=== PATIENT | female | born 1955 | race Caucasian/White ===

== ENCOUNTER 2023-12-10 00:57 | Inpatient (IN) | payer MEDICARE, OTHER, SELFPAY ==
[2023-12-09] MEDS: ATIVAN 2 MG IV (23:48)
[2023-12-09 23:51] VITALS: BP 123/76
[2023-12-09 23:54] VITALS: BP 123/76
[2023-12-09 23:58] VITALS: BMI 39.6
[2023-12-10] VITALS (85 sets, daily range): BP systolic 42–157; BP diastolic 26–112; BMI 34.5
[2023-12-10 00:03] LABS: % Eosinophils 0.7 % (0-6); % Immature Granulocytes 5.1 % (0-0.5); % Lymphocytes 46.9 % (20.5-51.1); % Monocytes 4.9 % (1.7-9.3); % Neutrophils 41.4 % (42.2-75.2); Absolute Basophils 0.3 10^3/uL (0-0.2); Absolute Eosinophils 0.2 10^3/uL (0-0.7); Absolute Immature Granulocytes 1.3 10^3/uL (0-0.05); Absolute Monocytes 1.3 10^3/uL (0.1-0.6); Absolute Neutrophils 10.6 10^3/uL (1.4-6.5); Hematocrit 45.9 % (37.0-47.0); Hemoglobin 15.5 g/dL (12.0-16.0); Mean Corp Hgb Conc. 33.8 g/dL (33.0-37.0); Mean Corpuscular Hgb 32.4 pg (27.0-31.0); Mean Platelet Volume 12.1 fL (7.4-10.4); Nucleated Red Blood Cells % 0.2 %; Platelet Count 250 10^3/uL (130-400); Red Blood Cell Count 4.78 10^6/uL (4.20-5.40); White Blood Cell Count 25.6 10^3/uL (4.8-10.8)
[2023-12-10] MEDS: NORCURON 10 MG IV (00:05)
--- NOTE | 2023-12-10 00:08 | EDRN ---
Pt. arrives from home via EMS ([place]). Upon arrival to home pt. was found ashen and altered. EMS applied CPAP in truck with no improvement, pt. was bagged, heart rated dropped, CPR performed by EMS. Three rounds of epi administered by EMS. HR
did not improve, pt. was intubated in route 7.5 tube, 24 at the [facility], no b/p reported by EMS, 1ml 1-100 ml epi given in route.
Respiratory at bedside upon arrival, respiratory rate 16, 450 tidal volume, 100%, peep 5, entitle 35.
23:48 2mg ativan given
23:49 xray at bedside
23:50 40 mg diprivan given B. Noh
23:41 second 40 mg diprivan given B. Noh
23:51 50 mcg diprivan drip started LAC
23:54 20 mg diprivan given
00:01 diprivan drip reduced to 25 mcg
00 05 10 mg vecuronium given
00:10 NSS 1000ml bolus started
00:20 OG tube inserted
[2023-12-10] MEDS: NSS 500 IV (00:10)
--- NOTE | 2023-12-10 00:14 | ED.GENMED ---
History of Present Illness
General
Chief Complaint: Breathing Problem
Source: patient and ambulance crew
Exam Limitations: clinical condition
Time Seen by Provider: 12/09/23 23:55
Nursing documentation reviewed up to this point in time: agreed with
Travel History
Have you had any contact with someone who has COVID-19?: Unable to Answer
Do you have any symptoms of coronavirus? Fever > 100 degrees, chills, cough, shortness of breath, sore throat, loss of taste or smell, muscle aches, or headache?: Unable to Answer
History of Present Illness
History of Present Illness:
Patient with history of COPD, presents to emergency department, after being intubated prehospital, secondary to respiratory arrest. Per paramedics, called to scene secondary to shortness of breath, and found patient in respiratory distress.
Patient was placed on CPAP as she was being transported onto the ambulance. Shortly afterwards, patient was noted to become bradycardic and unresponsive. Patient was given 3 rounds of epi and intubated, with rastafarian of pulse. Upon arrival,
patient is intubated and unable to provide any further information.
Past History
Past History
ED Past Medical History: Asthma, GERD, HTN, Hypercholesterolemia, Hypothyroidism and Other (Has a history of anxiety, depression, diverticulitis, multiple abdominal hernias, degenerative joint disease, fibromyalgia); Negative IDDM
ED Past Surgical History: Bowel resection (Diverticulitis ), Cholecystectomy and Tonsilectomy
Social History
Tobacco: Smoker
Alcohol: None
Drug: None
Personal:
Living: with family
Employment: Employed
Family History
Family History: Hypertension
Review of Systems
Review of Systems
Allergies reviewed?: Yes
Unable to obtain full review of systems at this time due to: due to acuity
All Other Systems: Not applicable
Phy Exam
Physical Exam
Physical Exam:
Physical Exam
General: moderate distress, acutely ill. afebrile. obese.
Head: nc/at.
Neck: supple. no meningeal signs.
Heart: s1/s2 regular rate and rhythm, no murmur. equal radial pulses.
Lungs: rhonchi bilaterally on ventilator
Abdomen: normal bowel sounds.
Neuro: intubated, sedated.
Skin: no rash
Extremities: LE b/l edema.
Scores
Heart Failure Risk
Heart Failure Risk Score: Not Applicable
Course
Orders/Labs/Results
Orders:
Orders
12/09/23 23:46
Lorazepam [Ativan] 2 mg .ROUTE .STK-MED ONE
12/09/23 23:47
Propofol 1,000,000 Mcg/100 ml [Diprivan] 1,000,000 mcg in 100 ml .ROUTE .STK-MED
12/09/23 23:48
Cardiac Monitoring- Treatment ONCE
EKG- Treatment ONCE
IV Insert/Care/Rem.- Treatment PRN
CR Chest Portable - 1 View Urgent
Reason For Exam: respiratory distress
O2 Therapy [RESP] Urgent
Titrate/Wean O2 to maintain O2 sat greater than (%): 93
Special Instructions: TO MAINTAIN CONTINUOUS O2 SATS >/= 93%
Pulse Ox/cont/shift [RESP] Urgent
Quantity: 1
Special Instructions: continuous pulse ox
12/09/23 23:53
Complete Blood Count/With Diff Urgent
NT-proBNP Urgent
Troponin I Urgent
12/09/23 23:55
Lactic Acid Urgent
Blood Culture Urgent
NGOZI Source: Blood/Venous
Specimen Description:
12/10/23 00:02
Propofol 1,000,000 Mcg/100 ml [Diprivan] 1,000,000 mcg in 100 ml IV NOW
Indication:: Light Sedation
Begin Infusion:: Now
Goal:: RASS 0 to -2
Maximum dose in mcg/kg/min:: 50
Initial dose based on RASS:: Yes
If RASS is:: +1 or pt hemodynamically unstable (SBP < 90mmHg), initiate at 10 mcg/kg/min
If RASS is:: +2, initiate at 20 mcg/kg/min
If RASS is:: greater than or equal to +3, initiate at 30 mcg/kg/min
Titration Instructions:: Titrate by 5-10 mcg/kg/min every 5 minutes until RASS 0 to -2 achieved.
Taper Instructions:: If RASS is at or below goal for 4 consecutive hours decrease infusion by
Taper Instructions:: 5-10 mcg/kg/min every 2 hours to off.
Over-sedation Instructions:: If CPOT 0-2 (at goal) AND RASS -3 to -5 (below goal) decrease sedative by
Over-sedation Instructions:: 50% first. If pain score remains at goal and RASS remains below goal in
Over-sedation Instructions:: 1 hour, decrease opioid infusion by 50%.
Notify provider:: immediately if patient exhibits signs/symptoms of propofol-related
Notify provider:: infusion syndrome.
Additional Instructions:: Patient MUST be mechanically ventilated and MUST receive analgesia.
Vecuronium [place] [Norcuron] 10 mg IV NOW STA
12/10/23 00:03
0.9% Sodium Chloride 500 ml [Nss] 500 ml IV BOLUS
Lorazepam [Ativan] 2 mg IV NOW STA
12/10/23 00:22
CT Head W/o Iv Contrast Urgent
Comment:
Reason For Exam: mental status change
12/10/23 00:34
Admit/Transfer Patient As Directed
Co-Sign Provider:
Level of Care: Inpatient admission
Assign to:: ICU
Physician / Group: [email or web address]
Diagnosis: acute VDRF presumed COPD flare with respiratory failure. s/p brief CPR
Reason for Hospitalization: acute VDRF presumed COPD flare with respiratory failure. s/p brief CPR
Expected length of stay greater than two midnights?: Yes
ELOS- Estimated Length of Stay in days: 5
I certify the patient meets the requirements for IP care: Yes
12/10/23 00:36
Code Status As Directed
Resuscitation Status: Full Code
12/10/23 00:38
COVID-19 Antigen Urgent
Source: Nasal Swab
12/10/23 00:39
Arterial Blood Gas Urgent
%Oxygen/Room Air: 80
Procalcitonin Urgent
PCT Algorithmm Indication: Respiratory
12/10/23 00:52
Blood Culture Urgent
NGOZI Source: Blood/Venous
Specimen Description:
12/10/23 02:22
Ipratropium/Albuterol Sulfate [Duoneb] 3 ml INH R Q4HPRN PRN
12/10/23 02:22
CARDIOLOGY CONSULT Routine
Consulting Provider: Paty Andersen
Was physician already notified: No
Reason for consult: acute VDRF presumed COPD flare with respiratory failure. s/p brief CPR
Consult Notification Routine
Specialty to Notify: Cardiology
Date consulting provider notified: 12/10/23
Time consulting provider notified: 07:52
Notified:: Provider
Export Agent Consult Urgent
Consulting Provider: Gibran Sanchez
Was physician already notified: Yes
Reason for consult: acute VDRF presumed COPD flare with respiratory failure. s/p brief CPR
Activity As Directed
Activity Level: With Assistance
Intake/ Output As Directed
Frequency: Per unit guidelines
Nursing to Place Non Medication Order As Directed
Physician Order: for small bore tube for nutrition and meds
Above order entered?: Yes
Vital Signs As Directed
Frequency: Per unit guidelines
Copd Education [RESP] Routine
DX Deep Vein Thrombosis Video Routine
12/10/23 03:00
Dexamethasone Sod Phosphate [Decadron] 6 mg IV Q6H
12/10/23 03:40
Influenza A+B Rapid Molecular Urgent
NGOZI Source: Nasal Swab
Specimen Description:
12/10/23 06:00
Electrocardiogram (*1) IN AM
Reason for Study: Other
Other Reason for Exam: s/p CPR
NPO
Allow oral meds: No
Allow clear liquids: No
NPO with Ice Chips: No
12/10/23 08:00
Ipratropium/Albuterol Sulfate [Duoneb] 3 ml INH R QID
12/10/23 08:48
Arterial Blood Gas IN AM
%Oxygen/Room Air: 100
12/10/23 18:00
Enoxaparin Sodium [Lovenox] 40 mg SC QPM
12/10/23 20:30
Respiratory Culture/Gram Stain Urgent
NGOZI Source: Sputum
Specimen Description:
Date Specimen was Collected: 12/10/23
Time Specimen was Collected: 20:25
Abnormal Lab Results
12/09/23 12/09/23 12/10/23
23:53 23:55 00:39
WBC 25.6 H 10^3/uL
(4.8-10.8)
MCH 32.4 H pg
(27.0-31.0)
RDW 15.0 H %
(11.5-14.5)
MPV 12.1 H fL
(7.4-10.4)
Abs Immat Gran (auto) 1.3 H 10^3/uL
(0-0.05)
Absolute Neuts (auto) 10.6 H 10^3/uL
(1.4-6.5)
Absolute Lymphs (auto) 12.0 H 10^3/uL
(1.2-3.4)
Absolute Monos (auto) 1.3 H 10^3/uL
(0.1-0.6)
Absolute Basos (auto) 0.3 H 10^3/uL
(0-0.2)
Immature Gran % 5.1 H %
(0-0.5)
Neutrophils % 41.4 L %
(42.2-75.2)
pH 7.09 L*
(7.35-7.45)
pCO2 53 H mmHg
(32-35)
pO2 122 H mmHg
(83-108)
HCO3 16.1 L mmol/L
(21-28)
ABG O2 Sat (Measured) 99.1 H %
(94-98)
Lactic Acid 13.8 H* mmol/L
(0.7-2.0)
Troponin I 0.053 H* ng/ml
12/09/23 23:53
12/09/23 23:53
Vital Signs
Initial and Last Documented VS:
Initial Vital Signs
Temp BP Pulse Ox
98.3 F 123/76 98
12/09/23 23:51 12/09/23 23:51 12/09/23 23:51
Last Documented Vital Signs
Temp Pulse Resp BP Pulse Ox
99.0 F 84 20 100/59 97
12/10/23 19:02 12/10/23 19:33 12/10/23 19:33 12/10/23 18:00 12/10/23 19:34
MDM/Problems Addressed
MDM/Problems Addressed:
Patient received in ED, intubated prehospital. Upon arrival, patient with ET tube in place, with eyes wide open, but not following any commands. At that time, decision made to sedate the patient with Ativan and propofol infusion. Breath sounds
equal, though coarse, during initial evaluation. Chest x-ray confirmed ET tube placement.
Patient will be admitted to ICU for further evaluation and treatment.
Discussed with Dr. Sanchez, hvac service manager, regarding potential cooling treatment. In light of patient's respiratory arrest, with unknown loss of pulse via history, does not feel that patient requires cooling treatment at this time. However, does
recommend keeping close eye on her temperature, to ensure that patient's temperature does not spike. In addition, recommends obtaining CT head in route to ICU.
Discussed with spouse at bedside and provided update. Per spouse, patient was at her baseline health, but suddenly became sob, during sexual intercourse. Pt never passed out at any point until she was transported to ambulance.
Critical care statement: A total of 60 minutes of critical care time was provided for this patient. This includes management of unstable vital signs, evaluation of the patient at bedside, reviewing the patient's pertinent medical records, discussion
with consultants, review of old EKGs and review of pertinent medical records. This time with separate from time utilized to perform the aforementioned documented procedures
*Critical Care Note
Total Time (30-74mins, 75-104mins- exclusive of procedures): 60 min
ED Attending Note
-
Portions of this chart may have been created with voice recognition software.� Occasional wrong word or��sound alike� substitutions may have occurred due to the inherent limitations of voice recognition software.
Discharge Plan
Departure
Patient Disposition: Admit
Date of Disposition: 12/10/23
Time of Disposition: 00:30
Admit to: ICU
Presentation/result/management discussed w/ accepting MD/DO: Hospitalist
Discharge Problem:
Respiratory failure
Interventions
Interventions:
*General Assessment Last Done: 12/10/23 00:30
*Neglect/Abuse Screening Last Done: 12/10/23 00:30
ED- Fall Risk Assessment Last Done: 12/10/23 00:30
*ED COVID-19 Vaccine History Last Done: 12/10/23 00:30
*Nursing Disposition Last Done: 12/10/23 02:31
ED- Cardiac Assessment Last Done: 12/10/23 00:30
ED- Pulmonary Assessment Last Done: 12/10/23 00:30
Discharge Date and Time
Discharge Date/Time: 12/10/23 02:25
[2023-12-10] MEDS: DIPRIVAN 100 IV ×4 (00:24→20:24)
--- NOTE | 2023-12-10 00:29 | HPS.HSE ---
Family Physician
-
Family Physician: INTERVIEWE UNKNOWN - PT NOT
Chief Complaint
-
Pre-hospital intubation due to respiratory failure. Brief CPR performed pre-hospital with 3 rounds of epi.
History of Present Illness
68F [facility] , HX COPD with pre-hospital intubation due to respiratory failure.
Brief CPR performed pre-hospital with 3 rounds of epi.
According to spouse, while they are having sexual intercourse , and he thought she was having an orgasm but noted she gasped and went unconscious.
She was usual state of health prior to this event.
No prior HX intubation.
Medical History
Past Medical History
Past Medical History: Reports Other
Additional Past Medical History:
Asthma, GERD, HTN, Hypercholesterolemia, Hypothyroidism, Other (Has a history of anxiety, depression, diverticulitis, multiple abdominal hernias, degenerative joint disease, fibromyalgia)
Past Surgical History: Reports Other
Additional Past Surgical History:
cataract extraction and laminectomy
Colon resection,
cholecystectomy, hernia repair with large mass, bilateral shoulder surgery,
bilateral knee surgeries and back surgeries.
Social History
Unable to obtain full social history at this time due to: Patient Intubation
Family History
Family History: Not pertinent
Allergies / Home Medications
Allergies reflects when Allergies were last updated in [employer].
Home Medications with original date entered in [employer]
Allergy/Medication List:
Allergies
Allergy/AdvReac Type Severity Reaction Status Date / Time
adhesive Allergy TAPE-SWELLING,RIPS Verified 07/19/17 12:51
SKIN OFF
Iodinated Contrast Media Allergy Pharmacy Verified 07/19/17 12:51
[Iodinated Contrast Media - to Review
IV Dye]
levofloxacin [From Levaquin] Allergy shiva fisher Verified 07/19/17 12:51
ing
morphine Allergy blood Verified 07/19/17 12:51
pressure
drops,
itching,
hyper
contrast dye (oral) Allergy Vomiting Uncoded 06/03/14 11:23
pollen Allergy sneezing,coughing, Uncoded 06/03/14 11:23
coughing
Home Medications
lisinopril 10 mg tablet (Prinivil) 15 mg PO DAILY 06/21/08
alprazolam 1 mg tablet (Xanax) 1 mg PO PRN PRN anxiety 08/30/10
zolpidem 10 mg tablet 10 mg PO HS 08/31/10
Fish Oil 1 cap PO DAILY 10/21/11
fluoxetine 20 mg capsule 60 mg PO DAILY 10/21/11
gabapentin 300 mg capsule 300 mg PO TID 10/21/11
Multivitamin 1 tab PO QPM 07/02/13
Protonix: 40 mg PO DAILY 07/02/13
Tricor 160 mg PO DAILY 07/02/13
furosemide 20 mg tablet 20 mg PO DAILY 07/02/13
levothyroxine 150 mcg tablet 150 mcg PO .TUES/THURS/SAT/SUN 07/02/13
Co Q-10 1 tab PO DAILY 06/03/14
hydromorphone 4 mg tablet 4 mg PO PRN PRN pain 06/03/14
red yeast rice 600 mg tablet 1 tab PO DAILY 06/03/14
Vitamin D3 1 tab PO DAILY 02/14/15
aspirin 81 mg tablet,delayed release 81 mg PO DAILY 02/14/15
carisoprodol 350 mg tablet 350 mg PO PRN PRN muscle spasms 02/14/15
levothyroxine 137 mcg tablet 137 mcg PO MOWEFR 02/14/15
cephalexin 500 mg capsule (Keflex) 500 mg PO BID #20 caps 07/19/17
ibuprofen 600 mg tablet 600 mg PO Q6 #20 tabs 07/19/17
oxycodone-acetaminophen 5 mg-325 mg tablet 1 tab PO Q4HPRN PRN Pain #15 tabs 07/19/17
sulfamethoxazole 800 mg-trimethoprim 160 mg tablet 1 tab PO BID #20 tabs 07/19/17
If medication reconciliation has not been performed, why?: Other (pending Rx reconcilliation )
Review of Systems
-
Constitutional: Reports No Symptoms
EENT: Reports No Symptoms
Respiratory: Reports Other (intubated )
Cardiac: Reports No Symptoms
Abdomen/GI: Reports No Symptoms
: Reports No Symptoms
Musculoskeletal: Reports No Symptoms
Skin: Reports No Symptoms
Neurological: Reports No Symptoms
Endocrine: Reports No Symptoms
Hematologic/Lymphatic: Reports No Symptoms
Psych: Reports No Symptoms
Physical Exam
Vital Signs
Vital Signs
Pulse Resp BP Pulse Ox
86 28 97/62 100
12/10/23 00:00 12/10/23 00:00 12/10/23 00:00 12/10/23 00:00
Physical Exam
General: Other (see below )
Laboratory Results
-
12/09/23 23:53
12/09/23 23:53
Laboratory Results
Total Bilirubin Cancelled 12/09/23 23:53
AST Cancelled 12/09/23 23:53
ALT Cancelled 12/09/23 23:53
Alkaline Phosphatase Cancelled 12/09/23 23:53
Data Reviewed
-
Diagnostic Radiology: Other (pending CXR report )
Medical Tests (Nuc Med, Echo, EKG etc): Report Reviewed by me
Lab Data: Labs Reviewed by me
Old Records: Reviewed
Impression/Plan
-
Reviewed VS: Pending Temp. RR 28 POX 100 on Vent HR 86 BP 125/75--> 95/60
PE
Gen:Morbidly obese . sedated and intubated
HEENT: intubated
Neck: supple
Lungs: symmetric AE
Cor: RRR S1 S2
Abdomen: obese
SALES PROMOTION REPRESENTATIVE: sedated
Psych: intubated
Data
WCC 25
Pending CMP
Pending LA
Pending pro BNP, procalcitonin and TPNI
BCx sent
CXR pending report
Pending HCT
EKG
SINUS RHYTHM WITH PREMATURE ATRIAL COMPLEXES WITH Aberrant conduction
NON-SPECIFIC INTRA-VENTRICULAR CONDUCTION DELAY
T WAVE ABNORMALITY, CONSIDER INFERIOR ISCHEMIA
PROLONGED QT
ABNORMAL ECG
WHEN COMPARED WITH ECG OF 09-SEP-2021 13:10,
PREMATURE VENTRICULAR COMPLEXES ARE NO LONGER PRESENT
QUESTIONABLE CHANGE IN QRS DURATION
10/21 ECHO
LVEF 60
Borderline aortic stenosis, peak/mean gradient 22/13 mmHg, mild eccentric aortic regurgitation
Last hospitalist admission: nil
ASSESSMENT & PLAN
ER disposition to Hospitalist pending esssentila labs, pending ABG, pending Rx reconciliation
Pre hospital intubated patient
Acute VDRF
Presumed COPD exacerbation with respiratory failure.
- cont. sedation with propofol gtt
- await ABG
- Pending LA, pro BNP, procalcitonin and TPNI
- check Covid Ag, Flu A & B
- Resp Cx
- BCx sent
- ER attd dw division traffic superintendent - does not recommend cooling, but recommends to keep close of temp - to make sure she doesn't spike temp
- Internal Control Analyst consulted
S/p Brief CPR performed pre-hospital with 3 rounds of epi.
In NSR
- trend TPNI
- f/u BNP
- DCA card consult
Known HX
Class III morbid Obesity- BMI 40.0-49.9
HX chronic pain
HX spondylolisthesis L5 - S1 with Lumbosacral radiculopathy
Lipoma of left lower extremity
HX Kidney lesion
HX PAM (generalized anxiety disorder)
Hyperlipidemia
Essential HTN
HX Insomnia
HX De Quervain's disease (tenosynovitis)
Hypothyroidism E03.9 confirmed
GERD
Former smoker
HX falling
DVT Px: LMWH
Code: Full code
ICU
[2023-12-10 00:43] LABS: B.E. -14.2 mmol/L; HCO3 16.1 mmol/L (21-28); O2 Saturation % 99.1 % (94-98); PCO2 53 mmHg (32-35); PO2 122 mmHg (83-108)
[2023-12-10 00:49] LABS: pH 7.09 (7.35-7.45)
[2023-12-10 00:49] LABS: NT-proBNP 324 pg/ml; Troponin I 0.053 ng/ml
[2023-12-10 01:27] LABS: COVID-19 Antigen Negative (Negative)
[2023-12-10 01:31] LABS: Procalcitonin < 0.05 ng/ml (0.0-0.25)
[2023-12-10 01:35] LABS: ALT (SGPT) 89 U/L (0-35); AST (SGOT) 164 U/L (14-36); Albumin 3.9 g/dl (3.5-5.0); Alkaline Phosphatase 70 U/L (38-126); Blood Urea Nitrogen 22 mg/dl (7-17); Calcium 9.5 mg/dl (8.4-10.2); Carbon Dioxide 18 mmol/L (22-30); Chloride 104 mmol/L (98-107); Estimated Creatinine Clearance 60 ml/min; Glucose 220 mg/dl (70-99); Potassium 4.2 mmol/L (3.5-5.1); Sodium 140 mmol/L (135-145); Total Bilirubin 0.6 mg/dl (0.2-1.3); Total Protein 5.9 g/dl (6.3-8.2); eGFR > 60.00
[2023-12-10 01:56] LABS: Lactic Acid 13.8 mmol/L (0.7-2.0)
--- NOTE | 2023-12-10 02:14 | W.PN.UPDATE ---
Update Note
Progress Note Update
Fiollow up pending labs
Laboratory Tests
12/09/23 12/09/23 12/10/23
23:53 23:55 00:38
pH
pCO2
pO2
HCO3
Carbon Dioxide
BUN
Creatinine
eGFR
Glucose
Lactic Acid 13.8 H*
AST
ALT
Troponin I 0.053 H*
[id number] Pept 324
Procalcitonin
SARS-CoV-2 Antigen Negative
12/10/23 12/10/23 12/10/23
00:39 00:39 00:39
pH 7.09 L*
pCO2 53 H
pO2 122 H
HCO3 16.1 L
Carbon Dioxide 18
BUN 22
Creatinine 1.0
eGFR >60
Glucose 220
Lactic Acid
AST 164
ALT 89
Troponin I
[id number]-I-Xxjsnoxivjk Pept
Procalcitonin < 0.05
SARS-CoV-2 Antigen
ABG
Primary chronic Resp acidosis
Secondary metabolic acidosis
Additional metabolic alkalosis
Elevated LFTs due to shock liver
NEG procalcitonin essentially r/o sepsis or bacterial infection
[2023-12-10] MEDS: NSS 1000 IV ×4 (03:16→23:50)
[2023-12-10] MEDS: LEVOPHED 250 IV ×3 (03:18→19:38)
[2023-12-10] MEDS: DECADRON 6 MG IV ×4 (03:23→21:23)
--- NOTE | 2023-12-10 03:49 | W.PN.UPDATE ---
Update Note
Progress Note Update
Operation/Procedure: right radial arterial line placement
Consent for operation or procedure: Emergent need due to patient condition - need for invasive monitoring per protocol
Indications: Hemodynamic monitoring
After properly positioning the patient's wrist in the standard fashion, the site was prepped and draped in a sterile fashion. Next, the radial artery was entered, noting bright red, pulsatile flow. A guidewire was easily inserted, the needle
removed, and the catheter was then placed using the Seldinger technique. The guidewire was removed, with good flow present. The catheter was then connected to the transducer with a good waveform noted.
Complications: The patient tolerated the procedure well and no complications were noted.
Estimated Blood Loss: minimal
Plan: Arterial line to remain in place for hemodynamic monitoring.
--- NOTE | 2023-12-10 04:00 | PTCARENOTE ---
Received pt from ER,intubated and sedated,pt tolerated transfer well.Pts MAP 50s,SB cardiac/vascular sonographer,afebrile with a core temp value,received after insertion of andino catheter,which is needed for accurate output.Pt incontinent of rubin liquid
stool,rectal trumpet inserted.Pt maintained on ventilator,O2 sats 99%,volumes consistent.See worklist for complete assessment.Close observation ongoing throughout this am.
[2023-12-10 04:08] LABS: Lactic Acid 2.7 mmol/L (0.7-2.0)
[2023-12-10] MEDS: SUBLIMAZE 100 MCG IV (05:42)
[2023-12-10] MEDS: ZOFRAN 4 MG IV (05:55)
[2023-12-10 07:22] LABS: TSH 1.79 uIU/ml (0.47-4.68)
[2023-12-10 07:34] LABS: ALT (SGPT) 99 U/L (0-35); AST (SGOT) 113 U/L (14-36); Albumin 3.7 g/dl (3.5-5.0); Alkaline Phosphatase 77 U/L (38-126); Blood Urea Nitrogen 25 mg/dl (7-17); Calcium 8.5 mg/dl (8.4-10.2); Carbon Dioxide 16 mmol/L (22-30); Chloride 110 mmol/L (98-107); Estimated Creatinine Clearance 62 ml/min; Glucose 189 mg/dl (70-99); Potassium 4.4 mmol/L (3.5-5.1); Sodium 136 mmol/L (135-145); Total Bilirubin 0.5 mg/dl (0.2-1.3); Total Protein 5.9 g/dl (6.3-8.2); Triglycerides 169 mg/dl (10-149); eGFR > 60.00
[2023-12-10 07:36] LABS: Direct Bilirubin 0.5 mg/dl (0.0-0.4)
[2023-12-10 07:40] LABS: Hematocrit 45.4 % (37.0-47.0); Hemoglobin 15.7 g/dL (12.0-16.0); Mean Corp Hgb Conc. 34.6 g/dL (33.0-37.0); Mean Corpuscular Hgb 32.3 pg (27.0-31.0); Mean Corpuscular Volume 93.4 fL (81.0-99.0); Mean Platelet Volume 11.9 fL (7.4-10.4); Platelet Count 269 10^3/uL (130-400); Red Blood Cell Count 4.86 10^6/uL (4.20-5.40); Red Cell Dist. Width 14.9 % (11.5-14.5); White Blood Cell Count 26.8 10^3/uL (4.8-10.8)
--- NOTE | 2023-12-10 08:00 | PTCARENOTE ---
Received pt from previous shift. Assessment performed, see flowsheets. Pt is intubated with a #7.5 ETT, 24 at the R lip, settings A/C 18/350/5/80, SpO2= 99%. HR is SB-SR, 50s-60s, with multifocal PVCs and a prolonged QTc interval= 0.51 and 1st
degree heart block. Pt is currently in b/l soft wrist restraints. Pain and sedation assessed and closely monitored. Pupils 2mm PERRLA. Rectal tube in place draining rubin-colored liquid stool. Temp-sensing andino catheter draining clear yellow urine.
SCDs in place. R wrist #20 PIV with propofol gtt at 20/11.3mL and NSS gtt at 100mL. Pre-hospital LAC with levophed gtt at 10/37.5mL. Order in place for PICC line. R radial A-line in place, zeroed and flushed. Will continue to closely monitor.
[2023-12-10 08:04] LABS: Troponin I 0.983 ng/ml
--- NOTE | 2023-12-10 08:10 | CON.INTV ---
Consultation
Consultation Request
Date/Time Consultation Requested: 12/10/2023221
Date/Time Consultation Performed: 12/10/2023919
Requesting Provider: Dr. Montgomery
Performing Provider: Dr. Sanchez
Reason for Consultation: Unresponsive now on ventilator; suspected cardiac arrest
Medical History
-
Chief Complaint: Unresponsive
History of Present Illness:
68-year-old female former tobacco smoker with a past medical history of prolonged QTc, reported history of COPD, depression/anxiety and GERD who presented with episode of unresponsiveness during sexual intercourse with her . EMS called and
en route to the hospital patient reportedly lost pulse. Patient was given 3 rounds of epi, and was intubated in the field and brought to the ER. According to the ER who spoke to EMS, it was unclear if she actually lost a pulse or if her heart rate
chills dropped and she had a pause. She was hypotensive in the ER to 79/58, and was saturating 95% on the ventilator via 100% FiO2. End-tidal CO2 was 36. She was afebrile to 98.3 �F. CXR showed suspected airspace disease in the left and right
upper lobes. Blood gas showed pH 7.09 with hypercapnia with pCO2 53. Lactate was initially 13.8. Initial troponin 0.053 with slightly elevated proBNP of 324. WBC elevated at 25.6. COVID antigen negative. 500 cc bolus was given with 0.9% NS,
she was given Ativan, started on propofol and also needed to be paralyzed with vecuronium 10mg IVP x1. Patient then transferred to the ICU for further care and critical care services consulted for additional management/recommendations.
When I saw the patient she was in bed, awake, following commands and this was while on sedation with propofol and fentanyl infusion. She was on Levophed at 10mcg/min which is being weaned down. BP 100/59, heart rate 65 and they were PVCs seen on
the front desk monitor earlier this morning. Patient is in no acute distress. I spoke with the patient's and answered all of his questions. Apparently she has done this before where she has become short of breath and less responsive during
sex and it seems like it is some sort of asthma/COPD flare, but this time she became less responsive and then did not recover.
PMHx: Asthma, ?COPD, GERD, HTN, Hypercholesterolemia, Hypothyroidism, anxiety, depression, diverticulitis, multiple abdominal hernias, degenerative joint disease, fibromyalgia
PSHx: Cataract extraction, laminectomy, colon resection, cholecystectomy, hernia repair with large mass, bilateral shoulder surgery, bilateral knee surgeries back surgeries, tonsillectomy
Past Medical History
Past Medical History: Other (Above as per HPI)
Past Surgical History: Other (Above as per HPI)
Social History
Tobacco: Smoker
Alcohol: Occasional
Drug: None
Living: With Family
Family History
Family History: Reviewed & Not Pertinent
Allergies / Home Medications
Allergies
Allergy/AdvReac Type Severity Reaction Status Date / Time
morphine Allergy Severe blood Verified 12/10/23 01:48
pressure
drops,
itching,
hyper
levofloxacin [From Levaquin] Allergy Mild hives,swell Verified 12/10/23 01:47
ing
adhesive Allergy Unknown TAPE-SWELLING,RIPS Verified 12/10/23 01:47
SKIN OFF
Iodinated Contrast Media Allergy Unknown Pharmacy Verified 12/10/23 01:47
[Iodinated Contrast Media - to Review
IV Dye]
contrast dye (oral) Allergy Mild Vomiting Uncoded 12/10/23 01:49
pollen Allergy Mild sneezing,coughing, Uncoded 12/10/23 01:48
coughing
Home Medications
Medication Instructions Recorded Confirmed Last Taken Type
lisinopril 10 mg tablet (Prinivil) 15 mg PO DAILY 06/21/08 12/10/23 06/02/14 History
alprazolam 1 mg tablet (Xanax) 1 mg PO PRN PRN anxiety 08/30/10 12/10/23 06/02/14 22:00 History
1 MG
zolpidem 10 mg tablet 10 mg PO HS 08/31/10 12/10/23 06/02/14 History
Fish Oil 1 cap PO DAILY 10/21/11 12/10/23 05/27/14 History
fluoxetine 20 mg capsule 60 mg PO DAILY 10/21/11 12/10/23 06/02/14 History
gabapentin 300 mg capsule 300 mg PO TID 10/21/11 12/10/23 06/02/14 History
Multivitamin 1 tab PO QPM 07/02/13 12/10/23 06/02/14 History
Protonix: 40 mg PO DAILY 07/02/13 12/10/23 06/02/14 History
Tricor 160 mg PO DAILY 07/02/13 12/10/23 06/02/14 History
furosemide 20 mg tablet 20 mg PO DAILY 07/02/13 12/10/23 06/02/14 History
levothyroxine 150 mcg tablet 150 mcg PO .TUES/THURS/SAT/SUN 07/02/13 12/10/23 06/01/14 History
Co Q-10 1 tab PO DAILY 06/03/14 12/10/23 06/02/14 History
hydromorphone 4 mg tablet 4 mg PO PRN PRN pain 06/03/14 12/10/23 05/31/14 History
red yeast rice 600 mg tablet 1 tab PO DAILY 06/03/14 12/10/23 06/02/14 History
Vitamin D3 1 tab PO DAILY 02/14/15 12/10/23 Unknown History
aspirin 81 mg tablet,delayed 81 mg PO DAILY 02/14/15 12/10/23 Unknown History
release
carisoprodol 350 mg tablet 350 mg PO PRN PRN muscle spasms 02/14/15 12/10/23 Unknown History
levothyroxine 137 mcg tablet 137 mcg PO MOWEFR 02/14/15 12/10/23 Unknown History
cephalexin 500 mg capsule (Keflex) 500 mg PO BID #20 caps 07/19/17 12/10/23 Unknown Rx
ibuprofen 600 mg tablet 600 mg PO Q6 #20 tabs 07/19/17 12/10/23 Unknown Rx
oxycodone-acetaminophen 5 mg-325 1 tab PO Q4HPRN PRN Pain #15 tabs 07/19/17 12/10/23 Unknown Rx
mg tablet
sulfamethoxazole 800 1 tab PO BID #20 tabs 07/19/17 12/10/23 Unknown Rx
mg-trimethoprim 160 mg tablet
Review of Systems
-
Unable to Obtain full review of systems at this time due to: Patient Intubation
Vitals / Labs / Diagnostic Testing
Vital Signs
Temp Pulse Resp BP Pulse Ox
97.9 F 68 18 116/71 98
12/10/23 07:30 12/10/23 09:30 12/10/23 09:30 12/10/23 09:30 12/10/23 09:30
Lab Data
12/10/23 07:27
12/10/23 06:08
Laboratory Results
12/10/23 12/10/23
00:39 08:48
pH 7.09 L* 7.28 L
pCO2 53 H 42 H
pO2 122 H 119 H
HCO3 16.1 L 19.7 L
O2 Delivery Level Not Reportable
Microbiology
12/10/23 03:40 Nasal Swab Influenza Types A & B (MALIK) - Final
Negative for Influenza A & B, NAAT
Negative results must be combined with clinical observations
and patient history.
Nucleic Acid Amplification test (NAAT)performed on the
[employer] platform.
12/10/23 07:27 Feces/Stool C. difficile GDH Antigen & Toxins - Final
Negative for toxigenic C.difficile
Diagnostic Testing:
Physical Exam
-
HEENT: Normocephalic and Anicteric
Cardiovascular: S1/S2 and Peripheral Edema (Negative)
Respiratory: Wheeze (Negative), Rales (Negative), Rhonchi (Bilateral upper lobes (R >L)), Non-Labored Respirations and Other (ETT in place; mechanical breath sounds bilaterally)
GI: Soft, Non Distended and Non Tender
Neurology: No Motor Deficits and Other (Lethargic/sedated but easily arousable follows all commands)
Skin: Warm and Dry
General: Comfortable and Chills (Negative)
Assessment
-
Assessment: 68-year-old female former tobacco smoker with a past medical history of prolonged QTc, reported history of COPD, depression/anxiety and GERD who presented with episode of unresponsiveness during sexual intercourse with her . EMS
called and en route to the hospital patient reportedly lost pulse. Patient was given 3 rounds of epi, and was intubated in the field and brought to the ER. According to the ER who spoke to EMS, it was unclear if she actually lost a pulse or if her
heart rate chills dropped and she had a pause. She was hypotensive in the ER to 79/58, and was saturating 95% on the ventilator via 100% FiO2. End-tidal CO2 was 36. She was afebrile to 98.3 �F. CXR showed suspected airspace disease in the left
and right upper lobes. Blood gas showed pH 7.09 with hypercapnia with pCO2 53. Lactate was initially 13.8. Initial troponin 0.053 with slightly elevated proBNP of 324. WBC elevated at 25.6. COVID antigen negative. 500 cc bolus was given with
0.9% NS, she was given Ativan, started on propofol and also needed to be paralyzed with vecuronium 10mg IVP x1. Patient then transferred to the ICU for further care and critical care services consulted for additional management/recommendations.
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
Impression:
#Suspected out of hospital cardiac arrest -patient now following commands and is awake/alert
#Acute respiratory failure with hypoxemia/hypercapnia on mechanical ventilation - possible asthma/COPD flare
#Diarrhea
#Shock on vasopressors - suspect hypovolemia with sepsis
#Lactic acidosis -likely due to hypoperfusion during episode of unresponsiveness/bradycardia/loss of pulse -lactate now normalized
#Hyperglycemia
#Metabolic acidosis with increased anion gap -due to lactic acidosis
#Aspiration pneumonia
#Elevated troponin -likely type II PA in the setting of suspected cardiac arrest
#Elevated LFTs
#Leukocytosis -likely both reactive and due to suspected pneumonia
Plan:
- Continue mechanical ventilation with daily SAT/SBT if clinically appropriate
- Titrate PEEP and FiO2 to maintain SpO2 >90-94%
- Considering patient has a history of asthma/?COPD and this could be related to a possible flare induced by sexual activity, continue with systemic steroids and wean as tolerated -currently on Decadron 6 mg IV q6hr
- Maintain plateau pressure <30
- Considering she had a suspected cardiac arrest with bilateral opacities with possible aspiration pneumonia/pneumonitis, I will start Unasyn; also give zithromycin given her reported Hx of COPD
- Follow-up infectious workup and check sputum culture and Legionella/strep pneumonia urine antigens
- Also follow-up stool studies
- Continue Symbicort with nebulized bronchodialtors QID and DuoNebs prn
- Considering her suspected cardiac arrest and PVCs while here in ICU, would favor either ischemic workup vs event monitor once pt has stabilized - would defer this to cardiology
- Maintain MAP>65 and wean vasopressors as tolerated
- Continue IVF with NS @ 100cc/hr --> careful not to cause volume overload --> I will put stop date to the IVF
- Maintain euglycemia with goal BG 140�180
- Replete K >4, Mg >2
- Stress ulcer ppx: PPI
- DVT prophylaxis: LMWH
Critical care statement: A total of 40 minutes of critical care time was provided for this patient today. This includes management of unstable vital signs, evaluation of the patient at bedside, reviewing the patient's pertinent medical records
including radiographs, microbiology, laboratory evaluations, and discussion with primary team, consultants, pharmacy, nutrition, physical therapy, case management, charge nurse, critical care nursing, and respiratory therapy.
Data:
CT Head 12-10-2023:
1. � There is no acute intracranial process.
2. � MRI would be more sensitive in this regard if symptoms persist.
3. � Moderate diffuse volume loss.
CXR 12-09-2023:
1. The endotracheal tube could be retracted slightly although evaluation is somewhat limited.
2. There is airspace disease in both upper lobes. Pneumonia versus atelectasis
TTE - 12/10/2023:
Normal left ventricular chamber size. Normal left ventricular systolic
�function. Normal regional wall motion. Mild concentric left ventricular
�hypertrophy. Left ventricular ejection fraction is 55-60% by Villeda's method
�of discs. Diastolic function indeterminate.
�Normal right ventricular size and function.
�Mitral valve opens normally. Trace mitral regurgitation.
�Thickened aortic valve with restricted leaflet motion. Mild aortic stenosis.
�Peak/mean gradients across the aortic valve are 20/12 mmHg respectively. Mild
�aortic regurgitation.
�Tricuspid valve opens normally. Mild tricuspid regurgitation. Estimated
�pulmonary artery pressure of 40-45 mmHg assuming a right atrial pressure of 3
�mmHg.
[2023-12-10] MEDS: SUBLIMAZE 50 MCG IV ×4 (08:14→19:26)
[2023-12-10] MEDS: SUBLIMAZE 100 IV ×2 (08:15→21:50)
--- NOTE | 2023-12-10 08:26 | CON.CAR ---
Consultation
Consultation Request
Date/Time Consultation Requested: 12/10/2023 7: 30 AM
Date/Time Consultation Performed: 12/10/2023 8: 20 a.m.
Requesting Provider: Dr Montgomery
Performing Provider: Dr. Paty Andersen
Reason for Consultation: Respiratory failure
Medical History
-
History of Present Illness:
She is here after what appears to be respiratory arrest in the field and is intubated. According to notes EMS was called after patient began having respiratory distress. Patient collapsed and was intubated in the field with CPR and according to
notes 3 rounds of epinephrine. At the time this was acute onset during sexual intercourse. She is currently intubated and sedated and requiring pressor support.
According to records she is an active tobacco user. She has morbid obesity. She has hypertension hyperlipidemia on treatment. Chest x-ray appears abnormal.
Patient with increased white count 26.8K and immature granulocytes/lymphocytes seen. Increased lactate. Increased LFTs.
Second troponin is mildly elevated at 0.93. EKG without acute abnormality PVCs noted. Telemetry stable with sinus rhythm and PVCs.
Past Medical History
Past Medical History: COPD, HTN, Hypercholesterolemia and Other (Morbid obesity, hypothyroidism, back pain, history of serotonin syndrome)
Past Surgical History: Bowel Resection, Cholecystectomy, Orthopedic (Total knee placement bilateral) and Other (Cataract surgery, hernia repair with mesh,)
Social History
Tobacco: Smoker
Personal:
Family History
Family History: CAD (Father history of coronary disease, Alzheimer's dementia. Mother history of TIA/CVAs and myocardial infarction. Paternal grandfather at age 48 myocardial infarction. Maternal grandmother myocardial infarction.)
Allergies / Home Medications
Allergy/AdvReac Type Severity Reaction Status Date / Time
morphine Allergy Severe blood Verified 12/10/23 01:48
pressure
drops,
itching,
hyper
levofloxacin [From Levaquin] Allergy Mild hives,swell Verified 12/10/23 01:47
ing
adhesive Allergy Unknown TAPE-SWELLING,RIPS Verified 12/10/23 01:47
SKIN OFF
Iodinated Contrast Media Allergy Unknown Pharmacy Verified 12/10/23 01:47
[Iodinated Contrast Media - to Review
IV Dye]
contrast dye (oral) Allergy Mild Vomiting Uncoded 12/10/23 01:49
pollen Allergy Mild sneezing,coughing, Uncoded 12/10/23 01:48
coughing
Medication Instructions Recorded Confirmed Type
lisinopril 10 mg tablet (Prinivil) 15 mg PO DAILY 06/21/08 12/10/23 History
alprazolam 1 mg tablet (Xanax) 1 mg PO PRN PRN anxiety 08/30/10 12/10/23 History
zolpidem 10 mg tablet 10 mg PO HS 08/31/10 12/10/23 History
Fish Oil 1 cap PO DAILY 10/21/11 12/10/23 History
fluoxetine 20 mg capsule 60 mg PO DAILY 10/21/11 12/10/23 History
gabapentin 300 mg capsule 300 mg PO TID 10/21/11 12/10/23 History
Multivitamin 1 tab PO QPM 07/02/13 12/10/23 History
Protonix: 40 mg PO DAILY 07/02/13 12/10/23 History
Tricor 160 mg PO DAILY 07/02/13 12/10/23 History
furosemide 20 mg tablet 20 mg PO DAILY 07/02/13 12/10/23 History
levothyroxine 150 mcg tablet 150 mcg PO .TUES/THURS/SAT/SUN 07/02/13 12/10/23 History
Co Q-10 1 tab PO DAILY 06/03/14 12/10/23 History
hydromorphone 4 mg tablet 4 mg PO PRN PRN pain 06/03/14 12/10/23 History
red yeast rice 600 mg tablet 1 tab PO DAILY 06/03/14 12/10/23 History
Vitamin D3 1 tab PO DAILY 02/14/15 12/10/23 History
aspirin 81 mg tablet,delayed 81 mg PO DAILY 02/14/15 12/10/23 History
release
carisoprodol 350 mg tablet 350 mg PO PRN PRN muscle spasms 02/14/15 12/10/23 History
levothyroxine 137 mcg tablet 137 mcg PO MOWEFR 02/14/15 12/10/23 History
cephalexin 500 mg capsule (Keflex) 500 mg PO BID #20 caps 07/19/17 12/10/23 Rx
ibuprofen 600 mg tablet 600 mg PO Q6 #20 tabs 07/19/17 12/10/23 Rx
oxycodone-acetaminophen 5 mg-325 1 tab PO Q4HPRN PRN Pain #15 tabs 07/19/17 12/10/23 Rx
mg tablet
sulfamethoxazole 800 1 tab PO BID #20 tabs 07/19/17 12/10/23 Rx
mg-trimethoprim 160 mg tablet
Review of Systems
-
Unable to obtain full review of systems at this time due to: Patient Intubation
Physical Exam
Vital Signs
Temp Pulse Resp BP Pulse Ox
97.9 F 73 16 100/63 99
12/10/23 07:30 12/10/23 07:30 12/10/23 07:30 12/10/23 07:30 12/10/23 08:00
Lab Results
12/10/23 07:27
12/10/23 06:08
Troponin I 0.983 ng/ml H* D 12/10/23 07:27
Qst-A-Wvienjgezjn Pept 324 pg/ml 12/09/23 23:53
General: Critically ill woman
Neck: Intubated
Heart: Distant heart sounds, regular, 3/6 systolic murmur at the base and left sternal border
Lungs: Intubated with coarse anterior breath sounds
Extremities: No clubbing, cyanosis and trace edema bilaterally.
Neuro: Intermittently opens eyes
Impression / Plan
-
Impression:
Suspected respiratory arrest with vent dependent respiratory failure
Hypotension consistent requiring pressor support
Troponin elevation likely non-DE troponin elevation
COPD
Abnormal AP chest x-ray
Elevated white blood count with increased lymphocytes and immature granulocytes
Hypertension
Hyperlipidemia
Tobacco use disorder
Morbid obesity
PVCs
Lexiscan nuclear stress test 10/27/2021 negative for ischemia ejection fraction 44% (PVCs)
Echocardiogram 09/24/2021 LVEF 60%. Mild LVH. Normal right ventricle. Borderline aortic stenosis, peak/mean gradient 22/13 mmHg, mild eccentric AI. Normal right heart with normal pulmonary artery pressure
Plan:
Acute hypoxemic respiratory in the setting of likely COPD
Continue supportive care. Patient currently intubated. Machinist Helper will be seeing patient.
Chest x-ray abnormal specially left upper lobe. May need further imaging.
D-dimer negative unlikely to be pulmonary embolism but risk factors include obesity
Elevated lactate
Decision regarding antibiotics per horse stud manager and primary service
Tobacco use disorder
Non-DE troponin elevation (0.93)
Mild elevation of troponins continue to trend
EKG without acute abnormality
Telemetry sinus rhythm with PVCs
Echocardiogram today
Patient with cardiovascular risk factors noted
81 mg aspirin will be started
Check lipids (history of hyperlipidemia on treatment as an outpatient on primary care note on fenofibrate 160 daily and rosuvastatin 10 mg daily)
Aortic valve stenosis
Borderline on echo 2020
Murmur noted and consistent
Await echo
Hypotension
Pressor support wean as able
Outpatient history of hypertension
PVCs
Follow and replete electrolytes
On Toprol-XL as an outpatient, no mention of PVCs previously
Elevated white blood count (increased lymphocytes and immune granulocytes noted)
Defer to primary service
I have spent 31 minutes total critical care time.
Discussed plan with nursing
Data Reviewed
-
EKG: Tracing Personally Visualized and interpreted
Radiology: Image Personally Visualized and interpreted
Ultrasound: Report Reviewed by me
Medical Tests (Nuc Med, Echo etc): Image Personally Visualized and interpreted and Report Reviewed by me
Labs: Labs Reviewed by me
Old Records: Reviewed
Critical Care Time (in minutes): 31 minutes
--- NOTE | 2023-12-10 08:30 | PTCARENOTE ---
Fentanyl gtt initiated at 08:15 at 25/2.5mL, see MAR.
[2023-12-10] MEDS: DUONEB 3 ML INH ×4 (08:45→19:24)
[2023-12-10 08:57] LABS: B.E. -6.8 mmol/L; HCO3 19.7 mmol/L (21-28); O2 Saturation % 99.1 % (94-98); PCO2 42 mmHg (32-35); PO2 119 mmHg (83-108); pH 7.28 (7.35-7.45)
--- NOTE | 2023-12-10 12:00 | PTCARENOTE ---
RUE double lumen PICC placed by IV team and verified by CXR. R nare DHT placed and verified by air bolus and CXR. RT weaning vent settings as tolerated. Otherwise no changes in assessment at this time.
[2023-12-10 12:11] LABS: Lactic Acid 0.8 mmol/L (0.7-2.0)
[2023-12-10 12:27] LABS: Troponin I 0.713 ng/ml
--- NOTE | 2023-12-10 12:28 | W.PN.HOSP.TC ---
Today's Communication/Plan
-
Monitor vital signs see plan
Currently intubated and sedated
Wean pressors as tolerated
Wean FiO2 as tolerated
Restart Synthroid, aspirin
Echo
on fent and prop
Nonbillable note
Assessment / Plan
Assessment / Plan
Gen:Morbidly obese, sedated
HEENT: intubated, anicteric
Lungs: Ventilated breath sounds
CVS: normal s1 and s2; RRR, systolic murmur and left sternal border
Abdomen: obese,non tender
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
Acute hypoxic respiratory failure likely secondary to COPD
s/p brief CPR and 3 rounds epi pre hospital
Presumed COPD exacerbation with respiratory failure
Intubated and sedated; wean FiO2 as tolerated
Lactic acidosis, improving
Negative Pro-[place]achew
- neg Covid Ag, Flu; bcx pending
started on norepi for hypotension; wean as tolerated
currently on fent and prop
cw steroids,nebs
Elevated trop likely non MT related
echo
cardiology evaluation
S/p Brief CPR performed pre-hospital with 3 rounds of epi
Known HX
morbid Obesity
HX chronic pain
HX� spondylolisthesis L5 - S1 � with Lumbosacral radiculopathy�
Lipoma of left lower extremity �
HX� Kidney lesion �
HX � PAM (generalized anxiety disorder)� �
Hyperlipidemia� �
Essential� HTN
HX Insomnia� �
HX De Quervain's disease (tenosynovitis) �
Hypothyroidism� � E03.9� � confirmed �
GERD
Former smoker� � �
HX falling �
DVT Px: LMWH
Code: Full code
Anticipated Discharge: > 48 hours
Subjective/Interval History
-
Date of Service: December 10, 2023
Intubated and sedated
Objective Data
-
Labs:
Laboratory Results
12/10/23 12/10/23 12/10/23
00:39 01:06 06:08
WBC Cancelled
Hgb Cancelled
Hct Cancelled
Plt Count Cancelled
HCO3 16.1 L
Sodium 140 136
Potassium 4.2 4.4
Chloride 104 110 H
Carbon Dioxide 18 L 16 L
BUN 22 H 25 H
Creatinine 1.0 1.0
Glucose 220 H 189 H
Calcium 9.5 8.5
Total Bilirubin 0.6 0.5
AST 164 H 113 H
ALT 89 H 99 H
Alkaline Phosphatase 70 77
12/10/23 12/10/23
07:27 08:48
WBC 26.8 H
Hgb 15.7
Hct 45.4
Plt Count 269
HCO3 19.7 L
Sodium
Potassium
Chloride
Carbon Dioxide
BUN
Creatinine
Glucose
Calcium
Total Bilirubin
AST
ALT
Alkaline Phosphatase
Vital Signs:
Vital Signs
Temp Pulse Resp BP Pulse Ox
97.9 F 70 20 101/63 94
12/10/23 07:30 12/10/23 11:30 12/10/23 11:30 12/10/23 10:30 12/10/23 11:32
I&O
12/09/23 12/10/23 12/11/23
06:59 06:59 06:59
Intake Total 1421.1 / 1569.9 751.5 / 751.5
Output Total 450 / 480 120 / 120
Balance 971.1 / 1089.9 631.5 / 631.5
[2023-12-10] MEDS: PROTONIX IV 40 MG IV (14:23)
[2023-12-10] MEDS: NSS (PRESERVATIVE FREE) 10 ML IV (14:23)
[2023-12-10] MEDS: LOW STRENGTH ASPIRIN 81 MG TUBE (14:24)
--- NOTE | 2023-12-10 16:00 | PTCARENOTE ---
Pt's at bedside and updated by Senior Asic Engineer. Weaning levophed gtt as tolerated, see worklist. Otherwise no changes in assessment at this time.
[2023-12-10] MEDS: LOVENOX 40 MG SC (17:32)
[2023-12-10 18:48] LABS: Troponin I 0.367 ng/ml
[2023-12-10] MEDS: SYMBICORT 160/4.5 MCG INHALER 2 PUFF INH (19:24)
--- NOTE | 2023-12-10 19:30 | PTCARENOTE ---
Rec'd pt awake, follows commands, wrists restrained for pt safety, fent 50mic iv given for pain, fent gtt incr to 75mic, diprivan gtt at 39 jose a, SR w/ BBB, R rad kenrick w/ good wave form, flushes well, zeroed, accurate to cuff, to keep MAP > 65,
levophed gtt at 2 jose a, weak distal pulses, skin warm/dry, #7.5 oral ett- moved to left at 24 cm, ac 20, tv 350, 5 peep, 40%, sat 97, lungs w/ scat rhonchi, sm amt white secretions- specimen sent, + bowel sounds, rectal trumpet to str drainage bag
draining rubin liquid stool, R nares dobhoff- osmolyte 1.2 at 20ml/hr & 25ml/hr h20 flush, 5ml resid, no n/v, temp sensing andino draining yellow urine
[2023-12-10] MEDS: UNASYN IV (19:38)
[2023-12-10] MEDS: ZITHROMAX INFUSION 250 IV (20:23)
[2023-12-11] VITALS (30 sets, daily range): BP systolic 91–155; BP diastolic 52–101; BMI 35.7
--- NOTE | 2023-12-11 | PTCARENOTE ---
sys reviewed, canges noted, CHG bath done, linens changed, tube fdg incr to goal of 45ml/hr w/ 25ml h20 flush
[2023-12-11] MEDS: UNASYN IV ×4 (01:54→19:57)
[2023-12-11] MEDS: DIPRIVAN 100 IV ×2 (01:55→06:36)
[2023-12-11 03:38] LABS: % Basophils 0.2 % (0-2); % Eosinophils 5.2 % (0-6); % Immature Granulocytes 0.8 % (0-0.5); % Lymphocytes 4.6 % (20.5-51.1); % Monocytes 4.5 % (1.7-9.3); % Neutrophils 84.7 % (42.2-75.2); Absolute Immature Granulocytes 0.2 10^3/uL (0-0.05); Absolute Lymphocytes 0.9 10^3/uL (1.2-3.4); Absolute Monocytes 0.9 10^3/uL (0.1-0.6); Absolute Neutrophils 16.7 10^3/uL (1.4-6.5); Hematocrit 38.1 % (37.0-47.0); Hemoglobin 13.8 g/dL (12.0-16.0); Mean Corp Hgb Conc. 36.2 g/dL (33.0-37.0); Mean Corpuscular Hgb 32.6 pg (27.0-31.0); Mean Corpuscular Volume 90.1 fL (81.0-99.0); Mean Platelet Volume 11.9 fL (7.4-10.4); Nucleated Red Blood Cells % 0 %; Platelet Count 232 10^3/uL (130-400); Red Blood Cell Count 4.23 10^6/uL (4.20-5.40); Red Cell Dist. Width 15.5 % (11.5-14.5); White Blood Cell Count 19.7 10^3/uL (4.8-10.8)
[2023-12-11] MEDS: DECADRON 6 MG IV ×2 (03:41→10:42)
[2023-12-11 03:45] LABS: B.E. -5.4 mmol/L; O2 Saturation % 96.7 % (94-98); PCO2 38 mmHg (32-35); PO2 76 mmHg (83-108); pH 7.33 (7.35-7.45)
[2023-12-11 04:13] LABS: Procalcitonin 4.89 ng/ml (0.0-0.25)
--- NOTE | 2023-12-11 04:17 | PTCARENOTE ---
sys reviewed, ett repos on R side, weaning levo as windy
--- NOTE | 2023-12-11 04:19 | PTCARENOTE ---
Misti Barney NP aware of pro john level
[2023-12-11 04:21] LABS: ALT (SGPT) 63 U/L (0-35); AST (SGOT) 48 U/L (14-36); Albumin 3.1 g/dl (3.5-5.0); Alkaline Phosphatase 41 U/L (38-126); Blood Urea Nitrogen 15 mg/dl (7-17); Calcium 8.2 mg/dl (8.4-10.2); Carbon Dioxide 19 mmol/L (22-30); Chloride 108 mmol/L (98-107); Estimated Creatinine Clearance 105 ml/min; Glucose 157 mg/dl (70-99); HDL Cholesterol 44 mg/dl; LDL Cholesterol, Calculated 50 mg/dl; Magnesium 1.7 mg/dl (1.6-2.3); Phosphorus 2.9 mg/dl (2.5-4.5); Potassium 4.1 mmol/L (3.5-5.1); Sodium 135 mmol/L (135-145); Total Bilirubin 0.7 mg/dl (0.2-1.3); Total Cholesterol 141 mg/dl (50-199); Total Protein 5.3 g/dl (6.3-8.2); Triglyceride 238 mg/dl (10-149); Very Low Density Lipoprotein 47 mg/dl (0-30); eGFR > 60.00
[2023-12-11 04:57] LABS: Troponin I 0.153 ng/ml
[2023-12-11] MEDS: MAGNESIUM SULFATE 100 IV (05:26)
[2023-12-11] MEDS: SYNTHROID 125 MCG TUBE (05:26)
--- NOTE | 2023-12-11 05:27 | PTCARENOTE ---
1 gm mag sulfate over 1 hr given per order
--- NOTE | 2023-12-11 06:58 | W.PN.HOSP.TC ---
Today's Communication/Plan
-
Vent management and sedation as per hospice case manager and pulmonary
Continue on Unasyn/continue IV steroid
Obtain MRSA screen
Follow leukocytosis
Await blood cultures
Assessment / Plan
Assessment / Plan
Gen:Morbidly obese, sedated
HEENT: intubated, anicteric
Lungs: Ventilated breath sounds
CVS: normal s1 and s2; RRR, systolic murmur and left sternal border
Abdomen: obese,non tender
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
Acute hypoxic respiratory failure likely secondary to COPD
s/p brief CPR and 3 rounds epi pre hospital
Presumed COPD exacerbation with respiratory failure
Intubated and sedated; wean FiO2 as tolerated
Lactic acidosis, improving
Negative Pro-[place]w initially now elevated at 4.8
-Now have to consider aspiration event/Unasyn to continue
- neg Covid Ag, Flu; bcx pending
started on norepi for hypotension; wean as tolerated
currently on fent and prop
cw steroids,nebs
Elevated trop likely non PA related
echo results reviewed EF 60% with some pulmonary hypertension
-Troponin has trended down no need to follow further
cardiology evaluation appreciated
S/p Brief CPR performed pre-hospital with 3 rounds of epi
Known HX
morbid Obesity
HX chronic pain
HX� spondylolisthesis L5 - S1 � with Lumbosacral radiculopathy�
Lipoma of left lower extremity �
HX� Kidney lesion �
HX � PAM (generalized anxiety disorder)� �
Hyperlipidemia� �
Essential� HTN
HX Insomnia� �
HX De Quervain's disease (tenosynovitis) �
Hypothyroidism� � E03.9� � confirmed �
GERD
Former smoker� � �
HX falling �
DVT Px: LMWH
Code: Full code
Anticipated Discharge: > 48 hours
Subjective/Interval History
-
Date of Service: December 11, 2023
Remains intubated on pressors and propofol
Objective Data
-
Labs:
Laboratory Results
12/11/23
03:28
WBC 19.7 H
Hgb 13.8
Hct 38.1
Plt Count 232
HCO3 20.0 L
Sodium 135
Potassium 4.1
Chloride 108 H
Carbon Dioxide 19 L
BUN 15
Creatinine 0.5 L
Glucose 157 H
Calcium 8.2 L
Total Bilirubin 0.7
AST 48 H
ALT 63 H
Alkaline Phosphatase 41
Vital Signs:
Vital Signs
Temp Pulse Resp BP Pulse Ox
98.8 F 53 20 110/60 97
12/11/23 04:00 12/11/23 06:00 12/11/23 06:00 12/11/23 06:00 12/11/23 05:45
I&O
12/09/23 12/10/23 12/11/23
06:59 06:59 06:59
Intake Total 1421.1 / 1569.9 4917.8 / 4917.8
Output Total 450 / 480 1155 / 1155
Balance 971.1 / 1089.9 3762.8 / 3762.8
Review of Systems
-
Unable to obtain full review of systems at this time due to: Patient Intubation
History Source: Patient (Unresponsive and sedated)
All other systems: Not reviewed unless documented
Physical Exam
-
General: Intubated, Obese and Morbidly Obese
HEENT: Anicteric
Respiratory: Rhonchi
Cardiac: Regular Rhythm and Bradycardic
GI: Soft, Nontender and Nondistended
Skin: IV Access / Catheter Site
Neuro: Nonfocal/Grossly Intact
Data Reviewed
-
Total Time Spent with Patient (in minutes): 67
CT Scan: Report Reviewed by me (Unremarkable CT of head/airspace disease is noted in both upper lobes)
Medical Tests (Nuc Med, Echo etc): Report Reviewed by me (2D echocardiogram with 60% EF and pulmonary pressures of 40 to 45 mmHg)
Labs: Labs Reviewed by me (Procalcitonin level significant elevated at 4.8 at had been normal presentation yesterday/white count trending down from 26-19.7 left shift)
--- NOTE | 2023-12-11 07:25 | W.PN.INTV ---
Today's Communication / Plan
Recommendations
Transition to ASV, CPAP wean
Continue antibiotics
Check lower extremity Dopplers
Wean off pressors
Assessment
-
Assessment: 68-year-old female former tobacco smoker with a past medical history of prolonged QTc, reported history of COPD, depression/anxiety and GERD who presented with episode of unresponsiveness during sexual intercourse with her . EMS
called and en route to the hospital patient reportedly lost pulse. Patient was given 3 rounds of epi, and was intubated in the field and brought to the ER. According to the ER who spoke to EMS, it was unclear if she actually lost a pulse or if her
heart rate chills dropped and she had a pause. She was hypotensive in the ER to 79/58, and was saturating 95% on the ventilator via 100% FiO2. End-tidal CO2 was 36. She was afebrile to 98.3 �F. CXR showed suspected airspace disease in the left
and right upper lobes. Blood gas showed pH 7.09 with hypercapnia with pCO2 53. Lactate was initially 13.8. Initial troponin 0.053 with slightly elevated proBNP of 324. WBC elevated at 25.6. COVID antigen negative. 500 cc bolus was given with
0.9% NS, she was given Ativan, started on propofol and also needed to be paralyzed with vecuronium 10mg IVP x1. Patient then transferred to the ICU for further care and critical care services consulted for additional management/recommendations.
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
Impression:
#Suspected out of hospital cardiac arrest -patient now following commands and is awake/alert
#Acute respiratory failure with hypoxemia/hypercapnia on mechanical ventilation - possible asthma/COPD flare
#Diarrhea
#Shock on vasopressors - suspect hypovolemia with sepsis
#Lactic acidosis -likely due to hypoperfusion during episode of unresponsiveness/bradycardia/loss of pulse -lactate now normalized
#Hyperglycemia
#Metabolic acidosis with increased anion gap -due to lactic acidosis
#Aspiration pneumonia
#Elevated troponin -likely type II IN in the setting of suspected cardiac arrest
#Elevated LFTs
#Leukocytosis -likely both reactive and due to suspected pneumonia
Plan/recommendations
At this time, patient remains critically ill, on low-dose pressors, mechanical ventilation
Current ventilator settings, airway pressures adequate, plateau pressure 18
Chest x-ray with bilateral patchy infiltrate per my review
Leukocytosis noted
Elevated procalcitonin noted. Mildly elevated troponin
Echocardiogram normal
Moving forward
Continue with volume-cycled ventilation
Transition to ASV, then CPAP/SBT as able
Wean off sedation
Hold for possible extubation later today
Current airway pressures not consistent with significant airway obstruction
Low threshold to discontinue steroid therapy
Reviewed with cardiology. Elevated troponin in the setting of cardiac arrest not overwhelming
EKG changes noted
Eventual ischemic evaluation per cardiology
No clear evidence of thromboembolic process. Unlikely recovery from cardiac arrest from PE without any hemodynamic sequela or echocardiogram findings
Lower suspicion for thromboembolic disease, but will check lower extremity Dopplers
Apparently per further discussion with family, syncopal, loss of consciousness, common for patient during sexual intercourse
There is a suspicion for aspiration event given chest x-ray findings, elevated procalcitonin
For now we will continue Unasyn. Will discontinue Zithromax this is a chronic outpatient medication
Continue Symbicort with nebulized bronchodialtors QID and DuoNebs prn
Continue IV fluids
Follow blood sugars
DVT prophylaxis: Enoxaparin
GI prophylaxis: Pantoprazole
Critical care statement: A total of 36 minutes of critical care time was provided for this patient today. This includes management of unstable vital signs, evaluation of the patient at bedside, reviewing the patient's pertinent medical records
including radiographs, microbiology, laboratory evaluations, and discussion with primary team, consultants, pharmacy, nutrition, physical therapy, case management, charge nurse, critical care nursing, and respiratory therapy.
Data:
CT Head 12-10-2023:
1. � There is no acute intracranial process.
2. � MRI would be more sensitive in this regard if symptoms persist.
3. � Moderate diffuse volume loss.
CXR 12-09-2023:
1. The endotracheal tube could be retracted slightly although evaluation is somewhat limited.
2. There is airspace disease in both upper lobes. Pneumonia versus atelectasis
TTE - 12/10/2023:
Normal left ventricular chamber size. Normal left ventricular systolic
�function. Normal regional wall motion. Mild concentric left ventricular
�hypertrophy. Left ventricular ejection fraction is 55-60% by Villeda's method
�of discs. Diastolic function indeterminate.
�Normal right ventricular size and function.
�Mitral valve opens normally. Trace mitral regurgitation.
�Thickened aortic valve with restricted leaflet motion. Mild aortic stenosis.
�Peak/mean gradients across the aortic valve are 20/12 mmHg respectively. Mild
�aortic regurgitation.
�Tricuspid valve opens normally. Mild tricuspid regurgitation. Estimated
�pulmonary artery pressure of 40-45 mmHg assuming a right atrial pressure of 3
�mmHg.
Subjective Dataa
Subjective Data
Date of Service:
Date of Service: December 11, 2023
Subjective:
Patient remains critically ill. Remains on norepinephrine drip, mechanical ventilation. Airway pressures adequate. Mildly elevated troponin noted, elevated procalcitonin
Objective Data
Data Reviewed
Vital Signs / I&O / Oxygen:
Vital Signs
Temp Pulse Resp BP Pulse Ox
99 F 53 20 110/60 97
12/11/23 07:16 12/11/23 06:00 12/11/23 06:00 12/11/23 06:00 12/11/23 05:45
Intake and Output
12/10/23 12/11/23 12/12/23
06:59 06:59 06:59
Intake Total 1421.1 / 1569.9 4917.8 / 4917.8
Output Total 450 / 480 1155 / 1155
Balance 971.1 / 1089.9 3762.8 / 3762.8
SaO2 [A/C] 98
SaO2 97
Physical Exam
General: Comfortable and Other (Right upper extremity PICC)
HEENT: Normocephalic and Anicteric
Cardiovascular: S1-S2, Regular Rhythm, Murmur (n), Rub and Peripheral Edema (n)
Respiratory: Wheeze (n), Crackles (n), Rhonchi (n), Non-Labored Respirations and ET Tube
GI: Soft, Non Distended, Non Tender and Feeding Tube (Dobbhoff tube)
Neurology: Lethargic (Sedated)
Skin: Cyanosis (n), Jaundice (n) and Rash (n)
Labs/Micro/Reports
Lab Data
12/11/23 03:28
12/11/23 03:28
Laboratory Results
12/10/23 12/11/23
08:48 03:28
pH 7.28 L 7.33 L
pCO2 42 H 38 H
pO2 119 H 76 L
HCO3 19.7 L 20.0 L
O2 Delivery Level Not Reportable
Microbiology
12/10/23 00:52 Blood/Venous Blood Culture - Preliminary
No Growth in 24 hours- Final report to follow
12/09/23 23:55 Blood/Venous Blood Culture - Preliminary
No Growth in 24 hours- Final report to follow
12/10/23 03:40 Nasal Swab Influenza Types A & B (MALIK) - Final
Negative for Influenza A & B, NAAT
Negative results must be combined with clinical observations
and patient history.
Nucleic Acid Amplification test (NAAT)performed on the
[employer] platform.
12/10/23 07:27 Feces/Stool C. difficile GDH Antigen & Toxins - Final
Negative for toxigenic C.difficile
[2023-12-11] MEDS: DUONEB 3 ML INH ×4 (07:56→20:00)
[2023-12-11] MEDS: SYMBICORT 160/4.5 MCG INHALER 4 PUFF INH (08:03)
--- NOTE | 2023-12-11 08:30 | PTCARENOTE ---
Received pt awake and alert.Pt is anxious and agitated.Mouthing WTF?Plan of care discussed.SBT started as per MD.Emotional support given. SR with BBB.Right A Line intact.Right PICC intact with Propofol,Fentanyl,Levophed and IVF.# 7.5 ETT to vent.SBT
ongoing.Scattered rhonchi noted.Suctioned for moderate amount thick rubin sputum.POX 97%Dobbhoff intact with tube feedings.Rectal trumpet intact with small amount rubin stool.Graham draining yellow urine.Plan of care discussed with pt.
--- NOTE | 2023-12-11 09:16 | W.PN.CARDCBS ---
Addendum entered and electronically signed by Paty Andersen MD 12/11/23 09:33:
Of note aspirin was ordered yesterday. Lipids are stable on current treatment and we will resume.
Original Note:
Today's Communication / Plan
-
Cardiopulmonary arrest sudden
-Agree with working towards extubation but if unable to proceed hemodynamically would then consider cardiac catheterization sooner.
-Consider rule out PE with CT scan
-Cardiac catheterization this admission
-Prolonged QT interval noted now and in the past. Now with T wave inversions on EKG. Avoid QT prolonging medication
Impression / Plan
-
Impression:
Sudden onset cardiorespiratory arrest with vent dependent respiratory failure
Abnormal EKG now with inverted T waves and increased QT interval (QT interval prolongation appears to be present on admission also)
Hypotension consistent requiring pressor support
Troponin elevation peaked at 0.9
COPD
Abnormal AP chest x-ray
Possible pneumonia
Elevated white blood count with increased lymphocytes and immature granulocytes
Hypertension
Hyperlipidemia
Tobacco use disorder
Morbid obesity
PVCs
Elevated white blood count
Lexiscan nuclear stress test 10/27/2021 negative for ischemia ejection fraction 44% (PVCs)
Echocardiogram 09/24/2021 LVEF 60%. Mild LVH. Normal right ventricle. Borderline aortic stenosis, peak/mean gradient 22/13 mmHg, mild eccentric AI. Normal right heart with normal pulmonary artery pressure, 20 mmHg
Echocardiogram 12/10/2023:�Normal left ventricular size and function. Normal regional wall motion. Mild LVH. EF 55 to 60%. Normal RV size and function. Trace MR. Mild AAS peak/mean gradient 20/12 mmHg. Mild AI. Mild TR. Estimated pulmonary
artery pressure of 40-45 mmHg assuming a right atrial pressure of 3 mmHg.
Plan:
Cardiopulmonary arrest with acute hypoxemic respiratory failure. Episode of arrest appears to be sudden with acute onset of shortness of breath and when information security analyst arrived patient required intubation, epinephrine x 3 and CPR briefly.
Continue supportive care. Patient currently intubated but starting weaning trials.
Chest x-ray abnormal specially left upper lobe.
Discussed with agricultural produce commission agent considering CT scan of the chest given abnormal chest x-ray and sudden onset of symptoms. In addition PA pressure increased.
D-dimer negative unlikely to be pulmonary embolism but risk factors include obesity
Elevated lactate
Treatment for possible pneumonia.
Decision regarding antibiotics per agricultural produce commission agent and primary service
Tobacco use disorder
Non-SC troponin elevation (0.93)
However now with T wave inversions, new during hospital stay.
Will retrend troponins
Difficult to get a history from the patient but she does nod her head when I asked about chest discomfort predating admission.
Plan for ischemic assessment with cardiac catheterization this hospital stay. Will see how weaning trial goes today but if not able to wean may need to proceed sooner.
Telemetry sinus rhythm with PVCs
Echocardiogram today
Patient with cardiovascular risk factors noted
81 mg aspirin will be started
Check lipids (history of hyperlipidemia on treatment as an outpatient on primary care note on fenofibrate 160 daily and rosuvastatin 10 mg daily)
QT prolongation
Noted on EKG since admission and going back as far as 2012.
Avoid QT prolonging medication
No history of arrhythmia, PVCs noted
Aortic valve stenosis
Mild
Hypotension
Pressor support wean as able
Outpatient history of hypertension
PVCs
Follow and replete electrolytes
On Toprol-XL as an outpatient, no mention of PVCs previously
Elevated white blood count starting to improve
Defer to primary service
I have spent 32 minutes total critical care time.
Discussed plan with agricultural produce commission agent
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
Subjective
Date of Service: December 11, 2023
Difficult to get history given intubation
Objective
Labs:
12/11/23 03:28
12/11/23 03:28
Labs
Hgb 13.8 g/dL (12.0-16.0) 12/11/23 03:28
Hct 38.1 % (37.0-47.0) 12/11/23 03:28
Plt Count 232 10^3/uL (130-400) 12/11/23 03:28
Sodium 135 mmol/L (135-145) 12/11/23 03:28
Potassium 4.1 mmol/L (3.5-5.1) 12/11/23 03:28
BUN 15 mg/dl (7-17) 12/11/23 03:28
Creatinine 0.5 mg/dL (0.6-1.0) L 12/11/23 03:28
Glucose 157 mg/dl (70-99) H 12/11/23 03:28
Troponins
12/09/23 12/10/23 12/10/23
23:53 06:08 07:27
Troponin I 0.053 H* Cancelled 0.983 H* D
12/10/23 12/10/23 12/11/23
11:46 18:08 03:28
Troponin I 0.713 H* D 0.367 H* D Cancelled
12/11/23
03:57
Troponin I 0.153 H*
Vital Signs and I&O:
Vital Signs
Temp Pulse Resp BP Pulse Ox
99 F 75 16 110/60 97
12/11/23 07:16 12/11/23 08:05 12/11/23 08:05 12/11/23 06:00 12/11/23 08:05
Vital Signs
Temp Pulse Resp BP Pulse Ox
99 F 75 16 110/60 97
12/11/23 07:16 12/11/23 08:05 12/11/23 08:05 12/11/23 06:00 12/11/23 08:05
Intake & Output
12/09/23 12/10/23 12/11/23 12/12/23
06:59 06:59 06:59 06:59
Intake Total 1421.1 / 1569.9 4917.8 / 4917.8
Output Total 450 / 480 1155 / 1155
Balance 971.1 / 1089.9 3762.8 / 3762.8
Physical Exam
Physical Exam
General: Intubated on ventilator
Heart: Distant heart sounds RRR, no murmurs, No S3, S4, no rubs.
Lungs: Intubated with coarse breath sounds
Extremities: No clubbing, cyanosis and trace edema bilaterally.
Neuro: Awake and nods
[2023-12-11] MEDS: ZITHROMAX 250 MG TUBE (09:26)
[2023-12-11] MEDS: LOW STRENGTH ASPIRIN 81 MG TUBE (09:26)
[2023-12-11] MEDS: NSS (PRESERVATIVE FREE) 10 ML IV (09:27)
[2023-12-11] MEDS: PROTONIX IV 40 MG IV (09:27)
[2023-12-11 09:35] LABS: B.E. -5.5 mmol/L; HCO3 19.3 mmol/L (21-28); O2 Saturation % 99.1 % (94-98); PCO2 35 mmHg (32-35); PO2 144 mmHg (83-108); pH 7.35 (7.35-7.45)
--- NOTE | 2023-12-11 11:43 | W.PN.INTV ---
Today's Communication / Plan
Recommendations
Monitor closely for change in cardiorespiratory status
Continue Abx (Unasyn only)
Follow Sputum and urine cultures
Assessment
-
Assessment: 68-year-old female former tobacco smoker with a past medical history of prolonged QTc, reported history of COPD and asthma, depression/anxiety and GERD who presented with episode of unresponsiveness during sexual intercourse with her
. EMS called and en route to the hospital patient reportedly lost pulse. Patient was given 3 rounds of epi, and was intubated in the field and brought to the ER. According to the ER who spoke to EMS, it was unclear if she actually lost a
pulse or if her heart rate chills dropped and she had a pause. She was hypotensive in the ER to 79/58, and was saturating 95% on the ventilator via 100% FiO2. Not on home O2. End-tidal CO2 was 36. She was afebrile to 98.3 �F. CXR showed
suspected airspace disease in the left and right upper lobes. Blood gas showed pH 7.09 with hypercapnia with pCO2 53. Lactate was initially 13.8. Initial troponin 0.053 with slightly elevated proBNP of 324. WBC elevated at 25.6. COVID antigen
negative. 500 cc bolus was given with 0.9% NS, she was given Ativan, started on propofol and also needed to be paralyzed with vecuronium 10mg IVP x1. Patient then transferred to the ICU for further care and critical care services consulted for
additional management/recommendations.
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
Impression:
#Suspected out of hospital cardiac arrest -patient now following commands and is awake/alert
#Acute respiratory failure with hypoxemia/hypercapnia on mechanical ventilation - possible asthma/COPD flare
#Diarrhea
#Shock on vasopressors - suspect hypovolemia with sepsis
#Lactic acidosis -likely due to hypoperfusion during episode of unresponsiveness/bradycardia/loss of pulse -lactate now normalized
#Hyperglycemia
#Metabolic acidosis with increased anion gap -due to lactic acidosis
#Aspiration pneumonia
#Elevated troponin -likely type II MD in the setting of suspected cardiac arrest
#Elevated LFTs
#Leukocytosis -likely both reactive and due to suspected pneumonia
Plan:
- Extubated patient this morning. O2 sat 98% on 4L nasal cannula. Continue to monitor for change in respiratory status
- Unlikely COPD exacerbation induced by sexual activity, dexamethasone discontinued.
- Venous doppler ordered to assess for DVT. Will consider CT
- Considering she had a suspected cardiac arrest with bilateral opacities with possible aspiration pneumonia/pneumonitis, continue Unasyn; Azithromycin discontinued due to elongated QT interval 509. WBCs downtrend
- Stool negative for c.diff and shiga tox. Blood Cx showed no growth. Sputum and urine Cxs pending
- Also follow-up stool studies
- Continue Symbicort with nebulized bronchodiltors QID and DuoNebs prn
- Considering her suspected cardiac arrest and PVCs while here in ICU, would favor either ischemic workup vs event monitor once pt has stabilized - would defer this to cardiology
- Maintain MAP>65 and wean vasopressors as tolerated
- Chest wall pain, possibly CPR related, hx of costochondritis: Tylenol
- Continue IVF with NS @ 100cc/hr --> careful not to cause volume overload --> I will put stop date to the IVF
- Maintain euglycemia with goal BG 140�180
- Replete K >4, Mg >2
- Stress ulcer ppx: PPI
- DVT prophylaxis: LMWH
Data:
Repeat ECG 12/11/2023 12:00:
Nonspecific T-wave changes
CT Head 12-10-2023:
1. � There is no acute intracranial process.
2. � MRI would be more sensitive in this regard if symptoms persist.
3. � Moderate diffuse volume loss.
CXR 12-09-2023:
1. The endotracheal tube could be retracted slightly although evaluation is somewhat limited.
2. There is airspace disease in both upper lobes. Pneumonia versus atelectasis
TTE - 12/10/2023:
Normal left ventricular chamber size. Normal left ventricular systolic
�function. Normal regional wall motion. Mild concentric left ventricular
�hypertrophy. Left ventricular ejection fraction is 55-60% by Villeda's method
�of discs. Diastolic function indeterminate.
�Normal right ventricular size and function.
�Mitral valve opens normally. Trace mitral regurgitation.
�Thickened aortic valve with restricted leaflet motion. Mild aortic stenosis.
�Peak/mean gradients across the aortic valve are 20/12 mmHg respectively. Mild
�aortic regurgitation.
�Tricuspid valve opens normally. Mild tricuspid regurgitation. Estimated
�pulmonary artery pressure of 40-45 mmHg assuming a right atrial pressure of 3
�mmHg.
Subjective Dataa
Subjective Data
Date of Service:
Date of Service: December 11, 2023
Patient is pleasant and conversational when seen at bedside. She complains about chest wall pain.
Chief Complaint: It Support Manager Follow Up
Review of Systems
General: Fever (negative) and Pain (chest pain)
Cardiopulmonary: Dyspnea
GI: Abdominal Pain (negative), Diarrhea and Constipation (negative)
Genitourinary: Graham
Objective Data
Data Reviewed
Vital Signs / I&O / Oxygen:
Vital Signs
Temp Pulse Resp BP Pulse Ox
98.4 F 69 16 110/60 98
12/11/23 11:01 12/11/23 11:41 12/11/23 11:41 12/11/23 06:00 12/11/23 11:41
Intake and Output
12/10/23 12/11/23 12/12/23
06:59 06:59 06:59
Intake Total 1421.1 / 1569.9 4917.8 / 4917.8
Output Total 450 / 480 1155 / 1155
Balance 971.1 / 1089.9 3762.8 / 3762.8
SaO2 [A/C] 98
SaO2 98
Nasal Cannula flow liters per 4
minute
Physical Exam
General: Respiratory Distress, Comfortable and Pain
HEENT: Normocephalic and Anicteric
Cardiovascular: S1-S2, Regular Rhythm, Murmur (negative), Rub (negative), Peripheral Edema (negative) and Calf Tenderness (negative)
Respiratory: Wheeze (bilateral upper lobes), Crackles (negative), Non-Labored Respirations, Accessory Resp Muscle Use (negative), Stridor (negative) and ET Tube (extubated)
GI: Soft, Non Distended, Non Tender, Organomegaly (negative), NG Tube (negative) and Feeding Tube (negative)
Neurology: Awake, Alert, Oriented, AO x 3, No Motor Deficits and Lethargic (negative)
Skin: Warm, Dry and Bruising (negative)
Labs/Micro/Reports
Lab Data
12/11/23 03:28
12/11/23 03:28
Laboratory Results
12/11/23 12/11/23
03: 09:23
pH 7.33 L 7.35
pCO2 38 H 35
pO2 76 L 144 H
HCO3 20.0 L 19.3 L
O2 Delivery Level
Microbiology
12/10/23 07:27 Feces/Stool Salmonella/Shigella Culture - Preliminary
Culture in Progress
12/10/23 07:27 Feces/Stool Campylobacter Culture - Preliminary
Culture in Progress
12/10/23 07:27 Feces/Stool Shiga Toxin Test - Final
No E. coli Shiga Toxin 1 or 2 detected.
12/10/23 00:52 Blood/Venous Blood Culture - Preliminary
No Growth in 24 hours- Final report to follow
12/09/23 23:55 Blood/Venous Blood Culture - Preliminary
No Growth in 24 hours- Final report to follow
12/10/23 03:40 Nasal Swab Influenza Types A & B (MALIK) - Final
Negative for Influenza A & B, NAAT
Negative results must be combined with clinical observations
and patient history.
Nucleic Acid Amplification test (NAAT)performed on the
[employer] platform.
12/10/23 07:27 Feces/Stool C. difficile GDH Antigen & Toxins - Final
Negative for toxigenic C.difficile
--- NOTE | 2023-12-11 12:22 | W.PN.UPDATE ---
Update Note
Progress Note Update
Patient extubated without difficulty
Patient conversant, without complaints
Apparently reviewed with nursing, this is a recurrent event during sexual intercourse
For now we will check lower extremity Dopplers. Lower suspicion for thromboembolic event given recovery with normal echo
Aspirin therapy continues
Okay to stop PPI therapy
Discontinue A-line
Continue antibiotics for presumed aspiration event
Discontinue steroids
Reviewed with critical care nursing
TCCT 15 min
--- NOTE | 2023-12-11 12:34 | PTCARENOTE ---
Pt assessed.c/o chest pain when she moves.Pt did receive CPR in ambulance.Pt extubated,Right A Line,rectal trumpet, and Dobbhoff discontinued as per MD order.Speech is appropriate.+ [place].Pt assists with repositioning.O2 4l NC.POX 97%Occasional non
productive cough.Tolerating PHD.No BM.Medicated with Dilaudid for c/o chest pain with movement.
[2023-12-11] MEDS: PROZAC 60 MG PO (12:45)
[2023-12-11] MEDS: TRICOR 145 MG TUBE (12:45)
[2023-12-11] MEDS: DILAUDID 0.5 MG IV ×2 (13:33→22:10)
--- NOTE | 2023-12-11 13:39 | CM ---
CM following re: discharge planning.
Discussed in Rounds, reviewed pt's chart, met with pt and pt's at discharge.
Pt is a 68 year old female, admitted with primary dx of out of hospital cardiac arrest. Extubated this morning to 4L NC of O2.
Pt reports she lives with in a 2SH, has 2 dogs and 'they have been treating like children'. Pt reports she uses a walker inside the house occasionally, mostly grabbing the marin, has a scooter and uses it for a long distance. Pt reports she
is known to [facility] and pt stated she would prefer to return back home with [facility] and strongly rejected SNF level of care even if it recommended.
PCP: Chary Burgos
Pharmacy: [facility].
D/C plan: home with [facility] and support. to transport at discharge.
CM will follow with discharge plan updates as hospitalization progresses
[2023-12-11] MEDS: XANAX 0.5 MG PO ×2 (14:05→19:57)
[2023-12-11 14:24] LABS: Troponin I 0.128 ng/ml
--- NOTE | 2023-12-11 14:38 | PTCARENOTE ---
Pt states she is having a panic attack.Medicated with Xanax as requested.
--- NOTE | 2023-12-11 16:19 | PTCARENOTE ---
Pt assessed.No change in assessment noted.Pt c/o chest pain with movement.Pt c/o occasional sob.No dyspnea noted.POX 97%
--- NOTE | 2023-12-11 17:15 | PTCARENOTE ---
PM care given.Pt assisted with repositioning.Pt made aware that she is NPO after midnight for cardiac cath in am.
[2023-12-11] MEDS: CRESTOR 10 MG PO (18:36)
[2023-12-11] MEDS: LOVENOX 40 MG SC (18:36)
--- NOTE | 2023-12-11 19:18 | PTCARENOTE ---
1600-Pt states 'You know, I would have taken at least 3 doses of Xanax at this time.I'll ask Heraclio (her )to bring in my own supply of Xanax'.Pt strongly advised not to do,this to avoid overdosing.RN and Pharmacy made aware.
[2023-12-11] MEDS: SYMBICORT 160/4.5 MCG INHALER 2 PUFF INH (20:00)
--- NOTE | 2023-12-11 20:00 | PTCARENOTE ---
Rec'd pt resting in bed, at bedside, very anxious, xanax given as scheduled, informed pt and that she is not to take any of her home meds, initaramírezy stated that did not bring in her xanax, but then replied 'how did you know
it was here?' both and pt verbalized that she would not take any of her own meds, instructed to take home her meds, 1' AV adebayo w/ prol QT, occas pvc, weak distal pulses, skin warm/dry, O2 4 liters nc, lungs w/ scat exp wheezes, decr in
bases, enc to C&DB- stated 'it hurts from the CPR', instructed on IS- reaches 500ml, sat 96, + bowel sounds, no bm, abd obese,soft, nontender, no n/v, windy diet, andino draining wild urine
--- NOTE | 2023-12-11 22:12 | PTCARENOTE ---
dilaudid 0.5 mg iv given for pain with insp; pt cannot lie flat , gets sob and anxious
[2023-12-12] VITALS (18 sets, daily range): BP systolic 111–148; BP diastolic 61–99; PULSE 87; O2SAT 92; BMI 36.0
[2023-12-12] MEDS: XANAX 0.5 MG PO ×2 (00:07→04:12)
--- NOTE | 2023-12-12 00:10 | PTCARENOTE ---
sys reviewed, changes noted, cont to be anxious , xanax 0.5 mg po given, CHG bath done, linens changed, NPO for possible cath in am
[2023-12-12] MEDS: UNASYN IV ×2 (01:36→08:05)
[2023-12-12] MEDS: DILAUDID 0.5 MG IV (03:15)
--- NOTE | 2023-12-12 03:16 | PTCARENOTE ---
dilaudid 0.5 mg iv given for pain with inspiration, pt very anxious, worried about cardiac cath
[2023-12-12 03:17] LABS: Hematocrit 37.1 % (37.0-47.0); Hemoglobin 13.1 g/dL (12.0-16.0); Mean Corp Hgb Conc. 35.3 g/dL (33.0-37.0); Mean Corpuscular Hgb 32.3 pg (27.0-31.0); Mean Corpuscular Volume 91.4 fL (81.0-99.0); Mean Platelet Volume 11.9 fL (7.4-10.4); Platelet Count 163 10^3/uL (130-400); Red Blood Cell Count 4.06 10^6/uL (4.20-5.40); Red Cell Dist. Width 15.8 % (11.5-14.5); White Blood Cell Count 18.8 10^3/uL (4.8-10.8)
[2023-12-12 03:44] LABS: Troponin I 0.135 ng/ml
[2023-12-12 03:45] LABS: Blood Urea Nitrogen 8 mg/dl (7-17); Calcium 8.7 mg/dl (8.4-10.2); Carbon Dioxide 25 mmol/L (22-30); Chloride 106 mmol/L (98-107); Estimated Creatinine Clearance 105 ml/min; Glucose 88 mg/dl (70-99); Magnesium 2.1 mg/dl (1.6-2.3); Potassium 4.2 mmol/L (3.5-5.1); Sodium 135 mmol/L (135-145); eGFR > 60.00
--- NOTE | 2023-12-12 04:04 | PTCARENOTE ---
sys reviewed, pt anxious, unable to sleep
--- NOTE | 2023-12-12 04:13 | PTCARENOTE ---
B SANDRA Ashby aware of anxiety, xanax 0.5 mg po given as ordered
[2023-12-12] MEDS: SYNTHROID 125 MCG PO (05:22)
--- NOTE | 2023-12-12 05:26 | PTCARENOTE ---
still unable to sleep, resp rx given for exp wheezing
[2023-12-12] MEDS: DUONEB 3 ML INH (05:27)
--- NOTE | 2023-12-12 05:48 | PTCARENOTE ---
has not slept all night, worried about card cath, still has pain w/ inspiration or movement- does not want any pain med at present
[2023-12-12] MEDS: SYMBICORT 160/4.5 MCG INHALER 2 PUFF INH ×2 (07:11→20:23)
--- NOTE | 2023-12-12 07:24 | W.PN.HOSP.TC ---
Today's Communication/Plan
-
Increase as needed alprazolam to 1 mg
Resume prior dosing of beta-blockade
Await input from cardiology regarding continued anterior T wave changes/monitor QTc/consideration for cardiac cath
A lot of her chest pain is probably chest wall from CPR and costochondritis
Assessment / Plan
Assessment / Plan
Gen:Morbidly obese, sedated
HEENT: intubated, anicteric
Lungs: Ventilated breath sounds
CVS: normal s1 and s2; RRR, systolic murmur and left sternal border
Abdomen: obese,non tender
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
Acute hypoxic respiratory failure likely secondary to COPD/aspiration?
s/p brief CPR and 3 rounds epi pre hospital
Presumed COPD exacerbation with respiratory failure
-Cardiac arrest in relation to intercourse with prior events
Intubated/extubated December 11
Possible aspiration pneumonitis
Lactic acidosis, improving
Negative Pro-Getachew initially now elevated at 4.8/Unasyn to continue
- neg Covid Ag, Flu; bcx pending
-Steroids discontinued
Elevated trop likely non RI related/although EKG shows continued deep T wave inversion anterior leads of V2 and V3
echo results reviewed EF 60% with some pulmonary hypertension
-Troponin has trended and plateaued at 0.135
cardiology evaluation appreciated/consideration for cardiac catheterization for further investigation
S/p Brief CPR performed pre-hospital with 3 rounds of epi
-chest wall pain on palpation from CPR?/history of costochondritis/chronic pain
Anxiety overlay component prominent
-Had been on 3 times daily dosing of alprazolam 1 mg at home along with Prozac
-Remains anxious here with increased as needed dosing of alprazolam to her usual 1 mg continue Prozac
Essential hypertension by history
-Hypotensive requiring pressors on admission
-BP now trending up
-Had been on lisinopril and metoprolol as outpatient
Known HX
morbid Obesity
HX chronic pain/costochondritis
HX� spondylolisthesis L5 - S1 � with Lumbosacral radiculopathy�
Lipoma of left lower extremity �
HX� Kidney lesion �
HX � PAM (generalized anxiety disorder)� �
Hyperlipidemia� �
Essential� HTN
HX Insomnia� �
HX De Quervain's disease (tenosynovitis) �
Hypothyroidism� � E03.9� � confirmed �
GERD
Former smoker� � �
HX falling �
DVT Px: LMWH
Code: Full code
Anticipated Discharge: 24 - 48 hours
Subjective/Interval History
-
Date of Service: December 12, 2023
Now extubated but states that she did not sleep at all last night overlying anxiety with thoughts of her pending cardiac catheterization she was given multiple doses of 0.5 mg of Xanax she is on routine dosing of 1 mg at home she acknowledges
continued chest pain especially when pressing her hand on her anterior chest just to the right of her sternum/she has no recollection of the events that led to her coming here or even recollects even events of yesterday.
Objective Data
-
Labs:
Laboratory Results
12/12/23
03:10
WBC 18.8 H
Hgb 13.1
Hct 37.1
Plt Count 163 D
Sodium 135
Potassium 4.2
Chloride 106
Carbon Dioxide 25
BUN 8
Creatinine 0.5 L
Glucose 88
Calcium 8.7
Vital Signs:
Vital Signs
Temp Pulse Resp BP Pulse Ox
99.4 F 88 16 143/91 94
12/12/23 03:19 12/12/23 07:12 12/12/23 07:12 12/12/23 06:00 12/12/23 07:12
I&O
12/11/23 12/12/23 12/13/23
06:59 06:59 06:59
Intake Total 4917.8 / 5194.7 1903.9 / 1903.9
Output Total 1155 / 1205 1595 / 1595
Balance 3762.8 / 3989.7 308.9 / 308.9
Review of Systems
-
History Source: Patient
All other systems: Not reviewed unless documented
Respiratory: Reports Trouble Breathing (Due to inspiratory pain)
Cardiac: Reports Chest Pain (Chest wall)
Abdomen/GI: Reports No Symptoms
Physical Exam
-
General: Obese
HEENT: Normocephalic and PERRLA
Respiratory: Crackles and Decreased Breath Sounds
Cardiac: Regular Rhythm and Other (reproducible chest pain on palpation of anterior ribs and sternum)
GI: Soft, Nontender and Nondistended
Musculoskeletal: No Cyanosis
Skin: Warm
Neuro: Awake, Alert and Oriented
Data Reviewed
-
Total Time Spent with Patient (in minutes): 56
Medical Tests (Nuc Med, Echo etc): Report Reviewed by me (EKG continues to show deep inverted T waves in leads V2 V3 specific V4 through V6)
Labs: Labs Reviewed by me (White count continues to trend down now at 18.8/creatinine stable at 0.5/troponin has leveled off at 0.135)
[2023-12-12] MEDS: TRICOR 145 MG PO (08:04)
[2023-12-12] MEDS: XANAX 1 MG PO ×3 (08:04→21:22)
[2023-12-12] MEDS: LOW STRENGTH ASPIRIN 81 MG PO (08:04)
[2023-12-12] MEDS: PROZAC 60 MG PO (08:05)
--- NOTE | 2023-12-12 08:15 | PTCARENOTE ---
Assumed care of pt at 0715 following shift report. Pt awake and resting quietly in bed. O2 at 4l/min via NC w/ POx 93%. Moist non-productive cough noted. RR 24. No respiratory distress noted although pt c/o feeling SOB. Pt remains NPO except for
meds per order. Physical assessment completed. Pt reports midsternal CP w/ onset 'since I've been here. They cracked my ribs, you know, when they did that CPR' Pt declined offered prn pain med at this time. Thermistor Graham patent and draining clear
yellow urine. Per report, pt for planned cardiac cath today. Pt verbalized anxiety r/t planned cardiac cath 'I don't want to do it. I don't like needles. I'll scream.' Education about procedure and benefits in diagnosis provided to pt along with
emotional support. Call shelby w/in pt reach and safe environment maintained.
--- NOTE | 2023-12-12 09:15 | W.PN.CARDCBS ---
Addendum entered and electronically signed by Amina Polk MD 12/12/23 17:17:
I saw and examined the patient.
The Ore Sampler's note was reviewed and I agree with the note.
Comment: Continues to complain of chest wall discomfort from recent CPR. Extremely anxious throughout conversation at bedside. Unable to lay flat due to worsening chest discomfort and shortness of breath per patient. Cath as recommended yes today
is currently on hold.
Vital signs are stable. Exam notable for morbidly obese female, tachypneic, extremely anxious, tachycardic, normal S1 and S2, 2 out of 6 mid peaking systolic ejection murmur at the right upper sternal border, abdomen is obese, soft, nontender,
nondistended, warm extremities, hypoventilating.
EKG showing T wave changes, cannot rule out ischemia, prolonged QTc. Echocardiogram with mild aortic stenosis but otherwise normal biventricular function and no other significant valvular disease.
Recommendations:
1. Agree with IV diuresis along with the beta-felicia.
2. Continue to monitor on telemetry. Avoid QT prolonging medications.
3. Continue to wean oxygen, encourage incentive spirometry.
4. Will rediscuss ischemic workup again tomorrow.
Amina Polk MD, [facility], [facility]
Original Note:
Today's Communication / Plan
-
Lasix 40 mg IV x1
Restart Toprol XL 25 mg daily
Will try again for cath in the AM
Impression / Plan
-
PCP: Dr. Burgos
Cardiology: Dr. Stokes
Impression:
Acute hypoxic respiratory failure
Intubated in the field 12/10/23 and extubated 12/11/23
Sudden onset cardiorespiratory arrest with vent dependent respiratory failure with Epix 3 and CPR in the field 12/10/23
Elevated Troponin
Abnormal EKG now with inverted T waves and increased QT interval (QT interval prolongation appears to be present on admission also)
h/o Long QT on ECG since at least 2012
Hypotension requiring pressor support
Leukocytosis
COPD
Abnormal AP chest x-ray
Possible pneumonia
Elevated white blood count with increased lymphocytes and immature granulocytes
Hypertension
Hyperlipidemia
Tobacco use disorder
Morbid obesity
PVCs
Lexiscan nuclear stress test 10/27/2021 negative for ischemia ejection fraction 44% (PVCs)
Echocardiogram 09/24/2021 LVEF 60%. Mild LVH. Normal right ventricle. Borderline aortic stenosis, peak/mean gradient 22/13 mmHg, mild eccentric AI. Normal right heart with normal pulmonary artery pressure, 20 mmHg
Echocardiogram 12/10/2023:�Normal left ventricular size and function. Normal regional wall motion. Mild LVH. EF 55 to 60%. Normal RV size and function. Trace MR. Mild peak/mean gradient 20/12 mmHg. Mild AI. Mild TR. Estimated pulmonary
artery pressure of 40-45 mmHg assuming a right atrial pressure of 3 mmHg.
Plan:
-Patient with out of hospital cardiopulmonary arrest in the setting of intercourse with a h/o syncope with intercourse in the past as well. Patient reports now that the last time she had intercourse that she also had syncope and that prior to that
she had not had intercourse for quite some time. Patient has a h/o syncope that sounds like orthostasis as well. Reviewed with patient the concern for cardiopulmonary arrest and talked about an ischemic evaluation with cardiac catheterization.
Reviewed cath procedure and patient is familiar as her and cath and PCI a few years ago, but she says that she is anxious, she cannot breathe and cannot lay flat. Talked about using Versed for sedation and patient felt better, but overall
she does not feel ready for cath 12/12/23. Will check again on 12/13/23.
-Patient received several doses of Xanax and Dilaudid overnight for anxiety and discomfort.
-B/L LE u/s was negative for DVT on 12/11/23. Echo with normal RV size and function. D-dimer was 0.28 which is in normal range. Seems unlikely that this is a PE event.
-Patient with a h/o long QT as far back as 2012. Zofran and Zithromax stopped 12/11/23. Patient needs Prozac for depression and reports it is the only med that has worked for her. Follow QT on ECG. QTc 507 on ECG 12/12/23 and was 495 and 509 on ECGs
from 12/11/23.
-Troponin peaked at 0.983. No WMA on echo. Troponin elevation could be due to chest compressions. Consideration for cath as noted above.
-Tolerating aspiring 81 mg daily since 12/10/23
-LDL 50. Outpatient doses of fenofibrate 145 mg daily and Crestor 10 mg daily have been continued.
-Levophed weaned off 12/11/23 AM. BP has improved now that she is extubated. Will try to restart her outpatient dose of Toprol XL 25 mg daily on 12/12/23.
-Outpatient dose of lisinopril 40 mg daily has been on hold since admission.
-Patient was taking Lasix 20 mg PO daily prior to admission. Patient received 4 L IVFs this admission. Patient complains of bloating. Will try a dose of Lasix 40 mg IV x1 now and then resume her usual dose of Lasix 20 mg PO daily in AM
Progress Note - Color Artist
Subjective
Date of Service: December 12, 2023
She says she didn't sleep at all last night thinking about cath today
Objective
Labs:
12/12/23 03:10
12/12/23 03:10
Labs
Hgb 13.1 g/dL (12.0-16.0) 12/12/23 03:10
Hct 37.1 % (37.0-47.0) 12/12/23 03:10
Plt Count 163 10^3/uL (130-400) D 12/12/23 03:10
Sodium 135 mmol/L (135-145) 12/12/23 03:10
Potassium 4.2 mmol/L (3.5-5.1) 12/12/23 03:10
BUN 8 mg/dl (7-17) 12/12/23 03:10
Creatinine 0.5 mg/dL (0.6-1.0) L 12/12/23 03:10
Glucose 88 mg/dl (70-99) 12/12/23 03:10
Troponins
12/09/23 12/10/23 12/10/23
23:53 06:08 07:27
Troponin I 0.053 H* Cancelled 0.983 H* D
12/10/23 12/10/23 12/11/23
11:46 18:08 03:28
Troponin I 0.713 H* D 0.367 H* D Cancelled
12/11/23 12/11/23 12/12/23
03:57 13:32 03:10
Troponin I 0.153 H* 0.128 H* 0.135 H*
Vital Signs and I&O:
Vital Signs
Temp Pulse Resp BP Pulse Ox
98.6 F 83 24 131/81 93
12/12/23 08:00 12/12/23 08:00 12/12/23 08:00 12/12/23 08:00 12/12/23 08:00
Vital Signs
Temp Pulse Resp BP Pulse Ox
98.6 F 83 24 131/81 93
12/12/23 08:00 12/12/23 08:00 12/12/23 08:00 12/12/23 08:00 12/12/23 08:00
Intake & Output
12/10/23 12/11/23 12/12/23 12/13/23
06:59 06:59 06:59 06:59
Intake Total 1421.1 / 1569.9 4917.8 / 5194.7 1903.9 / 1903.9 120 / 120
Output Total 450 / 480 1155 / 1205 1595 / 1595
Balance 971.1 / 1089.9 3762.8 / 3989.7 308.9 / 308.9 120 / 120
Physical Exam
Physical Exam
GEN: Anxious, NAD. AAO x3
HEENT: EOMI
LUNGS: Tachypneic. Wearing oxygen at 4 L NC. CTA B/L
CV: Reg with ectopy, no murmur
ABD: soft, BS+
EXT: Trace B/L LE edema.
NEURO: Gross non-focal
SKIN: No rash
[2023-12-12] MEDS: TYLENOL 650 MG PO (10:06)
[2023-12-12] MEDS: TOPROL XL 25 MG PO (10:10)
[2023-12-12] MEDS: LASIX 40 MG IV (10:10)
--- NOTE | 2023-12-12 10:20 | PTCARENOTE ---
Pt's diet resumed as pt refusing cardiac cath at this time. Pt provided w/ hospital menu and phone and encouraged to order breakfast as desired. Pt medicated w/ Tylenol PO for c/o midsternal chest/rib pain.
[2023-12-12] MEDS: NICODERM TRANSDERMAL 21 MG TRANSDERM (10:46)
--- NOTE | 2023-12-12 10:47 | W.PN.INTV ---
Addendum entered and electronically signed by Brittney Norris MD 12/12/23 13:36:
Patient seen and examined independently by myself
Plan reviewed at length with resident
Patient refusing catheterization
Has a variety of complaints including shortness of breath, chest pain. Seems the symptoms are chronic
Patient also describes of insomnia, but then states 'I sleep well'
Chest exam with mild wheezing
She is sitting in the chair, at bedside
Moving forward
Continue with supportive care
Symbicort twice a day, albuterol as needed
Antibiotics discontinued, complete 7-day course of Augmentin, last day 12/17
Lasix 40 mg started, per cardiology
Discontinue Graham
PT/OT
Ongoing discussion regarding eventual ischemic workup per cardiology
Patient with persistent pain. She takes ibuprofen as an outpatient
She does not feel Dilaudid helps. Will discontinue Dilaudid
Continue with ibuprofen, Tylenol intermittently as needed
GI prophylaxis while on ibuprofen
Counseled importance of not taking any additional therapies brought from home. This was reviewed with patient and . apparently brought medications including Xanax. Strict instructions were reviewed
Also reviewed that Ambien 10 mg is a very high dose to be taken
Strong suspicion for sleep disordered breathing. Would recommend eventual outpatient sleep evaluation. Patient does not appear to be agreeable
Patient transferred out of ICU. We will sign off. Please call with questions
Original Note:
Documented by User: Nathaly Rodrigues MD, Resident 12/12/23 12:17
Today's Communication / Plan
Recommendations
Pt refused Cath today. Consider tomorrow
Switch from Unasyn to Augmentin: Today is abx day 3 of 7
Pain management for chest pain
Assessment
-
Assessment: 68-year-old female former tobacco smoker with a past medical history of prolonged QTc, reported history of COPD and asthma, depression/anxiety and GERD who presented with episode of unresponsiveness during sexual intercourse with her
. EMS called and en route to the hospital patient reportedly lost pulse. Patient was given 3 rounds of epi, and was intubated in the field and brought to the ER. According to the ER who spoke to EMS, it was unclear if she actually lost a
pulse or if her heart rate chills dropped and she had a pause. She was hypotensive in the ER to 79/58, and was saturating 95% on the ventilator via 100% FiO2. Not on home O2. End-tidal CO2 was 36. She was afebrile to 98.3 �F. CXR showed
suspected airspace disease in the left and right upper lobes. Blood gas showed pH 7.09 with hypercapnia with pCO2 53. Lactate was initially 13.8. Initial troponin 0.053 with slightly elevated proBNP of 324. WBC elevated at 25.6. COVID antigen
negative. 500 cc bolus was given with 0.9% NS, she was given Ativan, started on propofol and also needed to be paralyzed with vecuronium 10mg IVP x1. Patient then transferred to the ICU for further care and critical care services consulted for
additional management/recommendations.
Chronic conditions PLOW SHAKER: Asthma, ?COPD, GERD, HTN, Hypercholesterolemia, Hypothyroidism, anxiety, depression, diverticulitis, multiple abdominal hernias, degenerative joint disease, fibromyalgia
Impression:
#Suspected out of hospital cardiac arrest -patient now following commands and is awake/alert
#Acute respiratory failure with hypoxemia/hypercapnia on mechanical ventilation - possible asthma/COPD flare
#Diarrhea
#Shock on vasopressors - suspect hypovolemia with sepsis
#Lactic acidosis -likely due to hypoperfusion during episode of unresponsiveness/bradycardia/loss of pulse -lactate now normalized
#Hyperglycemia
#Metabolic acidosis with increased anion gap -due to lactic acidosis
#Aspiration pneumonia
#Elevated troponin -likely type II DE in the setting of suspected cardiac arrest
#Elevated LFTs
#Leukocytosis -likely both reactive and due to suspected pneumonia
Plan:
- Intubated on 12/10, extubated on 12/11 O2 sat 98% on 4L nasal cannula. Continue to monitor for change in respiratory status
- Unlikely COPD exacerbation induced by sexual activity, dexamethasone discontinued.
- LE venous doppler showed no evidence of DVT, consider ischemic cause
- Considering she had a suspected cardiac arrest with bilateral opacities with possible aspiration pneumonia/pneumonitis, convert to oral Augmentin today - abx day 3 of 7; Azithromycin discontinued due to elongated QT interval. WBCs still positive
but downtrend
- Stool negative for c.diff and shiga tox. Blood Cx showed no growth. Sputum and urine Cxs negative
- Continue Symbicort with Albuterol as needed
- Considering her suspected cardiac arrest and PVCs while here in ICU, would favor either ischemic workup vs event monitor once pt has stabilized - New EKG showed more pronounced ST and T wave changes - Pt declined to have cardiac cath today. Will
try for tomorrow
- Chest wall pain, possibly CPR related, hx of costochondritis: Hydromorphone has not helped so was discontinued. Start Tylenol for pain.
- IVF discontinued. Positive I&O with wheezing and SOB, cough: single dose 20mg IV lasix given. Monitor for fluid overload
- Maintain euglycemia with goal BG 140�180
- Replete K >4, Mg >2
- Stress ulcer ppx: PPI
- Okay to downgrade to telemetry
- DVT prophylaxis: LMWH, SCDs
Data:
Repeat ECG 12/12/2023
more pronounced T-wave and ST changes
CT Head 12-10-2023:
1. � There is no acute intracranial process.
2. � MRI would be more sensitive in this regard if symptoms persist.
3. � Moderate diffuse volume loss.
CXR 12-09-2023:
1. The endotracheal tube could be retracted slightly although evaluation is somewhat limited.
2. There is airspace disease in both upper lobes. Pneumonia versus atelectasis
TTE - 12/10/2023:
Normal left ventricular chamber size. Normal left ventricular systolic
�function. Normal regional wall motion. Mild concentric left ventricular
�hypertrophy. Left ventricular ejection fraction is 55-60% by Villeda's method
�of discs. Diastolic function indeterminate.
�Normal right ventricular size and function.
�Mitral valve opens normally. Trace mitral regurgitation.
�Thickened aortic valve with restricted leaflet motion. Mild aortic stenosis.
�Peak/mean gradients across the aortic valve are 20/12 mmHg respectively. Mild
�aortic regurgitation.
�Tricuspid valve opens normally. Mild tricuspid regurgitation. Estimated
�pulmonary artery pressure of 40-45 mmHg assuming a right atrial pressure of 3
�mmHg.
Subjective Dataa
Subjective Data
Date of Service:
Date of Service: December 12, 2023
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
Subjective:
Complains of chest pain, worsens with movement. Reports that pain management at this time has not helped
Review of Systems
General: Fever (negative), Pain and Bruising (negative)
Cardiopulmonary: Dyspnea, Cough, Wheezing, Chest Pain, Edema (negative) and Lower Extremity Pain (negative)
GI: Abdominal Pain (mil), Diarrhea (negative) and Other (bloating)
Neuro: Dizziness and Other
Objective Data
Data Reviewed
Vital Signs / I&O / Oxygen:
Vital Signs
Temp Pulse Resp BP Pulse Ox
98.6 F 79 24 141/93 93
12/12/23 08:00 12/12/23 10:10 12/12/23 08:00 12/12/23 10:10 12/12/23 08:00
Intake and Output
12/11/23 12/12/23 12/13/23
06:59 06:59 06:59
Intake Total 4917.8 / 5194.7 1903.9 / 1903.9 120 / 120
Output Total 1155 / 1205 1595 / 1595 350 / 350
Balance 3762.8 / 3989.7 308.9 / 308.9 -230 / -230
SaO2 [A/C] 98
SaO2 93
Nasal Cannula flow liters per 4
minute
Physical Exam
General: Respiratory Distress (negative), Comfortable, Pain, Poor Appetite and Other (Right upper extremity PICC)
HEENT: Normocephalic and Anicteric
Cardiovascular: S1-S2, Regular Rhythm, Murmur (faint systolic murmur), Rub (negative), Peripheral Edema (negative), Calf Tenderness (negative) and Cool Extremities (negative)
Respiratory: Wheeze, Crackles (n), Rhonchi (n), Non-Labored Respirations and Accessory Resp Muscle Use (negative)
GI: Soft, Non Distended, Tender (mild tenderness) and Feeding Tube (Dobbhoff tube)
Neurology: Awake, Alert, Oriented and AO x 3
Skin: Warm, Dry, Good Color, Cyanosis (n), Jaundice (n), Rash (n) and Bruising (negative)
Labs/Micro/Reports
Lab Data
12/12/23 03:10
12/12/23 03:10
Microbiology
12/10/23 07:27 Feces/Stool Salmonella/Shigella Culture - Final
No Salmonella, Shigella, Aeromonas or Plesiomonas species
isolated.
12/10/23 07:27 Feces/Stool Campylobacter Culture - Final
No Campylobacter species isolated.
12/10/23 07:27 Feces/Stool Shiga Toxin Test - Final
No E. coli Shiga Toxin 1 or 2 detected.
12/10/23 20:30 Sputum Respiratory Culture - Preliminary
Usual Respiratory Aletha
12/10/23 20:30 Sputum Gram Stain - Preliminary
12/10/23 00:52 Blood/Venous Blood Culture - Preliminary
No Growth in 48 hours- Final report to follow
12/09/23 23:55 Blood/Venous Blood Culture - Preliminary
No Growth in 48 hours- Final report to follow
12/10/23 07:27 Feces/Stool Stool Leukocytes - Final
12/10/23 20:30 Urine Legionella Urinary Antigen - Final
Negative for Legionella pneumophila Serogroup 1 antigen.
A negative result does not rule out the possiblity of
Legionella infection due to other serogroups or species of
Legionella. Clinical correlation is recommended.
12/10/23 20:30 Urine Streptococcus pneumoniae Antigen (M - Final
Negative for Streptococcus pneumoniae antigen.
A negative result does not exclude infection with
Streptococcus pneumoniae. Clinical correlation is
recommended.
12/10/23 03:40 Nasal Swab Influenza Types A & B (MALIK) - Final
Negative for Influenza A & B, NAAT
Negative results must be combined with clinical observations
and patient history.
Nucleic Acid Amplification test (NAAT)performed on the
[employer] platform.
12/10/23 07:27 Feces/Stool C. difficile GDH Antigen & Toxins - Final
Negative for toxigenic C.difficile

Documented by User: Brittney Norris MD 12/12/23 13:30
Care Review
-
Discussed with Clinician: Other (The above was reviewed at length. Patient is seen and examined independently by myself. Agree with plan (Myrna))
--- NOTE | 2023-12-12 11:09 | PTCARENOTE ---
Risk Management notified of situation yesterday where pt's brought in home meds at pt's request w/ plans to self-administer while in hospital. Per Risk Management, physician should reinforce that no medications brought in from home should be
taken while a pt in the hospital and only meds being provided by hospital pharmacy and administered per MD order by RN should be taken by pt while in hospital. Dr Norris notified of recommendation from Risk Management
--- NOTE | 2023-12-12 13:00 | PTCARENOTE ---
All systems reassessed and no changes noted from previous assessment findings. Pt's here to visit- updated on plan of care. Pt's Graham catheter removed as not having cardiac cath today and no indication for continued use. Pt instructed to
call and wait for assistance to use BSC if needs to void. Pt verbalized understanding. CHG bath completed and pt assisted w/ hygiene. Pt able to mobilize self to side of bed and stood w/ minimal assistance. Physical therapy here to work w/ pt.
--- NOTE | 2023-12-12 13:15 | CM ---
CM following re: discharge planning.
Discussed in Rounds, reviewed pt's chart, met with pt. Pt is out of hospital cardiac arrest, extubated yesterday, currently requires 2 L NC of O2.
Pt lives with in a 2SH, has 2 dogs and 'they have been treating like children'. Pt reports she uses a walker inside the house occasionally, mostly grabbing the marin, has a scooter and uses it for a long distance. Pt reports she is known to
[facility] and pt stated she would prefer to return back home with [facility] and pt continues expressing strong regarding returning back home at discharge with [facility].
A referral to [facility] made, spoke to [facility] [employer].
D/C plan: per pt's strong request, home with [facility] and support. to transport at discharge.
CM will follow with discharge plan updates as hospitalization progresses
[2023-12-12] MEDS: PROTONIX PO ×2 (13:26→15:53)
[2023-12-12] MEDS: MOTRIN 600 MG PO (13:26)
--- NOTE | 2023-12-12 16:06 | PTCARENOTE ---
Pt returned to bed at her request due to fatigue. Pt transferred w/ assist 1 and use of walker. No changes from previous assessment findings.
[2023-12-12] MEDS: LOVENOX 40 MG SC (18:29)
[2023-12-12] MEDS: CRESTOR 10 MG PO (18:29)
--- NOTE | 2023-12-12 18:50 | PTCARENOTE ---
Pt w/ episode of coughing- expectorating small amount white/blood tinged sputum. Pt's POx down to 77%- pt found to have O2 sitting on top of head. Reapplied O2 and humidity added to O2. Increased O2 to 6l/min w/ Pox improved to 93%.
--- NOTE | 2023-12-12 20:00 | PTCARENOTE ---
rec`d pt at 1900, resting in bed. Frequent moist cough. afebrile. +1 lower extrem pitting edema. Rt upper luman picc in place, all luman capped. 6L NC satting at 95%. No BM. pt voided at bedside commode, 250 cc of urine. 1x person assist. call ryan
in reach. safe environment maintained.
[2023-12-12] MEDS: AUGMENTIN 875 MG/125 MG 1 TABLET PO (20:05)
[2023-12-12] MEDS: ProAIR HFA INHALER 2 PUFF INH (20:24)
[2023-12-12] MEDS: AMBIEN 5 MG PO (21:22)
[2023-12-13] VITALS (8 sets, daily range): BP systolic 110–169; BP diastolic 58–88; O2SAT 95
--- NOTE | 2023-12-13 00:47 | PTCARENOTE ---
Patient received from ICU via wheelchair. Patient pivoted from the wheelchair onto the bed. Arrived with all belongings. AAOx3. On 6L O2 NC. VSS. Patient made comfortable in bed, call ryan is within reach.
--- NOTE | 2023-12-13 04:28 | DOWNTIME ---
There was a [employer] Client Operating Systems Specialist Downtime on 12/13/2023 from 0111 to 12/13/2023 at 0405. Downtime documentation of patient's care, including medication administrations, has been reconciled in the electronic record per guidelines. Refer to the
patient's paper chart under the miscellaneous tab to see printed paper medication records and downtime forms.
[2023-12-13 04:39] LABS: Hematocrit 36.5 % (37.0-47.0); Hemoglobin 12.9 g/dL (12.0-16.0); Mean Corp Hgb Conc. 35.3 g/dL (33.0-37.0); Mean Corpuscular Hgb 32.7 pg (27.0-31.0); Mean Corpuscular Volume 92.4 fL (81.0-99.0); Mean Platelet Volume 11.9 fL (7.4-10.4); Platelet Count 148 10^3/uL (130-400); Red Blood Cell Count 3.95 10^6/uL (4.20-5.40); Red Cell Dist. Width 15.2 % (11.5-14.5); White Blood Cell Count 12.9 10^3/uL (4.8-10.8)
[2023-12-13] MEDS: MOTRIN 600 MG PO ×3 (04:48→18:23)
[2023-12-13] MEDS: SYNTHROID 125 MCG PO (04:48)
[2023-12-13 04:56] LABS: Blood Urea Nitrogen 14 mg/dl (7-17); Calcium 8.7 mg/dl (8.4-10.2); Carbon Dioxide 30 mmol/L (22-30); Chloride 102 mmol/L (98-107); Estimated Creatinine Clearance 106 ml/min; Glucose 83 mg/dl (70-99); Potassium 3.7 mmol/L (3.5-5.1); Sodium 134 mmol/L (135-145); Triglycerides 179 mg/dl (10-149); eGFR > 60.00
[2023-12-13] MEDS: ProAIR HFA INHALER 2 PUFF INH (08:23)
[2023-12-13] MEDS: SYMBICORT 160/4.5 MCG INHALER 2 PUFF INH ×2 (08:23→19:13)
[2023-12-13] MEDS: NICODERM TRANSDERMAL 21 MG TRANSDERM (09:02)
[2023-12-13] MEDS: LASIX 20 MG PO (09:02)
[2023-12-13] MEDS: LOW STRENGTH ASPIRIN 81 MG PO (09:02)
[2023-12-13] MEDS: AUGMENTIN 875 MG/125 MG 1 TABLET PO ×2 (09:02→21:23)
[2023-12-13] MEDS: PROZAC 60 MG PO (09:03)
[2023-12-13] MEDS: PROTONIX PO (09:03)
[2023-12-13] MEDS: FLUSH (NSS) 2 FLUSH IV (09:04)
[2023-12-13] MEDS: TOPROL XL 25 MG PO (09:04)
[2023-12-13] MEDS: TRICOR 145 MG PO (09:04)
--- NOTE | 2023-12-13 09:43 | W.PN.HOSP.TC ---
Today's Communication/Plan
-
Will await to see if cardiology can convince her about cardiac cath she remains quite reticent
Will order home oxygen screen
If refuses cardiac cath today need to be discharged and placed on Augmentin through
She states she has oxygen tank at home unclear whether that was set up to a respiratory service so she got on her own.
Would avoid narcotics for her chest wall pain as she is already on significant dosing of benzodiazepine at home
Add Lidoderm patch
Assessment / Plan
Assessment / Plan
Gen:Morbidly obese, sedated
HEENT: intubated, anicteric
Lungs: Ventilated breath sounds
CVS: normal s1 and s2; RRR, systolic murmur and left sternal border
Abdomen: obese,non tender
COLLET GLUER: sedated
Acute hypoxic respiratory failure likely secondary to COPD/aspiration?
s/p brief CPR and 3 rounds epi pre hospital
Presumed COPD exacerbation with respiratory failure
-Cardiac arrest in relation to intercourse with prior events
Intubated/extubated December 11
Possible aspiration pneumonitis
Lactic acidosis, improving
Negative Pro-Getachew initially now elevated at 4.8/Unasyn to continue/discharged on Augmentin through the
- neg Covid Ag, Flu; bcx pending
-Steroids discontinued
Elevated trop likely non [place] related/although EKG shows continued deep T wave inversion anterior leads of V2 and V3
echo results reviewed EF 60% with some pulmonary hypertension
-Troponin has trended and plateaued at 0.135
cardiology evaluation appreciated/consideration for cardiac catheterization for further investigation
S/p Brief CPR performed pre-hospital with 3 rounds of epi
-chest wall pain on palpation from CPR?/history of costochondritis/chronic pain
Anxiety overlay component prominent
-Had been on 3 times daily dosing of alprazolam 1 mg at home along with Prozac
-Remains anxious here with increased as needed dosing of alprazolam to her usual 1 mg continue Prozac
Essential hypertension by history
-Hypotensive requiring pressors on admission
-BP now trending up
-Had been on lisinopril and metoprolol as outpatient
Known HX
morbid Obesity
HX chronic pain/costochondritis
HX� spondylolisthesis L5 - S1 � with Lumbosacral radiculopathy�
Lipoma of left lower extremity �
HX� Kidney lesion �
HX � PAM (generalized anxiety disorder)� �
Hyperlipidemia� �
Essential� HTN
HX Insomnia� �
HX De Quervain's disease (tenosynovitis) �
Hypothyroidism� � E03.9� � confirmed �
GERD
Former smoker� � �
HX falling �
DVT Px: LMWH
Code: Full code
Anticipated Discharge: Within 24 hours
Subjective/Interval History
-
Date of Service: December 13, 2023
Continues to be petrified over the prospects of of cardiac catheterization but will wait to talk to cardiology/I am petrified of needles'
Still with chest wall pain with any movement not sure she is using incentive spirometry as we instructed
Objective Data
-
Labs:
Laboratory Results
12/13/23
04:22
WBC 12.9 H
Hgb 12.9
Hct 36.5 L
Plt Count 148
Sodium 134 L
Potassium 3.7
Chloride 102
Carbon Dioxide 30
BUN 14
Creatinine 0.4 L
Glucose 83
Calcium 8.7
Vital Signs:
Vital Signs
Temp Pulse Resp BP Pulse Ox
98.0 F 70 20 125/73 96
12/13/23 07:30 12/13/23 09:02 12/13/23 07:30 12/13/23 09:02 12/13/23 09:38
I&O
12/12/23 12/13/23 12/14/23
06:59 06:59 06:59
Intake Total 1903.9 / 1903.9 1300 / 1300
Output Total 1595 / 1595 2800 / 2800
Balance 308.9 / 308.9 -1500 / -1500
Review of Systems
-
History Source: Patient
Constitutional: Reports Fatigue
EENT: Reports No Symptoms Reported
Cardiac: Reports Chest Pain (Chest wall pain palpable and reproducible)
Musculoskeletal: Reports Muscle Stiffness, Arthralgias and Myalgias
Physical Exam
-
General: Morbidly Obese
HEENT: Normocephalic
Respiratory: Clear to Auscultation, Rhonchi and Decreased Breath Sounds
Cardiac: Other (Reproducible pain on palpation over chest wall)
GI: Soft, Nontender, Nondistended and Normal Bowel Sounds
Musculoskeletal: Edema, Right Lower Extrem and Edema, Left Lower Extrem
Neuro: Awake
Data Reviewed
-
Total Time Spent with Patient (in minutes): 56
Labs: Labs Reviewed by me (White count all the way down to 12,000)
[2023-12-13] MEDS: XANAX 1 MG PO ×3 (10:03→21:23)
[2023-12-13] MEDS: LIDOCAINE 4% PATCH 1 PATCH TOPICAL (10:03)
--- NOTE | 2023-12-13 15:54 | CM ---
Spoke with patient and her is room .
Pt is uncertain she wants a cardiac cath.
She is on oxygen 2 liters POX 96%.
She will need home oxygen test.
IMM explained signed on chart.
[facility] accepted pt as per care port.
PLAN Home with [facility] Watch for oxygen needs
--- NOTE | 2023-12-13 16:28 | W.PN.CARDCBS ---
Today's Communication / Plan
-
Left heart catheterization 12/14/2023
Impression / Plan
-
PCP: Dr. Burgos
Cardiology: Dr. Stokes
Impression:
Acute hypoxic respiratory failure
Intubated in the field 12/10/23 and extubated 12/11/23
Sudden onset cardiorespiratory arrest with vent dependent respiratory failure with Epix 3 and CPR in the field 12/10/23
Elevated Troponin
Abnormal EKG now with inverted T waves and increased QT interval (QT interval prolongation appears to be present on admission also)
h/o Long QT on ECG since at least 2012
Hypotension requiring pressor support
Leukocytosis
COPD
Abnormal AP chest x-ray
Possible pneumonia
Elevated white blood count with increased lymphocytes and immature granulocytes
Hypertension
Hyperlipidemia
Tobacco use disorder
Morbid obesity
PVCs
Lexiscan nuclear stress test 10/27/2021 negative for ischemia ejection fraction 44% (PVCs)
Echocardiogram 09/24/2021 LVEF 60%. Mild LVH. Normal right ventricle. Borderline aortic stenosis, peak/mean gradient 22/13 mmHg, mild eccentric AI. Normal right heart with normal pulmonary artery pressure, 20 mmHg
Echocardiogram 12/10/2023:�Normal left ventricular size and function. Normal regional wall motion. Mild LVH. EF 55 to 60%. Normal RV size and function. Trace MR. Mild peak/mean gradient 20/12 mmHg. Mild AI. Mild TR. Estimated pulmonary
artery pressure of 40-45 mmHg assuming a right atrial pressure of 3 mmHg.
Plan:
-Patient with out of hospital cardiopulmonary arrest in the setting of intercourse with a h/o syncope with intercourse in the past as well. Patient reports now that the last time she had intercourse that she also had syncope and that prior to that
she had not had intercourse for quite some time. Patient has a h/o syncope that sounds like orthostasis as well. Reviewed with patient the concern for cardiopulmonary arrest and talked about an ischemic evaluation with cardiac catheterization.
-Troponin peaked at 0.983. No WMA on echo. Troponin elevation could be due to chest compressions. Consideration for cath as noted above.
-Tolerating aspiring 81 mg daily since 12/10/23
-LDL 50. Outpatient doses of fenofibrate 145 mg daily and Crestor 10 mg daily have been continued.
-Patient still complaining of congestion/patient notable drip and cough however was able to lie flat during our interview on 2 L nasal cannula
-Agreeable to left heart catheterization tomorrow. All questions answered.
-Patient with a h/o long QT as far back as 2012. Zofran and Zithromax stopped 12/11/23. Patient needs Prozac for depression and reports it is the only med that has worked for her. Follow QT on ECG. QTc 507 on ECG 12/12/23 and was 495 and 509 on ECGs
from 12/11/23.
-Hypotension now resolved; Levophed weaned off 12/11/23 AM.
-BP has improved now that she is extubated.
-Restarted Toprol XL 25 mg daily on 12/12/23.
-Outpatient dose of lisinopril 40 mg daily has been on hold since admission.
-Patient was taking Lasix 20 mg PO daily prior to admission. Patient received 4 L IVFs this admission status post IV Lasix 12/12/2023
-Resumed oral outpatient Lasix
Progress Note - Grinding Operator
Subjective
Date of Service: December 13, 2023
Seen and examined at bedside. Offers no new complaints
Objective
Labs:
12/13/23 04:22
12/13/23 04:22
Labs
Hgb 12.9 g/dL (12.0-16.0) 12/13/23 04:22
Hct 36.5 % (37.0-47.0) L 12/13/23 04:22
Plt Count 148 10^3/uL (130-400) 12/13/23 04:22
Sodium 134 mmol/L (135-145) L 12/13/23 04:22
Potassium 3.7 mmol/L (3.5-5.1) 12/13/23 04:22
BUN 14 mg/dl (7-17) 12/13/23 04:22
Creatinine 0.4 mg/dL (0.6-1.0) L 12/13/23 04:22
Glucose 83 mg/dl (70-99) 12/13/23 04:22
Troponins
12/10/23 12/11/23 12/11/23
18:08 03:28 03:57
Troponin I 0.367 H* D Cancelled 0.153 H*
12/11/23 12/12/23
13:32 03:10
Troponin I 0.128 H* 0.135 H*
Vital Signs and I&O:
Vital Signs
Temp Pulse Resp BP Pulse Ox
98.4 F 74 18 135/58 96
12/13/23 15:33 12/13/23 15:33 12/13/23 15:33 12/13/23 15:33 12/13/23 15:33
Vital Signs
Temp Pulse Resp BP Pulse Ox
98.4 F 74 18 135/58 96
12/13/23 15:33 12/13/23 15:33 12/13/23 15:33 12/13/23 15:33 12/13/23 15:33
Intake & Output
12/11/23 12/12/23 12/13/23 12/14/23
06:59 06:59 06:59 06:59
Intake Total 4917.8 / 5194.7 1903.9 / 1903.9 1300 / 1300
Output Total 1155 / 1205 1595 / 1595 2800 / 2800
Balance 3762.8 / 3989.7 308.9 / 308.9 -1500 / -1500
Physical Exam
Physical Exam
GEN: Anxious, NAD. AAO x3
HEENT: EOMI
LUNGS: Wearing oxygen at 2 L NC. CTA B/L
CV: Reg with ectopy, no murmur
ABD: soft, BS+
EXT: Trace B/L LE edema.
NEURO: Gross non-focal
SKIN: No rash
[2023-12-13] MEDS: LOVENOX 40 MG SC (18:24)
[2023-12-13] MEDS: DELTASONE 50 MG PO ×2 (18:24→23:14)
[2023-12-13] MEDS: CRESTOR 10 MG PO (18:24)
[2023-12-13] MEDS: PEPCID 40 MG PO (18:28)
[2023-12-13] MEDS: AMBIEN 5 MG PO (21:23)
[2023-12-14] VITALS (13 sets, daily range): BP systolic 114–152; BP diastolic 52–85
[2023-12-14] MEDS: PEPCID 40 MG PO (05:57)
[2023-12-14] MEDS: DELTASONE 50 MG PO ×2 (05:58→09:36)
[2023-12-14] MEDS: SYNTHROID 125 MCG PO (05:58)
[2023-12-14] MEDS: SYMBICORT 160/4.5 MCG INHALER 2 PUFF INH ×2 (08:14→19:19)
[2023-12-14] MEDS: ProAIR HFA INHALER 2 PUFF INH (08:14)
[2023-12-14] MEDS: LOW STRENGTH ASPIRIN 81 MG PO (09:23)
[2023-12-14] MEDS: PROTONIX 40 MG PO (09:23)
[2023-12-14] MEDS: TRICOR 145 MG PO (09:24)
[2023-12-14] MEDS: XANAX 1 MG PO ×3 (09:24→21:15)
[2023-12-14] MEDS: LASIX 20 MG PO (09:25)
[2023-12-14] MEDS: LIDOCAINE 4% PATCH TOPICAL (09:26)
[2023-12-14] MEDS: NICODERM TRANSDERMAL 21 MG TRANSDERM (09:27)
[2023-12-14] MEDS: TOPROL XL 25 MG PO ×2 (09:29→21:15)
[2023-12-14] MEDS: AUGMENTIN 875 MG/125 MG 1 TABLET PO ×2 (09:29→21:15)
--- NOTE | 2023-12-14 09:29 | W.PN.HOSP.TC ---
Today's Communication/Plan
-
For left heart cath today/Omnipaque allergy by history getting prednisone and Benadryl
Encourage early mobility and incentive spirometry with her costochondral pain
Finish course of Augmentin to completion for aspiration pneumonia
Leukocytosis has resolved
Assessment / Plan
Assessment / Plan
Gen:Morbidly obese, sedated
HEENT: intubated, anicteric
Lungs: Ventilated breath sounds
CVS: normal s1 and s2; RRR, systolic murmur and left sternal border
Abdomen: obese,non tender
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
Acute hypoxic respiratory failure likely secondary to COPD/aspiration?
s/p brief CPR and 3 rounds epi pre hospital
Presumed COPD exacerbation with respiratory failure
-Cardiac arrest in relation to intercourse with prior events also describes as recurrent syncope
Intubated/extubated December 11
Possible aspiration pneumonitis
Lactic acidosis, improving
Negative Pro-Getachew initially now elevated at 4.8/Unasyn to continue/discharged on Augmentin through the
- neg Covid Ag, Flu; bcx pending
-Steroids discontinued
Elevated trop likely non [place] related/although EKG shows continued deep T wave inversion anterior leads of V2 and V3
echo results reviewed EF 60% with some pulmonary hypertension
-Troponin has trended and plateaued at 0.135
cardiology evaluation appreciated/will undergo left heart cath today December 14
S/p Brief CPR performed pre-hospital with 3 rounds of epi
-chest wall pain on palpation from CPR?/history of costochondritis/chronic pain
-Continue to encourage activity and incentive spirometry
Anxiety overlay component prominent
-Had been on 3 times daily dosing of alprazolam 1 mg at home along with Prozac
-Remains anxious here with increased as needed dosing of alprazolam to her usual 1 mg continue Prozac
Essential hypertension by history
-Hypotensive requiring pressors on admission
-BP now trending up
-Had been on lisinopril and metoprolol as outpatient
Known HX
morbid Obesity
HX chronic pain/costochondritis
HX� spondylolisthesis L5 - S1 � with Lumbosacral radiculopathy�
Lipoma of left lower extremity �
HX� Kidney lesion �
HX � PAM (generalized anxiety disorder)� �
Hyperlipidemia� �
Essential� HTN
HX Insomnia� �
HX De Quervain's disease (tenosynovitis) �
Hypothyroidism� � E03.9� � confirmed �
GERD
Former smoker� � �
HX falling �
DVT Px: LMWH
Code: Full code
Anticipated Discharge: Within 24 hours
Subjective/Interval History
-
Date of Service: December 14, 2023
She finally agreed to left heart cath which be performed later today. Main complaint continues to be her chest wall pain with any movement was able to perform a some incentive spirometry
Objective Data
-
Vital Signs:
Vital Signs
Temp Pulse Resp BP Pulse Ox
97.6 F 72 18 116/85 94
12/14/23 07:30 12/14/23 07:30 12/14/23 07:30 12/14/23 07:30 12/14/23 07:30
I&O
12/13/23 12/14/23 12/15/23
06:59 06:59 06:59
Intake Total 1300 / 1300 960 / 960
Output Total 2800 / 2800
Balance -1500 / -1500 960 / 960
Review of Systems
-
History Source: Patient
Respiratory: Reports Trouble Breathing
Cardiac: Reports Chest Pain (Chest wall rib pain)
Physical Exam
-
General: Morbidly Obese
HEENT: Normocephalic
Respiratory: Clear to Auscultation
Cardiac: Regular Rhythm
GI: Soft and Nontender
Neuro: Awake, Alert and Nonfocal/Grossly Intact
Psych: Calm
Data Reviewed
-
Total Time Spent with Patient (in minutes): 56
Labs: Labs Reviewed by me (Resolved leukocytosis)
[2023-12-14] MEDS: PROZAC 60 MG PO (09:36)
[2023-12-14] MEDS: BENADRYL 50 MG IV (10:05)
--- NOTE | 2023-12-14 11:03 | CM ---
For left heart cath today.
Pt remains on oxygen 2 liters Pox 94 %. Will need home oxygen test.
will drive her home .
[facility] accepted her as per Care port.
PLAN Home with [facility]
--- NOTE | 2023-12-14 11:40 | ITS.CL.CATH ---
[facility] - Catheterization
Cardiac Catheterization
Procedure Report:
LEFT HEART CATHETERIZATION
Date of Procedure: December 14, 2023
Referring: Dr. Elijah Stokes
PROCEDURES:
1. Left heart catheterization with coronary and single-plane left ventriculography
INDICATION: This is a 68-year-old female who was admitted to [facility] following an episode of unresponsiveness with intercourse requiring brief CPR and 3 rounds of epinephrine. She had experienced dizziness and presyncopal symptoms with
prior intercourse a few weeks before. Her troponin is mildly elevated. She does smoke handrolled cigarettes; approximately 4/day. She has a history of significant anxiety. She is now referred for coronary angiography.
ACCESS: The radial pulse is very poor. Arterial access was obtained using ultrasound guidance and micropuncture technique with placement of a 6 Turkmen sheath in the right common femoral artery
HEMODYNAMICS : (mmHg)
AO (s/d) : 181/82
LV (s/d) : 171/14
LVEDP : 30
CORONARY FINDINGS
DOMINANCE: Right
LEFT MAIN: Normal. A JL 5 was required to cannulate the origin of the left main
LEFT ANTERIOR DESCENDING: The LAD arises normally from the left main and runs in the anterior interventricular groove. The proximal LAD is widely patent. A large septal steward/stewardess lounge and diagonal branch arise from the mid LAD. The mid LAD beyond the
first diagonal branch is heavily calcified, has a 99% stenosis with aneurysmal dilatation and calcified 70% stenosis beyond. The distal LAD approaches but does not wraparound the apex. The diagonal branch is a large and has a 70% stenosis in its
midportion
CIRCUMFLEX: The circumflex is a medium caliber nondominant vessel. The mid circumflex has a long 50% stenosis. OM1 is small. OM 2 is 100% occluded with the distal vessel filling via left to left collaterals
RIGHT CORONARY ARTERY: The right coronary artery is a dominant vessel that is 100% occluded just beyond RV marginal branch. The distal right coronary artery is fed by a well-developed collaterals and a right to right and [id number] fashion.
VENTRICULOGRAPHY: Left ventriculography was performed in an PELAEZ projection. The digital single-plane left ventricular ejection fraction is estimated at 40-45%. There is anterior basal and anterolateral hypokinesis as well as posterior basal
hypokinesis
RADIATION SUMMARY: Fluoro Time (min): 3.8, Dose (mGy): 398, DAP (Gy.cm2) : 31.5
Closure Device: None
CONCLUSIONS
1. Multivessel coronary artery disease with high-grade diagonal, mid LAD, and chronic total occlusion of the RCA and mid circumflex/OM 2
2. Mildly reduced left ventricular systolic function
RECOMMENDATIONS
1. Consult CT surgery
Copy to: Dr. Elijah Stokes
--- NOTE | 2023-12-14 12:53 | CONSULT.CT ---
Consultation
-
Date/Time Consultation Requested: 12/14/2023
Date/Time Consultation Performed: 12/14/2023
Requesting Provider: Dr. Peacock
Performing Provider: Andres mendiola
Reason for Consultation: CABG evaluation
Patient History
Physicians
Family Physician: Dr. Burgos
Outpatient Food Service Worker [facility]: Dr. Stokes
History of Present Illness
This is a 68-year-old female who is being seen status postcardiac catheterization. Cardiac catheterization today by Dr. Peacock showed left ventricular ejection fraction at 40 to 45%. Multivessel coronary artery disease with high-grade diagonal,
mid LAD and chronic total occlusion of the RCA and mid circumflex/ OM2.
She initially presented to [facility] after cardio respiratory arrest requiring CPR and 3 rounds of epinephrine. At the time this was acute onset during sexual intercourse. She was intubated, sedated and required pressor support. She was
intubated on 12/10/2023 and extubated 12/11/2023. Initial troponins were elevated. She was stabilized medically and underwent echo on 12/10/2023. Left ventricular ejection fraction 55%. Normal right ventricular size and function. Trace mitral
regurgitation. Mild aortic stenosis. Peak mean gradient across the aortic valve 20/12 mmHg. Mild aortic regurgitation. Mild tricuspid regurgitation. Pulmonary artery pressure 40 to 45 mmHg.
Patient is now status post cardiac catheterization showing multivessel coronary artery disease. Preoperative studies will be ordered.
All studies to be reviewed by attending cardiothoracic surgeons and will discuss surgical revascularization with patient and family later.
Past Medical History
Past Medical History: Angina, CAD, COPD, BARNETT, GERD, HTN, Hypercholesterolemia, Hypothyroidism, Psychiatric and SOB
Past medical history significant for hypertension, hyperlipidemia, COPD, GERD, hiatal hernia, hypothyroidism, multiple abdominal hernias, anxiety, depression, DJD/osteoarthritis, diverticulitis, fibromyalgia. Morbid obesity, long smoking history,
aspiration pneumonitis.
Past Surgical History
Past Surgical History: Abdominal, Appendectomy, Cholecystectomy and Orthopedic
Past surgical history: Tonsils, laminectomy x 2, cholecystectomy, appendectomy, colon resection, hernia repair, cataracts, bilateral shoulder surgery, bilateral knee replacements
Dental History
Has not seen a dentist for approximately 12 years
Family History
Mother: at Age ( at age 87 after stroke hypertension and cancer)
Father: at Age ( at 80 years of age had a CABG in his 50s and a carotid and stroke postoperatively@COUNTS INCLUDE 234 BEDS AT THE [facility])
Social History
Alcohol: None
Drug: None
Tobacco: Smoker (Patient smokes 1 pack/day for approximately 40 years.)
Personal: (-Feliciano)
Living: With Spouse
Employment: Retired
Covid Vaccination History:
Denies history of COVID infection, denies history of COVID-vaccine
Allergies
Allergy/AdvReac Type Severity Reaction Status Date / Time
adhesive Allergy Tape - Verified 12/11/23 15:38
swelling,
rips skin
iohexol [From Omnipaque] Allergy Vomiting Verified 12/13/23 17:34
levofloxacin [From Levaquin] Allergy hives,swell Verified 12/11/23 15:38
ing
morphine Allergy blood Verified 12/13/23 17:34
pressure
drops,
itching,
hyper
pollen extracts Allergy Sneezing/coughing Verified 12/11/23 15:38
- seasonal
Home Medications
Medication Instructions Recorded Confirmed Type
alprazolam 1 mg tablet (Xanax) 1 mg PO TID PRN anxiety 08/30/10 12/10/23 History
zolpidem 10 mg tablet 10 mg PO HS Sleep 08/31/10 12/10/23 History
fluoxetine 20 mg capsule 60 mg PO DAILY Depression 10/21/11 12/10/23 History
omega 8-xfo-zdt-fish oil 60 mg-90 1 cap PO DAILY Supplement 10/21/11 12/10/23 History
mg-500 mg capsule (Fish Oil)
furosemide 20 mg tablet 20 mg PO DAILY Fluid 07/02/13 12/10/23 History
Retention/Swelling
therapeutic multivitamin 1 tab PO DAILY Supplement 07/02/13 12/10/23 History
cholecalciferol (vitamin D3) 25 25 mcg PO DAILY Supplement 02/14/15 12/10/23 History
mcg (1,000 unit) tablet
budesonide-formoterol HFA 160 2 puff inhalation BID 12/10/23 12/10/23 History
mcg-4.5 mcg/actuation aerosol Lung/Breathing Issues
inhaler
fenofibrate 160 mg tablet 160 mg PO DAILY High Cholesterol 12/10/23 12/10/23 History
levothyroxine 125 mcg tablet 125 mcg PO DAILY AT 0700 Thyroid 12/10/23 12/10/23 History
lisinopril 40 mg tablet 40 mg PO DAILY Blood Pressure 12/10/23 12/10/23 History
metoprolol succinate 25 mg 25 mg PO HS Blood Pressure 12/10/23 12/10/23 History
tablet,extended release 24 hr
rosuvastatin 10 mg tablet 10 mg PO DAILY High Cholesterol 12/10/23 12/10/23 History
vitamin E mixed 400 unit capsule 400 unit PO DAILY Supplement 12/10/23 12/10/23 History
zinc sulfate 50 mg zinc (220 mg) 50 mg PO Q48H Supplement 12/10/23 12/10/23 History
tablet
ibuprofen 600 mg tablet 600 mg PO Q6 Anti-Inflammatory 12/11/23 12/10/23 History
amoxicillin 875 mg-potassium 1 tab PO BID #8 tabs 12/13/23 Rx
clavulanate 125 mg tablet
lidocaine 4 % topical patch 1 patch topical DAILY #30 ea 12/13/23 Rx
rosuvastatin 10 mg tablet 10 mg PO QPM #30 tabs 12/13/23 Rx
Review of Systems
-
History Source: Patient
General: Reports Fatigue and Other (Reports thyroid storm approximately 1 year ago)
HEENT: Reports Visual Changes and Hoarseness
Respiratory: Reports SOB and BARNETT
Cardiac: Reports Chest Pain and CAD
Abdomen/GI: Reports Reflux and Ulcers
: Reports Dysuria
Musculoskeletal: Reports Arthralgias and Other (Psoriatic arthritis)
Skin: Reports Other (Psoriasis)
Neurological: Reports Syncope
Vascular: Reports Claudication
Physical Exam
Vital Signs
Temp 97.7 F 12/14/23 12:15
Temp route: Oral 12/14/23 12:15
Pulse 64 12/14/23 12:15
Rhythm: Normal sinus rhythm 12/13/23 20:45
With- PAC's, PVC's Monomorphic, Prolonged QT interval 12/13/23 20:45
Telemetry QT: 544 12/11/23 04:00
Telemetry QTc: 552 12/11/23 04:00
Resp Rate 20 12/14/23 12:15
Systolic BP: 130 12/11/23 09:47
Blood pressure 133/75 12/14/23 12:15
Blood pressure extremity used: Right upper arm 12/14/23 12:15
Position: Lying 12/14/23 12:15
MAP (cuff-Bronwyn Monitor) 86 12/12/23 15:00
MAP 90 12/09/23 23:51
SaO2 94 12/14/23 12:15
Nasal Cannula flow liters per minute 2 12/14/23 12:15
Oxygen Mode of Delivery Room air 12/13/23 23:44
Other oxygen comment ac 20, tv 350, 5 peep 12/10/23 20:00
% Oxygen delivered 30 12/10/23 20:00
Pulse Ox at Rest 95 12/13/23 15:08
Acceptable pain level during hospitalization? 0 12/10/23 00:30
Can the patient verbally communicate their pain? Yes 12/13/23 20:45
Pain scale rating: Pt states unable to rate 12/13/23 20:45
Total score: 0 12/10/23 00:30
Arterial Systolic Pressure 152 12/11/23 11:00
Arterial Diastolic Pressure 72 12/11/23 11:00
MAP (Q-Ngiz-Ehrxdtq Monitor) 103 12/11/23 11:00
MAP A-Line 88 12/11/23 04:00
Actual Weight 216 lb 7.903 oz 12/12/23 05:18
Body Mass Index (BMI) 36.0 12/12/23 05:18
Sitting- Blood Pressure 111/88 12/12/23 13:12
Sitting- Pulse 87 12/12/23 13:12
etC02 value 32 12/11/23 09:30
Blood pressure after activity 121/99 12/12/23 13:12
Oxygen Saturation with Activity 87 12/13/23 15:08
Labs
12/13/23 04:22
12/13/23 04:22
Troponin I 0.135 ng/ml H* 12/12/23 03:10
Jkd-R-Qhdxnqufaad Pept 324 pg/ml 12/09/23 23:53
Arterial Blood Gases
pH 7.35 (7.35-7.45) 12/11/23 09:23
pCO2 35 mmHg (32-35) 12/11/23 09:23
pO2 144 mmHg (83-108) H 12/11/23 09:23
HCO3 19.3 mmol/L (21-28) L 12/11/23 09:23
Base Excess -5.5 mmol/L 12/11/23 09:23
ABG O2 Sat (Measured) 99.1 % (94-98) H 12/11/23 09:23
O2 Delivery Level 12/11/23 09:23
Exam
General: Well Developed, Well Nourished, No Apparent Distress and Comfortable
HEENT: Normocephalic, Anicteric and Atraumatic
Neck: Trachea Midline
Respiratory: Crackles and Rhonchi
Cardiac: Regular Rhythm
GI: Soft, Non Tender and Normal Bowel Sounds
Rectal: Deferred by Provider
Skin: Warm
Neuro: Awake, Alert, Oriented and AO x 3
Extremities: Pulses (Distal pulses intact bilaterally, dorsalis pedis pulses 1-2+ bilaterally, posterior tibial pulses +1 bilaterally)
Lymph: No Lymphadenopathy
Psych: Calm
Assessment / Plan
-
Assessment:
Acute hypoxic respiratory failure
Multivessel coronary artery disease
Borderline aortic stenosis, peak mean gradient 23/13 mmHg, mild eccentric aortic regurgitation
COPD-patient continues to smoke
Morbid obesity class III
Hypertension
Hyperlipidemia
Hypothyroidism
GERD
Hiatal hernia
Anxiety
Depression
Degenerative joint disease/osteoarthritis
Diverticulitis-status post bowel resection
Fibromyalgia
Bilateral cataracts
Back pain status post multiple laminectomies
Insomnia
Tenosynovitis
Lumbosacral radiculopathy
Plan:
Multivessel coronary artery disease, continue to optimize medical therapy
Smoking cessation
Preoperative studies ordered
All studies to be reviewed by attending cardiothoracic surgeons and will be discussed with patient and family
Plan for CABG next week
--- NOTE | 2023-12-14 13:05 | PTCARENOTE ---
Patient status post cardiac cath. Vital signs stable. Patient with dressing over right femoral site. No signs of hematoma or bleeding. Pedal pulse weak as was noted prior to cath. Patient and educated on need to lay flat with leg straight
until 1500. Both verbalize understanding of teaching.
[2023-12-14] MEDS: CRESTOR 20 MG PO (18:42)
[2023-12-14] MEDS: LOVENOX 40 MG SC (18:42)
[2023-12-14] MEDS: AMBIEN 5 MG PO (21:15)
[2023-12-15] VITALS (7 sets, daily range): BP systolic 101–137; BP diastolic 53–63; PULSE 54; O2SAT 97
--- NOTE | 2023-12-15 00:50 | PTCARENOTE ---
Patient sweating in abdominal/groin folds at cath site, tegaderm loosened. Reinforced with extra tegaderm. Patient with slight tenderness at site, but no other complaints.
[2023-12-15] MEDS: SYNTHROID 125 MCG PO (04:48)
[2023-12-15 06:35] LABS: Hemoglobin 12.6 g/dL (12.0-16.0); Mean Corpuscular Hgb 32.8 pg (27.0-31.0); Mean Corpuscular Volume 93.8 fL (81.0-99.0); Mean Platelet Volume 11.9 fL (7.4-10.4); Platelet Count 169 10^3/uL (130-400); Red Blood Cell Count 3.84 10^6/uL (4.20-5.40); Red Cell Dist. Width 15.2 % (11.5-14.5); White Blood Cell Count 14.4 10^3/uL (4.8-10.8)
[2023-12-15 07:16] LABS: ALT (SGPT) 29 U/L (0-35); AST (SGOT) 20 U/L (14-36); Albumin 3.1 g/dl (3.5-5.0); Alkaline Phosphatase 63 U/L (38-126); Blood Urea Nitrogen 21 mg/dl (7-17); Carbon Dioxide 32 mmol/L (22-30); Chloride 102 mmol/L (98-107); Direct Bilirubin 0.5 mg/dl (0.0-0.4); Estimated Creatinine Clearance 90 ml/min; Glucose 81 mg/dl (70-99); Potassium 3.9 mmol/L (3.5-5.1); Sodium 137 mmol/L (135-145); Total Bilirubin 0.6 mg/dl (0.2-1.3); Total Protein 5.3 g/dl (6.3-8.2); eGFR > 60.00
[2023-12-15] MEDS: SYMBICORT 160/4.5 MCG INHALER 2 PUFF INH ×2 (08:15→19:38)
[2023-12-15] MEDS: ProAIR HFA INHALER 2 PUFF INH (08:16)
--- NOTE | 2023-12-15 08:42 | W.PN.UPDATE ---
Addendum entered and electronically signed by Mejia Campos PA-C 12/15/23 14:34:
Pt not agreeable to CABG monday. She wants to discuss PCI options. Plan to follow up later.
Dr. Mejia aware
Original Note:
Update Note
Progress Note Update
Procedure Type:�Isolated CABG
PERIOPERATIVE OUTCOME ESTIMATE %
Operative Mortality 4.39%
Morbidity & Mortality 18.1%
Stroke 1.36%
Renal Failure 2.18%
Reoperation 2.55%
Prolonged Ventilation 13.5%
Deep Sternal Wound Infection 0.627%
Long Hospital Stay (>14 days) 10.2%
Short Hospital Stay (<6 days)* 18.9%
*higher values reflect a better outcome
Plan Cabg on monday12/18/23 Dr. Mejia
[2023-12-15 09:27] LABS: Glycohemoglobin (HgbA1c) 5.5 % (4.0-5.6)
[2023-12-15] MEDS: PROTONIX 40 MG PO (09:36)
[2023-12-15] MEDS: DELTASONE 50 MG PO (09:36)
[2023-12-15] MEDS: NICODERM TRANSDERMAL 21 MG TRANSDERM (09:36)
[2023-12-15] MEDS: LASIX 20 MG PO (09:37)
[2023-12-15] MEDS: LOW STRENGTH ASPIRIN 81 MG PO (09:37)
[2023-12-15] MEDS: PROZAC 60 MG PO (09:37)
[2023-12-15] MEDS: TRICOR 145 MG PO (09:37)
[2023-12-15] MEDS: AUGMENTIN 875 MG/125 MG 1 TABLET PO ×2 (09:38→20:12)
[2023-12-15] MEDS: XANAX 1 MG PO ×3 (09:38→22:10)
[2023-12-15] MEDS: TOPROL XL 25 MG PO ×2 (09:38→20:12)
[2023-12-15] MEDS: LIDOCAINE 4% PATCH TOPICAL (09:42)
--- NOTE | 2023-12-15 10:09 | W.PN.HOSP.TC ---
Today's Communication/Plan
-
Found to have multivessel coronary disease that would require CABG
Timetable now for December 18
Main complaint continues to be costochondral in relation to post CPR
She will complete course of antibiotics by the for aspiration pneumonia
Assessment / Plan
Assessment / Plan
Gen:Morbidly obese, sedated
HEENT: intubated, anicteric
Lungs: Ventilated breath sounds
CVS: normal s1 and s2; RRR, systolic murmur and left sternal border
Abdomen: obese,non tender
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
Acute hypoxic respiratory failure likely secondary to COPD/aspiration?
s/p brief CPR and 3 rounds epi pre hospital
Presumed COPD exacerbation with respiratory failure
-Cardiac arrest in relation to intercourse with prior events also describes as recurrent syncope
-Now post left heart cath and found to have multivessel coronary artery disease/
Intubated/extubated December 11
Possible aspiration pneumonitis
Lactic acidosis, improving
Negative Pro-Getachew initially now elevated at 4.8/Unasyn to continue/discharged on Augmentin through the
- neg Covid Ag, Flu; bcx pending
-Steroids discontinued
Elevated trop likely non [place] related/although EKG shows continued deep T wave inversion anterior leads of V2 and V3
echo results reviewed EF 60% with some pulmonary hypertension
-Troponin has trended and plateaued at 0.135
cardiology evaluation appreciated/ left heart cath today December 14
Multivessel coronary disease with high-grade diagonal, mid LAD, and chronic total occlusions of the RCA and mid circumflex/OM 2
-Consult to CT surgery
-Scheduled for CABG December 18
S/p Brief CPR performed pre-hospital with 3 rounds of epi
-chest wall pain on palpation from CPR?/history of costochondritis/chronic pain
-Continue to encourage activity and incentive spirometry
Anxiety overlay component prominent
-Had been on 3 times daily dosing of alprazolam 1 mg at home along with Prozac
-Remains anxious here with increased as needed dosing of alprazolam to her usual 1 mg continue Prozac
Essential hypertension by history
-Hypotensive requiring pressors on admission
-BP now trending up
-Had been on lisinopril and metoprolol as outpatient
Known HX
morbid Obesity
HX chronic pain/costochondritis
HX� spondylolisthesis L5 - S1 � with Lumbosacral radiculopathy�
Lipoma of left lower extremity �
HX� Kidney lesion �
HX � PAM (generalized anxiety disorder)� �
Hyperlipidemia� �
Essential� HTN
HX Insomnia� �
HX De Quervain's disease (tenosynovitis) �
Hypothyroidism� � E03.9� � confirmed �
GERD
Former smoker� � �
HX falling �
DVT Px: LMWH
Code: Full code
Anticipated Discharge: > 48 hours
Subjective/Interval History
-
Date of Service: December 15, 2023
Main complaint continues to be her rib pains on her left side and sternum/I went over the necessity to pursue her multivessel disease that was found on her left heart cath yesterday she remains resistant to any thoughts of any open heart procedure
and wants to talk to cardiology further as to the options did explain to her she has multivessel disease, and best option would be CABG/perioperative outcomes also discussed with her but wants to discuss with cardiology further
Objective Data
-
Labs:
Laboratory Results
12/15/23
06:19
WBC 14.4 H
Hgb 12.6
Hct 36.0 L
Plt Count 169
Sodium 137
Potassium 3.9
Chloride 102
Carbon Dioxide 32 H
BUN 21 H
Creatinine 0.7
Glucose 81
Calcium 9.0
Total Bilirubin 0.6
AST 20
ALT 29
Alkaline Phosphatase 63
Vital Signs:
Vital Signs
Temp Pulse Resp BP Pulse Ox
97.5 F 51 18 120/61 99
12/15/23 03:35 12/15/23 09:38 12/15/23 08:18 12/15/23 09:38 12/15/23 08:18
I&O
12/14/23 12/15/23 12/16/23
06:59 06:59 06:59
Intake Total 960 / 960 360 / 360
Balance 960 / 960 360 / 360
Review of Systems
-
History Source: Patient
Constitutional: Reports Fatigue
Respiratory: Reports Trouble Breathing
Cardiac: Reports Chest Pain (Chest wall pain)
Psych: Reports Anxious
Physical Exam
-
General: Morbidly Obese
HEENT: Normocephalic
Respiratory: Clear to Auscultation
Cardiac: Regular Rhythm and Other (Palpable chest wall pain)
GI: Soft, Nontender and Nondistended
Musculoskeletal: No Edema
Skin: Warm
Neuro: Awake, Alert, Oriented, AO x 3 and No Motor Deficits
Psych: Anxious
Data Reviewed
-
Total Time Spent with Patient (in minutes): 56
Critical Care Time (in minutes): 56
Labs: Labs Reviewed by me (Leukocytosis trending up again to 14 after cath/creatinine 0.7 from 0.4 yesterday)
--- NOTE | 2023-12-15 11:20 | W.PN.CARDCBS ---
Addendum entered and electronically signed by Daniel Yousif MD 12/15/23 17:15:
Patient without acute complaints. She is anxious about CABG, per CT service, has refused surgery for Monday
Allergies reviewed, outpatient medications reviewed,
Current medications: Lovenox, Prozac, fenofibrate, aspirin 81 mg a day, levothyroxine, furosemide 20 mg a day, metoprolol ER 25 mg twice daily
PMH/PSH/SH/FH: Reviewed
Review of systems: Unremarkable.
101/54, pulse 64, respiratory rate 20, afebrile, sats at 95%,
Head and neck exam is unremarkable, lungs are clear, regular rate and rhythm, abdomen obese extremities without edema
Impression:
Acute hypoxic respiratory failure
Intubated in the field 12/10/23 and extubated 12/11/23
Sudden onset cardiorespiratory arrest with vent dependent respiratory failure with Epix 3 and CPR in the field 12/10/23
Elevated Troponin
MVCAD on cath 12/14/2023
Abnormal EKG now with inverted T waves and increased QT interval (QT interval prolongation appears to be present on admission also)
h/o Long QT on ECG since at least 2012
Hypotension requiring pressor support
Leukocytosis
COPD
Abnormal AP chest x-ray
Possible pneumonia
Elevated white blood count with increased lymphocytes and immature granulocytes
Hypertension
Hyperlipidemia
Tobacco use disorder
Morbid obesity
PVCs
cardiac cath 12/14/2023: LM:NL. LAD:mid 99% stenosis and 70% beyond that. D1 70% mid. LCX:mid 50%. OM2 100% occluded with the distal vessel filling via left to left collaterals. RCA: 100% occluded just beyond RV marginal branch w/ well-developed
collaterals and a right to right and [id number] fashion.
Lexiscan nuclear stress test 10/27/2021�negative for ischemia ejection fraction 44% (PVCs)
Echocardiogram 09/24/2021VEF 60%.� Mild LVH.� Normal right ventricle. Borderline aortic stenosis, peak/mean gradient 22/13 mmHg, mild eccentric AI. Normal right heart with normal pulmonary artery pressure, 20 mmHg
Echocardiogram 12/10/2023:�Normal left ventricular size and function. Normal regional wall motion.� Mild LVH.� EF 55 to 60%.� Normal RV size and function.� Trace MR.� Mild peak/mean gradient 20/12 mmHg.� Mild AI. Mild TR. Estimated pulmonary
artery pressure of 40-45 mmHg assuming a right atrial pressure of 3 mmHg.
Plan:
She is stable at the moment. However, prognosis is poor in the absence of appropriate intervention
I have reviewed with her that CABG is the best option
I have spoken again with Dr. Peacock, she is a poor candidate for PCI.
Following revascularization would need to consider whether ICD implantation is warranted given history of QTc prolongation, etc.
Will await her decision, continue supportive care in the interval.
Original Note:
Today's Communication / Plan
-
replete K+
Anticipated CABG vs PCI 12/18/2023
Impression / Plan
-
PCP: Dr. Burgos
Cardiology: Dr. Stokes
Impression:
Acute hypoxic respiratory failure
Intubated in the field 12/10/23 and extubated 12/11/23
Sudden onset cardiorespiratory arrest with vent dependent respiratory failure with Epix 3 and CPR in the field 12/10/23
Elevated Troponin
MVCAD on cath 12/14/2023
Abnormal EKG now with inverted T waves and increased QT interval (QT interval prolongation appears to be present on admission also)
h/o Long QT on ECG since at least 2012
Hypotension requiring pressor support
Leukocytosis
COPD
Abnormal AP chest x-ray
Possible pneumonia
Elevated white blood count with increased lymphocytes and immature granulocytes
Hypertension
Hyperlipidemia
Tobacco use disorder
Morbid obesity
PVCs
cardiac cath 12/14/2023: LM:NL. LAD:mid 99% stenosis and 70% beyond that. D1 70% mid. LCX:mid 50%. OM2 100% occluded with the distal vessel filling via left to left collaterals. RCA: 100% occluded just beyond RV marginal branch w/ well-developed
collaterals and a right to right and [id number]-[id number] fashion.
Lexiscan nuclear stress test 10/27/2021 negative for ischemia ejection fraction 44% (PVCs)
Echocardiogram 09/24/2021 LVEF 60%. Mild LVH. Normal right ventricle. Borderline aortic stenosis, peak/mean gradient 22/13 mmHg, mild eccentric AI. Normal right heart with normal pulmonary artery pressure, 20 mmHg
Echocardiogram 12/10/2023:�Normal left ventricular size and function. Normal regional wall motion. Mild LVH. EF 55 to 60%. Normal RV size and function. Trace MR. Mild peak/mean gradient 20/12 mmHg. Mild AI. Mild TR. Estimated pulmonary
artery pressure of 40-45 mmHg assuming a right atrial pressure of 3 mmHg.
Plan:
-Patient with out of hospital cardiopulmonary arrest in the setting of intercourse with a h/o syncope with intercourse in the past as well.
-Troponin peaked at 0.983. No WMA on echo.
-Cardiac catheterization performed on 12/14/2023 demonstrated multivessel coronary artery disease as noted above.
-Seen by CT surgery with plan for CABG on 12/18/2023, although patient telling me she is still on the fence about having surgery
-Continue aspirin 81 mg daily and low dose Toprol. Consider adding AVA-I/ARB post CABG
-LDL 50. Outpatient doses of fenofibrate 145 mg daily and Crestor 10 mg daily have been continued.
-Still requiring 2 L nasal cannula with good oxygen saturation. Wean if able
-Patient with a h/o long QT as far back as 2012. Zofran and Zithromax stopped 12/11/23. Patient needs Prozac for depression and reports it is the only med that has worked for her. Follow QT on ECG. QTc 507 on ECG 12/12/23 and was 495 and 509 on ECGs
from 12/11/23. Repeat ECG today 12/13/23
-Hypotension now resolved; Levophed weaned off 12/11/23 AM.
-Restarted Toprol XL 25 mg daily on 12/12/23 and BP stable
-Outpatient dose of lisinopril 40 mg daily has been on hold since admission. Consider restarting after CABG
-Patient was taking Lasix 20 mg PO daily prior to admission. Patient received 4 L IVFs this admission status post IV Lasix 12/12/2023
-Resumed oral Lasix 12/13/23. K+ 3.9 will repleted
Progress Note - Argon Tester
Subjective
Date of Service: December 15, 2023
Patient seen and examined. Patient sitting up in chair. Patient came planing of musculoskeletal chest discomfort when taking deep breaths or moving around likely from CPR. She denies dizziness, lightheadedness or shortness of breath. Family and
friends also at bedside
Objective
Labs:
12/15/23 06:19
12/15/23 06:19
Labs
Hgb 12.6 g/dL (12.0-16.0) 12/15/23 06:19
Hct 36.0 % (37.0-47.0) L 12/15/23 06:19
Plt Count 169 10^3/uL (130-400) 12/15/23 06:19
Sodium 137 mmol/L (135-145) 12/15/23 06:19
Potassium 3.9 mmol/L (3.5-5.1) 12/15/23 06:19
BUN 21 mg/dl (7-17) H 12/15/23 06:19
Creatinine 0.7 mg/dL (0.6-1.0) 12/15/23 06:19
Glucose 81 mg/dl (70-99) 12/15/23 06:19
Vital Signs and I&O:
Vital Signs
Temp Pulse Resp BP Pulse Ox
97.5 F 51 18 120/61 99
12/15/23 03:35 12/15/23 09:38 12/15/23 08:18 12/15/23 09:38 12/15/23 08:18
Vital Signs
Temp Pulse Resp BP Pulse Ox
97.5 F 51 18 120/61 99
12/15/23 03:35 12/15/23 09:38 12/15/23 08:18 12/15/23 09:38 12/15/23 08:18
Intake & Output
12/13/23 12/14/23 12/15/23 12/16/23
06:59 06:59 06:59 06:59
Intake Total 1300 / 1300 960 / 960 360 / 360
Output Total 2800 / 2800
Balance -1500 / -1500 960 / 960 360 / 360
Physical Exam
Physical Exam
GEN: No distress, awake, Ox3
HEENT: supple, anicteric, mmm
LUNGS: few crackles at bases otherwise CTA, no wheezes/rales; wearing oxygen
CV: Reg, S1/S2, 1/6 murmur
ABD: soft, BS+, NT/ND
EXT: No edema, no rubs or gallops
NEURO: Gross non-focal
SKIN: No rash, warm, dry
[2023-12-15] MEDS: KCL 20 MEQ PO (13:01)
[2023-12-15] MEDS: VENTOLIN NEBULES 2.5 MG INH (14:42)
[2023-12-15] MEDS: SENNA SYRUP 8.80000000000000071 MG PO (15:26)
--- NOTE | 2023-12-15 15:32 | CM ---
Patient and seen at bedside. Patient indicated that she is for a procedure on Monday. Per chart review possible for Cabbage vs PCI per Cardiology 12/18/23. CM updated Amberly with Benedict of plan. CM will continue to follow for discharge planning
needs.
Plan; home with VN pending functional assessments closer to discharge
[2023-12-15] MEDS: CRESTOR 20 MG PO (17:12)
[2023-12-15] MEDS: LOVENOX 40 MG SC (17:12)
--- NOTE | 2023-12-15 19:52 | PTCARENOTE ---
Patient with complaints of constipation. MD notified. Senna given as ordered. Patient states that she feels the urge to move her bowels. Patient walked to bathroom without successful BM. Patient just assisted to BSC and states she may have to move
her bowels.
[2023-12-15] MEDS: AMBIEN 5 MG PO (22:10)
[2023-12-16] VITALS (7 sets, daily range): BP systolic 90–146; BP diastolic 62–73
[2023-12-16] MEDS: SYNTHROID 125 MCG PO (06:29)
[2023-12-16 08:38] LABS: Hematocrit 35.4 % (37.0-47.0); Hemoglobin 12.3 g/dL (12.0-16.0); Mean Corp Hgb Conc. 34.7 g/dL (33.0-37.0); Mean Corpuscular Hgb 32.5 pg (27.0-31.0); Mean Corpuscular Volume 93.7 fL (81.0-99.0); Platelet Count 193 10^3/uL (130-400); Red Blood Cell Count 3.78 10^6/uL (4.20-5.40); Red Cell Dist. Width 15.1 % (11.5-14.5); White Blood Cell Count 11.8 10^3/uL (4.8-10.8)
[2023-12-16] MEDS: SYMBICORT 160/4.5 MCG INHALER 2 PUFF INH ×2 (08:58→20:15)
[2023-12-16 09:16] LABS: Triglycerides 189 mg/dl (10-149)
[2023-12-16] MEDS: PROZAC 60 MG PO (09:30)
[2023-12-16] MEDS: NICODERM TRANSDERMAL 21 MG TRANSDERM (09:30)
[2023-12-16] MEDS: LASIX 20 MG PO (09:31)
[2023-12-16] MEDS: PROTONIX 40 MG PO (09:31)
[2023-12-16] MEDS: LOW STRENGTH ASPIRIN 81 MG PO (09:31)
[2023-12-16] MEDS: LIDOCAINE 4% PATCH 1 PATCH TOPICAL (09:31)
[2023-12-16] MEDS: AUGMENTIN 875 MG/125 MG 1 TABLET PO ×2 (09:31→19:53)
[2023-12-16] MEDS: TRICOR 145 MG PO (09:31)
[2023-12-16] MEDS: XANAX 1 MG PO ×3 (09:31→22:26)
[2023-12-16] MEDS: TOPROL XL 25 MG PO ×2 (09:31→19:53)
--- NOTE | 2023-12-16 09:55 | W.PN.HOSP.TC ---
Today's Communication/Plan
-
Okay for Cepacol lozenge
Await further testing and preop evaluation by CT surgery for proposed CABG next week
Leukocytosis is all but resolved last day of antibiotics tomorrow for aspiration pneumonitis
Assessment / Plan
Assessment / Plan
Gen:Morbidly obese, sedated
HEENT: intubated, anicteric
Lungs: Ventilated breath sounds
CVS: normal s1 and s2; RRR, systolic murmur and left sternal border
Abdomen: obese,non tender
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
Acute hypoxic respiratory failure /status post cardiorespiratory arrest
s/p brief CPR and 3 rounds epi pre hospital
Presumed COPD exacerbation with respiratory failure
-Cardiac arrest in relation to intercourse with prior events also describes as recurrent syncope
-Now post left heart cath and found to have multivessel coronary artery disease/
-Undergoing testing for CABG next week/carotid Doppler and venous Doppler within normal limits
-CT of the chest showing patchy pulmonary edema and increased pulmonary pressures
Intubated/extubated December 11
Possible aspiration pneumonitis
Lactic acidosis, improving
Negative Pro-Getachew initially now elevated at 4.8/Unasyn to continue/discharged on Augmentin through the
- neg Covid Ag, Flu; bcx pending
-Steroids discontinued
Elevated trop likely non [place] related/although EKG shows continued deep T wave inversion anterior leads of V2 and V3
echo results reviewed EF 60% with some pulmonary hypertension
-Troponin has trended and plateaued at 0.135
cardiology evaluation appreciated/ left heart cath today December 14
Multivessel coronary disease with high-grade diagonal, mid LAD, and chronic total occlusions of the RCA and mid circumflex/OM 2
-Consult to CT surgery
-Scheduled for CABG December 18
S/p Brief CPR performed pre-hospital with 3 rounds of epi
-chest wall pain on palpation from CPR?/history of costochondritis/chronic pain
-Continue to encourage activity and incentive spirometry
Anxiety overlay component prominent
-Had been on 3 times daily dosing of alprazolam 1 mg at home along with Prozac
-Remains anxious here with increased as needed dosing of alprazolam to her usual 1 mg continue Prozac
Essential hypertension by history
-Hypotensive requiring pressors on admission
-BP now trending up
-Had been on lisinopril and metoprolol as outpatient
Known HX
morbid Obesity
HX chronic pain/costochondritis
HX� spondylolisthesis L5 - S1 � with Lumbosacral radiculopathy�
Lipoma of left lower extremity �
HX� Kidney lesion �
HX � PAM (generalized anxiety disorder)� �
Hyperlipidemia� �
Essential� HTN
HX Insomnia� �
HX De Quervain's disease (tenosynovitis) �
Hypothyroidism� � E03.9� � confirmed �
GERD
Former smoker� � �
HX falling �
DVT Px: LMWH
Code: Full code
Anticipated Discharge: 24 - 48 hours
Subjective/Interval History
-
Date of Service: December 16, 2023
Chief complaint cirrhosis from soreness continued chest pain from chest wall
Objective Data
-
Labs:
Laboratory Results
12/16/23
07:39
WBC 11.8 H
Hgb 12.3
Hct 35.4 L
Plt Count 193
Vital Signs:
Vital Signs
Temp Pulse Resp BP Pulse Ox
98.1 F 55 16 145/70 97
12/16/23 07:30 12/16/23 09:31 12/16/23 09:02 12/16/23 09:31 12/16/23 09:02
I&O
12/15/23 12/16/23 12/17/23
06:59 06:59 06:59
Intake Total 360 / 360 1020 / 1020
Balance 360 / 360 1020 / 1020
Review of Systems
-
All other systems: Not reviewed unless documented
EENT: Reports Sore Throat
Respiratory: Reports No Symptoms and Other (Suzie deep breathing)
Cardiac: Reports Chest Pain (Chest wall)
Genitourinary: Reports No Symptoms
Skin: Reports No Symptoms
Physical Exam
-
General: Well Developed
HEENT: Normocephalic
Respiratory: Clear to Auscultation
Cardiac: Regular Rhythm
GI: Soft, Nontender and Nondistended
Musculoskeletal: Other (Chest wall pain on palpation patient left side)
Neuro: Awake, Alert, Oriented and AO x 3
Psych: Anxious
Data Reviewed
-
Total Time Spent with Patient (in minutes): 56
CT Scan: Report Reviewed by me (Preop CT of chest showed patchy pulmonary edema/increased PA pressures)
Medical Tests (Nuc Med, Echo etc): Report Reviewed by me (No carotid stenosis on carotid Doppler/no DVT on peripheral vascular Doppler)
Labs: Labs Reviewed by me (Leukocytosis almost to normal/)
--- NOTE | 2023-12-16 10:07 | W.PN.UPDATE ---
Update Note
Progress Note Update
CARDIAC SURGERY ATTENDING:
I once again spoke w/ Mrs. Caruso this AM. After our initial (~30min) discussion two days ago, the patient was undecided as to if she would consent to CABG. She was agreeable to undergoing the appropriate preoperative work-up. Today, "Lisy"Shady remains supine in bed. She related no recollection of our previous conversations, nor did she even recognize me. She mentioned that she was told PCI/stenting was not possible and that she would be having surgery on Monday. She then went
on to perseverate about her difficulties healing after her numerous abdominal surgeries.
She has profoundly bad coronary disease w/ total occlusions of her RCA and OM branch of her LCx. Her LAD does not reach the apex. Her D branch sends collaterals to her apex and posterior coronary circulation. Her occluded OM branch fills via
L-to-L collateral, but appears to be a diminutive vessel. Surgical coronary revascularization would include bypasses to her LAD, D, and PDA w/ evaluation of her OM branch. Her other preoperative studies are summarized below. Her STS
mortality/morbidity are calculated at 4.39%/18.1% respectively; it is my impression that these underestimate her true perioperative risks. It is also quite concerning that she does not recall our prior discussions.
PFTs: FVC 1.43 (53%), FEV1 1.01 (49%)
EKG: Sinus w/ PAT/PVC, TWA, consider anterior ischemia, prolonged QT (490ms)
ECHO: LVEF 55-60%, mild concentric LVH, normal RV, trace MR, mild (P/M: 20/12), mild TR (PASP 40-45mmHg)
VEIN MAPPING: R: 0.22-0.46 (0.88 @ [facility]); L: 0.17-0.42 (0.84 @ [facility])
CAROTID U/S: < 50% B/L w/ antegrade vert flow B/L
CT-C: mild dilation of ascending aorta (4.1cm), enlargement of main PA (?[id number]), dense coronary calcifications, patchy ground-glass opacities in B/L lungs
LABS: 11.8>12.3 (35.4)<193; 7.35/35/144/19.3/-5.5/99.1. 21/0.7. HgbA1c 5.5. LFTs WNL; Tpro/Alb: 5.3/3.1
While CABG likely still represents the best option for this patient's disease. She warrants additional multidisciplinary discussions given my concerns about her ability to successful navigate the perioperative course. If consensus remains CABG,
will re-discuss with patient and her , and schedule for 2nd case on Monday12/18/2023.
Please call with questions.
Oj Mejia M.D.'
--- NOTE | 2023-12-16 11:15 | W.PN.CARDCBS ---
Today's Communication / Plan
-
No new chest pains.
The patient is agreeable to proceed with bypass surgery. Will review again with interventional radiology and CT surgery.
I do feel bypass surgery is her best treatment option.
Continue aspirin, Toprol, Crestor, and Lasix.
QTc interval remains stable at 498 ms
Impression / Plan
-
PCP: Dr. Burgos
Cardiology: Dr. Stokes
Impression:
Acute hypoxic respiratory failure
Intubated in the field 12/10/23 and extubated 12/11/23
Sudden onset cardiorespiratory arrest with vent dependent respiratory failure with Epix 3 and CPR in the field 12/10/23
Elevated Troponin
MVCAD on cath 12/14/2023
Abnormal EKG now with inverted T waves and increased QT interval (QT interval prolongation appears to be present on admission also)
h/o Long QT on ECG since at least 2012
Hypotension requiring pressor support
Leukocytosis
COPD
Abnormal AP chest x-ray
Possible pneumonia
Elevated white blood count with increased lymphocytes and immature granulocytes
Hypertension
Hyperlipidemia
Tobacco use disorder
Morbid obesity
PVCs
cardiac cath 12/14/2023: LM:NL. LAD:mid 99% stenosis and 70% beyond that. D1 70% mid. LCX:mid 50%. OM2 100% occluded with the distal vessel filling via left to left collaterals. RCA: 100% occluded just beyond RV marginal branch w/ well-developed
collaterals and a right to right and zhqr-[id number]-eighj fashion.
Lexiscan nuclear stress test 10/27/2021 negative for ischemia ejection fraction 44% (PVCs)
Echocardiogram 09/24/2021 LVEF 60%. Mild LVH. Normal right ventricle. Borderline aortic stenosis, peak/mean gradient 22/13 mmHg, mild eccentric AI. Normal right heart with normal pulmonary artery pressure, 20 mmHg
Echocardiogram 12/10/2023:�Normal left ventricular size and function. Normal regional wall motion. Mild LVH. EF 55 to 60%. Normal RV size and function. Trace MR. Mild peak/mean gradient 20/12 mmHg. Mild AI. Mild TR. Estimated pulmonary
artery pressure of 40-45 mmHg assuming a right atrial pressure of 3 mmHg.
Plan:
-Patient with out of hospital cardiopulmonary arrest in the setting of intercourse with a h/o syncope with intercourse in the past as well.
-Troponin peaked at 0.983. No WMA on echo.
-Cardiac catheterization performed on 12/14/2023 demonstrated multivessel coronary artery disease as noted above.
-Will continue discussions with CT surgery regarding possible CABG on Monday. The patient is currently agreeable.
-Continue aspirin 81 mg daily and low dose Toprol. Consider adding AVA-I/ARB post CABG
-LDL 50. Outpatient doses of fenofibrate 145 mg daily and Crestor 10 mg daily have been continued.
-Patient with a h/o long QT as far back as 2012. Zofran and Zithromax stopped 12/11/23. Patient needs Prozac for depression and reports it is the only med that has worked for her. Follow QT on ECG. QTc 507 on ECG 12/12/23 and was 495 and 509 on ECGs
from 12/11/23. QTc stable December 15
-Continue Toprol, Lasix, and aspirin.
Progress Note - Type Disk Quality Control Supervisor
Subjective
Date of Service: December 16, 2023
No further chest pains. Denies shortness of breath
Objective
Labs:
12/16/23 07:39
12/15/23 06:19
Labs
Hgb 12.3 g/dL (12.0-16.0) 12/16/23 07:39
Hct 35.4 % (37.0-47.0) L 12/16/23 07:39
Plt Count 193 10^3/uL (130-400) 12/16/23 07:39
Sodium 137 mmol/L (135-145) 12/15/23 06:19
Potassium 3.9 mmol/L (3.5-5.1) 12/15/23 06:19
BUN 21 mg/dl (7-17) H 12/15/23 06:19
Creatinine 0.7 mg/dL (0.6-1.0) 12/15/23 06:19
Glucose 81 mg/dl (70-99) 12/15/23 06:19
Vital Signs and I&O:
Vital Signs
Temp Pulse Resp BP Pulse Ox
98.1 F 53 20 90/64 97
12/16/23 11:03 12/16/23 11:03 12/16/23 11:03 12/16/23 11:03 12/16/23 11:03
Vital Signs
Temp Pulse Resp BP Pulse Ox
98.1 F 53 20 90/64 97
12/16/23 11:03 12/16/23 11:03 12/16/23 11:03 12/16/23 11:03 12/16/23 11:03
Intake & Output
12/14/23 12/15/23 12/16/23 12/17/23
06:59 06:59 06:59 06:59
Intake Total 960 / 960 360 / 360 1020 / 1020
Balance 960 / 960 360 / 360 1020 / 1020
Physical Exam
Physical Exam
GEN: No distress, awake, Ox3
HEENT: supple, anicteric, mmm
LUNGS: CTA, no wheezes/rales
CV: Reg, S1/S2, 1/6 syst LSB, no gallop
ABD: soft, BS+, NT/ND
EXT: No edema
NEURO: Gross non-focal
SKIN: No rash
[2023-12-16] MEDS: ANESTHETIC LOZENGE 1 LOZENGE PO (12:30)
[2023-12-16] MEDS: CRESTOR 20 MG PO (17:24)
[2023-12-16] MEDS: AMBIEN 5 MG PO (22:26)
[2023-12-17 03:39] VITALS: BP 138/70
[2023-12-17] MEDS: SYNTHROID 125 MCG PO (05:10)
[2023-12-17] MEDS: ANESTHETIC LOZENGE 1 LOZENGE PO ×2 (05:11→15:06)
[2023-12-17 07:00] VITALS: BP 141/60
[2023-12-17 07:37] LABS: INR 1.11; PT 14.1 Sec (11.4-14.6)
[2023-12-17 07:38] LABS: APTT 27.3 Sec (23.4-35.0)
[2023-12-17 08:00] LABS: ALT (SGPT) 20 U/L (0-35); AST (SGOT) 16 U/L (14-36); Albumin 2.9 g/dl (3.5-5.0); Alkaline Phosphatase 53 U/L (38-126); Blood Urea Nitrogen 17 mg/dl (7-17); Carbon Dioxide 31 mmol/L (22-30); Chloride 98 mmol/L (98-107); Direct Bilirubin 0.4 mg/dl (0.0-0.4); Estimated Creatinine Clearance 90 ml/min; Glucose 83 mg/dl (70-99); Potassium 3.8 mmol/L (3.5-5.1); Sodium 137 mmol/L (135-145); Total Bilirubin 0.7 mg/dl (0.2-1.3); Total Protein 5.4 g/dl (6.3-8.2); eGFR > 60.00
[2023-12-17] MEDS: LIDOCAINE 4% PATCH TOPICAL (08:42)
[2023-12-17] MEDS: PROZAC 60 MG PO (08:43)
[2023-12-17] MEDS: AUGMENTIN 875 MG/125 MG 1 TABLET PO ×2 (08:44→20:50)
[2023-12-17] MEDS: LOW STRENGTH ASPIRIN 81 MG PO (08:44)
[2023-12-17] MEDS: TRICOR 145 MG PO (08:44)
[2023-12-17] MEDS: NICODERM TRANSDERMAL 21 MG TRANSDERM (08:44)
[2023-12-17] MEDS: TOPROL XL 25 MG PO (08:44)
[2023-12-17] MEDS: PROTONIX 40 MG PO (08:45)
[2023-12-17] MEDS: XANAX 1 MG PO ×3 (08:45→20:50)
[2023-12-17] MEDS: FLUSH (NSS) 1 FLUSH IV ×2 (08:45→16:31)
[2023-12-17] MEDS: LASIX 20 MG PO (08:45)
[2023-12-17] MEDS: SYMBICORT 160/4.5 MCG INHALER 2 PUFF INH ×2 (09:01→19:51)
--- NOTE | 2023-12-17 10:08 | W.PN.HOSP.TC ---
Addendum entered and electronically signed by Juan Youssef MD 12/17/23 10:40:
Now informed by CT surgery will be having meetings early next week in regards to PCI versus CABG on this patient and no definitive plans for CABG as he had so will change back to a scheduled diet. Again tried to encourage her on incentive
spirometry for her chest wall pain and cough.
Original Note:
Today's Communication/Plan
-
Last day of Augmentin today
For CABG in a.m.
N.p.o. after midnight
Assessment / Plan
Assessment / Plan
Gen:Morbidly obese, sedated
HEENT: intubated, anicteric
Lungs: Ventilated breath sounds
CVS: normal s1 and s2; RRR, systolic murmur and left sternal border
Abdomen: obese,non tender
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
Acute hypoxic respiratory failure /status post cardiorespiratory arrest
s/p brief CPR and 3 rounds epi pre hospital
Presumed COPD exacerbation with respiratory failure
-Cardiac arrest in relation to intercourse with prior events also describes as recurrent syncope
-Now post left heart cath and found to have multivessel coronary artery disease/
-Undergoing testing for CABG next week/carotid Doppler and venous Doppler within normal limits
-CT of the chest showing patchy pulmonary edema and increased pulmonary pressures
Intubated/extubated December 11
Possible aspiration pneumonitis
Lactic acidosis, improving
Negative Pro-Getachew initially then became elevated at 4.8/Unasyn / Augmentin through the
- neg Covid Ag, Flu; bcx pending
-Steroids discontinued
Elevated trop likely non [place] related/although EKG shows continued deep T wave inversion anterior leads of V2 and V3
echo results reviewed EF 60% with some pulmonary hypertension
-Troponin has trended and plateaued at 0.135
cardiology evaluation appreciated/ left heart cath today December 14
Multivessel coronary disease with high-grade diagonal, mid LAD, and chronic total occlusions of the RCA and mid circumflex/OM 2
-Consult to CT surgery
-Scheduled for CABG December 18
S/p Brief CPR performed pre-hospital with 3 rounds of epi
-chest wall pain on palpation from CPR?/history of costochondritis/chronic pain
-Continue to encourage activity and incentive spirometry
Anxiety overlay component prominent
-Had been on 3 times daily dosing of alprazolam 1 mg at home along with Prozac
-Remains anxious here with increased as needed dosing of alprazolam to her usual 1 mg continue Prozac
Essential hypertension by history
-Hypotensive requiring pressors on admission
-BP now trending up
-Had been on lisinopril and metoprolol as outpatient
Known HX
morbid Obesity
HX chronic pain/costochondritis
HX� spondylolisthesis L5 - S1 � with Lumbosacral radiculopathy�
Lipoma of left lower extremity �
HX� Kidney lesion �
HX � PAM (generalized anxiety disorder)� �
Hyperlipidemia� �
Essential� HTN
HX Insomnia� �
HX De Quervain's disease (tenosynovitis) �
Hypothyroidism� � E03.9� � confirmed �
GERD
Former smoker� � �
HX falling �
DVT Px: LMWH
Code: Full code
Anticipated Discharge: 24 - 48 hours
Subjective/Interval History
-
Date of Service: December 17, 2023
With questions struggles regarding her upcoming surgery and told her to refer to CT surgery for more specifics. Continues to have chest wall pain with a harsh cough is her main complaint today is her last day of antibiotics.
Objective Data
-
Labs:
Laboratory Results
12/17/23
06:08
PT 14.1
INR 1.11
APTT 27.3
Sodium 137
Potassium 3.8
Chloride 98
Carbon Dioxide 31 H
BUN 17
Creatinine 0.7
Glucose 83
Calcium 9.0
Total Bilirubin 0.7
AST 16
ALT 20
Alkaline Phosphatase 53
Vital Signs:
Vital Signs
Temp Pulse Resp BP Pulse Ox
97.8 F 56 16 141/60 99
12/17/23 07:00 12/17/23 09:06 12/17/23 09:06 12/17/23 08:45 12/17/23 09:06
I&O
12/16/23 12/17/23 12/18/23
06:59 06:59 06:59
Intake Total 1020 / 1020 1320 / 1320
Balance 1020 / 1020 1320 / 1320
Review of Systems
-
History Source: Patient
Constitutional: Reports Fatigue and Weakness
EENT: Reports No Symptoms Reported
Respiratory: Reports Cough and Trouble Breathing
Cardiac: Reports No Symptoms
Abdomen/GI: Reports No Symptoms
Neuro: Reports No Symptoms
Physical Exam
-
General: Morbidly Obese
HEENT: Normocephalic and Oxygen
Respiratory: Rhonchi
Cardiac: Regular Rhythm and Other (Reproducible chest wall pain on palpation especially to the left sternum.)
GI: Soft, Nontender and Nondistended
Neuro: Awake, Alert and Oriented
Data Reviewed
-
Total Time Spent with Patient (in minutes): 45
Labs: Labs Reviewed by me (Chemistry stable)
--- NOTE | 2023-12-17 10:21 | W.PN.UPDATE ---
Update Note
Progress Note Update
Patient seen with Dr. Mejia today. There will be a meeting tomorrow about PCI vs Surgery and then timing of that procedure will be determined. Patient was started on protein supplements since albumin is trending down and encouraged to get OOB more
to build endurance. IS education. Rest of care per primary service.
Pratima RAMIREZ
Cardiac Surgery
[2023-12-17 11:00] VITALS: BP 138/64
--- NOTE | 2023-12-17 12:05 | PTCARENOTE ---
Caaled to alondra by pt; stated she was having 'palpitations' a short while ago; telemetry reviewed, no runs of tachycardia noted; telemetry showing NSR 50's-60's with occ PVC's. BP 138/64. Pt in NAD, resting quietly. Dr. Youssef notified. Will
continue to monitor.
--- NOTE | 2023-12-17 12:43 | W.PN.CARDCBS ---
Today's Communication / Plan
-
Case will be discussed Monday morning at 7 AM at cath conference with CT surgery to decide on revascularization plan. By anatomy CABG is likely her best treatment option
Continue medical therapy. She does have some intermittent episodes of bradycardia. Will decrease Toprol to 12.5 mg twice daily.
Continue aspirin, fenofibrate, and Crestor
Impression / Plan
-
PCP: Dr. Burgos
Cardiology: Dr. Stokes
Impression:
Acute hypoxic respiratory failure
Intubated in the field 12/10/23 and extubated 12/11/23
Sudden onset cardiorespiratory arrest with vent dependent respiratory failure with Epix 3 and CPR in the field 12/10/23
Elevated Troponin
MVCAD on cath 12/14/2023
Abnormal EKG now with inverted T waves and increased QT interval (QT interval prolongation appears to be present on admission also)
h/o Long QT on ECG since at least 2012
Hypotension requiring pressor support
Leukocytosis
COPD
Abnormal AP chest x-ray
Possible pneumonia
Elevated white blood count with increased lymphocytes and immature granulocytes
Hypertension
Hyperlipidemia
Tobacco use disorder
Morbid obesity
PVCs
cardiac cath 12/14/2023: LM:NL. LAD:mid 99% stenosis and 70% beyond that. D1 70% mid. LCX:mid 50%. OM2 100% occluded with the distal vessel filling via left to left collaterals. RCA: 100% occluded just beyond RV marginal branch w/ well-developed
collaterals and a right to right and [id number] fashion.
Lexiscan nuclear stress test 10/27/2021 negative for ischemia ejection fraction 44% (PVCs)
Echocardiogram 09/24/2021 LVEF 60%. Mild LVH. Normal right ventricle. Borderline aortic stenosis, peak/mean gradient 22/13 mmHg, mild eccentric AI. Normal right heart with normal pulmonary artery pressure, 20 mmHg
Echocardiogram 12/10/2023:�Normal left ventricular size and function. Normal regional wall motion. Mild LVH. EF 55 to 60%. Normal RV size and function. Trace MR. Mild peak/mean gradient 20/12 mmHg. Mild AI. Mild TR. Estimated pulmonary
artery pressure of 40-45 mmHg assuming a right atrial pressure of 3 mmHg.
Plan:
-Patient with out of hospital cardiopulmonary arrest in the setting of intercourse with a h/o syncope with intercourse in the past as well.
-Troponin peaked at 0.983. No WMA on echo.
-Cardiac catheterization performed on 12/14/2023 demonstrated multivessel coronary artery disease as noted above.
-Will continue discussions with CT surgery regarding possible CABG on Monday. We will meet Monday morning to discuss plan. The patient is currently agreeable.
-Continue aspirin 81 mg daily. Having some bradycardia and we will decrease Toprol to 12.5 twice daily.
-LDL 50. Outpatient doses of fenofibrate 145 mg daily and Crestor 10 mg daily have been continued.
-Patient with a h/o long QT as far back as 2012. Zofran and Zithromax stopped 12/11/23. Patient needs Prozac for depression and reports it is the only med that has worked for her. Follow QT on ECG. QTc 507 on ECG 12/12/23 and was 495 and 509 on ECGs
from 12/11/23. QTc stable December 15
-Continue Toprol, Lasix, and aspirin.
Progress Note - Supervisor Ovens
Subjective
Date of Service: December 17, 2023
Overall feeling anxious. Denies chest pains. Having occasional palpitations.
Objective
Labs:
12/16/23 07:39
12/17/23 06:08
Labs
Hgb 12.3 g/dL (12.0-16.0) 12/16/23 07:39
Hct 35.4 % (37.0-47.0) L 12/16/23 07:39
Plt Count 193 10^3/uL (130-400) 12/16/23 07:39
PT 14.1 Sec (11.4-14.6) 12/17/23 06:08
INR 1.11 12/17/23 06:08
APTT 27.3 Sec (23.4-35.0) 12/17/23 06:08
Sodium 137 mmol/L (135-145) 12/17/23 06:08
Potassium 3.8 mmol/L (3.5-5.1) 12/17/23 06:08
BUN 17 mg/dl (7-17) 12/17/23 06:08
Creatinine 0.7 mg/dL (0.6-1.0) 12/17/23 06:08
Glucose 83 mg/dl (70-99) 12/17/23 06:08
Vital Signs and I&O:
Vital Signs
Temp Pulse Resp BP Pulse Ox
98 F 59 20 138/64 98
12/17/23 11:00 12/17/23 11:00 12/17/23 11:00 12/17/23 11:00 12/17/23 11:00
Vital Signs
Temp Pulse Resp BP Pulse Ox
98 F 59 20 138/64 98
12/17/23 11:00 12/17/23 11:00 12/17/23 11:00 12/17/23 11:00 12/17/23 11:00
Intake & Output
12/15/23 12/16/23 12/17/23 12/18/23
06:59 06:59 06:59 06:59
Intake Total 360 / 360 1020 / 1020 1320 / 1320
Output Total 400 / 400
Balance 360 / 360 1020 / 1020 1320 / 1320 -400 / -400
Physical Exam
Physical Exam
GEN: No distress, awake, Ox3
HEENT: supple, anicteric, mmm
LUNGS: CTA, no wheezes/rales
CV: Reg, S1/S2, 1/6 syst LSB, no gallop
ABD: soft, BS+, NT/ND
EXT: No edema
NEURO: Gross non-focal
SKIN: No rash
[2023-12-17 15:00] VITALS: BP 131/54
[2023-12-17] MEDS: DILAUDID 0.5 MG IV (16:31)
--- NOTE | 2023-12-17 16:34 | PTCARENOTE ---
Pt AAO x3, [place] well, OOB to chair/BSC with assist x1, windy well. VSS. Telemetry:NSR/SB with PVC's. On room air at present, pulse ox 95%, no c/o SOB, encouraging use of IS q 1 hr while awake, pt states compliance. Pt c/o MSCP with deep
inspiration; Dilaudid 0.5 mg IV given x1, will assess effectiveness. Abd obese, soft, windy PO. Voids on BSC without difficulty. Resting in bed at present, at bedside. Will continue to monitor.
[2023-12-17] MEDS: CRESTOR 20 MG PO (17:22)
[2023-12-17 19:36] VITALS: BP 105/48
[2023-12-17] MEDS: AMBIEN 5 MG PO (20:50)
[2023-12-17] MEDS: TOPROL XL 12.5 MG PO (20:51)
[2023-12-17 22:47] VITALS: BP 119/56
[2023-12-18] VITALS (8 sets, daily range): BP systolic 115–152; BP diastolic 61–68; PULSE 58
[2023-12-18] MEDS: SYNTHROID 125 MCG PO (05:15)
[2023-12-18] MEDS: ANESTHETIC LOZENGE 1 LOZENGE PO (05:24)
--- NOTE | 2023-12-18 08:27 | W.PN.HOSP.TC ---
Today's Communication/Plan
-
Patient and cardiothoracic surgery deciding on CABG
Assessment / Plan
Assessment / Plan
Physical Exam
Gen: Morbidly obese
HEENT: Normocephalic
Lungs: Scattered rhonchi in lung bases
CVS: normal s1 and s2; RRR, systolic murmur and left sternal border
Abdomen: obese,non tender
Assessment/Plan
Acute hypoxic respiratory failure /status post cardiorespiratory arrest (suspected related to intercourse)
Sudden onset cardiorespiratory arrest with vent dependent respiratory failure with Epix 3 and CPR in the field 12/10/23
Hypotension requiring pressor support
Presumed COPD exacerbation with respiratory failure
Continued chest wall pain from CPR with known costochondritis
-Cardiac arrest in relation to intercourse with prior events also describes as recurrent syncope
-Now status post left heart cath and found to have multivessel coronary artery disease
-Undergoing testing for CABG next week/carotid Doppler and venous Doppler within normal limits
-CT of the chest showing patchy pulmonary edema and increased pulmonary pressures
Intubated in the field 12/10/23 and extubated 12/11/23
Possible aspiration pneumonitis
Lactic acidosis, improving
Leukocytosis
Concern for Pneumonia
Negative Pro-Getachew initially then became elevated at 4.8/Unasyn / Augmentin through the
- neg Covid Ag, Flu; bcx pending
-Steroids discontinued
Prolonged QTc interval
History of Long QT on ECG since at least 2012
-Monitor QTc
-Avoid QTc-prolonging medications
Elevated troponin likely non [place] related/although EKG shows continued deep T wave inversion anterior leads of V2 and V3
echo results reviewed EF 60% with some pulmonary hypertension
Multivessel coronary artery disease on cardiac catheterization on 12/14/2023
-Troponin has trended and plateaued at 0.135
cardiology evaluation appreciated/ left heart cath today December 14
Multivessel coronary disease with high-grade diagonal, mid LAD, and chronic total occlusions of the RCA and mid circumflex/OM 2
-Consult to CT surgery
-CABG would be best option for the patient but that does have some risks, and interventional cardiology mentioned that patient is a very poor candidate for PCI
S/p Brief CPR performed pre-hospital with 3 rounds of epi
-chest wall pain on palpation from CPR?/history of costochondritis/chronic pain
-Continue to encourage activity and incentive spirometry
Anxiety overlay component prominent
-Had been on 3 times daily dosing of alprazolam 1 mg at home along with Prozac
-Remains anxious here with increased as needed dosing of alprazolam to her usual 1 mg continue Prozac
Essential hypertension by history
-Hypotensive requiring pressors on admission
-BP now trending up
-Had been on lisinopril and metoprolol as outpatient
Known History
morbid Obesity
HX chronic pain/costochondritis
HX� spondylolisthesis L5 - S1 � with Lumbosacral radiculopathy�
Lipoma of left lower extremity �
HX� Kidney lesion �
HX � PAM (generalized anxiety disorder)� �
Hyperlipidemia� �
Essential� HTN
HX Insomnia� �
HX De Quervain's disease (tenosynovitis) �
Hypothyroidism� � E03.9� � confirmed �
GERD
Former smoker� � �
HX falling �
DVT Px: LMWH
Code: Full code
Anticipated Discharge: > 48 hours
Subjective/Interval History
-
Date of Service: December 18, 2023
Patient was seen and examined. She reported some shortness of breath and chest pain which has been ongoing on and off for some time now.
Objective Data
-
Vital Signs:
Vital Signs
Temp Pulse Resp BP Pulse Ox
98.4 F 57 19 152/61 96
12/18/23 07:30 12/18/23 07:30 12/18/23 07:30 12/18/23 07:30 12/18/23 07:30
I&O
0212/18/23 12/19/23
06:59 06:59 06:59
Intake Total 1320 / 1320 1256 / 1256
Output Total 400 / 400
Balance 1320 / 1320 856 / 856
[2023-12-18] MEDS: SYMBICORT 160/4.5 MCG INHALER 2 PUFF INH ×2 (08:49→19:51)
--- NOTE | 2023-12-18 08:59 | W.PN.CARDCBS ---
Today's Communication / Plan
-
Await final decision of CT surgery regarding whether operative risk is prohibitive.
If patient not a candidate for surgery, will need to decide best management strategy. Interventional cardiology feels there are no good options.
Would need to consider a second opinion.
Continue PT, etc.
Impression / Plan
-
PCP: Dr. Burgos
Cardiology: Dr. Stokes
Impression:
Acute hypoxic respiratory failure
Intubated in the field 12/10/23 and extubated 12/11/23
Sudden onset cardiorespiratory arrest with vent dependent respiratory failure with Epix 3 and CPR in the field 12/10/23
Elevated Troponin
MVCAD on cath 12/14/2023
Abnormal EKG now with inverted T waves and increased QT interval (QT interval prolongation appears to be present on admission also)
h/o Long QT on ECG since at least 2012
Hypotension requiring pressor support
Leukocytosis
COPD
Abnormal AP chest x-ray
Possible pneumonia
Elevated white blood count with increased lymphocytes and immature granulocytes
Hypertension
Hyperlipidemia
Tobacco use disorder
Morbid obesity
PVCs
cardiac cath 12/14/2023: LM:NL. LAD:mid 99% stenosis and 70% beyond that. D1 70% mid. LCX:mid 50%. OM2 100% occluded with the distal vessel filling via left to left collaterals. RCA: 100% occluded just beyond RV marginal branch w/ well-developed
collaterals and a right to right and [id number] fashion.
Lexiscan nuclear stress test 10/27/2021 negative for ischemia ejection fraction 44% (PVCs)
Echocardiogram 09/24/2021 LVEF 60%. Mild LVH. Normal right ventricle. Borderline aortic stenosis, peak/mean gradient 22/13 mmHg, mild eccentric AI. Normal right heart with normal pulmonary artery pressure, 20 mmHg
Echocardiogram 12/10/2023:�Normal left ventricular size and function. Normal regional wall motion. Mild LVH. EF 55 to 60%. Normal RV size and function. Trace MR. Mild peak/mean gradient 20/12 mmHg. Mild AI. Mild TR. Estimated pulmonary
artery pressure of 40-45 mmHg assuming a right atrial pressure of 3 mmHg.
Plan:
She remains in a very difficult position.
Her best option would be CABG if her risk is not prohibitive. However, it is not clear that she could undergo surgery.
Interventional cardiology think she is a very poor candidate for PCI.
Discussions ongoing with CT surgery.
Await disposition, in the meantime continue supportive care.
Progress Note - Hoop Puncher
Subjective
Date of Service: December 18, 2023:
Dr. Melvin has evaluated this morning, he has concerns regarding functional status and her ability to tolerate CABG with high risk of postoperative complications
Patient with some dyspnea. PT at bedside. She is tearful.
allergies: Contrast, Levaquin, morphine
Outpatient medications: Xanax, Symbicort, fenofibrate, fluoxetine, furosemide 20 mg a day, Synthroid, lisinopril 40 mg a day, metoprolol ER 25 a day, fish oil, rosuvastatin
current meds: Symbicort, fluoxetine, fenofibrate 145 mg a day, aspirin 81 mg a day, levothyroxine, Xanax, nicotine patch, Ambien, Protonix, furosemide 20 mg a day, rosuvastatin 20 mg daily, metoprolol ER 12.5 twice daily
PMH/PSH/FH/SH: Reviewed
ROS: Nothing new
No labs today
Objective
Labs:
12/16/23 07:39
12/17/23 06:08
Labs
Hgb 12.3 g/dL (12.0-16.0) 12/16/23 07:39
Hct 35.4 % (37.0-47.0) L 12/16/23 07:39
Plt Count 193 10^3/uL (130-400) 12/16/23 07:39
PT 14.1 Sec (11.4-14.6) 12/17/23 06:08
INR 1.11 12/17/23 06:08
APTT 27.3 Sec (23.4-35.0) 12/17/23 06:08
Sodium 137 mmol/L (135-145) 12/17/23 06:08
Potassium 3.8 mmol/L (3.5-5.1) 12/17/23 06:08
BUN 17 mg/dl (7-17) 12/17/23 06:08
Creatinine 0.7 mg/dL (0.6-1.0) 12/17/23 06:08
Glucose 83 mg/dl (70-99) 12/17/23 06:08
Vital Signs and I&O:
Vital Signs
Temp Pulse Resp BP Pulse Ox
36.9 C 57 19 152/61 96
12/18/23 07:30 12/18/23 07:30 12/18/23 07:30 12/18/23 07:30 12/18/23 07:30
Vital Signs
Temp Pulse Resp BP Pulse Ox
36.9 C 57 19 152/61 96
12/18/23 07:30 12/18/23 07:30 12/18/23 07:30 12/18/23 07:30 12/18/23 07:30
Intake & Output
12/16/23 12/17/23 12/18/23 12/19/23
07:59 07:59 07:59 07:59
Intake Total 1020 / 1020 1320 / 1320 1256 / 1256
Output Total 400 / 400
Balance 1020 / 1020 1320 / 1320 856 / 856
Physical Exam
Physical Exam
152/61, pulse 57, respiratory 19, afebrile
Head neck exam unremarkable, rare rhonchi in lung bases, regular rate and rhythm with systolic murmur, JVD okay, abdomen very obese extremities without much edema, neuro nonfocal
[2023-12-18] MEDS: LOW STRENGTH ASPIRIN 81 MG PO (09:05)
[2023-12-18] MEDS: XANAX 1 MG PO ×3 (09:06→22:57)
[2023-12-18] MEDS: TRICOR 145 MG PO (09:06)
[2023-12-18] MEDS: LASIX 20 MG PO (09:06)
[2023-12-18] MEDS: PROZAC 60 MG PO (09:06)
[2023-12-18] MEDS: TOPROL XL 12.5 MG PO ×2 (09:09→20:26)
[2023-12-18] MEDS: NICODERM TRANSDERMAL 21 MG TRANSDERM (09:09)
[2023-12-18] MEDS: LIDOCAINE 4% PATCH TOPICAL (09:15)
[2023-12-18] MEDS: PROTONIX PO (09:16)
--- NOTE | 2023-12-18 09:43 | W.PN.UPDATE ---
Update Note
Progress Note Update
Pt seen and examined this am
Very long discussion regarding her health issues, her activity level and her findings of cad
Long review of the events that brought her to the hospital
I think the decision about cabg for Ms Caruso will take more time and more discussion.
At this time there is no set date for cabg
Pt is aware of this.
[2023-12-18] MEDS: CRESTOR 20 MG PO (17:10)
[2023-12-18] MEDS: TYLENOL 650 MG PO (17:43)
[2023-12-18] MEDS: AMBIEN 5 MG PO (22:57)
[2023-12-19] VITALS (7 sets, daily range): BP systolic 99–152; BP diastolic 59–73; PULSE 61; O2SAT 93
[2023-12-19] MEDS: SYNTHROID 125 MCG PO (05:44)
[2023-12-19 08:03] LABS: Triglycerides 130 mg/dl (10-149)
[2023-12-19 08:37] LABS: % Basophils 0.4 % (0-2); % Eosinophils 0.5 % (0-6); % Lymphocytes 13.4 % (20.5-51.1); % Monocytes 4.9 % (1.7-9.3); % Neutrophils 78.8 % (42.2-75.2); Absolute Basophils 0.1 10^3/uL (0-0.2); Absolute Eosinophils 0.1 10^3/uL (0-0.7); Absolute Immature Granulocytes 0.3 10^3/uL (0-0.05); Absolute Lymphocytes 1.7 10^3/uL (1.2-3.4); Absolute Monocytes 0.6 10^3/uL (0.1-0.6); Hematocrit 41.7 % (37.0-47.0); Hemoglobin 14.3 g/dL (12.0-16.0); Mean Corp Hgb Conc. 34.3 g/dL (33.0-37.0); Mean Corpuscular Hgb 32.3 pg (27.0-31.0); Mean Corpuscular Volume 94.1 fL (81.0-99.0); Mean Platelet Volume 11.8 fL (7.4-10.4); Nucleated Red Blood Cells % 0 %; Platelet Count 219 10^3/uL (130-400); Red Blood Cell Count 4.43 10^6/uL (4.20-5.40); Red Cell Dist. Width 14.4 % (11.5-14.5); White Blood Cell Count 12.7 10^3/uL (4.8-10.8)
[2023-12-19 08:49] LABS: ALT (SGPT) 16 U/L (0-35); AST (SGOT) 20 U/L (14-36); Albumin 3.4 g/dl (3.5-5.0); Alkaline Phosphatase 58 U/L (38-126); Blood Urea Nitrogen 13 mg/dl (7-17); Calcium 9.4 mg/dl (8.4-10.2); Carbon Dioxide 28 mmol/L (22-30); Chloride 100 mmol/L (98-107); Estimated Creatinine Clearance 106 ml/min; Glucose 101 mg/dl (70-99); Magnesium 1.9 mg/dl (1.6-2.3); Potassium 4.1 mmol/L (3.5-5.1); Sodium 138 mmol/L (135-145); Total Bilirubin 0.8 mg/dl (0.2-1.3); Total Protein 5.9 g/dl (6.3-8.2); eGFR > 60.00
[2023-12-19] MEDS: SYMBICORT 160/4.5 MCG INHALER 2 PUFF INH (08:54)
[2023-12-19] MEDS: PROZAC 60 MG PO (09:26)
[2023-12-19] MEDS: NICODERM TRANSDERMAL 21 MG TRANSDERM (09:27)
[2023-12-19] MEDS: LOW STRENGTH ASPIRIN 81 MG PO (09:27)
[2023-12-19] MEDS: LASIX 20 MG PO (09:27)
[2023-12-19] MEDS: LIDOCAINE 4% PATCH TOPICAL (09:29)
[2023-12-19] MEDS: TRICOR 145 MG PO (09:29)
[2023-12-19] MEDS: TOPROL XL 12.5 MG PO ×2 (09:29→20:11)
[2023-12-19] MEDS: XANAX 1 MG PO ×3 (09:29→22:09)
[2023-12-19] MEDS: PROTONIX PO (09:31)
--- NOTE | 2023-12-19 11:32 | W.PN.CARDCBS ---
Addendum entered and electronically signed by Bassam Clifton MD 12/19/23 12:10:
I saw and examined the patient.
The Administrative Clerk's note was reviewed and I agree with the note.
Comment: Briefly, 68-year-old woman presenting after out of hospital cardiac arrest and subsequent hypoxic respiratory requiring intubation and medical ICU mission
Troponin was elevated consistent NSTEMI. She underwent left heart catheterization 12/14/2023 which revealed MV CAD. Of note LV function preserved on echo.
Cont ASA/high intensity statin/BB
On going evaluation by CT surgery regarding possible revascularization
Would monitor on tele while inpatient
Original Note:
Today's Communication / Plan
-
No chest pain
Ongoing conversations about possible CABG
Impression / Plan
-
PCP: Dr. Burgos
Cardiology: Dr. Stokes
Impression:
Acute hypoxic respiratory failure on admission 12/10/23
Intubated in the field 12/10/23 and extubated 12/11/23
Sudden onset cardiorespiratory arrest with vent dependent respiratory failure with Epi x 3 and CPR in the field 12/10/23
Elevated Troponin, likely a NSTEMI
MV CAD with high-grade diagonal, mid LAD, and chronic total occlusion of the RCA and mid circumflex/OM 2 by cath 12/14/23
Abnormal EKG now with inverted T waves and increased QT interval (QT interval prolongation appears to be present on admission also)
h/o Long QT on ECG since at least 2012
Hypotension requiring pressor support
Leukocytosis
COPD
Abnormal AP chest x-ray
Possible pneumonia
Elevated white blood count with increased lymphocytes and immature granulocytes
Hypertension
Hyperlipidemia
Tobacco use disorder
Morbid obesity
PVCs
Cardiac cath 12/14/2023: LM:NL. LAD:mid 99% stenosis and 70% beyond that. D1 70% mid. LCX:mid 50%. OM2 100% occluded with the distal vessel filling via left to left collaterals. RCA: 100% occluded just beyond RV marginal branch w/ well-developed
collaterals and a right to right and [id number] fashion.
Lexiscan nuclear stress test 10/27/2021�negative for ischemia ejection fraction 44% (PVCs)
Echocardiogram 09/24/2021�LVEF 60%.� Mild LVH.� Normal right ventricle. Borderline aortic stenosis, peak/mean gradient 22/13 mmHg, mild eccentric AI. Normal right heart with normal pulmonary artery pressure, 20 mmHg
Echocardiogram 12/10/2023:�Normal left ventricular size and function. Normal regional wall motion.� Mild LVH.� EF 55 to 60%.� Normal RV size and function.� Trace MR.� Mild peak/mean gradient 20/12 mmHg.� Mild AI. Mild TR. Estimated pulmonary
artery pressure of 40-45 mmHg assuming a right atrial pressure of 3 mmHg.
Plan:
-Patient has been admitted for 9 days following initial presentation of acute hypoxic respiratory failure requiring intubation. She eventually agreed to cath which was performed 12/14/23 and showed multivessel CAD as outlined above. Appreciate help
of cardiothoracic surgery team and their notes have been reviewed. Patient has been told more than once that she is not a candidate for PCI. CT surgery has visited with patient and talked with her for 30+ minutes at a time about her cath findings
and her various thoughts about previous surgeries she has had. Patient now says that she is agreeable to CABG and would like surgery to be performed at .
-Denies chest pain
-Cont aspirin 81 mg daily which is new this admission
-Cont Toprol XL 12.5 mg BID. Patient was taking Toprol XL 25 mg HS prior to admission
-Outpatient dose of lisinopril 40 mg daily is on hold for hypotension
-Outpatient dose of Lasix 20 mg PO daily has been continued.
-LDL 50. Outpatient doses of fenofibrate 145 mg daily and Crestor 10 mg daily have been continued.
-Will consult cardiac rehab, but patient is likely not a candidate at this time as she is ordered home PT.
-Patient with a h/o long QT as far back as 2012. Zofran and Zithromax stopped 12/11/23. Patient needs Prozac for depression and reports it is the only med that has worked for her. Follow QT on ECG. Stable QTc 490 ms by ECG 12/15/23.
HPI: Patient with out of hospital cardiopulmonary arrest in the setting of intercourse with a h/o syncope with intercourse in the past as well. Patient reports now that the last time she had intercourse that she also had syncope and that prior to
that she had not had intercourse for quite some time. Patient has a h/o syncope that sounds like orthostasis as well. Reviewed with patient the concern for cardiopulmonary arrest and talked about an ischemic evaluation with cardiac catheterization.
Reviewed cath procedure and patient is familiar as her and cath and PCI a few years ago, but she says that she is anxious, she cannot breathe and cannot lay flat. Talked about using Versed for sedation and patient felt better, but overall
she does not feel ready for cath 12/12/23. Will check again on 12/13/23.
Progress Note - Dials Inspector
Subjective
Date of Service: December 19, 2023
Denies chest pain
Objective
Labs:
12/19/23 06:35
12/19/23 08:04
Labs
Hgb 14.3 g/dL (12.0-16.0) 12/19/23 06:35
Hct 41.7 % (37.0-47.0) 12/19/23 06:35
Plt Count 219 10^3/uL (130-400) 12/19/23 06:35
PT 14.1 Sec (11.4-14.6) 12/17/23 06:08
INR 1.11 12/17/23 06:08
APTT 27.3 Sec (23.4-35.0) 12/17/23 06:08
Sodium Cancelled 12/19/23 08:04
Potassium Cancelled 12/19/23 08:04
BUN Cancelled 12/19/23 08:04
Creatinine Cancelled 12/19/23 08:04
Glucose Cancelled 12/19/23 08:04
Vital Signs and I&O:
Vital Signs
Temp Pulse Resp BP Pulse Ox
98.2 F 59 20 99/59 93
12/19/23 11:13 12/19/23 11:13 12/19/23 11:13 12/19/23 11:13 12/19/23 11:13
Vital Signs
Temp Pulse Resp BP Pulse Ox
98.2 F 59 20 99/59 93
12/19/23 11:13 12/19/23 11:13 12/19/23 11:13 12/19/23 11:13 12/19/23 11:13
Intake & Output
12/17/23 12/18/23 12/19/23 12/20/23
06:59 06:59 06:59 06:59
Intake Total 1320 / 1320 1256 / 1256 1260 / 1260
Output Total 400 / 400
Balance 1320 / 1320 856 / 856 1260 / 1260
Physical Exam
Physical Exam
GEN: NAD. AAO x3
HEENT: EOMI
LUNGS: CTA B/L
CV: Reg
ABD: soft, BS+
EXT: Trace B/L LE edema.
NEURO: Gross non-focal
SKIN: No rash
--- NOTE | 2023-12-19 11:55 | CM ---
Cardiology involved . Pt deciding if she wants CABG .
Pt weaned off of oxygen .
Supportive involved.
Kamila MAYFIELD referral in care port.
PLAN: Home with Kamila MAYFIELD
--- NOTE | 2023-12-19 12:45 | PTOTSP ---
Speech Therapy Swallowing Assessment
No clear indication for aspiration except for one coughing episode with solids. Patient with hoarse vocal quality which she reports is ongoing since extubation. Laryngeal dysfunction could impact airway protection.
Recommend
1. Continue with current diet of regular solids and thin liquids.
2. Upright with meals.
3. Meds with liquid as tolerated. Whole in applesauce if difficulty/coughing noted.
4. Reflux precautions given history of GERD.
5. Consider ENT consult given hoarse vocal quality.
6. Consider VSE to objectively assess pharyngeal swallow.
--- NOTE | 2023-12-19 12:50 | W.PN.HOSP.TC ---
Today's Communication/Plan
-
Please see below
Assessment / Plan
Assessment / Plan
Physical Exam
Gen: Morbidly obese
HEENT: Normocephalic
Lungs: Scattered rhonchi in lung bases
CVS: normal s1 and s2; RRR, systolic murmur and left sternal border
Abdomen: obese,non tender
Assessment/Plan
Acute hypoxic respiratory failure /status post cardiorespiratory arrest (suspected related to intercourse)
Sudden onset cardiorespiratory arrest with vent dependent respiratory failure with Epix 3 and CPR in the field 12/10/23
Hypotension requiring pressor support
Presumed COPD exacerbation with respiratory failure
Continued chest wall pain from CPR with known costochondritis
-Cardiac arrest in relation to intercourse with prior events also describes as recurrent syncope
-Now status post left heart cath and found to have multivessel coronary artery disease
-Undergoing testing for CABG next week/carotid Doppler and venous Doppler within normal limits
-CT of the chest showing patchy pulmonary edema and increased pulmonary pressures
Intubated in the field 12/10/23 and extubated 12/11/23
Possible aspiration pneumonitis
Lactic acidosis, improving
Leukocytosis
Concern for Pneumonia
Negative Pro-Getachew initially then became elevated at 4.8/Unasyn / Augmentin through the
- neg Covid Ag, Flu; bcx pending
-Steroids discontinued
Prolonged QTc interval
History of Long QT on ECG since at least 2012
-Monitor QTc
-Avoid QTc-prolonging medications
NSTEMI
Elevated troponin likely non [place] related/although EKG shows continued deep T wave inversion anterior leads of V2 and V3
echo results reviewed EF 60% with some pulmonary hypertension
Multivessel coronary artery disease on cardiac catheterization on 12/14/2023
-Troponin has trended and plateaued at 0.135
cardiology evaluation appreciated/ left heart cath today December 14
Multivessel coronary disease with high-grade diagonal, mid LAD, and chronic total occlusions of the RCA and mid circumflex/OM 2
-Consult to CT surgery
-CABG would be best option for the patient but that does have some risks, and interventional cardiology mentioned that patient is a very poor candidate for PCI
-Continue Aspirin/high intensity statin/beta felicia
History of ? COPD/asthma
-Pulmonary consulted, recommendations appreciated
Flashes in Eyes
Dry Eyes
-Consulted ophthalmology, recommendations appreciated
-Per Dr. Jessica Ontiveros on 12/19/23 both retinas are okay it sounds like migraine; there�s no signs of retinal heme that one would see in impending vein occlusion; could consider a neuro consult to help more with migraine diagnosis. Patient also
stated �I think I have MS�.
-Start artificial tears for dry eyes
S/p Brief CPR performed pre-hospital with 3 rounds of epi
-chest wall pain on palpation from CPR?/history of costochondritis/chronic pain
-Continue to encourage activity and incentive spirometry
Anxiety overlay component prominent
-Had been on 3 times daily dosing of alprazolam 1 mg at home along with Prozac
-Remains anxious here with increased as needed dosing of alprazolam to her usual 1 mg continue Prozac
Essential hypertension by history
-Hypotensive requiring pressors on admission
-Had been on lisinopril and metoprolol as outpatient -- Lisinopril being held inpatient for now
Known History
morbid Obesity
HX chronic pain/costochondritis
HX� spondylolisthesis L5 - S1 � with Lumbosacral radiculopathy�
Lipoma of left lower extremity �
HX� Kidney lesion �
HX � PAM (generalized anxiety disorder)� �
Hyperlipidemia� �
Essential� HTN
HX Insomnia� �
HX De Quervain's disease (tenosynovitis) �
Hypothyroidism� � E03.9� � confirmed �
GERD
Former smoker� � �
HX falling �
DVT PPx: LMWH
Diet: As per speech recommendations: 1. Continue with current diet of regular solids and thin liquids. 2. Upright with meals. 3. Meds with liquid as tolerated. Whole in applesauce if difficulty/coughing noted. 4. Reflux precautions given history of
GERD. 5. Consider ENT consult given hoarse vocal quality. 6. Consider VSE to objectively assess pharyngeal swallow.
Code: Full code
Anticipated Discharge: > 48 hours
Subjective/Interval History
-
Date of Service: December 19, 2023
Patient was seen and examined. She reported eye flashed but no vision acuity changes since her first day of hospitalization. Otherwise, no new significant complaints, some chronic chest pain and SOB.
Objective Data
-
Labs:
Laboratory Results
12/19/23 12/19/23 12/19/23
06:34 06:35 08:04
WBC 12.7 H
Hgb 14.3
Hct 41.7
Plt Count 219
Sodium 138 Cancelled
Potassium 4.1 Cancelled
Chloride 100 Cancelled
Carbon Dioxide 28 Cancelled
BUN 13 Cancelled
Creatinine 0.6 Cancelled
Glucose 101 H Cancelled
Calcium 9.4 Cancelled
Total Bilirubin 0.8 Cancelled
AST 20 Cancelled
ALT 16 Cancelled
Alkaline Phosphatase 58 Cancelled
Vital Signs:
Vital Signs
Temp Pulse Resp BP Pulse Ox
98.2 F 59 20 99/59 93
12/19/23 11:13 12/19/23 11:13 12/19/23 11:13 12/19/23 11:13 12/19/23 11:13
I&O
12/18/23 12/19/23 12/20/23
06:59 06:59 06:59
Intake Total 1256 / 1256 1260 / 1260
Output Total 400 / 400
Balance 856 / 856 1260 / 1260
[2023-12-19] MEDS: TYLENOL 650 MG PO (14:53)
[2023-12-19] MEDS: CRESTOR 20 MG PO (16:41)
--- NOTE | 2023-12-19 17:09 | W.PN.PUL3 ---
Today's Communication / Plan
-
Start DuoNebs and Pulmicort
Start loratadine
Eventual obstructive sleep apnea evaluation
Assessment
-
68-year-old woman admitted with [id number] cardiac arrest, required intubation and CPR, subsequently underwent ischemic evaluation that demonstrated multivessel coronary artery disease. We were consulted 12/19/2023 for preoperative risk for
eventual coronary artery bypass.
Status post out of hospital cardiac arrest on admission-status post CPR
Intubated in the field 12/10/23 and extubated 12/11/23
Diagnosed with multivessel coronary artery disease on catheterization 12/14/2023
-
History of ? COPD/asthma-
Spirometry: Mild to moderate restriction lung disease with bronchodilator response. FEV1 1.2 L or 58% of predicted FVC 1.64 L or 60% of predicted, ratio 73%. Likely due to body habitus.
On symbicort in the outpx setting.
CT chest:12/14/2023 reviewed, showed enlargement of main pulmonary artery suggesting pulmonary hypertension. There is coronary calcifications. Minimal left pleural effusion. Patchy area of fibrin was opacities in both lungs with peripheral
thickening of interlobular septa consistent with pulmonary edema.
-
Smoker-40+ pack year history. Quit prior to coming to the hospital quarter pack per day.
History of prolonged QTc
Depression/anxiety
GERD
Morbid obesity
-
Plan recommendations:
From the asthma perspective patient not bronchospastic on exam.
Spirometry while in the hospital mainly suggest restrictive lung disease. Perhaps small airway disease with mild airflow obstruction.
CT chest 12/14/2023 showed changes consistent with pulmonary edema. No significant emphysema or pulmonary fibrosis.
-
To optimize pulmonary condition: Suggest transition to nebulized therapy DuoNebs/Pulmicort while in the hospital. Subsequently transition to inhaled corticosteroids.
Patient agreeable
Hold inhalers for now
Start antihistamines as the patient is complaining of postnasal drip.
-
The risk factor for pulmonary complications for potential upcoming coronary artery bypass includes morbid obesity, recent CPR, asthma/? COPD, possibility of obstructive sleep apnea as well increases her risk.
May proceed when ready from the cardiology/cardiothoracic perspective.
-
Snoring: Suspect obstructive sleep apnea. Eventual outpatient evaluation.
Avoid sedatives as able
Postoperatively, routine continuous pulse oximetry.
-
Smoking cessation encouraged, nicotine patch in place.
Subjective Data
-
Date of Service:
Date of Service: December 19, 2023
Chief Complaint: Pulmonary Follow Up (Asthma preop assessment)
Subjective:
Reconsulted for preparatory evaluation for possible eventual coronary artery bypass.
Complains of sternal pain post CPR.
Complaining of allergy type symptoms including runny nose.
Denies any wheezing.
Review of Systems
Cardiopulmonary: Dyspnea, Dyspnea on Exertion and Cough (n)
Objective Data
Data Reviewed
Vital Signs / I&O / Oxygen:
Vital Signs
Temp Pulse Resp BP Pulse Ox
98.4 F 62 18 152/72 94
12/19/23 15:36 12/19/23 15:36 12/19/23 15:36 12/19/23 15:36 12/19/23 15:36
Intake and Output
12/18/23 12/19/23 12/20/23
06:59 06:59 06:59
Intake Total 1256 / 1256 1260 / 1260
Output Total 400 / 400
Balance 856 / 856 1260 / 1260
SaO2 [A/C] 98
SaO2 94
Nasal Cannula flow liters per 1
minute
Physical Exam
General: Respiratory Distress (n) and Comfortable
HEENT: Normocephalic
Cardiovascular: S1-S2
Respiratory: Clear and Non-Labored Respirations
GI: Soft and Non Distended
Neurology: Awake and Alert
Skin: Warm
Labs/Micro/Reports
Lab Data
12/19/23 06:35
12/19/23 08:04
[2023-12-19] MEDS: DUONEB 3 ML INH (20:46)
[2023-12-19] MEDS: PULMICORT 0.5 MG INH (20:46)
[2023-12-19] MEDS: AMBIEN 5 MG PO (22:09)
[2023-12-20] VITALS (7 sets, daily range): BP systolic 106–138; BP diastolic 63–104; BMI 33.0
[2023-12-20] MEDS: SYNTHROID 125 MCG PO (05:48)
[2023-12-20] MEDS: PULMICORT 0.5 MG INH ×2 (07:29→20:52)
[2023-12-20] MEDS: DUONEB 3 ML INH ×3 (07:30→20:52)
[2023-12-20 08:03] LABS: % Basophils 0.6 % (0-2); % Eosinophils 0.6 % (0-6); % Immature Granulocytes 1.7 % (0-0.5); % Lymphocytes 18.6 % (20.5-51.1); % Monocytes 4.7 % (1.7-9.3); % Neutrophils 73.8 % (42.2-75.2); Absolute Basophils 0.1 10^3/uL (0-0.2); Absolute Eosinophils 0.1 10^3/uL (0-0.7); Absolute Immature Granulocytes 0.2 10^3/uL (0-0.05); Absolute Monocytes 0.5 10^3/uL (0.1-0.6); Absolute Neutrophils 7.9 10^3/uL (1.4-6.5); Hematocrit 43.7 % (37.0-47.0); Hemoglobin 15.2 g/dL (12.0-16.0); Mean Corp Hgb Conc. 34.8 g/dL (33.0-37.0); Mean Corpuscular Hgb 32.4 pg (27.0-31.0); Mean Corpuscular Volume 93.2 fL (81.0-99.0); Mean Platelet Volume 11.5 fL (7.4-10.4); Nucleated Red Blood Cells % 0 %; Platelet Count 261 10^3/uL (130-400); Red Blood Cell Count 4.69 10^6/uL (4.20-5.40); Red Cell Dist. Width 14.4 % (11.5-14.5); White Blood Cell Count 10.8 10^3/uL (4.8-10.8)
--- NOTE | 2023-12-20 09:37 | W.PN.UPDATE ---
Update Note
Progress Note Update
Patient seen this AM. She was encouraged to increase physical activity and IS useage. She is on the schedule for Monday12/22/[address] Rivas. Patient to be transferred to the CVICU on for surgical prep.
[2023-12-20 10:05] LABS: ALT (SGPT) 18 U/L (0-35); AST (SGOT) 23 U/L (14-36); Albumin 3.9 g/dl (3.5-5.0); Alkaline Phosphatase 72 U/L (38-126); Blood Urea Nitrogen 14 mg/dl (7-17); Calcium 9.2 mg/dl (8.4-10.2); Carbon Dioxide 27 mmol/L (22-30); Chloride 102 mmol/L (98-107); Estimated Creatinine Clearance 101 ml/min; Glucose 99 mg/dl (70-99); Phosphorus 4.1 mg/dl (2.5-4.5); Potassium 3.9 mmol/L (3.5-5.1); Sodium 137 mmol/L (135-145); Total Bilirubin 0.7 mg/dl (0.2-1.3); Total Protein 6.2 g/dl (6.3-8.2); eGFR > 60.00
[2023-12-20] MEDS: PROZAC 60 MG PO (10:14)
[2023-12-20] MEDS: CLARITIN 10 MG PO (10:14)
[2023-12-20] MEDS: PROTONIX 40 MG PO (10:14)
[2023-12-20] MEDS: LOW STRENGTH ASPIRIN 81 MG PO (10:14)
[2023-12-20] MEDS: TRICOR 145 MG PO (10:14)
[2023-12-20] MEDS: XANAX 1 MG PO ×3 (10:14→22:00)
[2023-12-20] MEDS: TOPROL XL 12.5 MG PO ×2 (10:15→21:58)
[2023-12-20] MEDS: NICODERM TRANSDERMAL 21 MG TRANSDERM (10:16)
[2023-12-20] MEDS: LASIX 20 MG PO (10:17)
[2023-12-20] MEDS: LIDOCAINE 4% PATCH TOPICAL (10:21)
--- NOTE | 2023-12-20 11:20 | W.PN.CARDCBS ---
Today's Communication / Plan
-
Plan for CABG on Monday.
Continue aspirin, metoprolol, Crestor.
Blood pressure is stable.
Impression / Plan
-
PCP: Dr. Burgos
Cardiology: Dr. Stokes
Impression:
Acute hypoxic respiratory failure on admission 12/10/23
Intubated in the field 12/10/23 and extubated 12/11/23
Sudden onset cardiorespiratory arrest with vent dependent respiratory failure with Epi x 3 and CPR in the field 12/10/23
Elevated Troponin, likely a NSTEMI
MV CAD with high-grade diagonal, mid LAD, and chronic total occlusion of the RCA and mid circumflex/OM 2 by cath 12/14/23
Abnormal EKG now with inverted T waves and increased QT interval (QT interval prolongation appears to be present on admission also)
h/o Long QT on ECG since at least 2012
Hypotension requiring pressor support
Leukocytosis
COPD
Abnormal AP chest x-ray
Possible pneumonia
Elevated white blood count with increased lymphocytes and immature granulocytes
Hypertension
Hyperlipidemia
Tobacco use disorder
Morbid obesity
PVCs
Cardiac cath 12/14/2023: LM:NL. LAD:mid 99% stenosis and 70% beyond that. D1 70% mid. LCX:mid 50%. OM2 100% occluded with the distal vessel filling via left to left collaterals. RCA: 100% occluded just beyond RV marginal branch w/ well-developed
collaterals and a right to right and [id number] fashion.
Lexiscan nuclear stress test 10/27/2021�negative for ischemia ejection fraction 44% (PVCs)
Echocardiogram 09/24/2021VEF 60%.� Mild LVH.� Normal right ventricle. Borderline aortic stenosis, peak/mean gradient 22/13 mmHg, mild eccentric AI. Normal right heart with normal pulmonary artery pressure, 20 mmHg
Echocardiogram 12/10/2023:�Normal left ventricular size and function. Normal regional wall motion.� Mild LVH.� EF 55 to 60%.� Normal RV size and function.� Trace MR.� Mild peak/mean gradient 20/12 mmHg.� Mild AI. Mild TR. Estimated pulmonary
artery pressure of 40-45 mmHg assuming a right atrial pressure of 3 mmHg.
Plan:
-Patient has been admitted for 9 days following initial presentation of acute hypoxic respiratory failure requiring intubation. She eventually agreed to cath which was performed 12/14/23 and showed multivessel CAD as outlined above.
-Plan for CABG on Monday
-Cont aspirin 81 mg daily which is new this admission
-Cont Toprol XL 12.5 mg BID. Patient was taking Toprol XL 25 mg HS prior to admission
-Outpatient dose of lisinopril 40 mg daily is on hold for hypotension
-Outpatient dose of Lasix 20 mg PO daily has been continued.
-LDL 50. Outpatient doses of fenofibrate 145 mg daily and Crestor 10 mg daily have been continued.
-Patient with a h/o long QT as far back as 2012. Zofran and Zithromax stopped 12/11/23. Patient needs Prozac for depression and reports it is the only med that has worked for her. Follow QT on ECG. Stable QTc 490 ms by ECG 12/15/23.
HPI: Patient with out of hospital cardiopulmonary arrest in the setting of intercourse with a h/o syncope with intercourse in the past as well. Patient reports now that the last time she had intercourse that she also had syncope and that prior to
that she had not had intercourse for quite some time. Patient has a h/o syncope that sounds like orthostasis as well. Reviewed with patient the concern for cardiopulmonary arrest and talked about an ischemic evaluation with cardiac catheterization.
Reviewed cath procedure and patient is familiar as her and cath and PCI a few years ago, but she says that she is anxious, she cannot breathe and cannot lay flat. Talked about using Versed for sedation and patient felt better, but overall
she does not feel ready for cath 12/12/23. Will check again on 12/13/23.
Progress Note - [employer]
Subjective
Date of Service: December 20, 2023
She has no chest pains.
Objective
Labs:
12/20/23 06:28
12/20/23 06:27
Labs
Hgb 15.2 g/dL (12.0-16.0) 12/20/23 06:28
Hct 43.7 % (37.0-47.0) 12/20/23 06:28
Plt Count 261 10^3/uL (130-400) 12/20/23 06:28
PT 14.1 Sec (11.4-14.6) 12/17/23 06:08
INR 1.11 12/17/23 06:08
APTT 27.3 Sec (23.4-35.0) 12/17/23 06:08
Sodium 137 mmol/L (135-145) 12/20/23 06:27
Potassium 3.9 mmol/L (3.5-5.1) 12/20/23 06:27
BUN 14 mg/dl (7-17) 12/20/23 06:27
Creatinine 0.6 mg/dL (0.6-1.0) 12/20/23 06:27
Glucose 99 mg/dl (70-99) 12/20/23 06:27
Vital Signs and I&O:
Vital Signs
Temp Pulse Resp BP Pulse Ox
98.1 F 65 16 126/63 97
12/20/23 07:23 12/20/23 10:17 12/20/23 07:35 12/20/23 10:17 12/20/23 07:35
Vital Signs
Temp Pulse Resp BP Pulse Ox
98.1 F 65 16 126/63 97
12/20/23 07:23 12/20/23 10:17 12/20/23 07:35 12/20/23 10:17 12/20/23 07:35
Intake & Output
12/18/23 12/19/23 12/20/23 12/21/23
06:59 06:59 06:59 06:59
Intake Total 1256 / 1256 1260 / 1260 1200 / 1200
Output Total 400 / 400 550 / 550
Balance 856 / 856 1260 / 1260 650 / 650
Physical Exam
Physical Exam
GEN: No distress, awake, Ox3
HEENT: supple, anicteric, mmm
LUNGS: CTA, no wheezes/rales
CV: Reg, S1/S2, 1/6 syst LSB, no gallop
ABD: soft, BS+, NT/ND
EXT: No edema
NEURO: Gross non-focal
SKIN: No rash
--- NOTE | 2023-12-20 11:54 | W.PN.PUL3 ---
Today's Communication / Plan
-
Continue nebulizer therapy.
Will see again on Monday, post surgery.
Assessment
-
68-year-old woman admitted with [id number] cardiac arrest, required intubation and CPR, subsequently underwent ischemic evaluation that demonstrated multivessel coronary artery disease. We were consulted 12/19/2023 for preoperative risk for
eventual coronary artery bypass.
Status post out of hospital cardiac arrest on admission-status post CPR
Intubated in the field 12/10/23 and extubated 12/11/23
Diagnosed with multivessel coronary artery disease on catheterization 12/14/2023
-
History of ? COPD/asthma-
Spirometry: Mild to moderate restriction lung disease with bronchodilator response. FEV1 1.2 L or 58% of predicted FVC 1.64 L or 60% of predicted, ratio 73%. Likely due to body habitus.
On symbicort in the outpx setting.
CT chest:12/14/2023 reviewed, showed enlargement of main pulmonary artery suggesting pulmonary hypertension. There is coronary calcifications. Minimal left pleural effusion. Patchy area of fibrin was opacities in both lungs with peripheral
thickening of interlobular septa consistent with pulmonary edema.
-
Smoker-40+ pack year history. Quit prior to coming to the hospital quarter pack per day.
History of prolonged QTc
Depression/anxiety
GERD
Morbid obesity
-
Plan recommendations:
Lung exam unchanged, not bronchospastic.
Spirometry while in the hospital mainly suggest restrictive lung disease. Perhaps small airway disease with mild airflow obstruction.
CT chest 12/14/2023 showed changes consistent with pulmonary edema. No significant emphysema or pulmonary fibrosis.
-
Continue nebulizer therapy until after surgery: DuoNebs/Pulmicort while in the hospital. Subsequently transition to inhaled corticosteroids.
Hold inhalers for now
Continue antihistamines as the patient is complaining of postnasal drip.
-
The risk factor for pulmonary complications for potential upcoming coronary artery bypass includes morbid obesity, recent CPR, asthma/? COPD, possibility of obstructive sleep apnea as well increases her risk.
May proceed when ready from the cardiology/cardiothoracic perspective.
this is tentatively scheduled for Monday.
-
Snoring: Suspect obstructive sleep apnea. Eventual outpatient evaluation.
Avoid sedatives as able
Postoperatively, routine continuous pulse oximetry.
-
Smoking cessation encouraged, nicotine patch in place.
-
Will see again after surgery on Monday.
Subjective Data
-
Date of Service:
Date of Service: December 20, 2023
Chief Complaint: Pulmonary Follow Up (Asthma preop assessment)
Subjective:
No new pulmonary complaints.
Denies any wheezing.
continues to report post CPR chest discomfort
Review of Systems
General: Fever (n)
GI: Abdominal Pain (n), Nausea (n) and Vomiting (n)
Objective Data
Data Reviewed
Vital Signs / I&O / Oxygen:
Vital Signs
Temp Pulse Resp BP Pulse Ox
98.1 F 65 16 126/63 97
12/20/23 07:23 12/20/23 10:17 12/20/23 07:35 12/20/23 10:17 12/20/23 07:35
Intake and Output
12/19/23 12/20/23 12/21/23
06:59 06:59 06:59
Intake Total 1260 / 1260 1200 / 1200
Output Total 550 / 550
Balance 1260 / 1260 650 / 650
SaO2 [A/C] 98
SaO2 97
Nasal Cannula flow liters per 1
minute
Physical Exam
General: Respiratory Distress (n) and Comfortable
HEENT: Normocephalic
Cardiovascular: S1-S2
Respiratory: Clear and Non-Labored Respirations
GI: Soft and Non Distended
Neurology: Awake and Alert
Skin: Warm
Labs/Micro/Reports
Lab Data
12/20/23 06:28
12/20/23 06:27
--- NOTE | 2023-12-20 14:37 | W.PN.UPDATE ---
Update Note
Progress Note Update
Pt seen and examined
present
Reviewed plans for cabg- now scheduled for tomorrow
Risks, complications, benefits and alternatives reveiwed
Again addressed the high risk nature of her surgery
all questions answered
Pt agreeable to cabg tomorrow.
--- NOTE | 2023-12-20 15:18 | CM ---
Met with the at bedside. Reviewed preoperative and postoperative instructions and restrictions, along with showering guidelines. Patient is agreeable to a home visit by CT Transtional Care RN. Patient is independent of ADLS, lives with her
in a 1 STH, ramp to enter into the house, patient uses a walker and rollator and has a scooter in the home if needed. Patient is not current with VN. Plan is for the patient to return home with CT Transitional RN. CM to follow
--- NOTE | 2023-12-20 16:16 | W.PN.HOSP.TC ---
Today's Communication/Plan
-
Stable. Transfer to IVU tomorrow in preparation for CABG on 12/22/23
Assessment / Plan
Assessment / Plan
Physical Exam
Gen: Morbidly obese
HEENT: Normocephalic
Lungs: Scattered rhonchi in lung bases
CVS: normal s1 and s2; RRR, systolic murmur and left sternal border
Abdomen: obese,non tender
Assessment/Plan
Acute hypoxic respiratory failure /status post cardiorespiratory arrest (suspected related to intercourse)
Sudden onset cardiorespiratory arrest with vent dependent respiratory failure with Epix 3 and CPR in the field 12/10/23
Hypotension requiring pressor support
Presumed COPD exacerbation with respiratory failure
Continued chest wall pain from CPR with known costochondritis
-Cardiac arrest in relation to intercourse with prior events also describes as recurrent syncope
-Now status post left heart cath and found to have multivessel coronary artery disease
-Undergoing testing for CABG/carotid Doppler and venous Doppler within normal limits
-CT of the chest showing patchy pulmonary edema and increased pulmonary pressures
-CABG tentatively scheduled for December 22, 2023
Intubated in the field 12/10/23 and extubated 12/11/23
Possible aspiration pneumonitis
Lactic acidosis, improving
Leukocytosis
Concern for Pneumonia
Negative Pro-Getachew initially then became elevated at 4.8/Unasyn / Augmentin through the
- neg Covid Ag, Flu; bcx pending
-Steroids discontinued
Prolonged QTc interval
History of Long QT on ECG since at least 2012
-Monitor QTc
-Avoid QTc-prolonging medications
NSTEMI
Elevated troponin likely non [place] related/although EKG shows continued deep T wave inversion anterior leads of V2 and V3
echo results reviewed EF 60% with some pulmonary hypertension
Multivessel coronary artery disease on cardiac catheterization on 12/14/2023
-Troponin has trended and plateaued at 0.135
cardiology evaluation appreciated/ left heart cath today December 14
Multivessel coronary disease with high-grade diagonal, mid LAD, and chronic total occlusions of the RCA and mid circumflex/OM 2
-Consult to CT surgery
-CABG would be best option for the patient but that does have some risks, and interventional cardiology mentioned that patient is a very poor candidate for PCI
-Continue Aspirin/high intensity statin/beta felicia
History of ? COPD/asthma
-Pulmonary consulted, recommendations appreciated
-Spirometry in hospital suggested restrictive lung disease
-Hold inhalers at this time
-Continue nebulizer therapy until after surgery: DuoNebs/Pulmicort while in the hospital. Subsequently transition to inhaled corticosteroids, as per pulm
Flashes in Eyes
Dry Eyes
-Consulted ophthalmology, recommendations appreciated
-Per Dr. Jessica Ontiveros on 12/19/23 both retinas are okay it sounds like migraine; there�s no signs of retinal heme that one would see in impending vein occlusion; could consider a neuro consult to help more with migraine diagnosis. Patient also
stated �I think I have MS�.
-Start artificial tears for dry eyes
S/p Brief CPR performed pre-hospital with 3 rounds of epi
-chest wall pain on palpation from CPR?/history of costochondritis/chronic pain
-Continue to encourage activity and incentive spirometry
Anxiety overlay component prominent
-Had been on 3 times daily dosing of alprazolam 1 mg at home along with Prozac
-Remains anxious here with increased as needed dosing of alprazolam to her usual 1 mg continue Prozac
Essential hypertension by history
-Hypotensive requiring pressors on admission
-Had been on lisinopril and metoprolol as outpatient -- Lisinopril being held inpatient for now
Known History
morbid Obesity
HX chronic pain/costochondritis
HX� spondylolisthesis L5 - S1 � with Lumbosacral radiculopathy�
Lipoma of left lower extremity �
HX� Kidney lesion �
HX � PAM (generalized anxiety disorder)� �
Hyperlipidemia� �
Essential� HTN
HX Insomnia� �
HX De Quervain's disease (tenosynovitis) �
Hypothyroidism� � E03.9� � confirmed �
GERD
Former smoker� � �
HX falling �
DVT PPx: LMWH
Diet: As per speech recommendations: 1. Continue with current diet of regular solids and thin liquids. 2. Upright with meals. 3. Meds with liquid as tolerated. Whole in applesauce if difficulty/coughing noted. 4. Reflux precautions given history of
GERD. 5. Consider ENT consult given hoarse vocal quality. 6. Consider VSE to objectively assess pharyngeal swallow.
Code: Full code
Anticipated Discharge: > 48 hours
Subjective/Interval History
-
Date of Service: December 20, 2023
Patient was seen and examined. She was resting in bed, no new symptoms or complaints.
Objective Data
-
Labs:
Laboratory Results
12/20/23 12/20/23
06:27 06:28
WBC 10.8
Hgb 15.2
Hct 43.7
Plt Count 261
Sodium 137
Potassium 3.9
Chloride 102
Carbon Dioxide 27
BUN 14
Creatinine 0.6
Glucose 99
Calcium 9.2
Total Bilirubin 0.7
AST 23
ALT 18
Alkaline Phosphatase 72
Vital Signs:
Vital Signs
Temp Pulse Resp BP Pulse Ox
98.4 F 60 16 138/63 97
12/20/23 11:13 12/20/23 12:55 12/20/23 12:55 12/20/23 11:13 12/20/23 12:55
I&O
12/19/23 12/20/23 12/21/23
06:59 06:59 06:59
Intake Total 1260 / 1260 1200 / 1200
Output Total 550 / 550
Balance 1260 / 1260 650 / 650
[2023-12-20] MEDS: CRESTOR 20 MG PO (17:37)
--- NOTE | 2023-12-20 19:32 | PTCARENOTE ---
Patient to be transferred to CVICU room 2267. Report called to ILSA Ma.
[2023-12-20] MEDS: ULTRAM 25 MG PO (21:59)
[2023-12-20] MEDS: AMBIEN 5 MG PO (22:01)
[2023-12-21] VITALS (13 sets, daily range): BP systolic 79–157; BP diastolic 40–95
[2023-12-21 05:45] LABS: % Basophils 0.6 % (0-2); % Eosinophils 0.6 % (0-6); % Immature Granulocytes 1.7 % (0-0.5); % Lymphocytes 18.9 % (20.5-51.1); % Monocytes 4.8 % (1.7-9.3); % Neutrophils 73.4 % (42.2-75.2); Absolute Basophils 0.1 10^3/uL (0-0.2); Absolute Eosinophils 0.1 10^3/uL (0-0.7); Absolute Immature Granulocytes 0.2 10^3/uL (0-0.05); Absolute Lymphocytes 2.4 10^3/uL (1.2-3.4); Absolute Monocytes 0.6 10^3/uL (0.1-0.6); Absolute Neutrophils 9.5 10^3/uL (1.4-6.5); Hemoglobin 15.2 g/dL (12.0-16.0); Mean Corp Hgb Conc. 34.5 g/dL (33.0-37.0); Mean Corpuscular Hgb 31.9 pg (27.0-31.0); Mean Corpuscular Volume 92.2 fL (81.0-99.0); Mean Platelet Volume 11.5 fL (7.4-10.4); Nucleated Red Blood Cells % 0 %; Platelet Count 258 10^3/uL (130-400); Red Blood Cell Count 4.77 10^6/uL (4.20-5.40); Red Cell Dist. Width 14.5 % (11.5-14.5); White Blood Cell Count 12.9 10^3/uL (4.8-10.8)
[2023-12-21 06:11] LABS: ALT (SGPT) 15 U/L (0-35); AST (SGOT) 17 U/L (14-36); Albumin 3.6 g/dl (3.5-5.0); Alkaline Phosphatase 65 U/L (38-126); Blood Urea Nitrogen 17 mg/dl (7-17); Calcium 9.7 mg/dl (8.4-10.2); Carbon Dioxide 28 mmol/L (22-30); Chloride 103 mmol/L (98-107); Estimated Creatinine Clearance 101 ml/min; Glucose 112 mg/dl (70-99); Magnesium 1.9 mg/dl (1.6-2.3); Phosphorus 4.1 mg/dl (2.5-4.5); Potassium 3.7 mmol/L (3.5-5.1); Sodium 139 mmol/L (135-145); Total Bilirubin 0.6 mg/dl (0.2-1.3); Total Protein 6.2 g/dl (6.3-8.2); eGFR > 60.00
[2023-12-21] MEDS: PROTONIX 40 MG PO (06:12)
[2023-12-21] MEDS: BACTROBAN 2% OINTMENT 1 APPLIC NASAL ×2 (06:12→19:18)
[2023-12-21] MEDS: LOPRESSOR 25 MG PO (06:12)
[2023-12-21] MEDS: MAGNESIUM OXIDE 500 MG PO (06:12)
[2023-12-21] MEDS: DUONEB 3 ML INH ×2 (07:18→19:38)
[2023-12-21] MEDS: PULMICORT INH ×2 (07:18→19:38)
--- NOTE | 2023-12-21 08:06 | W.CVOR.SURPR ---
CVOR Surgeon Immed Pre Op
-
I have examined this patient prior to performance of the scheduled procedure.
The patient's condition is unchanged from the time of the dictated/written History and
Physical and the patient is able to undergo the scheduled procedure.
--- NOTE | 2023-12-21 08:15 | PTOTSP ---
Speech Language Pathology
Pt moved to CVICU in preparation for CABG this date. Given move to higher level of care coupled with plans for anesthesia this date, will require new orders to continue [employer]ENTITY MANAGEMENT CONSULTANT follow up.
[2023-12-21 09:34] LABS: ACT+ - POC 107 Seconds (82-134)
[2023-12-21 09:37] LABS: B.E. - POC -0.3 mmol/L; Glucose - POC 90 mg/dl (65-99); HCO3 - POC 25 mmol/L (21-29); Hematocrit - POC 36 % PCV (37-47); Hemodilution- POC No; Hemoglobin Calculated - POC 12.3; Ionized Calcium - POC 1.21 mmol/L (1.12-1.27); O2 Saturation %Calculated-POC 99.8 5 (92-96); PCO2 - POC 42 mmHg (35-45); PO2 - POC 228 mmHg (80-100); Potassium - POC 3.5 mmol/L (3.6-5.0); Sodium - POC 143 mmol/L (135-145); pH - POC 7.39 (7.35-7.45)
[2023-12-21 09:41] LABS: Urine Albumin Trace (Neg - Trace); Urine Bilirubin 1+ (Negative); Urine Character Clear (Clear); Urine Color Yellow; Urine Glucose Negative (Negative); Urine Ketone Trace (Negative); Urine Leukocyte Trace (Negative); Urine Nitrite Negative (Negative); Urine Occult Blood Negative (Negative); Urine Urobilinogen 1+ (Neg - 1+)
[2023-12-21 10:42] LABS: Urine Bacteria Few (Negative); Urine Yeast Moderate (Negative)
[2023-12-21 11:23] LABS: ACT+ - POC 465 Seconds (82-134)
[2023-12-21 11:44] LABS: ACT+ - POC 538 Seconds (82-134)
[2023-12-21 11:44] LABS: B.E. - POC 2.5 mmol/L; Glucose - POC 112 mg/dl (65-99); HCO3 - POC 26 mmol/L (21-29); Hematocrit - POC 26 % PCV (37-47); Hemodilution- POC Yes; Hemoglobin Calculated - POC 8.7; Ionized Calcium - POC 0.96 mmol/L (1.12-1.27); PCO2 - POC 33 mmHg (35-45); PO2 - POC 476 mmHg (80-100); Potassium - POC 4.8 mmol/L (3.6-5.0); Sodium - POC 140 mmol/L (135-145)
[2023-12-21 12:09] LABS: B.E. - POC 0.8 mmol/L; Glucose - POC 158 mg/dl (65-99); HCO3 - POC 25 mmol/L (21-29); Hematocrit - POC 28 % PCV (37-47); Hemodilution- POC Yes; Hemoglobin Calculated - POC 9.7; Ionized Calcium - POC 1.06 mmol/L (1.12-1.27); O2 Saturation %Calculated-POC 99.9 5 (92-96); PCO2 - POC 37 mmHg (35-45); PO2 - POC 285 mmHg (80-100); Potassium - POC 4.4 mmol/L (3.6-5.0); Sodium - POC 140 mmol/L (135-145); pH - POC 7.44 (7.35-7.45)
[2023-12-21 12:10] LABS: ACT+ - POC 465 Seconds (82-134)
[2023-12-21 12:26] LABS: ACT+ - POC 658 Seconds (82-134)
[2023-12-21 12:36] LABS: B.E. - POC -3.3 mmol/L; Glucose - POC 141 mg/dl (65-99); HCO3 - POC 22 mmol/L (21-29); Hematocrit - POC 26 % PCV (37-47); Hemodilution- POC Yes; Hemoglobin Calculated - POC 8.8; Ionized Calcium - POC 1.56 mmol/L (1.12-1.27); O2 Saturation %Calculated-POC 99.5 5 (92-96); PCO2 - POC 41 mmHg (35-45); PO2 - POC 178 mmHg (80-100); Potassium - POC 4.3 mmol/L (3.6-5.0); Sodium - POC 144 mmol/L (135-145); pH - POC 7.34 (7.35-7.45)
[2023-12-21 12:37] LABS: ACT+ - POC 480 Seconds (82-134)
[2023-12-21 12:51] LABS: ACT+ - POC 540 Seconds (82-134)
[2023-12-21 13:22] LABS: ACT+ - POC 104 Seconds (82-134)
[2023-12-21 13:23] LABS: B.E. - POC -6.1 mmol/L; Glucose - POC 132 mg/dl (65-99); HCO3 - POC 19 mmol/L (21-29); Hematocrit - POC 28 % PCV (37-47); Hemodilution- POC Yes; Hemoglobin Calculated - POC 9.6; Ionized Calcium - POC 1.22 mmol/L (1.12-1.27); PCO2 - POC 33 mmHg (35-45); PO2 - POC 78 mmHg (80-100); Potassium - POC 3.9 mmol/L (3.6-5.0); Sodium - POC 140 mmol/L (135-145); pH - POC 7.36 (7.35-7.45)
[2023-12-21] MEDS: DUONEB INH (13:45)
[2023-12-21] MEDS: NICODERM TRANSDERMAL TRANSDERM (14:01)
[2023-12-21] MEDS: LIDOCAINE 4% PATCH TOPICAL (14:01)
[2023-12-21] MEDS: CLARITIN PO (14:01)
[2023-12-21] MEDS: PROZAC PO (14:02)
[2023-12-21] MEDS: NSS (PRESERVATIVE FREE) IV (14:02)
[2023-12-21] MEDS: TRICOR PO (14:02)
[2023-12-21] MEDS: FLEXERIL PO ×2 (14:02→17:23)
[2023-12-21] MEDS: NEURONTIN PO ×2 (14:02→17:23)
[2023-12-21] MEDS: TYLENOL PO ×3 (14:03→20:55)
[2023-12-21] MEDS: THERAGRAN PO (14:03)
[2023-12-21] MEDS: PROTONIX PO (14:04)
[2023-12-21] MEDS: SYNTHROID PO (14:04)
[2023-12-21] MEDS: LOW STRENGTH ASPIRIN PO (14:04)
[2023-12-21] MEDS: TOPROL XL PO (14:04)
[2023-12-21] MEDS: LASIX PO (14:04)
[2023-12-21] MEDS: XANAX PO (14:05)
[2023-12-21] MEDS: PEPCID IV (14:05)
--- NOTE | 2023-12-21 14:07 | W.PN.CT.SURG ---
CT Surgery Operative Note
-
Pre-op Diagnosis: cad
preop cpr
copd
vasovagal syndrome
Post-op Diagnosis: Same
Procedure: cabg x 4
rust- diag/lad
svg - om
svg - rca
revh
laal clip #40
ttfm
rsf
Primary Surgeon: José Migueloosushil
Assisting Surgeons: Dr Mcclelland - cardothoracic fellow, at chest
Zini - leg and chest
Specimen: None
Cultures: None
Complications / Blood Loss: None
Findings: eve with preserved EF, no new wma at conclusion
marleen without clot - complete occlusion without flow
good conduits
good diag target, small lad target
poor om and rca target
ttfm appropriate for all grafts
[2023-12-21 14:38] LABS: Glucose - Point of Care 152 mg/dl (70-99)
--- NOTE | 2023-12-21 14:39 | W.PN.CARDCBS ---
Addendum entered and electronically signed by Jessie Taylor DO 12/21/23 15:29:
I saw and examined the patient.
The Quality Assurance's note was reviewed and I agree with the note.
Comment: Seen and examined with nursing and CT surgery immediately post op CABG x4 (VALENCIA�diagonal/LAD, SVG�OM, SVG�RCA, left atrial appendage clip 12/21/23. Patient intubated and sedated.
GEN: No distress, intubated, sedated
HEENT: mmm
LUNGS: CTA anterolaterally, no wheezes.Sternotomy dressing c/d/i. CTs in place. temp wire in place.
CV: Reg, S1/S2, no murmur. no rub
ABD: soft, ND +BS
EXT: No edema
: andino
Plan:
Plan:
-s/p CABG x4 (VALENCIA�diagonal/LAD, SVG�OM, SVG�RCA, left atrial appendage clip 12/21/23
-Intubated post op and sedated
-Hemodynamic acceptable with CI 2.12
-Wean pressors as able
-EKG SR with improvement in lateral T waves compared to prior. QTc improved, 463ms.
-Of note, patient with a h/o long QT as far back as 2012. Zofran and Zithromax stopped 12/11/23. Follow QT on ECG.
-continue post op care
-will follow
Original Note:
Today's Communication / Plan
-
continue post op care
follow QTc
Impression / Plan
-
PCP: Dr. Burgos
Cardiology: Dr. Stokes
Impression:
Acute hypoxic respiratory failure on admission 12/10/23
Intubated in the field 12/10/23 and extubated 12/11/23
Sudden onset cardiorespiratory arrest with vent dependent respiratory failure with Epi x 3 and CPR in the field 12/10/23
Elevated Troponin, likely a NSTEMI
MV CAD with high-grade diagonal, mid LAD, and chronic total occlusion of the RCA and mid circumflex/OM 2 by cath 12/14/23
Abnormal EKG now with inverted T waves and increased QT interval (QT interval prolongation appears to be present on admission also)
h/o Long QT on ECG since at least 2012
Hypotension requiring pressor support
Leukocytosis
COPD
Abnormal AP chest x-ray
Possible pneumonia
Elevated white blood count with increased lymphocytes and immature granulocytes
Hypertension
Hyperlipidemia
Tobacco use disorder
Morbid obesity
PVCs
Cardiac cath 12/14/2023: LM:NL. LAD:mid 99% stenosis and 70% beyond that. D1 70% mid. LCX:mid 50%. OM2 100% occluded with the distal vessel filling via left to left collaterals. RCA: 100% occluded just beyond RV marginal branch w/ well-developed
collaterals and a right to right and [id number] fashion.
Lexiscan nuclear stress test 10/27/2021�negative for ischemia ejection fraction 44% (PVCs)
Echocardiogram 09/24/2021VEF 60%.� Mild LVH.� Normal right ventricle. Borderline aortic stenosis, peak/mean gradient 22/13 mmHg, mild eccentric AI. Normal right heart with normal pulmonary artery pressure, 20 mmHg
Echocardiogram 12/10/2023:�Normal left ventricular size and function. Normal regional wall motion.� Mild LVH.� EF 55 to 60%.� Normal RV size and function.� Trace MR.� Mild peak/mean gradient 20/12 mmHg.� Mild AI. Mild TR. Estimated pulmonary
artery pressure of 40-45 mmHg assuming a right atrial pressure of 3 mmHg.
Plan:
-s/p CABG x4 (VALENCIA�diagonal/LAD, SVG�OM, SVG�RCA, left atrial appendage clip 12/21/23
-remains intubated, sedated
-on levo @6. wean as able
-EKG SR with improvement in lateral T waves compared to prior. QTc improved, 463ms.
-hgb 12.1
-was on OP regimen of toprol 25mg HS, lisinopril 40mg daily, lasix 20mg daily, fenofibrate 145mg daily, crestor 10mg daily.
-Of note, patient with a h/o long QT as far back as 2012. Zofran and Zithromax stopped 12/11/23. Patient needs Prozac for depression and reports it is the only med that has worked for her. Follow QT on ECG.
-continue post op care
-will follow
HPI: Patient with out of hospital cardiopulmonary arrest in the setting of intercourse with a h/o syncope with intercourse in the past as well. Patient reports now that the last time she had intercourse that she also had syncope and that prior to
that she had not had intercourse for quite some time. Patient has a h/o syncope that sounds like orthostasis as well. Reviewed with patient the concern for cardiopulmonary arrest and talked about an ischemic evaluation with cardiac catheterization.
Reviewed cath procedure and patient is familiar as her and cath and PCI a few years ago, but she says that she is anxious, she cannot breathe and cannot lay flat. Talked about using Versed for sedation and patient felt better, but overall
she does not feel ready for cath 12/12/23. Will check again on 12/13/23.
Progress Note - [employer]
Subjective
Date of Service: December 21, 2023
intubated, sedated
Objective
Labs:
Labs
Hgb 15.2 g/dL (12.0-16.0) 12/21/23 05:26
Hct 44.0 % (37.0-47.0) 12/21/23 05:26
Plt Count 258 10^3/uL (130-400) 12/21/23 05:26
PT 14.1 Sec (11.4-14.6) 12/17/23 06:08
INR 1.11 12/17/23 06:08
APTT 27.3 Sec (23.4-35.0) 12/17/23 06:08
Sodium 139 mmol/L (135-145) 12/21/23 05:26
Potassium 3.7 mmol/L (3.5-5.1) 12/21/23 05:26
BUN 17 mg/dl (7-17) 12/21/23 05:26
Creatinine 0.6 mg/dL (0.6-1.0) 12/21/23 05:26
Glucose 112 mg/dl (70-99) H 12/21/23 05:26
Vital Signs and I&O:
Vital Signs
Temp Pulse Resp BP Pulse Ox
98.1 F 76 14 103/72 97
12/21/23 05:52 12/21/23 07:18 12/21/23 07:18 12/21/23 05:45 12/21/23 07:18
Vital Signs
Temp Pulse Resp BP Pulse Ox
98.1 F 76 14 103/72 97
12/21/23 05:52 12/21/23 07:18 12/21/23 07:18 12/21/23 05:45 12/21/23 07:18
Intake & Output
12/19/23 12/20/23 12/21/23 12/22/23
07:59 07:59 07:59 07:59
Intake Total 1260 / 1260 1200 / 1200 900 / 900
Output Total 550 / 550
Balance 1260 / 1260 650 / 650 900 / 900
Physical Exam
Physical Exam
GEN: No distress, intubated, sedated
HEENT: supple, mmm
LUNGS: CTA anterolaterally, no wheezes
CV: Reg, S1/S2, no murmur
ABD: soft, ND
EXT: No cyanosis, clubbing, edema
NEURO: sedated
SKIN: Warm, pink, dry. No rash. Sternotomy dressing c/d/i. CTs in place. temp wire in place.
: thu
--- NOTE | 2023-12-21 14:46 | W.PN.UPDATE ---
Update Note
Progress Note Update
IV fluids: 2000
Crystalloid:� 700
U.O.:� 400
UF:� 600
Blood:� None
Wires:� A + V Wires
Inotropes:� Dobutamine
Pressors:� Levophed
Sedatives:� Precedex
�
NEURO: sedated on precedex, pupils +1mm B/L
RESP: #8OT @21cm> 14/450/60/5. Lungs clear B/L. 2 mediastinal (45cc on arrival) and L pleural (5cc on arrival) chest tubes to -20cm suction. Sanguineous drainage
CV: RRR +S1, S2, no S3, no�rub, no murmur. Dermabond to median sternotomy.
ABD: round, soft, no BS
EXT: no edema, +2/4 DP pulses B/L, no femoral bruit, RLE AVA wrap intact; left radial A-line intact
: Graham with clear yellow urine
�
A/P: POD #0 s/p CABG x4 (VALENCIA -Diag/RCA, SVG -OM, SVG - RCA) and ALOK Clip
TORIN: EF�NML LVEF
- wean and extubate
- Continue dobutamine; Goal CI >2 and CVP <15
- Wean levophed to goal MAPs >65
- Monitor UOP
- Will start BB and plavix on POD #1 if able
- start ASA 81mg 6hrs post-op
- F/u ABG, and post-op labs
- Cardiology consulted
�
# acute surgical blood loss anemia-expected
- trend CBC
�
# Hyperglycemia (expected)
- insulin infusion x 24h
- SSI as needed
�
# Hyperlipidemia
- resume�fenofibrate and rosuvastatin
#anxiety
- Continue precedex until extubated
- when clinically stable, restart PRN Xanax
#Hypothyroidism
- Cont Levothyroxine 125mcg when able
[2023-12-21 14:48] LABS: B.E. -0.8 mmol/L; HCO3 25.8 mmol/L (21-28); Ionized Calcium 1.16 mMOL/L (1.15-1.33); PCO2 50 mmHg (32-35); PO2 71 mmHg (83-108); Potassium 3.7 mMOL/L (3.5-5.1); Sodium 140 mMOL/L (136-145); pH 7.32 (7.35-7.45)
[2023-12-21 14:49] LABS: Hemoglobin 12.1 g/dL (12.0-16.0); Platelet Count 168 10^3/uL (130-400)
[2023-12-21] MEDS: ALBUMIN 5% 250 IV ×3 (15:00→17:21)
--- NOTE | 2023-12-21 15:00 | PTCARENOTE ---
per hemosphere CO 4.5 CI 2.3 SVR 1209
[2023-12-21 15:01] LABS: APTT 25.1 Sec (23.4-35.0); Blood Urea Nitrogen 13 mg/dl (7-17); Estimated Creatinine Clearance 101 ml/min; Glucose 153 mg/dl (70-99); INR 1.47; Magnesium 2.3 mg/dl (1.6-2.3)
[2023-12-21] MEDS: NSS 500 IV (15:02)
[2023-12-21] MEDS: STERILE WATER FOR INJECTION 16 ML IV ×2 (15:02)
[2023-12-21] MEDS: ZINACEF 1500 MG IV ×2 (15:02)
--- NOTE | 2023-12-21 15:05 | CM ---
Chart reviewed. Patient is in the OR today. Patient is independent of ADLS, lives with her in a 1 [address], ramp to enter, ambulates with a rollator and rolling waker, also has a scooter. Plan is for the patient to return home with CT
Transitional RN.
[2023-12-21] MEDS: KCL 50 IV (15:07)
[2023-12-21] MEDS: CALCIUM CHLORIDE 10% SYRINGE 50 MG IV (15:08)
[2023-12-21] MEDS: CALCIUM CHLORIDE 10% SYRINGE 50 ML IV (15:08)
--- NOTE | 2023-12-21 15:19 | PTCARENOTE ---
received pt from CV OR into 226, sinus rhythm on tele w HR 62, left radial kenrick leveled and zeroed w hemosphere monitor BP 116/59, CO 4.5 CI 2.3 SV 73 SVR 1280 CVP 9, epicardial AV wires set to a backup of 50/20. Lungs diminished pox 94-95% on
SIMV 60% 450 [address] +[address] x3 w minimal amount of drainage, andino draining yellow.
DRIPS: Levophed 8mcg/min
Dobutamine 3mcg/kg/min
Precedex 0.4mcg/kg/hr
Insulin titrated per glycemic protocol
--- NOTE | 2023-12-21 15:30 | PTCARENOTE ---
at bedside, updated on plan of care
[2023-12-21 15:57] LABS: Glucose - Point of Care 169 mg/dl (70-99)
--- NOTE | 2023-12-21 16:45 | PTCARENOTE ---
pt awake, following commands, placed on CPAP wean by RT, CHG bath completed.
--- NOTE | 2023-12-21 16:57 | W.PN.INTV ---
Today's Communication / Plan
Recommendations
Continue with postoperative CVICU management and extubate to nasal cannula
Titrate supplemental O2 dose to keep SpO2 >90-94%
DuoNebs/budesonide
Wean insulin drip as tolerated with goal BG 140�180
Ice Guard Inspector/pulmonary service will continue to follow along
Assessment
-
Assessment: 68-year-old female former tobacco smoker with a past medical history of prolonged QTc, reported history of COPD and asthma, depression/anxiety and GERD who presented with episode of unresponsiveness during sexual intercourse with her
. EMS called and en route to the hospital patient reportedly lost pulse. Patient was given 3 rounds of epi, and was intubated in the field and brought to the ER. According to the ER who spoke to EMS, it was unclear if she actually lost a
pulse or if her heart rate chills dropped and she had a pause. She was hypotensive in the ER to 79/58, and was saturating 95% on the ventilator via 100% FiO2. Not on home O2. End-tidal CO2 was 36. She was afebrile to 98.3 �F. CXR showed
suspected airspace disease in the left and right upper lobes. Blood gas showed pH 7.09 with hypercapnia with pCO2 53. Lactate was initially 13.8. Initial troponin 0.053 with slightly elevated proBNP of 324. WBC elevated at 25.6. COVID antigen
negative. 500 cc bolus was given with 0.9% NS, she was given Ativan, started on propofol and also needed to be paralyzed with vecuronium 10mg IVP x1. Patient then transferred to the ICU for further care. She was extubated on 12/11/2023.
Subsequent workup via left heart catheterization revealed multivessel disease. She now underwent CABG and was transferred to CVICU postoperatively for further care. Ice Guard Inspector/pulmonary services are continuing to follow for additional
management/recommendations.
Chronic conditions CAR CARDER: Asthma, GERD, HTN, Hypercholesterolemia, Hypothyroidism, anxiety, depression, diverticulitis, multiple abdominal hernias, degenerative joint disease, fibromyalgia
Impression:
Status post out of hospital cardiac arrest on admission-status post CPR
Intubated in the field 12/10/23 and extubated 12/11/23 with suspected aspiration pneumonia
Diagnosed with multivessel coronary artery disease on catheterization 12/14/2023 s/p CABG x4 (POD#0)
-
History of asthma-
Spirometry: Mild to moderate� restriction lung disease with bronchodilator response.� FEV1 1.2 L or 58% of predicted FVC 1.64 L or 60% of predicted, ratio 73%.� Likely due to body habitus.
On symbicort in the outpx setting.
CT chest:12/14/2023 reviewed, showed enlargement of main pulmonary artery suggesting pulmonary hypertension.� There is coronary calcifications.� Minimal left pleural effusion.� Patchy area of fibrin was opacities in both lungs with peripheral
thickening of interlobular septa consistent with pulmonary edema.
-
Restrictive lung disease
Smoker-40+ pack year history.� Quit prior to coming to the hospital quarter pack per day.
History of prolonged QTc
Depression/anxiety
GERD
Morbid obesity
Plan recommendations:
Ventilator settings reviewed
FiO2 will be weaned
Minute ventilation will be adjusted
Arterial blood gases will be monitored
Spontaneous breathing trial will be attempted with hopeful extubation after anesthesia/sedation wear off
Duonebs/pulmicort
Antihistamines for post-nasal drip Sx - can continue after pt extubated if her Sx persist
Her CT chest from 12/14/2023 showed evidence of acute pulmonary edema --> she is also net (+) 11L. Would start gentle diuresis after pt extubated
She has been on Abx since 12/10 --> check procal --> if downtrending from prior value and she remains afebrile then would stop Abx
Pulmonary artery catheter parameters will be followed
Pressors/antihypertensive/inotropes/diuretics will be provided as needed
Monitor chest tube output (mediastinal X2 and left pleural)
Monitor hemoglobin
Monitor platelet count and coags
Transfuse blood product if needed
CT surgery managing chest tubes
Monitor blood sugar with goal BG 140-180
Insulin drip per protocol
Aspiration precautions
VAP prevention protocol
DVT prophylaxis
Early nutrition
Early mobilization
Eventual outpatient eval for suspected sleep apnea.
Nicotine patch. Smoking cessation was previously discussed with the patient.
Repeat CXR in 4-6 weeks after discharge to follow her bilateral opacities to resolution
Critical care statement: A total of 41 minutes of critical care time was provided for this patient today. This includes management of ventilator, spontaneous breathing trial, arterial blood gases, pressors, of unstable vital signs, evaluation of the
patient at bedside, reviewing the patient's pertinent medical records including radiographs, microbiology, laboratory evaluations, and discussion with primary team and critical care nursing.
Data:
Repeat ECG 12/12/2023
more pronounced T-wave and ST changes
CT Head 12-10-2023:
1. � There is no acute intracranial process.
2. � MRI would be more sensitive in this regard if symptoms persist.
3. � Moderate diffuse volume loss.
CXR 12-09-2023:
1. The endotracheal tube could be retracted slightly although evaluation is somewhat limited.
2. There is airspace disease in both upper lobes. Pneumonia versus atelectasis
CXR 12-21-2023:
1. Mild pulmonary vascular congestion.
2. Haziness of left hemidiaphragm, which may represent left lower lobe subsegmental atelectasis and/or small left pleural effusion.
TTE - 12/10/2023:
Normal left ventricular chamber size. Normal left ventricular systolic
�function. Normal regional wall motion. Mild concentric left ventricular
�hypertrophy. Left ventricular ejection fraction is 55-60% by Villeda's method
�of discs. Diastolic function indeterminate.
�Normal right ventricular size and function.
�Mitral valve opens normally. Trace mitral regurgitation.
�Thickened aortic valve with restricted leaflet motion. Mild aortic stenosis.
�Peak/mean gradients across the aortic valve are 20/12 mmHg respectively. Mild
�aortic regurgitation.
�Tricuspid valve opens normally. Mild tricuspid regurgitation. Estimated
�pulmonary artery pressure of 40-45 mmHg assuming a right atrial pressure of 3
�mmHg.
Subjective Dataa
Subjective Data
Date of Service:
Date of Service: December 21, 2023
Chief Complaint: Ice Guard Inspector Follow Up
Subjective:
Patient seen after her CABG today. She was awake, alert, and wanted the ETT out of her throat. Current BP via left radial A-line is 112/58. Heart rate 58. She has mediastinal chest tubes X2 and a left pleural chest tube. She is on dobutamine
drip at 3mcg/kg/min, insulin at 4 units/h and Levophed at 6mcg/min. It is difficult to communicate with her given she is still intubated but she appears in no acute distress.
Review of Systems
General: Other (Unable to obtain ROS at this time due to patient's clinical status (intubated))
Objective Data
Data Reviewed
Vital Signs / I&O / Oxygen:
Vital Signs
Temp Pulse Resp BP Pulse Ox
99.4 F 60 19 96/42 97
12/21/23 18:00 12/21/23 18:00 12/21/23 18:00 12/21/23 17:40 12/21/23 18:00
Intake and Output
12/20/23 12/21/23 12/22/23
06:59 06:59 06:59
Intake Total 1200 / 1200 900 / 900 1090.1 / 1090.1
Output Total 550 / 550 525 / 525
Balance 650 / 650 900 / 900 565.1 / 565.1
SaO2 [CPAP] 94
SaO2 [SIMV] 93
SaO2 [A/C] 98
SaO2 97
Nasal Cannula flow liters per 6
minute
Physical Exam
General: Respiratory Distress (negative), Comfortable and Pain
HEENT: Normocephalic and Anicteric
Cardiovascular: S1-S2, Murmur (faint systolic murmur), Rub (negative), Peripheral Edema (negative), Calf Tenderness (negative) and Cool Extremities (negative)
Respiratory: Wheeze, Crackles (n), Rhonchi (n), Non-Labored Respirations, Accessory Resp Muscle Use (negative), ET Tube and Chest Tube
GI: Soft, Non Distended and Tender (mild tenderness)
Neurology: Awake and Alert
Skin: Warm, Dry, Cyanosis (n), Jaundice (n), Rash (n) and Bruising (negative)
Labs/Micro/Reports
Lab Data
12/21/23 14:37
12/21/23 14:37
Laboratory Results
12/21/23 12/21/23
14:37 17:18
PT 18.0 H
INR 1.47
APTT 25.1
pH 7.32 L 7.41
pCO2 50 H 39 H
pO2 71 L 71 L
HCO3 25.8 24.7
O2 Delivery Level
--- NOTE | 2023-12-21 17:00 | PTCARENOTE ---
per hemosphere CO 4.3 CI 2.1 SVR 1250
[2023-12-21 17:01] LABS: Glucose - Point of Care 160 mg/dl (70-99)
[2023-12-21] MEDS: PACERONE PO (17:23)
[2023-12-21 17:24] LABS: B.E. 0.1 mmol/L; HCO3 24.7 mmol/L (21-28); Ionized Calcium 1.32 mMOL/L (1.15-1.33); O2 Saturation % 95.1 % (94-98); PCO2 39 mmHg (32-35); PO2 71 mmHg (83-108); Potassium 4.8 mMOL/L (3.5-5.1); Sodium 138 mMOL/L (136-145); pH 7.41 (7.35-7.45)
[2023-12-21] MEDS: CRESTOR PO (17:24)
--- NOTE | 2023-12-21 17:26 | PTCARENOTE ---
ABG drawn and sent to lab, awaiting results
--- NOTE | 2023-12-21 17:30 | PTCARENOTE ---
CPAP ABG reviewed w CT SIDING COREBOARD INSPECTOR, ok to extubate. RT made aware
--- NOTE | 2023-12-21 17:38 | PTCARENOTE ---
pt was extubated to 6L NC, pox 96%
[2023-12-21 18:12] LABS: Glucose - Point of Care 119 mg/dl (70-99)
[2023-12-21] MEDS: OFIRMEV 100 IV (18:28)
[2023-12-21] MEDS: LOW STRENGTH ASPIRIN 81 MG PO (18:30)
[2023-12-21 18:46] LABS: Hematocrit 28.6 % (37.0-47.0); Hemoglobin 10.2 g/dL (12.0-16.0); Platelet Count 150 10^3/uL (130-400)
[2023-12-21] MEDS: SENOKOT-S 1 TABLET PO (19:17)
[2023-12-21] MEDS: NSS (PRESERVATIVE FREE) 8 ML IV (19:17)
[2023-12-21] MEDS: PEPCID 20 MG IV (19:17)
[2023-12-21] MEDS: DILAUDID 0.5 MG IV (19:20)
[2023-12-21 19:35] LABS: Glucose - Point of Care 92 mg/dl (70-99)
[2023-12-21] MEDS: LOPRESSOR PO (20:55)
[2023-12-21] MEDS: MUCINEX 600 MG PO (21:03)
[2023-12-21] MEDS: NICODERM TRANSDERMAL 14 MG TRANSDERM (21:03)
[2023-12-21 21:53] LABS: Glucose - Point of Care 112 mg/dl (70-99)
[2023-12-21] MEDS: FLEXERIL 5 MG PO (22:10)
[2023-12-21] MEDS: ZINACEF 750 MG IV (22:10)
[2023-12-21] MEDS: PACERONE 200 MG PO (22:10)
[2023-12-21] MEDS: NEURONTIN 100 MG PO (22:11)
[2023-12-21] MEDS: ROXICODONE 5 MG PO (22:11)
[2023-12-21 23:46] LABS: Glucose - Point of Care 96 mg/dl (70-99)
[2023-12-22] VITALS (30 sets, daily range): BP systolic 67–141; BP diastolic 37–82; PULSE 68; O2SAT 94–95
[2023-12-22] MEDS: TYLENOL PO ×5 (02:02→20:47)
[2023-12-22 02:12] LABS: Glucose - Point of Care 102 mg/dl (70-99)
[2023-12-22 02:19] LABS: Hematocrit 29.2 % (37.0-47.0); Hemoglobin 10.3 g/dL (12.0-16.0); Mean Corp Hgb Conc. 35.3 g/dL (33.0-37.0); Mean Corpuscular Hgb 32.1 pg (27.0-31.0); Mean Platelet Volume 11.6 fL (7.4-10.4); Platelet Count 183 10^3/uL (130-400); Red Blood Cell Count 3.21 10^6/uL (4.20-5.40); Red Cell Dist. Width 14.6 % (11.5-14.5); White Blood Cell Count 24.8 10^3/uL (4.8-10.8)
[2023-12-22 02:57] LABS: Blood Urea Nitrogen 14 mg/dl (7-17); Calcium 8.7 mg/dl (8.4-10.2); Carbon Dioxide 26 mmol/L (22-30); Chloride 110 mmol/L (98-107); Estimated Creatinine Clearance 101 ml/min; Glucose 99 mg/dl (70-99); Magnesium 2.1 mg/dl (1.6-2.3); Potassium 4.2 mmol/L (3.5-5.1); Sodium 137 mmol/L (135-145); eGFR > 60.00
[2023-12-22 04:03] LABS: Glucose - Point of Care 109 mg/dl (70-99)
--- NOTE | 2023-12-22 05:42 | W.PN.CT ---
Today's Communication / Plan
-
-pod #1
-no issues overnight
-CI 2.0, CO 4.0. Drips: Dobut off at 4am, Levo 2, Insulin
-CT output: L pleur 35/110, 2 meds 140/265 in 12/24 hrs
-daily ECG to monitor Qt (hx of long Qt since 2012. Currently, on Prozac and Amio)
-wean off drips, then deline
-holding BB while on Dobut/Levo
-start Plavix
-encourage IS, OOB
Assessment / Plan
-
- mv-CAD - s/p cabg x 4 (rust- diag/lad, svg - om, svg - rca); revh; laal clip #[address] Rivas on 12/21/23, pod #1
- eve with preserved EF, no new wma at conclusion; marleen without clot - complete occlusion without flow
- Acute hypoxic respiratory failure on admission 12/10/23
- Intubated in the field 12/10/23 and extubated 12/11/23
- Sudden onset cardiorespiratory arrest with vent dependent respiratory failure with Epi x 3 and CPR in the field 12/10/23
- Elevated Troponin, likely a NSTEMI
- MV CAD with high-grade diagonal, mid LAD, and chronic total occlusion of the RCA and mid circumflex/OM 2 by cath 12/14/23
- Abnormal EKG now with inverted T waves and increased QT interval (QT interval prolongation appears to be present on admission also)
- h/o Long QT on ECG since at least 2012
- Hypotension requiring pressor support
- Leukocytosis
- COPD
- Abnormal AP chest x-ray
- Possible pneumonia
- Elevated white blood count with increased lymphocytes and immature granulocytes
- Hypertension
- Hyperlipidemia
- Tobacco use disorder
- Morbid obesity
- PVCs
Cardiac cath 12/14/2023: LM:NL. LAD:mid 99% stenosis and 70% beyond that. D1 70% mid. LCX:mid 50%. OM2 100% occluded with the distal vessel filling via left to left collaterals. RCA: 100% occluded just beyond RV marginal branch w/ well-developed
collaterals and a right to right and [id number] fashion.
Lexiscan nuclear stress test 10/27/2021�negative for ischemia ejection fraction 44% (PVCs)
Echocardiogram 09/24/2021VEF 60%.� Mild LVH.� Normal right ventricle. Borderline aortic stenosis, peak/mean gradient 22/13 mmHg, mild eccentric AI. Normal right heart with normal pulmonary artery pressure, 20 mmHg
Echocardiogram 12/10/2023:�Normal left ventricular size and function. Normal regional wall motion.� Mild LVH.� EF 55 to 60%.� Normal RV size and function.� Trace MR.� Mild peak/mean gradient 20/12 mmHg.� Mild AI. Mild TR. Estimated pulmonary
artery pressure of 40-45 mmHg assuming a right atrial pressure of 3 mmHg.
- Acute postop blood loss anemia - no acute bleed
- Acute postop atelectasis
- Acute postop hypovolemia with subsequent hypervolemia
Discussed patient care with: Nursing and Care Team
Subjective
Procedure
- s/p cabg x 4 (rust- diag/lad, svg - om, svg - rca); revh; laal clip #[address] Rivas on 12/21/23
-
Date of Service: December 22, 2023
Objective Data
-
PT 18.0 Sec (11.4-14.6) H 12/21/23 14:37
INR 1.47 12/21/23 14:37
APTT 25.1 Sec (23.4-35.0) 12/21/23 14:37
Vital Signs
Vital Signs
Temp Pulse Resp BP Pulse Ox
98.4 F 61 19 104/53 96
12/22/23 00:00 12/22/23 01:00 12/22/23 01:00 12/21/23 22:10 12/22/23 01:00
CT Intake/Output/Weight
12/21/23 12/21/23 12/22/23
06:59 18:59 06:59
Intake Total 900 / 900 1090.1 / 1586.2 496.1 / 1586.2
Output Total 525 / 970 445 / 970
Balance 900 / 900 565.1 / 616.2 51.1 / 616.2
SaO2: 96
Physical Exam
-
General: Awake and AOx3
Cardiovascular: Regular rate & rhythm, Murmur (10/28 syst @ lsb) and Rub
Respiratory: Decreased Breath Sounds
Sternum: Stable
Incision: Clean, Dry and Intact
Extremities: No Edema (1+ DP b/l)
Data Reviewed
-
Lab Results: Results Reviewed
Medications: Active Meds Reviewed
Chest X-Ray: Report Reviewed and Image Reviewed
ECG: Report Reviewed and Image Reviewed
[2023-12-22 06:12] LABS: Glucose - Point of Care 80 mg/dl (70-99)
[2023-12-22] MEDS: ROXICODONE 5 MG PO ×2 (06:34→20:56)
[2023-12-22] MEDS: TYLENOL 650 MG PO (06:34)
[2023-12-22] MEDS: ZINACEF 750 MG IV ×2 (06:35→13:27)
[2023-12-22] MEDS: SYNTHROID 125 MCG PO (06:35)
[2023-12-22] MEDS: DUONEB 3 ML INH ×3 (07:29→19:27)
[2023-12-22] MEDS: PULMICORT INH ×2 (07:30→19:27)
--- NOTE | 2023-12-22 07:33 | PTCARENOTE ---
Patient received from nightshift nurse. Patient is alert and oriented x4, pleasant. Patient c/o 7/10 sternal incision and post compression pain. Nightshift nurse administered PRN Roxicodone as ordered with some relief. Flexeril and Neurontin to be
administered soon. NSR with occasional PACs and prolonged QT. HR 60s. Distant heart tones. A/V wires maintained and connected to pacer box. Pacer box settings: VVI. HR 50, mA 10, sensitivity 1. No pacing needed. L radial a-line maintained with BP
100s/40s with MAP 60s. Not correlating with RUE BP cuff 86/45. CVP 9. Lines leveled/zeroed. RIJ cordis maintained with KVO. Insulin gtt maintained with critical care glycemic protocol. PIV maintained. 4L NC maintained. Oxygen saturation 93%. Upon
auscultation, lung sounds diminished throughout. CTx3 maintained to -20cm wall suction. MS CTx2 have small red drainage. LP CT has minimal red drainage. Abdomen round, obese. Hypoactive BS. Per patient, passing gas. Graham maintained with wild
yellow urine. Sternal incision is approximated with surgical adhesive. R groin puncture site is approximated with surgical adhesive. R knee incision is approximated with surgical adhesive. Assist x2 to turn/reposition. Will continue to monitor.
CO 4.8
CI 2.2
SVR 1089
Number above are from the Provasculon Hemosphere trial machine
[2023-12-22 07:59] LABS: Glucose - Point of Care 97 mg/dl (70-99)
[2023-12-22] MEDS: BACTROBAN 2% OINTMENT 1 APPLIC NASAL ×2 (08:13→20:56)
--- NOTE | 2023-12-22 08:13 | PTCARENOTE ---
[place] from [facility] cordis discontinued per order (checked with CV ROENTGENOLOGIST to make sure). Patient tolerated. CVP discontinued. Will continue to monitor.
--- NOTE | 2023-12-22 08:22 | W.PN.ANS.POP ---
Anesthesia Post Operative
- Anesthesia Post Op Note
Vital Signs Stable-See Nursing Note: Yes
Airway Patent: Yes
Adequate Pain Control: Yes
Change in Mental Status: No
Current Postoperative Nausea & Vomiting: No
Anesthesia Complications: No
General Anesthetic Recall: No
Unplanned Admission: No
Post Op Hydration Adequate: Yes
- -
Pt awake and alert, resting comfortably with no anesthesia r/t complications. No N/V, on Levo gtt at time of post op visit. VSS
[2023-12-22] MEDS: NICODERM TRANSDERMAL 21 MG TRANSDERM (08:50)
[2023-12-22] MEDS: ProAmatine 10 MG PO ×3 (08:50→18:02)
[2023-12-22] MEDS: TRICOR 145 MG PO (08:51)
[2023-12-22] MEDS: SENOKOT-S PO ×3 (08:51→20:47)
[2023-12-22] MEDS: FLEXERIL 5 MG PO ×3 (08:51→22:59)
[2023-12-22] MEDS: MUCINEX PO ×3 (08:51→20:47)
[2023-12-22] MEDS: THERAGRAN 1 TABLET PO (08:51)
[2023-12-22] MEDS: MAGNESIUM OXIDE 500 MG PO ×2 (08:51→20:56)
[2023-12-22] MEDS: PLAVIX 75 MG PO (08:51)
[2023-12-22] MEDS: PROZAC 60 MG PO (08:51)
[2023-12-22] MEDS: CLARITIN PO ×2 (08:51→09:03)
[2023-12-22] MEDS: LOW STRENGTH ASPIRIN 81 MG PO (08:51)
[2023-12-22] MEDS: PACERONE 200 MG PO ×3 (08:51→22:59)
[2023-12-22] MEDS: NEURONTIN PO ×4 (08:52→22:46)
[2023-12-22] MEDS: LOPRESSOR PO ×2 (08:54→20:56)
[2023-12-22] MEDS: LIDOCAINE 4% PATCH TOPICAL (09:04)
[2023-12-22 09:35] LABS: Glucose - Point of Care 93 mg/dl (70-99)
--- NOTE | 2023-12-22 09:39 | W.PN.INTV ---
Today's Communication / Plan
Recommendations
Titrate supplemental O2 dose to keep SpO2 >90-94%
DuoNebs/budesonide
Goal BG 140�180
Up OOB as tolerated
Encourage incentive spirometer
Pain control
Consider outpatient event monitor/loop recorder considering this is her second episode of her passing out during exertional activity (sex)
Patient downgraded to CVICU-telemetry status. Family Practice Doctor/Pulmonary service will now sign off. Please reconsult if there are any additional questions/concerns, or if respiratory status deteriorates.
Assessment
-
Assessment: 68-year-old female former tobacco smoker with a past medical history of prolonged QTc, reported history of COPD and asthma, depression/anxiety and GERD who presented with episode of unresponsiveness during sexual intercourse with her
. EMS called and en route to the hospital patient reportedly lost pulse. Patient was given 3 rounds of epi, and was intubated in the field and brought to the ER. According to the ER who spoke to EMS, it was unclear if she actually lost a
pulse or if her heart rate chills dropped and she had a pause. She was hypotensive in the ER to 79/58, and was saturating 95% on the ventilator via 100% FiO2. Not on home O2. End-tidal CO2 was 36. She was afebrile to 98.3 �F. CXR showed
suspected airspace disease in the left and right upper lobes. Blood gas showed pH 7.09 with hypercapnia with pCO2 53. Lactate was initially 13.8. Initial troponin 0.053 with slightly elevated proBNP of 324. WBC elevated at 25.6. COVID antigen
negative. 500 cc bolus was given with 0.9% NS, she was given Ativan, started on propofol and also needed to be paralyzed with vecuronium 10mg IVP x1. Patient then transferred to the ICU for further care. She was extubated on 12/11/2023.
Subsequent workup via left heart catheterization revealed multivessel disease. She now underwent CABG and was transferred to CVICU postoperatively for further care. Family Practice Doctor/pulmonary services are continuing to follow for additional
management/recommendations.
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
Impression:
Status post out of hospital cardiac arrest on admission-status post CPR
Intubated in the field 12/10/23 and extubated 12/11/23 with suspected aspiration pneumonia
Diagnosed with multivessel coronary artery disease on catheterization 12/14/2023 s/p CABG x4 (POD#1)
-
History of asthma-
Spirometry: Mild to moderate� restriction lung disease with bronchodilator response.� FEV1 1.2 L or 58% of predicted FVC 1.64 L or 60% of predicted, ratio 73%.� Likely due to body habitus.
On symbicort in the outpx setting.
CT chest:12/14/2023 reviewed, showed enlargement of main pulmonary artery suggesting pulmonary hypertension.� There is coronary calcifications.� Minimal left pleural effusion.� Patchy area of fibrin was opacities in both lungs with peripheral
thickening of interlobular septa consistent with pulmonary edema.
-
Restrictive lung disease
Smoker-40+ pack year history.� Quit prior to coming to the hospital quarter pack per day.
History of prolonged QTc
Depression/anxiety
GERD
Morbid obesity
Plan:
Tolerated extubation
Wean supplemental O2 flow rate to maintain SpO2 >90-94% FiO2
Encourage incentive spirometry
Increase activity
Aspiration precautions
Her CT chest from 12/14/2023 showed evidence of acute pulmonary edema --> she is also net (+) 12.5L. Would start gentle diuresis and trend I/O
She has been on Abx since 12/10 --> check procal --> if downtrending from prior value and she remains afebrile then would stop Abx
Pulmonary artery catheter and arterial line removed
Pressors have been weaned
Continue to monitor chest tube output (left pleural chest tube x1)
Follow hemoglobin
Continue to follow platelet count and coags
Transfuse blood product as needed
CT surgery managing chest tube
Follow blood sugar with goal BG 140-180mg/dL
Insulin supplementation continues as needed
Early nutrition
Early mobilization
DVT prophylaxis
Patient transferred to telemetry phase. Family Practice Doctor/pulmonary service will now sign off. Thank you for allowing us to be involved in the care of this patient. Please call pulmonary if respiratory issues arise
Reviewed the patient's pertinent medical records including radiographs, microbiology, laboratory evaluations, and discussion with primary team, and critical care nursing.
Data:
CT Head 12-10-2023:
1. � There is no acute intracranial process.
2. � MRI would be more sensitive in this regard if symptoms persist.
3. � Moderate diffuse volume loss.
CXR 12-09-2023:
1. The endotracheal tube could be retracted slightly although evaluation is somewhat limited.
2. There is airspace disease in both upper lobes. Pneumonia versus atelectasis
CXR 12-21-2023:
1. Mild pulmonary vascular congestion.
2. Haziness of left hemidiaphragm, which may represent left lower lobe subsegmental atelectasis and/or small left pleural effusion.
CXR 12-22-2023:
Improved vascular congestion. Questionable left basilar opacity suggesting atelectasis and/or small effusion.
TTE - 12/10/2023:
Normal left ventricular chamber size. Normal left ventricular systolic
�function. Normal regional wall motion. Mild concentric left ventricular
�hypertrophy. Left ventricular ejection fraction is 55-60% by Villeda's method
�of discs. Diastolic function indeterminate.
�Normal right ventricular size and function.
�Mitral valve opens normally. Trace mitral regurgitation.
�Thickened aortic valve with restricted leaflet motion. Mild aortic stenosis.
�Peak/mean gradients across the aortic valve are 20/12 mmHg respectively. Mild
�aortic regurgitation.
�Tricuspid valve opens normally. Mild tricuspid regurgitation. Estimated
�pulmonary artery pressure of 40-45 mmHg assuming a right atrial pressure of 3
�mmHg.
Subjective Dataa
Subjective Data
Date of Service:
Date of Service: December 22, 2023
Chief Complaint: Family Practice Doctor Follow Up
Subjective:
Patient seen and evaluated today at bedside. She is doing well on 2 L/min nasal cannula, saturating 93%. BP 113/58, heart rate 75. She complains of postoperative chest pain. Left-sided pleural chest tube is to bulb. She denies headache,
shortness of breath, abdominal pain, fevers or chills.
Review of Systems
General: Other (Negative unless mentioned above)
Objective Data
Data Reviewed
Vital Signs / I&O / Oxygen:
Vital Signs
Temp Pulse Resp BP Pulse Ox
99.6 F 72 20 72/37 93
12/22/23 09:00 12/22/23 09:00 12/22/23 09:00 12/22/23 09:00 12/22/23 09:00
Intake and Output
12/21/23 12/22/23 12/23/23
06:59 06:59 06:59
Intake Total 900 / 900 1586.2 / 1613.9 553.6 / 553.6
Output Total 1220 / 1265 125 / 125
Balance 900 / 900 366.2 / 348.9 428.6 / 428.6
SaO2 [CPAP] 94
SaO2 [SIMV] 93
SaO2 [A/C] 98
SaO2 93
Nasal Cannula flow liters per 2
minute
Physical Exam
General: Respiratory Distress (negative), Comfortable and Pain (Postoperative related pain at her chest)
HEENT: Normocephalic and Anicteric
Cardiovascular: S1-S2, Murmur (faint systolic murmur), Rub (negative), Peripheral Edema (negative), Calf Tenderness (negative) and Cool Extremities (negative)
Respiratory: Wheeze (Negative), Crackles (n), Rhonchi (n), Non-Labored Respirations, Accessory Resp Muscle Use (negative) and Chest Tube (Left-sided pleural chest tube X1)
GI: Soft, Non Distended and Tender (mild tenderness)
Neurology: Awake and Alert
Skin: Warm, Dry, Cyanosis (n), Jaundice (n), Rash (n) and Bruising (negative)
Labs/Micro/Reports
Lab Data
12/22/23 02:05
12/22/23 02:05
Laboratory Results
12/21/23 12/21/23
14:37 17:18
PT 18.0 H
INR 1.47
APTT 25.1
pH 7.32 L 7.41
pCO2 50 H 39 H
pO2 71 L 71 L
HCO3 25.8 24.7
O2 Delivery Level
--- NOTE | 2023-12-22 10:04 | PTCARENOTE ---
CV PA discontinued MS CTx2 per order and per protocol. Patient tolerated. RN changed LP CT suction to bulb. New dressing applied. EKG obtained, since it was not performed earlier this AM. Will continue to monitor.
[2023-12-22 10:26] LABS: Glucose - Point of Care 107 mg/dl (70-99)
--- NOTE | 2023-12-22 10:48 | PTOTSP ---
ST Dysphagia follow up/Tx session
Oropharyngeal function appears WFL at the bedside for clears/thin liquids
Pt received awake/alert oriented x4 at the bedside. S/p CABG on nasal cannula. Respirations appear a little labored SPO2 remained >95% throughout session. Vocal quality remains hoarse with reduced vocal volume. Currently receiving clear liquids
only plan to advance diet today per RN. Pt drank thin liquids by cup sip swallow appears prompt. Puree by tsp demo adequate bolus manipulation and bolus was orally cleared.
Recommend
1. Continue clears and ADAT per physician
2. Aspiration precautions and meal set up assist
3. Small bites and slow rate
4. Consider ENT consult to r/o vocal pathology; vocal quality remains altered from baseline
5. Meds oral with sips of water
6. SCALLOPER follow up; monitor diet tolerance, strategy training /education as indicated
--- NOTE | 2023-12-22 10:56 | PTCARENOTE ---
Obtained BP with L forearm BP cuff - correlated with L radial a-line. L radial a-line discontinued per order and per protocol. Patient tolerated. New dressing applied. No signs/symptoms of bleeding.
[2023-12-22 11:08] LABS: Glucose - Point of Care 102 mg/dl (70-99)
[2023-12-22] MEDS: XANAX 1 MG PO ×3 (11:52→22:59)
--- NOTE | 2023-12-22 12:06 | PTCARENOTE ---
Vital signs stable. NSR with occasional PACs and prolonged QT. HR 70s. BP 123/61. Titrated levo gtt off. 2L NC maintained. Oxygen saturation 94%. Patient assisted OOB into chair with RN and CR. Patient voided on the [facility] 100cc. RIJ cordis maintained
with KVO. Insulin gtt maintained per critical care glycemic protocol. at bedside. Patient requested PRN Xanax for her nerves, administered as ordered.
[2023-12-22 12:10] LABS: Glucose - Point of Care 107 mg/dl (70-99)
--- NOTE | 2023-12-22 12:11 | W.PN.CARDCBS ---
Addendum entered and electronically signed by Jessie Taylor DO 12/22/23 15:25:
I saw and examined the patient.
The Assistant Manager's note was reviewed and I agree with the note.
Comment: Seen and examined. Patient sitting out of bed to chair with family at bedside. Overall feels relatively well with minimal incisional pain.
GEN: No distress, awake, alert, oriented x3. sitting in chair. obese.
HEENT: mmm
LUNGS: Decreased BS B/L bases, no wheezes
CV: Reg, S1/S2, no murmur
ABD: soft, BS+, NT/ND
EXT: No cyanosis, clubbing, edema
SKIN: Warm, pink, dry. No rash. Sternotomy dressing c/d/i. CTs in place
Plan:
-s/p CABG x4 (VALENCIA�diagonal/LAD, SVG�OM, SVG�RCA, left atrial appendage clip 12/21/23
-Hemodynamically stable off pressors
-in SR with PACs. QTc 505ms, follow with history of long QT. avoid QTc prolonging medications, although patient needs Prozac for depression and reports it is the only med that has worked for her.
-hgb 10.3
-was on OP regimen of toprol 25mg HS, lisinopril 40mg daily, lasix 20mg daily, fenofibrate 145mg daily, crestor 10mg daily. resume as able
-continue post op care. encouraged OOB/IS
-d/w nursing. d/w patient and and bedside
-will follow
Original Note:
Today's Communication / Plan
-
continue post op care
follow QTc
encouraged OOB/IS
Impression / Plan
-
PCP: Dr. Burgos
Cardiology: Dr. Stokes
Impression:
Acute hypoxic respiratory failure on admission 12/10/23
Intubated in the field 12/10/23 and extubated 12/11/23
Sudden onset cardiorespiratory arrest with vent dependent respiratory failure with Epi x 3 and CPR in the field 12/10/23
Elevated Troponin, likely a NSTEMI
MV CAD with high-grade diagonal, mid LAD, and chronic total occlusion of the RCA and mid circumflex/OM 2 by cath 12/14/23
Abnormal EKG now with inverted T waves and increased QT interval (QT interval prolongation appears to be present on admission also)
h/o Long QT on ECG since at least 2012
Hypotension requiring pressor support
Leukocytosis
COPD
Abnormal AP chest x-ray
Possible pneumonia
Elevated white blood count with increased lymphocytes and immature granulocytes
Hypertension
Hyperlipidemia
Tobacco use disorder
Morbid obesity
PVCs
Cardiac cath 12/14/2023: LM:NL. LAD:mid 99% stenosis and 70% beyond that. D1 70% mid. LCX:mid 50%. OM2 100% occluded with the distal vessel filling via left to left collaterals. RCA: 100% occluded just beyond RV marginal branch w/ well-developed
collaterals and a right to right and [id number] fashion.
Lexiscan nuclear stress test 10/27/2021�negative for ischemia ejection fraction 44% (PVCs)
Echocardiogram 09/24/2021VEF 60%.� Mild LVH.� Normal right ventricle. Borderline aortic stenosis, peak/mean gradient 22/13 mmHg, mild eccentric AI. Normal right heart with normal pulmonary artery pressure, 20 mmHg
Echocardiogram 12/10/2023:�Normal left ventricular size and function. Normal regional wall motion.� Mild LVH.� EF 55 to 60%.� Normal RV size and function.� Trace MR.� Mild peak/mean gradient 20/12 mmHg.� Mild AI. Mild TR. Estimated pulmonary
artery pressure of 40-45 mmHg assuming a right atrial pressure of 3 mmHg.
Plan:
-s/p CABG x4 (VALENCIA�diagonal/LAD, SVG�OM, SVG�RCA, left atrial appendage clip 12/21/23
-remains on levo @2, wean as able
-in SR with PACs. QTc 505ms, follow with history of long QT. avoid QTc prolonging medications, although patient needs Prozac for depression and reports it is the only med that has worked for her.
-hgb 10.3
-was on OP regimen of toprol 25mg HS, lisinopril 40mg daily, lasix 20mg daily, fenofibrate 145mg daily, crestor 10mg daily. resume as able
-continue post op care. encouraged OOB/IS
-d/w nursing. d/w patient and and bedside
-will follow
HPI: Patient with out of hospital cardiopulmonary arrest in the setting of intercourse with a h/o syncope with intercourse in the past as well. Patient reports now that the last time she had intercourse that she also had syncope and that prior to
that she had not had intercourse for quite some time. Patient has a h/o syncope that sounds like orthostasis as well. Reviewed with patient the concern for cardiopulmonary arrest and talked about an ischemic evaluation with cardiac catheterization.
Reviewed cath procedure and patient is familiar as her and cath and PCI a few years ago, but she says that she is anxious, she cannot breathe and cannot lay flat. Talked about using Versed for sedation and patient felt better, but overall
she does not feel ready for cath 12/12/23. Will check again on 12/13/23.
Progress Note - Corporate Buyer
Subjective
Date of Service: December 22, 2023
Reports postoperative pain
Objective
Labs:
12/22/23 02:05
12/22/23 02:05
Labs
Hgb 10.3 g/dL (12.0-16.0) L 12/22/23 02:05
Hct 29.2 % (37.0-47.0) L 12/22/23 02:05
Plt Count 183 10^3/uL (130-400) D 12/22/23 02:05
PT 18.0 Sec (11.4-14.6) H 12/21/23 14:37
INR 1.47 12/21/23 14:37
APTT 25.1 Sec (23.4-35.0) 12/21/23 14:37
Sodium 137 mmol/L (135-145) 12/22/23 02:05
Potassium 4.2 mmol/L (3.5-5.1) 12/22/23 02:05
BUN 14 mg/dl (7-17) 12/22/23 02:05
Creatinine 0.5 mg/dL (0.6-1.0) L 12/22/23 02:05
Glucose 99 mg/dl (70-99) 12/22/23 02:05
Vital Signs and I&O:
Vital Signs
Temp Pulse Resp BP Pulse Ox
99.6 F 68 20 109/66 91
12/22/23 09:00 12/22/23 11:00 12/22/23 11:00 12/22/23 11:00 12/22/23 11:00
Vital Signs
Temp Pulse Resp BP Pulse Ox
99.6 F 68 20 109/66 91
12/22/23 09:00 12/22/23 11:00 12/22/23 11:00 12/22/23 11:00 12/22/23 11:00
Intake & Output
12/20/23 12/21/23 12/22/23 12/23/23
07:59 07:59 07:59 07:59
Intake Total 1200 / 1200 900 / 900 1613.9 / 2121.9 562.6 / 562.6
Output Total 550 / 550 1265 / 1295 80 / 80
Balance 650 / 650 900 / 900 348.9 / 826.9 482.6 / 482.6
Physical Exam
Physical Exam
GEN: No distress, awake, alert, oriented x3. sitting in chair. obese.
HEENT: supple, anicteric, mmm, eomi
LUNGS: Decreased BS B/L bases, no wheezes
CV: Reg, S1/S2, no murmur
ABD: soft, BS+, NT/ND
EXT: No cyanosis, clubbing, edema
NEURO: Gross non-focal
SKIN: Warm, pink, dry. No rash. Sternotomy dressing c/d/i. CTs in place
[2023-12-22] MEDS: NSS IV (13:04)
[2023-12-22] MEDS: STERILE WATER FOR INJECTION 8.30000000000000071 ML IV (13:27)
[2023-12-22 14:06] LABS: Glucose - Point of Care 94 mg/dl (70-99)
--- NOTE | 2023-12-22 15:10 | CM ---
Chart reviewed. Patient is independent of ADLS, lives with her in a 1 STH, ramp to enter, ambulates with a rolling walker and rollator, also has a scooter. Plan is for the patient to return home with CT Transitional RN. CM to follow
[2023-12-22 15:20] LABS: Glucose - Point of Care 101 mg/dl (70-99)
--- NOTE | 2023-12-22 15:24 | PTCARENOTE ---
Vital signs stable. NSR with occasional PACs and prolonged QT. HR 70s. BP 123/53. RIJ cordis maintained with KVO. Insulin gtt d/c'ed per protocol. 2L NC maintained. Oxygen saturation 89%. LP CT maintained to bulb suction. She says it hurts to take a
deep breath. She is very sleepy so asked to get back into bed for a nap. Assist x2 to get into bed. Will continue to monitor.
[2023-12-22] MEDS: CRESTOR 20 MG PO (18:02)
--- NOTE | 2023-12-22 21:00 | PTCARENOTE ---
Patient received resting in bed. Patient's at bedside. Patient A+A+Ox3. No neurological deficits noted. No c/o headache, dizziness or lightheadedness. O2 at 2L via NC. SaO2 90%. I.S. 750 ml. Occasional cough. Chest tube dressing
intact. Left Pleural chest tube to bulb - 40 ml red drainage - Empty and compress per protocol. Sinus Rhythm. Heart rate 70's. AV Wires insulated. Sternal incision with surgical adhesive - Intact and open to air. Patient with no c/o chest
pain, pressure or discomfort. Normoactive bowel sounds. No BM. Voiding. Wears depends. Trace edema. Positive, palpable pulses. Right groin incision with surgical adhesive. Right knee incision with surgical adhesive. Right lower leg puncture
site open to air. Assessment as documented.
[2023-12-23] VITALS (13 sets, daily range): BP systolic 113–158; BP diastolic 70–104; PULSE 97; O2SAT 88; BMI 39.1
--- NOTE | 2023-12-23 01:00 | PTCARENOTE ---
Patient sleeping without difficulty. Left Pleural bulb 10 ml. No further changes from previous assessment.
[2023-12-23] MEDS: TYLENOL PO ×6 (05:00→20:47)
[2023-12-23] MEDS: ROXICODONE 5 MG PO ×3 (05:07→14:59)
[2023-12-23] MEDS: NSS 500 IV (05:07)
[2023-12-23] MEDS: XANAX 1 MG PO ×3 (05:07→22:19)
[2023-12-23 05:26] LABS: Hematocrit 27.6 % (37.0-47.0); Hemoglobin 9.6 g/dL (12.0-16.0); Mean Corp Hgb Conc. 34.8 g/dL (33.0-37.0); Mean Corpuscular Hgb 32.2 pg (27.0-31.0); Mean Corpuscular Volume 92.6 fL (81.0-99.0); Platelet Count 179 10^3/uL (130-400); Red Blood Cell Count 2.98 10^6/uL (4.20-5.40); Red Cell Dist. Width 15.2 % (11.5-14.5); White Blood Cell Count 16.9 10^3/uL (4.8-10.8)
--- NOTE | 2023-12-23 05:30 | PTCARENOTE ---
Patient A+A+Ox3. No neurological deficits noted. EKG completed. AM lab work collected and sent. Patient given CHG bath and linens changed. Chest tube dressing changed. Patient ambulated to bathroom with assist x1 and use of rolling walker.
Voided 400 ml wild urine. Brushed teeth and washed face. Standing scale weight 109.5 kg. OOB to chair. Assessment/Interventions as documented.
[2023-12-23 05:48] LABS: Blood Urea Nitrogen 14 mg/dl (7-17); Calcium 8.8 mg/dl (8.4-10.2); Carbon Dioxide 29 mmol/L (22-30); Chloride 101 mmol/L (98-107); Estimated Creatinine Clearance 101 ml/min; Glucose 102 mg/dl (70-99); Phosphorus 2.6 mg/dl (2.5-4.5); Potassium 3.8 mmol/L (3.5-5.1); Sodium 136 mmol/L (135-145); eGFR > 60.00
[2023-12-23 06:08] LABS: Procalcitonin 0.57 ng/ml (0.0-0.25)
[2023-12-23] MEDS: SYNTHROID 125 MCG PO (06:12)
--- NOTE | 2023-12-23 06:47 | W.PN.CT ---
Today's Communication / Plan
-
-No major issues overnight. Hemodynamically and neurologically intact
-Currently on Midodrine, consider D/C, BP has improved. Held BB last night
-D/C remaining Lpl chest tube with f/u cxr, drained 60/60
-Encourage use of IS
-OOB into chair/Ambulate
-Cont. ASA/Plavix
-Replete K
Assessment / Plan
-
- mv-CAD - s/p cabg x 4 (rust- diag/lad, svg - om, svg - rca); revh; laal clip #[address] Rivas on 12/21/23, pod #2
- eve with preserved EF, no new wma at conclusion; marleen without clot - complete occlusion without flow
- Acute hypoxic respiratory failure on admission 12/10/23
- Intubated in the field 12/10/23 and extubated 12/11/23
- Sudden onset cardiorespiratory arrest with vent dependent respiratory failure with Epi x 3 and CPR in the field 12/10/23
- Elevated Troponin, likely a NSTEMI
- MV CAD with high-grade diagonal, mid LAD, and chronic total occlusion of the RCA and mid circumflex/OM 2 by cath 12/14/23
- Abnormal EKG now with inverted T waves and increased QT interval (QT interval prolongation appears to be present on admission also)
- h/o Long QT on ECG since at least 2012
- Hypotension requiring pressor support
- Leukocytosis
- COPD
- Abnormal AP chest x-ray
- Possible pneumonia
- Elevated white blood count with increased lymphocytes and immature granulocytes
- Hypertension
- Hyperlipidemia
- Tobacco use disorder
- Morbid obesity
- PVCs
Cardiac cath 12/14/2023: LM:NL. LAD:mid 99% stenosis and 70% beyond that. D1 70% mid. LCX:mid 50%. OM2 100% occluded with the distal vessel filling via left to left collaterals. RCA: 100% occluded just beyond RV marginal branch w/ well-developed
collaterals and a right to right and [id number] fashion.
Lexiscan nuclear stress test 10/27/2021�negative for ischemia ejection fraction 44% (PVCs)
Echocardiogram 09/24/2021�LVEF 60%.� Mild LVH.� Normal right ventricle. Borderline aortic stenosis, peak/mean gradient 22/13 mmHg, mild eccentric AI. Normal right heart with normal pulmonary artery pressure, 20 mmHg
Echocardiogram 12/10/2023:�Normal left ventricular size and function. Normal regional wall motion.� Mild LVH.� EF 55 to 60%.� Normal RV size and function.� Trace MR.� Mild peak/mean gradient 20/12 mmHg.� Mild AI. Mild TR. Estimated pulmonary
artery pressure of 40-45 mmHg assuming a right atrial pressure of 3 mmHg.
- Acute postop blood loss anemia - no acute bleed
- Acute postop atelectasis
- Acute postop hypovolemia with subsequent hypervolemia
Discussed patient care with: Cardiology, Nursing, Respiratory Therapy, Pharmacy and Care Team
Subjective
Procedure
- s/p cabg x 4 (rust- diag/lad, svg - om, svg - rca); revh; laal clip #[address] Rivas on 12/21/23
-
Date of Service: December 23, 2023
Objective Data
-
Lab Results
12/23/23 04:51
12/23/23 04:50
PT 18.0 Sec (11.4-14.6) H 12/21/23 14:37
INR 1.47 12/21/23 14:37
APTT 25.1 Sec (23.4-35.0) 12/21/23 14:37
Vital Signs
Vital Signs
Temp Pulse Resp BP Pulse Ox
98.6 F 85 18 138/83 92
12/23/23 04:45 12/23/23 04:45 12/23/23 04:45 12/23/23 04:45 12/23/23 04:[address] Intake/Output/Weight
12/22/23 12/22/23 12/23/23
06:59 18:59 06:59
Intake Total 496.1 / 1613.9 1622.7 / 2222.7 600 / 2222.7
Output Total 695 / 1265 225 / 685 460 / 685
Balance -198.9 / 348.9 1397.7 / 1537.7 140 / 1537.7
SaO2: 92
--- NOTE | 2023-12-23 08:00 | PTCARENOTE ---
assumed care of pt from previous shift RN, sinus rhythm on tele, VSS, pacing wires insulated. Lungs w fine crackles to left base, coughing and deep breathing encouraged. +bs, tolerating PO intake, voids spontaneously. Post op dressings intact, LP CT
w minimal amount of drainage. Plan of care reviewed w the pt and questions encouraged.
[2023-12-23] MEDS: TRICOR 145 MG PO (08:10)
[2023-12-23] MEDS: PLAVIX 75 MG PO (08:10)
[2023-12-23] MEDS: LOW STRENGTH ASPIRIN 81 MG PO (08:10)
[2023-12-23] MEDS: PACERONE 200 MG PO ×2 (08:10→20:52)
[2023-12-23] MEDS: FLEXERIL 5 MG PO ×2 (08:10→14:59)
[2023-12-23] MEDS: MAGNESIUM OXIDE 500 MG PO ×2 (08:10→20:52)
[2023-12-23] MEDS: PROZAC 60 MG PO (08:10)
[2023-12-23] MEDS: NEURONTIN PO (08:11)
[2023-12-23] MEDS: NICODERM TRANSDERMAL 21 MG TRANSDERM (08:12)
[2023-12-23] MEDS: BACTROBAN 2% OINTMENT 1 APPLIC NASAL ×2 (08:12→20:52)
[2023-12-23] MEDS: LIDOCAINE 4% PATCH TOPICAL (08:12)
[2023-12-23] MEDS: ProAmatine 5 MG PO (08:15)
[2023-12-23] MEDS: MUCINEX PO ×2 (08:19→20:47)
[2023-12-23] MEDS: PROTONIX PO (08:19)
[2023-12-23] MEDS: CLARITIN PO (08:19)
[2023-12-23] MEDS: SENOKOT-S PO ×2 (08:20→20:47)
[2023-12-23] MEDS: THERAGRAN PO (08:20)
[2023-12-23] MEDS: PULMICORT INH ×2 (08:36→20:01)
[2023-12-23] MEDS: DUONEB 3 ML INH ×3 (08:36→20:01)
--- NOTE | 2023-12-23 12:12 | W.PN.CARDCBS ---
Today's Communication / Plan
-
Supportive postop care
Will reduce amiodarone to twice daily
Monitor telemetry/EKGs
Incentive spirometry
Increase activity
Impression / Plan
-
PCP: Dr. Burgos
Cardiology: Dr. Stokes
Impression:
Acute hypoxic respiratory failure on admission 12/10/23
Intubated in the field 12/10/23 and extubated 12/11/23
Sudden onset cardiorespiratory arrest with vent dependent respiratory failure with Epi x 3 and CPR in the field 12/10/23
Elevated Troponin, likely a NSTEMI
MV CAD with high-grade diagonal, mid LAD, and chronic total occlusion of the RCA and mid circumflex/OM 2 by cath 12/14/23
Abnormal EKG now with inverted T waves and increased QT interval (QT interval prolongation appears to be present on admission also)
h/o Long QT on ECG since at least 2012
Hypotension requiring pressor support
Leukocytosis
COPD
Abnormal AP chest x-ray
Possible pneumonia
Elevated white blood count with increased lymphocytes and immature granulocytes
Hypertension
Hyperlipidemia
Tobacco use disorder
Morbid obesity
PVCs
Cardiac cath 12/14/2023: LM:NL. LAD:mid 99% stenosis and 70% beyond that. D1 70% mid. LCX:mid 50%. OM2 100% occluded with the distal vessel filling via left to left collaterals. RCA: 100% occluded just beyond RV marginal branch w/ well-developed
collaterals and a right to right and [id number] fashion.
Lexiscan nuclear stress test 10/27/2021�negative for ischemia ejection fraction 44% (PVCs)
Echocardiogram 09/24/2021VEF 60%.� Mild LVH.� Normal right ventricle. Borderline aortic stenosis, peak/mean gradient 22/13 mmHg, mild eccentric AI. Normal right heart with normal pulmonary artery pressure, 20 mmHg
Echocardiogram 12/10/2023:�Normal left ventricular size and function. Normal regional wall motion.� Mild LVH.� EF 55 to 60%.� Normal RV size and function.� Trace MR.� Mild peak/mean gradient 20/12 mmHg.� Mild AI. Mild TR. Estimated pulmonary
artery pressure of 40-45 mmHg assuming a right atrial pressure of 3 mmHg.
Plan:
-s/p CABG x4 (VALENCIA�diagonal/LAD, SVG�OM, SVG�RCA, left atrial appendage clip 12/21/23
-Hemodynamically stable off pressor on low-dose midodrine
-Maintaining sinus rhythm. QTc 500ms today. Avoid QT prolonging agents
-On prophylactic amiodarone, reduced to twice daily
-Complaining of shortness of breath with adequate saturations. Plan per CT surgery for chest tube removal and will reassess. Incentive spirometry use encouraged
-Continue aspirin and Plavix
-Continue rosuvastatin
HPI: Patient with out of hospital cardiopulmonary arrest in the setting of intercourse with a h/o syncope with intercourse in the past as well. Patient reports now that the last time she had intercourse that she also had syncope and that prior to
that she had not had intercourse for quite some time. Patient has a h/o syncope that sounds like orthostasis as well. Reviewed with patient the concern for cardiopulmonary arrest and talked about an ischemic evaluation with cardiac catheterization.
Reviewed cath procedure and patient is familiar as her and cath and PCI a few years ago, but she says that she is anxious, she cannot breathe and cannot lay flat. Talked about using Versed for sedation and patient felt better, but overall
she does not feel ready for cath 12/12/23. Will check again on 12/13/23.
Progress Note - Director Of Diversity And Inclusion
Subjective
Date of Service: December 23, 2023
Seen and examined. Reporting some shortness of breath but denies chest pain or dizziness
Objective
Labs:
12/23/23 04:51
12/23/23 04:50
Labs
Hgb 9.6 g/dL (12.0-16.0) L 12/23/23 04:51
Hct 27.6 % (37.0-47.0) L 12/23/23 04:51
Plt Count 179 10^3/uL (130-400) 12/23/23 04:51
PT 18.0 Sec (11.4-14.6) H 12/21/23 14:37
INR 1.47 12/21/23 14:37
APTT 25.1 Sec (23.4-35.0) 12/21/23 14:37
Sodium 136 mmol/L (135-145) 12/23/23 04:50
Potassium 3.8 mmol/L (3.5-5.1) 12/23/23 04:50
BUN 14 mg/dl (7-17) 12/23/23 04:50
Creatinine 0.5 mg/dL (0.6-1.0) L 12/23/23 04:50
Glucose 102 mg/dl (70-99) H 12/23/23 04:50
Vital Signs and I&O:
Vital Signs
Temp Pulse Resp BP Pulse Ox
98 F 94 18 113/80 93
12/23/23 07:44 12/23/23 08:39 12/23/23 08:39 12/23/23 07:44 12/23/23 10:24
Vital Signs
Temp Pulse Resp BP Pulse Ox
98 F 94 18 113/80 93
12/23/23 07:44 12/23/23 08:39 12/23/23 08:39 12/23/23 07:44 12/23/23 10:24
Intake & Output
12/21/23 12/22/23 12/23/23 12/24/23
06:59 06:59 06:59 06:59
Intake Total 900 / 900 1586.2 / 1613.9 2222.7 / 2222.7
Output Total 1220 / 1265 685 / 685
Balance 900 / 900 366.2 / 348.9 1537.7 / 1537.7
Physical Exam
Physical Exam
GEN: No distress, awake, alert, oriented x3.
HEENT: mmm
LUNGS: Decreased BS B/L bases, no wheezes
CV: Reg, S1/S2, no murmur
ABD: soft, BS+, NT/ND
EXT: No cyanosis, clubbing, edema
--- NOTE | 2023-12-23 12:22 | PTCARENOTE ---
VSS, sinus rhythm maintained on tele. pt c/o wheezing and feeling SOB. Pt is refusing to get OOB or accept a neb tx. Emotional support provided.
--- NOTE | 2023-12-23 15:53 | PTCARENOTE ---
pt is refusing to sit OOB or do IS. Pt appears to be SOB. Pox 90-92% on 2L NC. Lungs sound clear posterior bilaterally, course anteriorly. Coughing and deep breathing encouraged. CV PA made aware. CXR ordered.
--- NOTE | 2023-12-23 17:00 | PTCARENOTE ---
pt assisted OOB to chair. IS and acapella encouraged. pt w questionable tachycardia on tele VS artefact. EKG obtained.
[2023-12-23] MEDS: CRESTOR 20 MG PO (18:23)
[2023-12-23] MEDS: CORDARONE 103 MG IV (20:29)
[2023-12-23] MEDS: LOPRESSOR PO (20:33)
[2023-12-23] MEDS: KCL 40 MEQ PO (20:52)
--- NOTE | 2023-12-23 21:00 | PTCARENOTE ---
Patient received OOB in chair watching television and dozing intermittently. Patient A+A+Ox3. No neurological deficits noted. Patient assisted to bathroom with assist x1 and use of rolling walker. Slow, steady gait. Patient voided 400 wild
urine. Stood at sink to brush teeth and wash face. Patient with c/o 'feeling dizzy.' Sat on toilet to rest. Patient then able to use walker to get to bed. Assist x2 into bed. No c/o headache. Mild BARNETT. O2 at 2L via NC placed on patient.
SaO2 90%. Chest tube dressing intact. Sinus Rhythm to Sinus Tachycardia 90-110. Occasional PAC and PVC. AV Wires insulated. Abdomen soft, round, obese. Normoactive bowel sounds. No BM. Positive flatus. No c/o nausea. No vomiting. Patient
with no c/o back or flank pain. Sternal incision with surgical adhesive - Intact. Right groin intact. Right knee incision intact and open to air. Trace pedal edema. Positive, palpable pulses. Right I.J. Cordis - Saline flush 10 ml/hr.
Amiodarone bolus 150mg/100ml IV administered per PA order. KCL 40 mEq PO now given per PA order. Afebrile. Blood pressure 130/88 (98). Assessment as documented.
[2023-12-23] MEDS: FLEXERIL PO (22:14)
[2023-12-23] MEDS: LOPRESSOR 12.5 MG PO (22:14)
[2023-12-23] MEDS: XOPENEX 1.25 MG INHALANT SOLUTION INH (22:22)
[2023-12-24] VITALS (18 sets, daily range): BP systolic 72–154; BP diastolic 46–88; PULSE 2–76; BMI 38.3
--- NOTE | 2023-12-24 00:30 | PTCARENOTE ---
Patient's heart rate 100's. Metoprolol 12.5 mg PO given per PA order. Patient with increasing SOB with use of accessory muscles. O2 2L - Increased to 4L. SaO2 95%. Xopenex 1.25 mg Inhalant solution INH ordered by PA and administered by
Respiratory Therapist. Patient resting in bed - Dozing intermittently. Patient A+A+Ox3 during periods of care. No c/o chest pain, pressure or discomfort. Heart rate now 90's. Blood pressure 124/77 (90). Assessment as documented.
[2023-12-24] MEDS: TYLENOL PO ×2 (00:32→04:03)
[2023-12-24 04:50] LABS: Hematocrit 28.8 % (37.0-47.0); Mean Corp Hgb Conc. 34.7 g/dL (33.0-37.0); Mean Corpuscular Hgb 32.8 pg (27.0-31.0); Mean Corpuscular Volume 94.4 fL (81.0-99.0); Platelet Count 216 10^3/uL (130-400); Red Blood Cell Count 3.05 10^6/uL (4.20-5.40); White Blood Cell Count 17.5 10^3/uL (4.8-10.8)
[2023-12-24 04:56] LABS: Blood Urea Nitrogen 9 mg/dl (7-17); Calcium 8.7 mg/dl (8.4-10.2); Carbon Dioxide 28 mmol/L (22-30); Chloride 100 mmol/L (98-107); Estimated Creatinine Clearance 97 ml/min; Glucose 109 mg/dl (70-99); Magnesium 2.1 mg/dl (1.6-2.3); Potassium 4.5 mmol/L (3.5-5.1); Sodium 134 mmol/L (135-145); eGFR > 60.00
--- NOTE | 2023-12-24 05:11 | W.PN.CT ---
Today's Communication / Plan
-
-No major issues overnight. Hemodynamically and neurologically intact
-BP has improved, Midodrine has been weaned off
-Noted to be in respiratory distress and using accessory muscles to assist with breathing last night. Responded to increased O2, use of IS (max 500 mL) and Xopenex nebulizer
-CxR this AM shows left basilar opacification concerning for atelectasis vs pleural effusion on my review, may need assessment by IR for possible left thoracentesis. F/U official report
-Will likely benefit from diuresis today, was limited by hypotension yesterday
-Noted to be tachycardic with PVC while in respiratory distress. Responded to Amiodarone bolus, resumption of low dose Lopressor, and repletion of k+
-Cont. ASA/Plavix. Minimize narcotics/sedatives to facilitate mobility
-PT/OT following
-OOB into chair/Ambulate
-D/C cordis
-Maintain temporary PW (will cut before d/c)
-Encourage use of IS (current max 500 mL), cont. Xopenex nebulizer
-Wean off of O2 as tolerated
Assessment / Plan
-
- mv-CAD - s/p cabg x 4 (rust- diag/lad, svg - om, svg - rca); revh; laal clip #[address] Rivas on 12/21/23, pod #3
- eve with preserved EF, no new wma at conclusion; marleen without clot - complete occlusion without flow
- Acute hypoxic respiratory failure on admission 12/10/23
- Intubated in the field 12/10/23 and extubated 12/11/23
- Sudden onset cardiorespiratory arrest with vent dependent respiratory failure with Epi x 3 and CPR in the field 12/10/23
- Elevated Troponin, likely a NSTEMI
- MV CAD with high-grade diagonal, mid LAD, and chronic total occlusion of the RCA and mid circumflex/OM 2 by cath 12/14/23
- Abnormal EKG now with inverted T waves and increased QT interval (QT interval prolongation appears to be present on admission also)
- h/o Long QT on ECG since at least 2012
- Hypotension requiring pressor support
- Leukocytosis
- COPD
- Abnormal AP chest x-ray
- Possible pneumonia
- Elevated white blood count with increased lymphocytes and immature granulocytes
- Hypertension
- Hyperlipidemia
- Tobacco use disorder
- Morbid obesity
- PVCs
Cardiac cath 12/14/2023: LM:NL. LAD:mid 99% stenosis and 70% beyond that. D1 70% mid. LCX:mid 50%. OM2 100% occluded with the distal vessel filling via left to left collaterals. RCA: 100% occluded just beyond RV marginal branch w/ well-developed
collaterals and a right to right and [id number] fashion.
Lexiscan nuclear stress test 10/27/2021�negative for ischemia ejection fraction 44% (PVCs)
Echocardiogram 09/24/2021�LVEF 60%.� Mild LVH.� Normal right ventricle. Borderline aortic stenosis, peak/mean gradient 22/13 mmHg, mild eccentric AI. Normal right heart with normal pulmonary artery pressure, 20 mmHg
Echocardiogram 12/10/2023:�Normal left ventricular size and function. Normal regional wall motion.� Mild LVH.� EF 55 to 60%.� Normal RV size and function.� Trace MR.� Mild peak/mean gradient 20/12 mmHg.� Mild AI. Mild TR. Estimated pulmonary
artery pressure of 40-45 mmHg assuming a right atrial pressure of 3 mmHg.
- Acute postop blood loss anemia - no acute bleed
- Acute postop atelectasis/pleural effusion
- Acute postop hypovolemia with subsequent hypervolemia
- Acute postop hyponatremia, 134
- Acute postop pulmonary insufficiency
Discussed patient care with: Cardiology, Nursing, Respiratory Therapy, Pharmacy and Care Team
Subjective
Procedure
- s/p cabg x 4 (rust- diag/lad, svg - om, svg - rca); revh; laal clip #[address] Highbloom on 12/21/23
-
Date of Service: December 24, 2023
Pt c/o SOB last night, better this AM. Encourage IS usage and administered nebulizer tx with Xopenex
Objective Data
-
Lab Results
12/24/23 04:14
12/24/23 04:14
PT 18.0 Sec (11.4-14.6) H 12/21/23 14:37
INR 1.47 12/21/23 14:37
APTT 25.1 Sec (23.4-35.0) 12/21/23 14:37
Vital Signs
Vital Signs
Temp Pulse Resp BP Pulse Ox
98.6 F 85 20 129/78 95
12/23/23 22:15 12/24/23 04:00 12/24/23 00:15 12/24/23 04:00 12/24/23 04:00
CT Intake/Output/Weight
12/23/23 12/23/23 12/24/23
06:59 18:59 06:59
Intake Total 600 / 2222.7 20 / 700 680 / 700
Output Total 460 / 685 400 / 400
Balance 140 / 1537.7 20 / 300 280 / 300
SaO2: 95 (4L)
Physical Exam
-
General: Awake, Oriented and AOx3
Cardiovascular: Regular rate & rhythm, No Murmurs, No Rub and No Gallop
Respiratory: Decreased Breath Sounds (at bases)
Incision: Clean, Dry, Intact and Dressing Intact
Extremities: Edema +1
Data Reviewed
-
Lab Results: Results Reviewed
Medications: Active Meds Reviewed
Chest X-Ray: Report Reviewed and Image Reviewed
ECG: Report Reviewed and Image Reviewed
--- NOTE | 2023-12-24 05:15 | PTCARENOTE ---
Patient A+A+Ox3. No neurological deficits noted. AM lab work collected and sent. EKG completed. Patient given CHG bath and shampoo cap to wash hair. Linens changed. Patient's Depends pullup saturated. Chest tube dressing changed. Patient
assisted OOB with assist x2. Standing scale weight 91.9 kg. OOB in chair. Portable CXR pending. Assessment/Interventions as documented.
[2023-12-24] MEDS: SYNTHROID 125 MCG PO (05:43)
[2023-12-24] MEDS: XOPENEX 1.25 MG INHALANT SOLUTION INH ×3 (07:33→20:59)
[2023-12-24] MEDS: PULMICORT INH (07:33)
[2023-12-24] MEDS: MUCINEX 600 MG PO (08:12)
[2023-12-24] MEDS: TRICOR 145 MG PO (08:13)
[2023-12-24] MEDS: FLEXERIL 10 MG PO (08:13)
[2023-12-24] MEDS: XANAX 1 MG PO (08:13)
[2023-12-24] MEDS: PROTONIX 40 MG PO (08:14)
[2023-12-24] MEDS: PACERONE 200 MG PO ×2 (08:14→20:49)
[2023-12-24] MEDS: LOW STRENGTH ASPIRIN 81 MG PO (08:14)
[2023-12-24] MEDS: PROZAC 60 MG PO (08:14)
[2023-12-24] MEDS: THERAGRAN 1 TABLET PO (08:14)
[2023-12-24] MEDS: SENOKOT-S 1 TABLET PO ×2 (08:14→20:55)
[2023-12-24] MEDS: PLAVIX 75 MG PO (08:14)
[2023-12-24] MEDS: CLARITIN 10 MG PO (08:14)
[2023-12-24] MEDS: NICODERM TRANSDERMAL 21 MG TRANSDERM (08:15)
[2023-12-24] MEDS: LIDOCAINE 4% PATCH 1 PATCH TOPICAL (08:16)
[2023-12-24] MEDS: LOPRESSOR 12.5 MG PO ×2 (08:20→14:06)
[2023-12-24] MEDS: BACTROBAN 2% OINTMENT 1 APPLIC NASAL ×2 (08:20→20:48)
[2023-12-24] MEDS: MAGNESIUM OXIDE 500 MG PO ×2 (08:20→20:48)
[2023-12-24] MEDS: LASIX 40 MG IV ×2 (09:08→18:51)
--- NOTE | 2023-12-24 09:30 | PTCARENOTE ---
Patient care assumed from nightshift RN. Patient OOB in chair, denies pain. Fully alert and oriented. Afebrile, temp 97.8 F. NSR, rate 93. BP 108/83. Pulses palpable bilaterally in upper and lower extremities. Trace lower extremity edema,
non-pitting. AV wires insulated. On 4LNC, lungs coarse and diminished throughout, pt dyspnic on exertion, O2 sats remain 95%. I.S and ambulation strongly encouraged. Pt OOB to bedside commode for voiding. 40mg IV Lasix given, voiding without
complication, 650cc at this point. Bowel sounds present. Passing flatus. Surgical incision sites open to air (R knee, R groin, sternum) with no drainage present. Chest tube dressing clean dry intact. RIJ Cordis present and infusing.
[2023-12-24] MEDS: NSS 500 IV (11:29)
--- NOTE | 2023-12-24 13:30 | PTCARENOTE ---
Patient frequently using bedside commode to void with assistance of RN. Pt went into Afib w RVR, amiodarone bolus given as well as lopressor IV 5mg and Lopressor PO 12.5mg. Pt on 4LNC with scattered expiratory wheezes throughout, respiratory staff
providing treatments per scheduled doses.
[2023-12-24] MEDS: LOPRESSOR 5 MG IV (14:07)
[2023-12-24] MEDS: CORDARONE 103 MG IV (14:13)
--- NOTE | 2023-12-24 17:33 | W.PN.INTV ---
Today's Communication / Plan
Recommendations
Start aggressive diuresis
Place onto BiPAP
Low threshold to intubate
Titrate supplemental O2 dose to keep SpO2 >90-94%
Xopenex; as long as she is not having dry mouth, would add Atrovent to xopenex administration for enhanced bronchodilation
Goal BG 140�180
Keep bed rest until respiratory status improves
Pain control
Once/if pt discharged, consider outpatient event monitor/loop recorder considering this is her second episode of her passing out during exertional activity (sex)
Assessment
-
Assessment: 68-year-old female former tobacco smoker with a past medical history of prolonged QTc, reported history of COPD and asthma, depression/anxiety and GERD who presented with episode of unresponsiveness during sexual intercourse with her
. EMS called and en route to the hospital patient reportedly lost pulse. Patient was given 3 rounds of epi, and was intubated in the field and brought to the ER. According to the ER who spoke to EMS, it was unclear if she actually lost a
pulse or if her heart rate chills dropped and she had a pause. She was hypotensive in the ER to 79/58, and was saturating 95% on the ventilator via 100% FiO2. Not on home O2. End-tidal CO2 was 36. She was afebrile to 98.3 �F. CXR showed
suspected airspace disease in the left and right upper lobes. Blood gas showed pH 7.09 with hypercapnia with pCO2 53. Lactate was initially 13.8. Initial troponin 0.053 with slightly elevated proBNP of 324. WBC elevated at 25.6. COVID antigen
negative. 500 cc bolus was given with 0.9% NS, she was given Ativan, started on propofol and also needed to be paralyzed with vecuronium 10mg IVP x1. Patient then transferred to the ICU for further care. She was extubated on 12/11/2023.
Subsequent workup via left heart catheterization revealed multivessel disease. She now underwent CABG and was transferred to CVICU postoperatively for further care. Layout Operator/pulmonary services are continuing to follow for additional
management/recommendations.
Chronic conditions [employer] MANAGER: Asthma, GERD, HTN, Hypercholesterolemia, Hypothyroidism, anxiety, depression, diverticulitis, multiple abdominal hernias, degenerative joint disease, fibromyalgia
Impression:
Status post out of hospital cardiac arrest on admission-status post CPR
Intubated in the field 12/10/23 and extubated 12/11/23 with suspected aspiration pneumonia
Diagnosed with multivessel coronary artery disease on catheterization 12/14/2023 s/p CABG x4 (POD#3)
Acute respiratory failure with hypoxemia due to volume overload with acute pulmonary/interstitial edema
-
History of asthma-
Spirometry: Mild to moderate� restriction lung disease with bronchodilator response.� FEV1 1.2 L or 58% of predicted FVC 1.64 L or 60% of predicted, ratio 73%.� Likely due to body habitus.
On symbicort in the outpx setting.
CT chest:12/14/2023 reviewed, showed enlargement of main pulmonary artery suggesting pulmonary hypertension.� There is coronary calcifications.� Minimal left pleural effusion.� Patchy area of fibrin was opacities in both lungs with peripheral
thickening of interlobular septa consistent with pulmonary edema.
-
Restrictive lung disease
Smoker-40+ pack year history.� Quit prior to coming to the hospital quarter pack per day.
History of prolonged QTc
Depression/anxiety
GERD
Morbid obesity
Plan:
Aggressively diurese
Start BiPAP 09/26 until respiratory status improves
She is not wheezing hence will hold off on steroids
Wean supplemental O2 flow rate to maintain SpO2 >90-94% FiO2
Encourage incentive spirometry
Increase activity
Aspiration precautions
Her CT chest from 12/14/2023 showed evidence of acute pulmonary edema --> she is also net (+) 11L. Continue diuresis as above and trend I/O
She has been on Abx since 12/10 --> procal downtrending. Abx stopped on 12/22/2023
Pulmonary artery catheter and arterial line removed
Pressors have been weaned
Removal of R-IJ cordis as per CT surgery
Follow hemoglobin
Continue to follow platelet count and coags
Transfuse blood product as needed
Follow blood sugar with goal BG 140-180mg/dL
Insulin supplementation continues as needed
Early nutrition
Early mobilization
DVT prophylaxis
Pulmonary service will continue to follow along. If respiraotry status deteriorates despite efforts above then she has high chance of being intubated.
Reviewed the patient's pertinent medical records including radiographs, microbiology, laboratory evaluations, and discussion with primary team, and critical care nursing.
Data:
CT Head 12-10-2023:
1. � There is no acute intracranial process.
2. � MRI would be more sensitive in this regard if symptoms persist.
3. � Moderate diffuse volume loss.
CXR 12-09-2023:
1. The endotracheal tube could be retracted slightly although evaluation is somewhat limited.
2. There is airspace disease in both upper lobes. Pneumonia versus atelectasis
CXR 12-21-2023:
1. Mild pulmonary vascular congestion.
2. Haziness of left hemidiaphragm, which may represent left lower lobe subsegmental atelectasis and/or small left pleural effusion.
CXR 12-22-2023:
Improved vascular congestion. Questionable left basilar opacity suggesting atelectasis and/or small effusion.
CXR 12-24-2023: Left basilar opacity is unchanged and remains most compatible with a combination of pleural fluid and atelectasis.
TTE - 12/10/2023:
Normal left ventricular chamber size. Normal left ventricular systolic
�function. Normal regional wall motion. Mild concentric left ventricular
�hypertrophy. Left ventricular ejection fraction is 55-60% by Villeda's method
�of discs. Diastolic function indeterminate.
�Normal right ventricular size and function.
�Mitral valve opens normally. Trace mitral regurgitation.
�Thickened aortic valve with restricted leaflet motion. Mild aortic stenosis.
�Peak/mean gradients across the aortic valve are 20/12 mmHg respectively. Mild
�aortic regurgitation.
�Tricuspid valve opens normally. Mild tricuspid regurgitation. Estimated
�pulmonary artery pressure of 40-45 mmHg assuming a right atrial pressure of 3
�mmHg.
Subjective Dataa
Subjective Data
Date of Service:
Date of Service: December 24, 2023
Chief Complaint: Layout Operator Follow Up and Pulmonary Follow Up
Subjective:
Patient seen and evaluated today at bedside. Remains on supplemental oxygen at 2 L/min, saturating 96%. She appears like she is working hard to breathe. Conversational dyspnea. Last 24 hours she is net +320 cc. Given Lasix early this morning
with good urinary response.
Review of Systems
General: Other (Negative unless mentioned above)
Objective Data
Data Reviewed
Vital Signs / I&O / Oxygen:
Vital Signs
Temp Pulse Resp BP Pulse Ox
98.7 F 72 22 100/76 96
12/24/23 16:29 12/24/23 17:00 12/24/23 16:29 12/24/23 16:36 12/24/23 17:00
Intake and Output
12/23/23 12/24/23 12/25/23
06:59 06:59 06:59
Intake Total 2222.7 / 2222.7 720 / 720 40 / 40
Output Total 685 / 685 400 / 400 1250 / 1250
Balance 1537.7 / 1537.7 320 / 320 -1210 / -1210
SaO2 [CPAP] 94
SaO2 [SIMV] 93
SaO2 [A/C] 98
SaO2 96
Nasal Cannula flow liters per 2
minute
Physical Exam
General: Respiratory Distress (positive) and Pain (Postoperative related pain at her chest)
HEENT: Normocephalic and Anicteric
Cardiovascular: S1-S2, Murmur (faint systolic murmur), Rub (negative), Peripheral Edema (negative), Calf Tenderness (negative) and Cool Extremities (negative)
Respiratory: Wheeze (Negative), Crackles (bilaterally (L>R)), Rhonchi (n) and Accessory Resp Muscle Use (positive)
GI: Soft, Non Distended and Tender (mild tenderness)
Neurology: Awake and Alert
Skin: Warm, Dry, Cyanosis (n), Jaundice (n), Rash (n) and Bruising (negative)
Labs/Micro/Reports
Lab Data
12/24/23 04:14
12/24/23 04:14
Microbiology
12/21/23 09:00 Urine Urine Culture - Final
Yeast
[2023-12-24] MEDS: CRESTOR 20 MG PO (18:06)
--- NOTE | 2023-12-24 20:04 | PTCARENOTE ---
Patient converted back to NSR, rate 70-100. Placed on Bipap HS. Second dose of 40mg IV lasix given. Resting comfortably in bed.
[2023-12-24] MEDS: LOPRESSOR 25 MG PO (20:48)
[2023-12-24] MEDS: XANAX PO (20:49)
[2023-12-24] MEDS: MUCINEX PO (20:49)
--- NOTE | 2023-12-24 21:00 | PTCARENOTE ---
Patient received resting in bed. Patient's at bedside. Patient sleeping intermittently. Awakens easily. Patient A+A+Ox3. No neurological deficits noted. BiPAP 12/6 8L O2 SaO2 97%. Lungs diminished throughout lung guerra. No
adventitious breath sounds noted. Occasional, nonproductive cough. Xopenex Neb Tx administered by Respiratory Therapist. I.S. 500-750 ml. Chest tube dressing intact. Sinus Rhythm with occasional PAC and PVC. Prolonged QT. Heart rate 70's. AV
Wires insulated. Patient with no c/o chest pain, pressure or discomfort. Abdomen soft, round, obese. Normoactive bowel sounds. No BM. Positive flatus. No c/o nausea. No vomiting. PureWick Female External Urinary Device placed. Lower
extremity, orbital and generalized edema. Positive, palpable pulses. Afebrile. Blood pressure 154/82 (105). Right I.J. Cordis with saline flush 10 ml/hr. Sternal incision with surgical adhesive - Intact. Right groin intact. Right knee
incision intact. Patient with no c/o back or flank pain. Assessment as documented.
[2023-12-25] VITALS (18 sets, daily range): BP systolic 65–126; BP diastolic 40–84; PULSE 2–79; O2SAT 93–94; BMI 38.5
--- NOTE | 2023-12-25 | PTCARENOTE ---
Patient sleeping. Tolerating BiPAP. No further changes from previous assessment.
--- NOTE | 2023-12-25 02:00 | PTCARENOTE ---
Patient assisted to bedside commode with assist x2. PureWick removed - 100 ml urine in canister. Patient voided 650 ml yellow urine. Patient given CHG bath and linens changed. No BM. Patient assisted back to bed. BiPAP 12/6 8L O2. SaO2 98%.
Assessment as documented.
[2023-12-25 04:27] LABS: Hematocrit 25.5 % (37.0-47.0); Hemoglobin 8.7 g/dL (12.0-16.0); Mean Corp Hgb Conc. 34.1 g/dL (33.0-37.0); Mean Corpuscular Volume 93.8 fL (81.0-99.0); Mean Platelet Volume 11.8 fL (7.4-10.4); Platelet Count 235 10^3/uL (130-400); Red Blood Cell Count 2.72 10^6/uL (4.20-5.40); White Blood Cell Count 11.9 10^3/uL (4.8-10.8)
--- NOTE | 2023-12-25 05:00 | PTCARENOTE ---
Patient A+A+Ox3. No neurological deficits noted. Patient assisted OOB to bedside commode. BiPAP off. O2 at 3L via NC. Voided 400 ml light wild urine. No BM. Standing scale weight 92.4 kg. AM lab work collected and sent. EKG completed. OOB
to chair. Assessment/Interventions as documented.
[2023-12-25 05:08] LABS: Blood Urea Nitrogen 12 mg/dl (7-17); Carbon Dioxide 25 mmol/L (22-30); Chloride 105 mmol/L (98-107); Estimated Creatinine Clearance 94 ml/min; Glucose 82 mg/dl (70-99); Magnesium 2.1 mg/dl (1.6-2.3); Potassium 3.4 mmol/L (3.5-5.1); Sodium 136 mmol/L (135-145); eGFR > 60.00
--- NOTE | 2023-12-25 05:56 | W.PN.CT ---
Today's Communication / Plan
-
-No major issues overnight. Hemodynamically and neurologically intact
-BP has improved, Midodrine has been weaned off x 3 days now
-Noted to be in respiratory distress and using respiratory accessory muscles to assist with breathing at times. Needs continue encouragement with IS (max 500 mL). Started on Xopenex nebulizer
-Pulm following and has recommended diuresis and BiPAP HS. Pt currently refusing BiPAP moving forward
-CxR shows left basilar opacification concerning for atelectasis vs pleural effusion, may need assessment by IR for possible left thoracentesis
-F/u 2-view cxr today
-Noted to be tachycardic with PVC while in respiratory distress. Responded to Amiodarone bolus, resumption of low dose Lopressor, and repletion of k+
-Replete K+ again today, 3.4. Started on 20 meq kcl while on 40mg IV BID Lasix
-Hyponatremia has resolved, Na+ 137, was 134 yesterday
-Cont. ASA/Plavix. Minimize narcotics/sedatives to facilitate mobility and avoid compromised respiratory drive
-PT/OT following
-OOB into chair/Ambulate
-D/C cordis
-Maintain temporary PW (will cut before d/c)
-Encourage use of IS (current max 500 mL), cont. Xopenex nebulizer, avoid Duoneb given episodes of tachycardia
-Wean off of O2 as tolerated
Assessment / Plan
-
- mv-CAD - s/p cabg x 4 (rust- diag/lad, svg - om, svg - rca); revh; laal clip #[address] Rivas on 12/21/23, pod #4
- eve with preserved EF, no new wma at conclusion; marleen without clot - complete occlusion without flow
- Acute hypoxic respiratory failure on admission 12/10/23
- Intubated in the field 12/10/23 and extubated 12/11/23
- Sudden onset cardiorespiratory arrest with vent dependent respiratory failure with Epi x 3 and CPR in the field 12/10/23
- Elevated Troponin, likely a NSTEMI
- MV CAD with high-grade diagonal, mid LAD, and chronic total occlusion of the RCA and mid circumflex/OM 2 by cath 12/14/23
- Abnormal EKG now with inverted T waves and increased QT interval (QT interval prolongation appears to be present on admission also)
- h/o Long QT on ECG since at least 2012
- Hypotension requiring pressor support
- Leukocytosis
- COPD
- Abnormal AP chest x-ray
- Possible pneumonia
- Elevated white blood count with increased lymphocytes and immature granulocytes
- Hypertension
- Hyperlipidemia
- Tobacco use disorder
- Morbid obesity
- PVCs
Cardiac cath 12/14/2023: LM:NL. LAD:mid 99% stenosis and 70% beyond that. D1 70% mid. LCX:mid 50%. OM2 100% occluded with the distal vessel filling via left to left collaterals. RCA: 100% occluded just beyond RV marginal branch w/ well-developed
collaterals and a right to right and [id number] fashion.
Lexiscan nuclear stress test 10/27/2021�negative for ischemia ejection fraction 44% (PVCs)
Echocardiogram 09/24/2021VEF 60%.� Mild LVH.� Normal right ventricle. Borderline aortic stenosis, peak/mean gradient 22/13 mmHg, mild eccentric AI. Normal right heart with normal pulmonary artery pressure, 20 mmHg
Echocardiogram 12/10/2023:�Normal left ventricular size and function. Normal regional wall motion.� Mild LVH.� EF 55 to 60%.� Normal RV size and function.� Trace MR.� Mild peak/mean gradient 20/12 mmHg.� Mild AI. Mild TR. Estimated pulmonary
artery pressure of 40-45 mmHg assuming a right atrial pressure of 3 mmHg.
- Acute postop blood loss anemia - no acute bleed
- Acute postop atelectasis/pleural effusion
- Acute postop hypovolemia with subsequent hypervolemia
- Acute postop hyponatremia, 134
- Acute postop hypokalemia
- Acute postop pulmonary insufficiency
Discussed patient care with: Cardiology, Nursing, Respiratory Therapy, Pharmacy and Care Team
Subjective
Procedure
- s/p cabg x 4 (rust- diag/lad, svg - om, svg - rca); revh; laal clip #[address] Rivas on 12/21/23
-
Date of Service: December 25, 2023
Pt c/o incisional pain, tolerated BIPAP overnight but does not want continue to use moving forward
Objective Data
-
Lab Results
12/25/23 04:07
12/25/23 04:07
PT 18.0 Sec (11.4-14.6) H 12/21/23 14:37
INR 1.47 12/21/23 14:37
APTT 25.1 Sec (23.4-35.0) 12/21/23 14:37
Vital Signs
Vital Signs
Temp Pulse Resp BP Pulse Ox
98.8 F 70 18 108/71 90
12/25/23 04:00 12/25/23 04:01 12/25/23 04:00 12/25/23 04:01 12/25/23 04:01
CT Intake/Output/Weight
12/24/23 12/24/23 12/25/23
06:59 18:59 06:59
Intake Total 710 / 730 40 / 620 580 / 620
Output Total 400 / 400 1250 / 2400 1150 / 2400
Balance 310 / 330 -1210 / -1780 -570 / -1780
SaO2: 92 (4L)
Physical Exam
-
General: Awake, Oriented and AOx3
Cardiovascular: Regular rate & rhythm, No Murmurs, No Rub and No Gallop
Respiratory: Decreased Breath Sounds (at bases)
Sternum: Stable
Incision: Clean, Dry, Intact and Dressing Intact
Extremities: Edema +1
Data Reviewed
-
Lab Results: Results Reviewed
Medications: Active Meds Reviewed
Chest X-Ray: Report Reviewed and Image Reviewed
ECG: Report Reviewed and Image Reviewed
[2023-12-25] MEDS: SYNTHROID 125 MCG PO (06:54)
[2023-12-25] MEDS: KCL 40 MEQ PO (06:54)
[2023-12-25] MEDS: LOPRESSOR 12.5 MG PO (06:54)
[2023-12-25] MEDS: XOPENEX 1.25 MG INHALANT SOLUTION INH ×3 (07:51→19:27)
[2023-12-25] MEDS: BACTROBAN 2% OINTMENT 1 APPLIC NASAL (08:57)
[2023-12-25] MEDS: LASIX 40 MG IV ×2 (08:57→16:07)
[2023-12-25] MEDS: LOW STRENGTH ASPIRIN 81 MG PO (08:57)
[2023-12-25] MEDS: THERAGRAN 1 TABLET PO (08:58)
[2023-12-25] MEDS: TRICOR 145 MG PO (08:58)
[2023-12-25] MEDS: PACERONE 200 MG PO ×2 (08:58→20:17)
[2023-12-25] MEDS: PROZAC 60 MG PO (08:58)
[2023-12-25] MEDS: PLAVIX 75 MG PO (08:58)
[2023-12-25] MEDS: KCL 20 MEQ PO ×2 (08:59→20:18)
[2023-12-25] MEDS: NICODERM TRANSDERMAL 21 MG TRANSDERM (09:00)
[2023-12-25] MEDS: MUCINEX PO ×2 (09:00→20:18)
[2023-12-25] MEDS: MAGNESIUM OXIDE PO (09:00)
[2023-12-25] MEDS: LIDOCAINE 4% PATCH TOPICAL (09:00)
[2023-12-25] MEDS: CLARITIN PO (09:00)
--- NOTE | 2023-12-25 09:00 | PTCARENOTE ---
Patient received from shift boss resting oob in chair, AAO x 3. NSR via cm, SaO2 @ 95% on 3lnc. RIJ Cordis w/kvo infusing/ Epicardial pacing wires insulated to chest wall. All procedural sites stable. Patient assisted back to bed for rest, updated
to plan of care for the day, in agreement. See work list for full assessment and interventions performed.
[2023-12-25] MEDS: PROTONIX PO (09:01)
[2023-12-25] MEDS: SENOKOT-S PO ×2 (09:01→20:18)
[2023-12-25] MEDS: XANAX 0.5 MG PO ×2 (09:10→21:28)
--- NOTE | 2023-12-25 11:40 | PTOTSP ---
ST Dysphagia Follow up
Oropharyngeal function appears intact at the bedside
Pt received awake/alert with spouse present at the bedside. Vocal quality improved; remains a little hoarse with adequate volume. She was completing her AM meal of regular solids/thin liquids. Demo functional mastication of regular solids and clear
oral cavity post swallow. Thin liquids by straw sip swallow appears timely. No overt s/sx of aspiration observed
Recommend
1. Regular Solids/Thin liquids
2. Standard aspiration precautions
3. Meds with sips of water
4. [employer] SWITCHBOARD OPERATOR signing off please reconsult as needed
--- NOTE | 2023-12-25 11:42 | PTCARENOTE ---
1042am erroneous blood pressure captured per Aguirre monitor.
--- NOTE | 2023-12-25 11:51 | PTCARENOTE ---
VS obtained, stable. at bedside for visit.
[2023-12-25] MEDS: ProAmatine 5 MG PO (11:53)
[2023-12-25] MEDS: ROXICODONE 5 MG PO (11:53)
--- NOTE | 2023-12-25 13:22 | W.PN.PUL3 ---
Today's Communication / Plan
-
We reviewed measures to improve her hypoxemia, likely related to atelectasis, body habitus, obesity
She has declined to use PAP, improve her IS, ambulate/get OOB
Noncompliance an issue in her postop recovery
Not much can be added in light of her willingness to participate
We will sign off at this time, can call us back if she should clinically deteriorate, reviewed with care team
Assessment
-
68-year-old woman admitted with [id number] cardiac arrest, required intubation and CPR, subsequently underwent ischemic evaluation that demonstrated multivessel coronary artery disease. We were consulted 12/19/2023 for preoperative risk for
eventual coronary artery bypass. s/p CABG 12/21/23, patient then transferred to the ICU for further care.� She was extubated on 12/21/2023.
Status post out of hospital cardiac arrest on admission-status post CPR
Intubated in the field 12/10/23 and extubated 12/11/23 with suspected aspiration pneumonia
Diagnosed with multivessel coronary artery disease on catheterization 12/14/2023 s/p CABG x4 (POD#3)
Acute respiratory failure with hypoxemia due to volume overload with acute pulmonary/interstitial edema
Noncompliance
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
History of asthma
Spirometry: Mild to moderate�restriction--FEV1 1.2 L or 58% of predicted FVC 1.64 L or 60% of predicted, ratio 73%.�
On symbicort in the outpx setting.
Restrictive lung disease likely due to obesity
Smoker-40+ pack year history.� Quit prior to coming to the hospital quarter pack per day.
History of prolonged QTc
Depression/anxiety
GERD
Obesity, BMI 38
Plan
Extubated postop 12/21/23
Aggressively diurese
Start BiPAP 12/5 until respiratory status improves--she has been refusing
She is not wheezing hence will hold off on steroids
Wean supplemental O2 flow rate to maintain SpO2 >90-94% FiO2
Encourage incentive spirometry--she can only do 500mL but does not care to improve this number
Increase activity
Aspiration precautions
Asthma history noted
Spirometry while in the hospital mainly suggest restrictive lung disease. Perhaps small airway disease with mild airflow obstruction.
CT chest 12/14/2023 showed changes consistent with pulmonary edema. No significant emphysema or pulmonary fibrosis.
Continue nebulizer therapy until after surgery: DuoNebs/Pulmicort while in the hospital. Subsequently transition to inhaled corticosteroids.
Hold inhalers for now
Continue antihistamines as the patient is complaining of postnasal drip.
Snoring: Suspect obstructive sleep apnea. Eventual outpatient evaluation.
Avoid sedatives as able
Postoperatively, routine continuous pulse oximetry.
Smoking cessation encouraged, nicotine patch in place.
ECHO reviewed-normal function
proBNP 324 (12/09)
Diagnostic Data
CT chest:12/14/2023 reviewed, showed enlargement of main pulmonary artery suggesting pulmonary hypertension.� There is coronary calcifications.� Minimal left pleural effusion.� Patchy area of fibrin was opacities in both lungs with peripheral
thickening of interlobular septa consistent with pulmonary edema.
CT Head 12-10-2023:
1. � There is no acute intracranial process.
2. � MRI would be more sensitive in this regard if symptoms persist.
3. � Moderate diffuse volume loss.
CXR 12-09-2023: The endotracheal tube could be retracted slightly although evaluation is somewhat limited. There is airspace disease in both upper lobes. Pneumonia versus atelectasis
CXR 12-21-2023: Mild pulmonary vascular congestion. Haziness of left hemidiaphragm, which may represent left lower lobe subsegmental atelectasis and/or small left pleural effusion.
CXR 12-22-2023: Improved vascular congestion. Questionable left basilar opacity suggesting atelectasis and/or small effusion.
CXR 12-24-2023:�Left basilar opacity is unchanged and remains most compatible with a combination of pleural fluid and atelectasis.
TTE - 12/10/2023:�Normal left ventricular chamber size. Normal left ventricular systolic�function. Normal regional wall motion. Mild concentric left ventricular�hypertrophy. Left ventricular ejection fraction is 55-60% by Villeda's method�of discs.
Diastolic function indeterminate.�Normal right ventricular size and function.�Mitral valve opens normally. Trace mitral regurgitation.�Thickened aortic valve with restricted leaflet motion. Mild aortic stenosis.�Peak/mean gradients across the aortic
valve are 20/12 mmHg respectively. Mild�aortic regurgitation.�Tricuspid valve opens normally. Mild tricuspid regurgitation. Estimated�pulmonary artery pressure of 40-45 mmHg assuming a right atrial pressure of 3�mmHg.
Subjective Data
-
Date of Service:
Date of Service: December 25, 2023
Chief Complaint: Pulmonary Follow Up (Asthma preop assessment)
Subjective:
remains on O2
not wearing pap throughout the night
can only do 500mL on her IS
Objective Data
Data Reviewed
Vital Signs / I&O / Oxygen:
Vital Signs
Temp Pulse Resp BP Pulse Ox
98 F 72 16 94/73 93
12/25/23 11:50 12/25/23 11:53 12/25/23 11:50 12/25/23 11:53 12/25/23 11:50
Intake and Output
12/24/23 12/25/23 12/26/23
06:59 06:59 06:59
Intake Total 730 / 730 630 / 630 300 / 300
Output Total 400 / 400 2400 / 2400
Balance 330 / 330 -1770 / -1770 300 / 300
SaO2 [CPAP] 94
SaO2 [SIMV] 93
SaO2 [A/C] 98
SaO2 93
Nasal Cannula flow liters per 2
minute
Physical Exam
General: Respiratory Distress (mild), Comfortable and Other (NAD)
HEENT: Normocephalic and Anicteric
Cardiovascular: S1-S2 and Regular Rhythm
Respiratory: Clear and Non-Labored Respirations
GI: Soft, Non Distended and Non Tender
Neurology: Awake, Alert, Oriented, AO x 3 and No Motor Deficits
Skin: Warm and Dry
Labs/Micro/Reports
Lab Data
12/25/23 04:07
12/25/23 04:07
Microbiology
12/21/23 09:00 Urine Urine Culture - Final
Yeast
[2023-12-25] MEDS: NSS IV (15:47)
--- NOTE | 2023-12-25 16:29 | W.PN.CARDCBS ---
Today's Communication / Plan
-
Recommendations:
-Discontinue Claritin given QT prolonging effects with amiodarone
-There is some interaction with Prozac and amiodarone but less significant
-Continue aspirin and clopidogrel
Impression / Plan
-
PCP: Dr. Burgos
Cardiology: Dr. Stokes
Impression:
Acute hypoxic respiratory failure on admission 12/10/23
Intubated in the field 12/10/23 and extubated 12/11/23
Sudden onset cardiorespiratory arrest with vent dependent respiratory failure with Epi x 3 and CPR in the field 12/10/23
Elevated Troponin, likely a NSTEMI
MV CAD with high-grade diagonal, mid LAD, and chronic total occlusion of the RCA and mid circumflex/OM 2 by cath 12/14/23
Abnormal EKG now with inverted T waves and increased QT interval (QT interval prolongation appears to be present on admission also)
h/o Long QT on ECG since at least 2012
Hypotension requiring pressor support
Leukocytosis
COPD
Abnormal AP chest x-ray
Possible pneumonia
Elevated white blood count with increased lymphocytes and immature granulocytes
Hypertension
Hyperlipidemia
Tobacco use disorder
Morbid obesity
PVCs
Cardiac cath 12/14/2023: LM:NL. LAD:mid 99% stenosis and 70% beyond that. D1 70% mid. LCX:mid 50%. OM2 100% occluded with the distal vessel filling via left to left collaterals. RCA: 100% occluded just beyond RV marginal branch w/ well-developed
collaterals and a right to right and [id number] fashion.
Lexiscan nuclear stress test 10/27/2021�negative for ischemia ejection fraction 44% (PVCs)
Echocardiogram 09/24/2021VEF 60%.� Mild LVH.� Normal right ventricle. Borderline aortic stenosis, peak/mean gradient 22/13 mmHg, mild eccentric AI. Normal right heart with normal pulmonary artery pressure, 20 mmHg
Echocardiogram 12/10/2023:�Normal left ventricular size and function. Normal regional wall motion.� Mild LVH.� EF 55 to 60%.� Normal RV size and function.� Trace MR.� Mild peak/mean gradient 20/12 mmHg.� Mild AI. Mild TR. Estimated pulmonary
artery pressure of 40-45 mmHg assuming a right atrial pressure of 3 mmHg.
Plan:
-s/p CABG x4 ([facility]�diagonal/LAD, SVG�OM, SVG�RCA, left atrial appendage clip 12/21/23
-Hemodynamically stable off pressor on low-dose midodrine as prn medication
-On prophylactic amiodarone, reduced to twice daily : QTc was getting a little long
NOTE there is a Class D interaction between Claritin and amiodarone. Lets discontinue the Claritin
-Continue aspirin and Plavix
-Continue rosuvastatin
HPI: Patient with out of hospital cardiopulmonary arrest in the setting of intercourse with a h/o syncope with intercourse in the past as well. Patient reports now that the last time she had intercourse that she also had syncope and that prior to
that she had not had intercourse for quite some time. Patient has a h/o syncope that sounds like orthostasis as well. Reviewed with patient the concern for cardiopulmonary arrest and talked about an ischemic evaluation with cardiac catheterization.
Reviewed cath procedure and patient is familiar as her and cath and PCI a few years ago, but she says that she is anxious, she cannot breathe and cannot lay flat. Talked about using Versed for sedation and patient felt better, but overall
she does not feel ready for cath 12/12/23. Will check again on 12/13/23.
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
Subjective
Date of Service: December 25, 2023
Slow improvement
Objective
Labs:
12/25/23 04:07
12/25/23 04:07
Labs
Hgb 8.7 g/dL (12.0-16.0) L 12/25/23 04:07
Hct 25.5 % (37.0-47.0) L 12/25/23 04:07
Plt Count 235 10^3/uL (130-400) 12/25/23 04:07
PT 18.0 Sec (11.4-14.6) H 12/21/23 14:37
INR 1.47 12/21/23 14:37
APTT 25.1 Sec (23.4-35.0) 12/21/23 14:37
Sodium 136 mmol/L (135-145) 12/25/23 04:07
Potassium 3.4 mmol/L (3.5-5.1) L 12/25/23 04:07
BUN 12 mg/dl (7-17) 12/25/23 04:07
Creatinine 0.4 mg/dL (0.6-1.0) L 12/25/23 04:07
Glucose 82 mg/dl (70-99) 12/25/23 04:07
Vital Signs and I&O:
Vital Signs
Temp Pulse Resp BP Pulse Ox
97.9 F 74 17 107/53 95
12/25/23 15:40 12/25/23 16:07 12/25/23 15:40 12/25/23 16:07 12/25/23 15:40
Vital Signs
Temp Pulse Resp BP Pulse Ox
97.9 F 74 17 107/53 95
12/25/23 15:40 12/25/23 16:07 12/25/23 15:40 12/25/23 16:07 12/25/23 15:40
Intake & Output
12/22/23 12/23/23 12/24/23 12/25/23
23:59 23:59 23:59 23:59
Intake Total 2152.7 / 2162.7 720 / 730 170 / 180 840 / 840
Output Total 605 / 605 820 / 820 1250 / 1250 1150 / 1150
Balance 1547.7 / 1557.7 -100 / -90 -1080 / -1070 -310 / -310
Physical Exam
Physical Exam
GEN: AAO x 3. No acute distress
HEENT: NC/AT, sclera are anicteric
LUNGS: Clear anteriorly, No wheezing
CV: Regular rate and rhythm. Normal S1/S2. Murmur: None
ABD : Soft, NT, Bowel sounds are present.
EXT: No CCE
NEURO: No focal neurologic deficits
--- NOTE | 2023-12-25 16:40 | CM ---
spoke to pt in room, with Romelia ROSENBAUM present. discussed with pt that Phys Therapy is recommending Rehab after dc. pt states she will not go to rehab, she states she is going home. we discussed benefits of rehab. pt states she has a ramp, stair
glide, and scooter at home. she said her husb will be home but he is going in next week for a knee replacement and the last time he had a knee replaced he only needed one day to recover. i made very clear to the patient that i felt rehab is the best
option for her especially with her husb's surgery. she has no children and her sister cannot help, but has neighbors and a contractor working in the home. pt still refusing to go to rehab. above infor relayed to CT CHET and CT DIE TECHNICIAN.
[2023-12-25] MEDS: CRESTOR 20 MG PO (17:38)
--- NOTE | 2023-12-25 20:00 | PTCARENOTE ---
Received pt from dayshift; pt resting in chair, x2 assist back to bed; pt is AAOx3, pt denies pain; NSR on monitor with prolonged QT interval, VSS; heart sounds distant, radial and DP pulses palpable, trace JESÚS, temp AV wires insulated; lung sounds
diminished, spo2 91% on 1 LNC; +BS x4 quadrants, abdomen soft non tender; pt voiding clear yellow urine, pt wearing adult brief for stress incontinence; surgical sites and dressings maintained; right 22g PIV maintained; call ryan within reach; will
continue to monitor.
[2023-12-25] MEDS: CALCIUM GLUCONATE 130 MG IV (20:16)
[2023-12-25] MEDS: MAGNESIUM OXIDE 500 MG PO (20:19)
[2023-12-26] VITALS (17 sets, daily range): BP systolic 69–139; BP diastolic 41–91; PULSE 2–77; O2SAT 97–99; BMI 37.6
[2023-12-26 03:48] LABS: Ionized Calcium 1.36 mMOL/L (1.15-1.33)
[2023-12-26 03:49] LABS: Hematocrit 28.9 % (37.0-47.0); Mean Corp Hgb Conc. 34.6 g/dL (33.0-37.0); Mean Corpuscular Hgb 32.3 pg (27.0-31.0); Mean Corpuscular Volume 93.2 fL (81.0-99.0); Platelet Count 347 10^3/uL (130-400); Red Cell Dist. Width 15.4 % (11.5-14.5); White Blood Cell Count 12.1 10^3/uL (4.8-10.8)
--- NOTE | 2023-12-26 04:00 | PTCARENOTE ---
Pt assessment unchanged; NSR on monitor with prolonged QT interval, VSS; EKG obtainted, labs drawn and sent; pt was asked multiple times throughout the night if she needed to use rest room, pt declined stating that she did not have to void; pt is
wearing a brief and denies any voiding or leakage; pt was offered new brief but declined; call ryan within reach; will continue to monitor.
[2023-12-26 04:12] LABS: Blood Urea Nitrogen 15 mg/dl (7-17); Calcium 10.2 mg/dl (8.4-10.2); Carbon Dioxide 34 mmol/L (22-30); Chloride 97 mmol/L (98-107); Estimated Creatinine Clearance 94 ml/min; Glucose 116 mg/dl (70-99); Magnesium 2.1 mg/dl (1.6-2.3); Potassium 3.7 mmol/L (3.5-5.1); Sodium 138 mmol/L (135-145); eGFR > 60.00
[2023-12-26] MEDS: KCL 40 MEQ PO (04:57)
--- NOTE | 2023-12-26 05:35 | W.PN.CT ---
Today's Communication / Plan
-
-No major issues overnight. Hemodynamically and neurologically intact
-Pt looking and feeling better
-Breathing has improved. Pulm has signed off. Recommending continuing 40 IV BID. Replete K
-Cont. Xopenex nebulizer therapy
-CXR has improved to my eyes, still with left base opacification concerning for atelectasis/pleural effusion, but looks better. F/U official report
-Encourage use of IS (max 500 mL)
-Minimize narcotics/sedatives
-OOB into chair/Ambulate
-PT/OT following and recommends SNF placement, but pt does not want to go to SNF and refusing
-Maintain temporary PW (will cut before d/c)
-SNF vs Home later today vs tomorrow
Assessment / Plan
-
- mv-CAD - s/p cabg x 4 (rust- diag/lad, svg - om, svg - rca); revh; laal clip #[address] Rivas on 12/21/23, pod #5
- eve with preserved EF, no new wma at conclusion; marleen without clot - complete occlusion without flow
- Acute hypoxic respiratory failure on admission 12/10/23
- Intubated in the field 12/10/23 and extubated 12/11/23
- Sudden onset cardiorespiratory arrest with vent dependent respiratory failure with Epi x 3 and CPR in the field 12/10/23
- Elevated Troponin, likely a NSTEMI
- MV CAD with high-grade diagonal, mid LAD, and chronic total occlusion of the RCA and mid circumflex/OM 2 by cath 12/14/23
- Abnormal EKG now with inverted T waves and increased QT interval (QT interval prolongation appears to be present on admission also)
- h/o Long QT on ECG since at least 2012
- Hypotension requiring pressor support
- Leukocytosis
- COPD
- Abnormal AP chest x-ray
- Possible pneumonia
- Elevated white blood count with increased lymphocytes and immature granulocytes
- Hypertension
- Hyperlipidemia
- Tobacco use disorder
- Morbid obesity
- PVCs
Cardiac cath 12/14/2023: LM:NL. LAD:mid 99% stenosis and 70% beyond that. D1 70% mid. LCX:mid 50%. OM2 100% occluded with the distal vessel filling via left to left collaterals. RCA: 100% occluded just beyond RV marginal branch w/ well-developed
collaterals and a right to right and [id number] fashion.
Lexiscan nuclear stress test 10/27/2021�negative for ischemia ejection fraction 44% (PVCs)
Echocardiogram 09/24/2021VEF 60%.� Mild LVH.� Normal right ventricle. Borderline aortic stenosis, peak/mean gradient 22/13 mmHg, mild eccentric AI. Normal right heart with normal pulmonary artery pressure, 20 mmHg
Echocardiogram 12/10/2023:�Normal left ventricular size and function. Normal regional wall motion.� Mild LVH.� EF 55 to 60%.� Normal RV size and function.� Trace MR.� Mild peak/mean gradient 20/12 mmHg.� Mild AI. Mild TR. Estimated pulmonary
artery pressure of 40-45 mmHg assuming a right atrial pressure of 3 mmHg.
- Acute postop blood loss anemia - no acute bleed
- Acute postop atelectasis/pleural effusion
- Acute postop hypovolemia with subsequent hypervolemia
- Acute postop hyponatremia, 134
- Acute postop hypokalemia
- Acute postop pulmonary insufficiency
Discussed patient care with: Cardiology, Nursing, Respiratory Therapy, Pharmacy and Care Team
Subjective
Procedure
- s/p cabg x 4 (rust- diag/lad, svg - om, svg - rca); revh; laal clip #[address] Rivas on 12/21/23
-
Date of Service: December 26, 2023
Pt c/o mild incisional pain, states shes feeling much better
Objective Data
-
Lab Results
12/26/23 03:37
12/26/23 03:37
PT 18.0 Sec (11.4-14.6) H 12/21/23 14:37
INR 1.47 12/21/23 14:37
APTT 25.1 Sec (23.4-35.0) 12/21/23 14:37
Vital Signs
Vital Signs
Temp Pulse Resp BP Pulse Ox
97.7 F 68 16 117/54 97
12/26/23 04:00 12/26/23 04:03 12/25/23 19:31 12/26/23 04:03 12/26/23 04:03
CT Intake/Output/Weight
12/25/23 12/25/23 12/26/23
06:59 18:59 06:59
Intake Total 590 / 630 300 / 300
Output Total 1150 / 2400
Balance -560 / -1770 300 / 300
SaO2: 97 (2L)
Physical Exam
-
General: Awake, Oriented and AOx3
Cardiovascular: Regular rate & rhythm, No Murmurs, No Rub and No Gallop
Respiratory: Decreased Breath Sounds (at bases)
Sternum: Stable
Incision: Clean, Dry, Intact and Dressing Intact
Extremities: Edema +1
Data Reviewed
-
Lab Results: Results Reviewed
Medications: Active Meds Reviewed
Chest X-Ray: Report Reviewed and Image Reviewed
ECG: Report Reviewed and Image Reviewed
[2023-12-26] MEDS: XOPENEX 1.25 MG INHALANT SOLUTION INH ×3 (07:27→19:17)
[2023-12-26] MEDS: ProAmatine 5 MG PO (08:38)
[2023-12-26] MEDS: PLAVIX 75 MG PO (08:38)
[2023-12-26] MEDS: LOW STRENGTH ASPIRIN 81 MG PO (08:39)
[2023-12-26] MEDS: PACERONE 200 MG PO ×2 (08:39→19:45)
[2023-12-26] MEDS: SYNTHROID 125 MCG PO (08:39)
[2023-12-26] MEDS: PROTONIX PO (08:40)
[2023-12-26] MEDS: NICODERM TRANSDERMAL 21 MG TRANSDERM (08:41)
[2023-12-26] MEDS: KCL PO ×2 (08:41→19:42)
[2023-12-26] MEDS: MUCINEX PO ×2 (08:41→19:42)
[2023-12-26] MEDS: TRICOR 145 MG PO (08:41)
[2023-12-26] MEDS: PROZAC 60 MG PO (08:41)
[2023-12-26] MEDS: MAGNESIUM OXIDE PO ×2 (08:41→19:42)
[2023-12-26] MEDS: LIDOCAINE 4% PATCH TOPICAL (08:42)
[2023-12-26] MEDS: SENOKOT-S PO ×2 (08:42→19:42)
[2023-12-26] MEDS: THERAGRAN PO (08:43)
[2023-12-26] MEDS: LOPRESSOR 12.5 MG PO (09:17)
[2023-12-26] MEDS: LASIX IV (09:17)
--- NOTE | 2023-12-26 09:35 | PTCARENOTE ---
Received pt from [employer] shift supervisor RN at 0700; pt AAOx3 and resting comfortably in chair; NSR with Prolonged QT on monitor and VSS; Epicardial vires insulated; Lungs diminished throughout and IS to 750; educated pt on the proper uses of IS however pt
noncompliant with the proper use; positive bowel sounds; pt voiding clear yellow urine; weak radial and weak lower extremity pulses; trace generalized edema noted; surgical sites C/D/I; see nursing documentation for further details.
[2023-12-26] MEDS: XANAX 0.5 MG PO ×2 (11:46→21:32)
--- NOTE | 2023-12-26 11:53 | PTCARENOTE ---
Pt sent to IR via stretcher.
--- NOTE | 2023-12-26 13:18 | PTCARENOTE ---
Pt returned from IR via stretcher; NSR with Prolonged QT on monitor and VSS; 950mls of bloody drainage from Left thoracentesis per IR RN.
[2023-12-26] MEDS: ROXICODONE 5 MG PO ×2 (13:22→19:44)
--- NOTE | 2023-12-26 13:52 | PTCARENOTE ---
Assessment unchanged; NSR with Prolonged QT and VSS; pt resting in bed.
--- NOTE | 2023-12-26 14:11 | PTCARENOTE ---
Addendum entered by Martha Camarillo RN 12/26/23 15:27:
86% RA at rest.
Original Note:
Pt Room air pulse Ox 86%; placed pt on 2L nasal canal 94% on 2L.
[2023-12-26] MEDS: NSS IV (14:55)
--- NOTE | 2023-12-26 15:00 | W.PN.UPDATE ---
Update Note
Progress Note Update
Pt now with pulse ox 86% on room air at rest.Will require home O2 at discharge.
--- NOTE | 2023-12-26 15:56 | W.PN.CARDCBS ---
Addendum entered and electronically signed by Donny Hendricks MD 12/26/23 16:51:
Patient seen and examined
Agree with DEVAUGHN Amaya's note and assessment
Agree with DEVAUGHN Amaya's plan
Discussed with CT surgery
Examination:
Sternum clean dry and intact
Abdomen soft nontender positive bowel sounds
Cor is regular no rub or murmur
Lungs are diminished left greater than right
She has trace to 1+ extremity RADHA
JVP 6-7
Nonfocal neurologically
Impression:
Acute hypoxic respiratory failure on admission 12/10/23
Intubated in the field 12/10/23 and extubated 12/11/23
Sudden onset cardiorespiratory arrest with vent dependent respiratory failure with Epi x 3 and CPR in the field 12/10/23
Elevated Troponin, likely a NSTEMI
MV CAD
high-grade diagonal, mid LAD, and chronic total occlusion of the RCA and mid circumflex/OM 2 by cath 12/14/23
s/p CABG VALENCIA�diagonal/LAD, SVG�OM, SVG�RCA, left atrial appendage clip 12/21/23Abnormal EKG now with inverted T waves and increased QT interval (QT interval prolongation appears to be present on admission also)
h/o Long QT on ECG since at least 2012
Hypotension requiring pressor support
Leukocytosis
COPD
Abnormal AP chest x-ray
Possible pneumonia
Elevated white blood count with increased lymphocytes and immature granulocytes
Hypertension
Hyperlipidemia
Tobacco use disorder
Morbid obesity
PVCs
Pleural effusion, s/p left sided thoracentesis for 900 ml bloody fluid 12/26/23
Cardiac cath 12/14/2023: LM:NL. LAD:mid 99% stenosis and 70% beyond that. D1 70% mid. LCX:mid 50%. OM2 100% occluded with the distal vessel filling via left to left collaterals. RCA: 100% occluded just beyond RV marginal branch w/ well-developed
collaterals and a right to right and [id number] fashion.
Lexiscan nuclear stress test 10/27/2021�negative for ischemia ejection fraction 44% (PVCs)
Echocardiogram 09/24/2021VEF 60%.� Mild LVH.� Normal right ventricle. Borderline aortic stenosis, peak/mean gradient 22/13 mmHg, mild eccentric AI. Normal right heart with normal pulmonary artery pressure, 20 mmHg
Echocardiogram 12/10/2023:�Normal left ventricular size and function. Normal regional wall motion.� Mild LVH.� EF 55 to 60%.� Normal RV size and function.� Trace MR.� Mild peak/mean gradient 20/12 mmHg.� Mild AI. Mild TR. Estimated pulmonary
artery pressure of 40-45 mmHg assuming a right atrial pressure of 3 mmHg.
Plan:
-Nursing, PT and CM notes reviewed. Patient is at supervision level for sit to stand and ambulating 30 ft with RW and supervision. Overall patient was felt to be more alert 12/26/23 compared to previous PT sessions. Patient was previously recommended
SNF, but declined and wants to go home. Home PT and VN at a minimum.
-Pulse ox dropping with ambulation. CXR with pleural effusion and patient had a left-sided thoracentesis 12/26/23 with 900 ml bloody fluid removed. She will need home oxygen.
-New to aspirin and Plavix this admission.
-Troponin peaked at 0.983. Patient treated as a NSTEMI.
-Currently ordered Lopressor 12.5 mg BID. Patient was taking Toprol XL 25 mg HS prior to admission
-Outpatient dose of lisinopril 40 mg daily has been on hold for hypotension since admission
-Patient being diuresed with Lasix 40 mg IV BID. Patent was taking Lasix 20 mg PO daily prior to admission. Weight as high as 207 lbs post-op, but down to 198 lbs on 12/26/23.
-LDL 50. Outpatient dose of fenofibrate 145 mg daily has been continued. Outpatient dose of Crestor increased to 20 mg daily.
-QTc 545 ms by ECG 12/26/23. Patient with a h/o long QT as far back as 2012. Post-op amiodarone 200 mg BID ordered. Also, patient needs Prozac for depression and reports it is the only med that has worked for her. Claritin stopped due to interaction
with amiodarone.
Original Note:
Today's Communication / Plan
-
Bloody pleural effusion s/p left sided thora today
Will need home oxygen
Probably Lasix 40 mg BID upon discharge to home
Impression / Plan
-
PCP: Dr. Burgos
Cardiology: Dr. Stokes
Impression:
Acute hypoxic respiratory failure on admission 12/10/23
Intubated in the field 12/10/23 and extubated 12/11/23
Sudden onset cardiorespiratory arrest with vent dependent respiratory failure with Epi x 3 and CPR in the field 12/10/23
Elevated Troponin, likely a NSTEMI
MV CAD
high-grade diagonal, mid LAD, and chronic total occlusion of the RCA and mid circumflex/OM 2 by cath 12/14/23
s/p CABG VALENCIA�diagonal/LAD, SVG�OM, SVG�RCA, left atrial appendage clip 12/21/23
Abnormal EKG now with inverted T waves and increased QT interval (QT interval prolongation appears to be present on admission also)
h/o Long QT on ECG since at least 2012
Hypotension requiring pressor support
Leukocytosis
COPD
Abnormal AP chest x-ray
Possible pneumonia
Elevated white blood count with increased lymphocytes and immature granulocytes
Hypertension
Hyperlipidemia
Tobacco use disorder
Morbid obesity
PVCs
Pleural effusion, s/p left sided thoracentesis for 900 ml bloody fluid 12/26/23
Cardiac cath 12/14/2023: LM:NL. LAD:mid 99% stenosis and 70% beyond that. D1 70% mid. LCX:mid 50%. OM2 100% occluded with the distal vessel filling via left to left collaterals. RCA: 100% occluded just beyond RV marginal branch w/ well-developed
collaterals and a right to right and [id number] fashion.
Lexiscan nuclear stress test 10/27/2021�negative for ischemia ejection fraction 44% (PVCs)
Echocardiogram 09/24/2021VEF 60%.� Mild LVH.� Normal right ventricle. Borderline aortic stenosis, peak/mean gradient 22/13 mmHg, mild eccentric AI. Normal right heart with normal pulmonary artery pressure, 20 mmHg
Echocardiogram 12/10/2023:�Normal left ventricular size and function. Normal regional wall motion.� Mild LVH.� EF 55 to 60%.� Normal RV size and function.� Trace MR.� Mild peak/mean gradient 20/12 mmHg.� Mild AI. Mild TR. Estimated pulmonary
artery pressure of 40-45 mmHg assuming a right atrial pressure of 3 mmHg.
Plan:
-Nursing, PT and CM notes reviewed. Patient is at supervision level for sit to stand and ambulating 30 ft with RW and supervision. Overall patient was felt to be more alert 12/26/23 compared to previous PT sessions. Patient was previously recommended
SNF, but declined and wants to go home. Home PT and VN at a minimum.
-Pulse ox dropping with ambulation. CXR with pleural effusion and patient had a left-sided thoracentesis 12/26/23 with 900 ml bloody fluid removed. She will need home oxygen.
-New to aspirin and Plavix this admission.
-Troponin peaked at 0.983. Patient treated as a NSTEMI.
-Currently ordered Lopressor 12.5 mg BID. Patient was taking Toprol XL 25 mg HS prior to admission
-Outpatient dose of lisinopril 40 mg daily has been on hold for hypotension since admission
-Patient being diuresed with Lasix 40 mg IV BID. Patent was taking Lasix 20 mg PO daily prior to admission. Weight as high as 207 lbs post-op, but down to 198 lbs on 12/26/23.
-LDL 50. Outpatient dose of fenofibrate 145 mg daily has been continued. Outpatient dose of Crestor increased to 20 mg daily.
-QTc 545 ms by ECG 12/26/23. Patient with a h/o long QT as far back as 2012. Post-op amiodarone 200 mg BID ordered. Also, patient needs Prozac for depression and reports it is the only med that has worked for her. Claritin stopped due to interaction
with amiodarone.
HPI: Patient with out of hospital cardiopulmonary arrest in the setting of intercourse with a h/o syncope with intercourse in the past as well. Patient reports now that the last time she had intercourse that she also had syncope and that prior to
that she had not had intercourse for quite some time. Patient has a h/o syncope that sounds like orthostasis as well. Reviewed with patient the concern for cardiopulmonary arrest and talked about an ischemic evaluation with cardiac catheterization.
Reviewed cath procedure and patient is familiar as her and cath and PCI a few years ago, but she says that she is anxious, she cannot breathe and cannot lay flat. Talked about using Versed for sedation and patient felt better, but overall
she does not feel ready for cath 12/12/23. Will check again on 12/13/23.
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
Subjective
Date of Service: December 26, 2023
She is excited at the idea of going home tomorrow
Objective
Labs:
12/26/23 03:37
12/26/23 03:37
Labs
Hgb 10.0 g/dL (12.0-16.0) L 12/26/23 03:37
Hct 28.9 % (37.0-47.0) L 12/26/23 03:37
Plt Count 347 10^3/uL (130-400) D 12/26/23 03:37
PT 18.0 Sec (11.4-14.6) H 12/21/23 14:37
INR 1.47 12/21/23 14:37
APTT 25.1 Sec (23.4-35.0) 12/21/23 14:37
Sodium 138 mmol/L (135-145) 12/26/23 03:37
Potassium 3.7 mmol/L (3.5-5.1) 12/26/23 03:37
BUN 15 mg/dl (7-17) 12/26/23 03:37
Creatinine 0.6 mg/dL (0.6-1.0) 12/26/23 03:37
Glucose 116 mg/dl (70-99) H 12/26/23 03:37
Vital Signs and I&O:
Vital Signs
Temp Pulse Resp BP Pulse Ox
98.3 F 72 20 114/91 89
12/26/23 13:16 12/26/23 13:15 12/26/23 13:16 12/26/23 13:15 12/26/23 13:15
Vital Signs
Temp Pulse Resp BP Pulse Ox
98.3 F 72 20 114/91 89
12/26/23 13:16 12/26/23 13:15 12/26/23 13:16 12/26/23 13:15 12/26/23 13:15
Intake & Output
12/24/23 12/25/23 12/26/23 12/27/23
06:59 06:59 06:59 06:59
Intake Total 730 / 730 630 / 630 300 / 300 480 / 480
Output Total 400 / 400 2400 / 2400
Balance 330 / 330 -1770 / -1770 300 / 300 480 / 480
Physical Exam
Physical Exam
GEN: AAO x 3
HEENT:�EOMI
LUNGS: No audible wheeze
CV: Reg
ABD : Soft
EXT: No edema
NEURO: No focal neurologic deficits�
[2023-12-26] MEDS: LASIX 40 MG IV (16:29)
--- NOTE | 2023-12-26 16:56 | PTCARENOTE ---
Assessment unchanged; NSR with Prolonged QT on monitor and VSS; pt resting comfortably in chair.
[2023-12-26] MEDS: CRESTOR 20 MG PO (17:00)
--- NOTE | 2023-12-26 20:00 | PTCARENOTE ---
Received Pt from [facility]; pt resting comfortably in chair; pt AAOx3; NSR on monitor with prolonged QT interval, VSS; heart sounds distant, radial and DP pulses palpable, trace JESÚS, temp epicardial AV wires insulated; lung sounds diminished at b/l
bases and left posterior and anterior side, crackles also noted at bases, CVPA aware, spo2 is 96% on 2 LNC; + BS x 4 quadrants, abdomen soft non tender; pt voiding clear yellow urine, pt wears brief for stress incontinence; surgical sites and
dressings maintained; right PIV maintained; pt ambulated with walker, portable O2, and x1 assist to bathroom; pt assisted back to bed and wall O2 applied; call ryan within reach; will continue to monitor.
[2023-12-26] MEDS: KCL 20 MEQ PO (21:32)
[2023-12-26] MEDS: MAGNESIUM OXIDE 500 MG PO (21:34)
[2023-12-27] VITALS (9 sets, daily range): BP systolic 94–127; BP diastolic 42–94; PULSE 69–82; O2SAT 100; BMI 37.1
--- NOTE | 2023-12-27 | PTCARENOTE ---
Pt assessment unchanged; VSS, NSR on monitor; RT placed pt on BiPAP; pt resting comfortably in bed; call ryan within reach; will continue to monitor.
--- NOTE | 2023-12-27 03:24 | ECGCV ---
Tyron Maynard notified of ECG critical value identified by electronic interpretation on ECG completed on 12/27/23, at 0324.
--- NOTE | 2023-12-27 04:00 | PTCARENOTE ---
Pt assessment unchanged;VSS, NSR on monitor with prolonged QT interval; pt resting comfortably in bed; labs drawn and sent; EKG obtained; call ryan within reach; will continue to monitor.
[2023-12-27 04:19] LABS: Blood Urea Nitrogen 16 mg/dl (7-17); Calcium 9.4 mg/dl (8.4-10.2); Carbon Dioxide 29 mmol/L (22-30); Chloride 100 mmol/L (98-107); Estimated Creatinine Clearance 80 ml/min; Glucose 103 mg/dl (70-99); Magnesium 2.1 mg/dl (1.6-2.3); Potassium 3.9 mmol/L (3.5-5.1); Sodium 136 mmol/L (135-145); eGFR > 60.00
--- NOTE | 2023-12-27 04:59 | W.PN.CT ---
Today's Communication / Plan
-
-No major issues overnight. Hemodynamically and neurologically intact
-Has been non-compliant and refusing meds and care. More cooperative last night and this AM, and has been working diligently with IS (1500 mL max)
-Underwent left thoracentesis with evacuation of 900 mL of hemorrhagic pleural fluid
-Pt looking and feeling better, sats 96% on RA
-Breathing has improved. Pulm has signed off. Recommending continuing 40 IV BID. Replete K
-Cont. Xopenex nebulizer therapy
-CXR has improved to my eyes, still with left base opacification concerning for mild atelectasis/pleural effusion, but looks better. F/U official report
-Encourage use of IS (max 1500 mL)
-Minimize narcotics/sedatives. Reduced Xanax to 0.5 mg BID prn
-OOB into chair/Ambulate
-PT/OT following and recommends SNF placement, but pt does not want to go to SNF and refusing
-Maintain temporary PW (will cut before d/c)
-Home likely today with CT Surgery VN f/u, does not look like she'll require home O2, sats currently 95-96% on RA
Assessment / Plan
-
- mv-CAD - s/p cabg x 4 (rust- diag/lad, svg - om, svg - rca); revh; laal clip #[address] Rivas on 12/21/23, pod #6
- eve with preserved EF, no new wma at conclusion; marleen without clot - complete occlusion without flow
- Acute hypoxic respiratory failure on admission 12/10/23
- Intubated in the field 12/10/23 and extubated 12/11/23
- Sudden onset cardiorespiratory arrest with vent dependent respiratory failure with Epi x 3 and CPR in the field 12/10/23
- Elevated Troponin, likely a NSTEMI
- MV CAD with high-grade diagonal, mid LAD, and chronic total occlusion of the RCA and mid circumflex/OM 2 by cath 2/22/24
- Abnormal EKG now with inverted T waves and increased QT interval (QT interval prolongation appears to be present on admission also)
- h/o Long QT on ECG since at least 2012
- Hypotension requiring pressor support
- Leukocytosis
- COPD
- Abnormal AP chest x-ray
- Possible pneumonia
- Elevated white blood count with increased lymphocytes and immature granulocytes
- Hypertension
- Hyperlipidemia
- Tobacco use disorder
- Morbid obesity
- PVCs
Cardiac cath 12/14/2023: LM:NL. LAD:mid 99% stenosis and 70% beyond that. D1 70% mid. LCX:mid 50%. OM2 100% occluded with the distal vessel filling via left to left collaterals. RCA: 100% occluded just beyond RV marginal branch w/ well-developed
collaterals and a right to right and [id number]-[id number] fashion.
Lexiscan nuclear stress test 10/27/2021�negative for ischemia ejection fraction 44% (PVCs)
Echocardiogram 09/24/2021VEF 60%.� Mild LVH.� Normal right ventricle. Borderline aortic stenosis, peak/mean gradient 22/13 mmHg, mild eccentric AI. Normal right heart with normal pulmonary artery pressure, 20 mmHg
Echocardiogram 12/10/2023:�Normal left ventricular size and function. Normal regional wall motion.� Mild LVH.� EF 55 to 60%.� Normal RV size and function.� Trace MR.� Mild peak/mean gradient 20/12 mmHg.� Mild AI. Mild TR. Estimated pulmonary
artery pressure of 40-45 mmHg assuming a right atrial pressure of 3 mmHg.
- Acute postop blood loss anemia - no acute bleed
- Acute postop atelectasis/pleural effusion S/P Left thoracentesis (900 mL bloody pleural fluid)
- Acute postop hypovolemia with subsequent hypervolemia
- Acute postop hyponatremia, 134
- Acute postop hypokalemia
- Acute postop pulmonary insufficiency
- Acute postop pulmonary edema
Discussed patient care with: Cardiology, Nursing, Respiratory Therapy, Pharmacy and Care Team
Subjective
Procedure
- s/p cabg x 4 (rust- diag/lad, svg - om, svg - rca); revh; laal clip #[address] Rivas on 12/21/23
-
Date of Service: December 27, 2023
Pt c/o mild incisional pain, otherwise feels well. Doing much better overall. Wants to go home instead of rehab
Objective Data
-
Lab Results
12/26/23 03:37
12/27/23 03:32
PT 18.0 Sec (11.4-14.6) H 12/21/23 14:37
INR 1.47 12/21/23 14:37
APTT 25.1 Sec (23.4-35.0) 12/21/23 14:37
Vital Signs
Vital Signs
Temp Pulse Resp BP Pulse Ox
98.1 F 62 20 94/42 95
12/27/23 00:00 12/27/23 00:19 12/26/23 19:17 12/27/23 00:19 12/27/23 00:00
CT Intake/Output/Weight
12/26/23 12/26/23 12/27/23
06:59 18:59 06:59
Intake Total 480 / 480
Balance 480 / 480
SaO2: 96 (RA)
Physical Exam
-
General: Awake, Oriented and AOx3
Cardiovascular: Regular rate & rhythm, No Murmurs, No Rub and No Gallop
Respiratory: Rales (left base) and Decreased Breath Sounds
Sternum: Stable
Incision: Clean, Dry, Intact and Dressing Intact
Extremities: Edema +1
Data Reviewed
-
Lab Results: Results Reviewed
Medications: Active Meds Reviewed
Chest X-Ray: Report Reviewed and Image Reviewed
ECG: Report Reviewed and Image Reviewed
--- NOTE | 2023-12-27 07:23 | PTCARENOTE ---
Patient received from nightshift nurse. Patient is alert and oriented x4, pleasant. Patient c/o 10 sternal incision and post CPR compression pain, administered PRN pain medication as ordered. NSR with prolonged QT. HR 70s-80s. Distant heart tones.
A/V wires insulated. BP 127/66. PIV maintained. 2L NC maintained. Oxygen saturation 98%. Upon auscultation, lung sounds diminished throughout with fine crackles. Abdomen round, obese. Hypoactive BS. Patient had a BM this AM. Sternal incision is
approximated with surgical adhesive. R groin puncture site is approximated with surgical adhesive. R knee incision is approximated with surgical adhesive. Assist x1 with RW OOB into chair. Will continue to monitor.
[2023-12-27] MEDS: XOPENEX 1.25 MG INHALANT SOLUTION INH (07:29)
[2023-12-27] MEDS: SYNTHROID 125 MCG PO (07:29)
[2023-12-27] MEDS: TRICOR 145 MG PO (07:30)
[2023-12-27] MEDS: PROZAC 60 MG PO (07:30)
[2023-12-27] MEDS: NICODERM TRANSDERMAL 21 MG TRANSDERM (07:30)
[2023-12-27] MEDS: PLAVIX 75 MG PO (07:31)
[2023-12-27] MEDS: SENOKOT-S PO (07:31)
[2023-12-27] MEDS: LOW STRENGTH ASPIRIN 81 MG PO (07:31)
[2023-12-27] MEDS: PROTONIX PO ×2 (07:31→08:48)
[2023-12-27] MEDS: TOPROL XL 12.5 MG PO (07:31)
[2023-12-27] MEDS: LIDOCAINE 4% PATCH 1 PATCH TOPICAL (07:31)
[2023-12-27] MEDS: THERAGRAN PO (07:32)
[2023-12-27] MEDS: MUCINEX PO (07:32)
--- NOTE | 2023-12-27 08:42 | PTCARENOTE ---
Patient is refusing some morning medications - IV Lasix, KCl, magnesium oxide, Mucinex, Senokot, Protonix, and Theragran. RN went over the benefits of taking those medications. CV [facility] [employer] BOLTER notified. She came to the bedside to encourage the medications as
well, but patient still refused. Respiratory therapist walked with patient in the hallway for ambulatory pulse ox.
[2023-12-27] MEDS: MAGNESIUM OXIDE PO (08:49)
[2023-12-27] MEDS: ROXICODONE 5 MG PO (08:55)
[2023-12-27] MEDS: LASIX IV (08:57)
[2023-12-27] MEDS: PACERONE 200 MG PO (08:57)
[2023-12-27] MEDS: KCL PO (08:57)
--- NOTE | 2023-12-27 10:06 | W.DCSUMMARY ---
Discharge Summary
Discharge Data
Date of Admission: 12/10/23
Date of Discharge: 12/27/23
-
Pending Results: No
Hospital Course
Primary care physician: Dr. Burgos
Outpatient recovery operator: Dr. Stokes
Inpatient consultants: [facility] Cardiology
Procedures:
1. CABG x 4
2. left pleural thoracentesis
Primary Diagnosis:
1. cardiac arrest due to coronary artery disease with acute hypoxic respiratory failure
Secondary Diagnoses:
1. �Asthma
2. GERD
3. HTN
4. Hypercholesterolemia
5. Hypothyroidism
6. Obesity (BMI 37.1)
7. anxiety
8. depression
9. degenerative joint disease
10. fibromyalgia
11. history of Bowel resection for Diverticulitis
12. history of Cholecystectomy and Tonsillectomy
13. Post-operative pleural effusion
14.history of laminectomy
15. COPD/tobacco abuse
Social History
, lives with .
HPI: Mrs. Caruso is a 68-year-old female admitted 12/10/2023 after cardiac arrest while having intercourse with her .
Hospital course: Patient required CPR, intubation, and pressor support. She was intubated from 12/10-12/21/2023.� Initial troponins were elevated.� She was stabilized medically and underwent echo on 12/10/2023 which reported an left ventricular
ejection fraction 55%.� Normal right ventricular size and function.� Trace mitral regurgitation.� Mild aortic stenosis.� Peak mean gradient across the aortic valve 20/12 mmHg.� Mild aortic regurgitation.� Mild tricuspid regurgitation.�Cardiac
catheterization reported multi vessel coronary disease. Complex medical history necessitated initiation of high-protein diet to assist in healing. Patient ambulated 50 feet prior to surgery and there was anticipatory need for inpatient rehab on
discharge. X 4 with VALENCIA to diagonal and LAD, saphenous vein graft to OM, saphenous vein graft to RCA, left atrial appendage #40 mm clip. Patient returned to the CVICU on Levophed, dobutamine, insulin, and Precedex. Patient required no
intraoperative blood products. Patient was atrially paced at 70 bpm. Patient is extubated at 1730. Aspirin 81 mg was given and patient did require 3 albumins. Postoperative day #1 Plavix was started and the mediastinal chest tubes were
discontinued. Pleural chest tubes were bulbed. Midodrine was started in an effort to wean off Levophed. On postoperative day #2 patient was in normal sinus rhythm with a prolonged QT and amnio was decreased to twice daily per cardiology. Blood
pressure improved and midodrine was stopped. Pleural chest tube was removed. Beta-felicia was resumed in the evening. On postoperative day #3 patient referred for his Pulmicort and Xopenex. Patient developed brief atrial fibrillation with a
rapid ventricle response for 10 minutes patient did convert prior to medication. Beta-felicia was titrated and amnio bolus given x 1. On postoperative day #4 patient was sinus rhythm with PACs. Postoperative day #5 patient underwent a left
thoracentesis for 900 cc of bloody fluid. Patient walked in the renteria with pulse oximetry noting desaturation to 87%. Patient required oxygen on discharge. Patient was evaluated by PT and OT and recommended senior care facility however patient
refused and advocated to go home with her support. O2 was delivered and patient was discharged to home in stable condition.
Home medication changes:
Discharge Plan
-
Patient Disposition: Home (Routine Discharge)
Discharge Diagnosis/Procedures: Status post cardiorespiratory arrest and CABG
Status post intubation and vent management
Chest wall pain from cardiac compressions
Anxiety disorder
Hypothyroidism
Aspiration pneumonitis
Condition: Good
Diet: Regular, Low Cholesterol and Low Sodium
Activity: As tolerated
Driving Restrictions: Not until seen by your Dr
Bathing Restrictions: OK to Shower
Other Services: Cardiac Rehab
Specialty Instructions: Weigh Daily- Call MD for wt gain/loss 3 lbs overnight/5 lbs in 1 week
Referrals:
Home Oxygen, [facility] [Other] ([facility] was formerly called [employer])
CT Transitional Care Nurse [Outside] (The Cardiothoracic Transitional Care Nurse will call you to set up a visit in 1-2 days.)
[facility]. Cardiac Rehab [Outside] - 01/30/24 1:00 pm
(Cardiac Rehab Orientation appointment and� First Exercise appointment is on 01/30/24 at 1 PM.
The Cardiac Rehab gym is located on the first floor of the [facility].)
Elijah Stokes DO [Active] - 02/13/24 9:40 am (appointment at [facility] [address])
Doug Rivas MD [Active] - 01/15/24 10:15 am
UNKNOWN - PT NOT,INTERVIEWE [Unknown Provider] -
Additional Discharge Medication Instructions: rosuvastatin 10mg changed to 20mg post cardiac surgery
stop ibuprofen, Vitamin E while on Plavix as these act as mild blood thinners
hold lisinopril until you are re-evaluated by your recovery operator as your blood pressure in the hospital was low-normal renge
Prescriptions:
New
amiodarone [Pacerone] 200 mg Tablet
200 mg PO BID Qty: 60 1RF
clopidogrel 75 mg Tablet
75 mg PO DAILY Qty: 60 1RF
rosuvastatin 20 mg Tablet
20 mg PO QPM Qty: 30 1RF
acetaminophen 325 mg Tablet
650 mg PO Q4HPRN PRN (Reason: mild pain,headache,temp >101F ) Qty: 0 0RF
pantoprazole 40 mg Tablet,Delayed Release (Dr/Ec)
40 mg PO DAILY Qty: 30 0RF
aspirin [Children's Aspirin] 81 mg Tablet,Chewable
81 mg PO DAILY Qty: 0 0RF
metoprolol succinate 25 mg Tablet Extended Release 24 Hr
12.5 mg PO DAILY Qty: 30 1RF
oxycodone 5 mg Tablet
5 mg PO Q4HPRN PRN (Reason: mild pain) Qty: 20 0RF
Continued
alprazolam [Xanax] 1 MG tablet
1 mg PO TID PRN (Reason: anxiety)
Patient Comments:
Takes 2-3 daily
zolpidem 10 MG tablet
10 mg PO HS
fluoxetine 20 MG capsule
60 mg PO DAILY
omega 5-hug-ymo-fish oil [Fish Oil] 60-90-500 mg Capsule
1 cap PO DAILY
therapeutic multivitamin Tablet
1 tab PO DAILY
furosemide 20 MG tablet
20 mg PO DAILY
cholecalciferol (vitamin D3) 25 mcg (1,000 unit) Tablet
25 mcg PO DAILY
levothyroxine 125 mcg tablet
125 mcg PO DAILY AT 0700
budesonide-formoterol 160-4.5 mcg/actuation HFA aerosol inhaler
2 puff INHALATION BID
Patient Comments:
per spouse pt not taking BID bec doesn't like taste
fenofibrate 160 mg tablet
160 mg PO DAILY
zinc sulfate 50 mg zinc (220 mg) Tablet
50 mg PO Q48H
metoprolol succinate 25 mg tablet extended release 24 hr
25 mg PO HS
Discontinued
lisinopril 40 mg tablet
40 mg PO DAILY
rosuvastatin 10 mg tablet
10 mg PO DAILY
vitamin E mixed 400 unit Capsule
400 unit PO DAILY
ibuprofen 600 MG tablet
600 mg PO Q6
Discharge Orders:
Discharge Patient (As Directed); Ordered 12/27/23
Ordered By: Jocy Hernandez
[2023-12-27] MEDS: NSS IV (10:13)
[2023-12-27] MEDS: XANAX 0.5 MG PO (11:07)
--- NOTE | 2023-12-27 12:12 | PTCARENOTE ---
Discharge order placed. A&V wires cut per order and per protocol with [address] sites left open to air, healing well. alarm security or surveillance monitor discontinued so patient could change into her normal clothes. She refused to shower prior to
leaving - she claims,' I want to shower at home.' Her [place], helped dress her. Accidentally he spilled water on her shoes. Went over discharge instructions, prescriptions, and medication list with patient and her . Answered any
questions they may have had. PIV discontinued for discharge. Awaiting volunteer escort to take patient downstairs to the [facility] lobby via wheelchair.
--- NOTE | 2023-12-27 12:15 | PTCARENOTE ---
Upon giving patient's discharge instructions, she claimed that she 'will not take the Protonix or Tylenol at home.' RN educated patient on the importance of the medications and she just nodded 'yes.' RN focused on smoking cessation, especially since
patient will be going home with oxygen. Her was at bedside, during discharge instructions.
--- NOTE | 2023-12-27 12:48 | PTCARENOTE ---
Addendum entered by Lily Retana RN 12/27/23 12:59:
She states that she 'falls all the time at home. It is no big deal.' medical record clerk, physical therapist, and CV PA witnessed the situation.
Original Note:
Patient had a witnessed lowering to the ground by RN when she was walking to the wheelchair for discharge to the [facility]. She was very embarrassed, saying it was because her shoes were wet - her accidentally spilled water on them as she was
getting dressed. When asked if she were hurt, she denied any pain or discomfort. When asked if she were okay to go home, she said that she 'wants to go home and refuses to stay another day.' PT and CV PA (on the floor) assisted RN in getting patient
up and assisted her to the wheelchair. Her got the car and was waiting for her outside the [facility] lobby. She was excited to leave and got wheeled down to the [facility] lobby by a volunteer escort with her oxygen.
--- NOTE | 2023-12-27 15:50 | CM ---
Pt. DC to home today with home O2 thru [facility] + [facility] RN.
There are no add'l DC needs.
== END 2023-12-27 13:14 | disposition home or self-care (01) | DRG 233 ==
LOC: CVICU 00:57
PROVIDERS: Anesthesiology; Clinical Nurse Specialist Acute Care; Hospitalist; Internal Medicine; Internal Medicine Interventional Cardiology; Nurse Practitioner Family; Nurse Practitioner Primary Care; Physician Assistant Medical; Physician Assistant Surgical; Radiology Vascular & Interventional Radiology; ADMITTING PHYSICIAN Internal Medicine; ATTENDING PHYSICIAN Thoracic Surgery (Cardiothoracic Vascular Surgery); CONSULT PHYSICIAN Internal Medicine Cardiovascular Disease; CONSULT PHYSICIAN Internal Medicine Critical Care Medicine; CONSULT PHYSICIAN Ophthalmology; CONSULT PHYSICIAN Thoracic Surgery (Cardiothoracic Vascular Surgery); EMERGENCY PHYSICIAN Emergency Medicine; FAMILY PHYSICIAN Student in an Organized Health Care Education/Training Program
PROC: 0BH17EZ Insertion of Endotracheal Airway into Trachea, Via Natural or Artificial Opening (ICD-10-PCS; 2023-12-09)
PROC: 5A1945Z Respiratory Ventilation, 24-96 Consecutive Hours (ICD-10-PCS; 2023-12-09)
PROC: 03HY32Z Insertion of Monitoring Device into Upper Artery, Percutaneous Approach (ICD-10-PCS; 2023-12-10)
PROC: 02HV33Z Insertion of Infusion Device into Superior Vena Cava, Percutaneous Approach (ICD-10-PCS; 2023-12-10)
PROC: B2151ZZ Fluoroscopy of Left Heart using Low Osmolar Contrast (ICD-10-PCS; 2023-12-14)
PROC: 4A023N7 Measurement of Cardiac Sampling and Pressure, Left Heart, Percutaneous Approach (ICD-10-PCS; 2023-12-14)
PROC: B2111ZZ Fluoroscopy of Multiple Coronary Arteries using Low Osmolar Contrast (ICD-10-PCS; 2023-12-14)
PROC: 02100Z9 Bypass Coronary Artery, One Artery from Left Internal Mammary, Open Approach (ICD-10-PCS; 2023-12-21)
PROC: 021209W Bypass Coronary Artery, Three Arteries from Aorta with Autologous Venous Tissue, Open Approach (ICD-10-PCS; 2023-12-21)
PROC: B24BZZ4 Ultrasonography of Heart with Aorta, Transesophageal (ICD-10-PCS; 2023-12-21)
PROC: 5A1221Z Performance of Cardiac Output, Continuous (ICD-10-PCS; 2023-12-21)
PROC: 02L70CK Occlusion of Left Atrial Appendage with Extraluminal Device, Open Approach (ICD-10-PCS; 2023-12-21)
PROC: 06BP4ZZ Excision of Right Saphenous Vein, Percutaneous Endoscopic Approach (ICD-10-PCS; 2023-12-21)
PROC: 5A09357 Assistance with Respiratory Ventilation, Less than 24 Consecutive Hours, Continuous Positive Airway Pressure (ICD-10-PCS; 2023-12-24)
PROC: 0W9B3ZZ Drainage of Left Pleural Cavity, Percutaneous Approach (ICD-10-PCS; 2023-12-26)
DX: I21.4 Non-ST elevation (NSTEMI) myocardial infarction (principal); I46.2 Cardiac arrest due to underlying cardiac condition; J96.01 Acute respiratory failure with hypoxia; K72.00 Acute and subacute hepatic failure without coma; J69.0 Pneumonitis due to inhalation of food and vomit; J95.1 Acute pulmonary insufficiency following thoracic surgery; R57.1 Hypovolemic shock; J44.1 Chronic obstructive pulmonary disease with (acute) exacerbation; E87.4 Mixed disorder of acid-base balance; D62 Acute posthemorrhagic anemia; J91.8 Pleural effusion in other conditions classified elsewhere; J98.11 Atelectasis; E87.1 Hypo-osmolality and hyponatremia; I25.119 Atherosclerotic heart disease of native coronary artery with unspecified angina pectoris; K21.9 Gastro-esophageal reflux disease without esophagitis; I10 Essential (primary) hypertension; E87.70 Fluid overload, unspecified; E87.6 Hypokalemia; Y83.2 Surgical operation with anastomosis, bypass or graft as the cause of abnormal reaction of the patient, or of later complication, without mention of misadventure at the time of the procedure; F17.210 Nicotine dependence, cigarettes, uncomplicated; I48.91 Unspecified atrial fibrillation; E78.00 Pure hypercholesterolemia, unspecified; E03.9 Hypothyroidism, unspecified; M79.7 Fibromyalgia; E66.01 Morbid (severe) obesity due to excess calories; I49.3 Ventricular premature depolarization; I08.3 Combined rheumatic disorders of mitral, aortic and tricuspid valves; K44.9 Diaphragmatic hernia without obstruction or gangrene; H04.123 Dry eye syndrome of bilateral lacrimal glands; H53.8 Other visual disturbances; G89.29 Other chronic pain; M54.17 Radiculopathy, lumbosacral region; M43.17 Spondylolisthesis, lumbosacral region; F41.1 Generalized anxiety disorder; F32.A Depression, unspecified; M19.90 Unspecified osteoarthritis, unspecified site; Z11.52 Encounter for screening for COVID-19; Z68.37 Body mass index [BMI] 37.0-37.9, adult; Z79.82 Long term (current) use of aspirin; Z79.899 Other long term (current) drug therapy; Z82.49 Family history of ischemic heart disease and other diseases of the circulatory system
CPT/HCPCS: 32555; 43752; 70450; 71045; 71046; 71250; 80048; 80053; 80061; 81003; 81015; 82248; 82330; 82565; 82805; 82947; 82962; 83036; 83605; 83735; 83880; 84100; 84132; 84145; 84302; 84443; 84478; 84484; 84520; 85014; 85018; 85025; 85027; 85049; 85610; 85730; 86850; 86900; 86901; 86920; 87040; 87045; 87046; 87070; 87086; 87205; 87324; 87427; 87449; 87502; 87811; 87899; 89055; 92526; 92610; 93005; 93306; 93312; 93320; 93325; 93458; 93880; 93970; 94002; 94003; 94060; 94640; 94660; 96365; 96366; 96375; 96376; 97116; 97163; 97167; 97168; 97530; 97535; 99291; C1713; C1894; P9045; Q9967

== ENCOUNTER → 2024-02-19 09:01 | Outpatient (REF) | payer MEDICARE, OTHER, SELFPAY | LOC: CLAB 09:01 | PROVIDERS: ATTENDING PHYSICIAN Thoracic Surgery (Cardiothoracic Vascular Surgery) | DX: Z98.890 Other specified postprocedural states (principal); T81.49XA Infection following a procedure, other surgical site, initial encounter | CPT/HCPCS: 87070; 87205 ==

== ENCOUNTER → 2024-04-30 09:16 | Outpatient (REF) | payer MEDICARE, OTHER, SELFPAY ==
[2024-04-30 12:03] LABS: % Basophils 1.7 % (0-2); % Eosinophils 1.8 % (0-6); % Immature Granulocytes 0.6 % (0-0.5); % Lymphocytes 25.5 % (20.5-51.1); % Monocytes 4.7 % (1.7-9.3); % Neutrophils 65.7 % (42.2-75.2); Absolute Basophils 0.1 10^3/uL (0-0.2); Absolute Eosinophils 0.1 10^3/uL (0-0.7); Absolute Lymphocytes 1.7 10^3/uL (1.2-3.4); Absolute Monocytes 0.3 10^3/uL (0.1-0.6); Absolute Neutrophils 4.4 10^3/uL (1.4-6.5); Hematocrit 45.5 % (37.0-47.0); Hemoglobin 15.3 g/dL (12.0-16.0); Mean Corp Hgb Conc. 33.6 g/dL (33.0-37.0); Mean Corpuscular Hgb 29.8 pg (27.0-31.0); Mean Corpuscular Volume 88.7 fL (81.0-99.0); Mean Platelet Volume 12.3 fL (7.4-10.4); Nucleated Red Blood Cells % 0 %; Platelet Count 230 10^3/uL (130-400); Red Blood Cell Count 5.13 10^6/uL (4.20-5.40); White Blood Cell Count 6.6 10^3/uL (4.8-10.8)
[2024-04-30 12:15] LABS: Urine Albumin Negative (Neg - Trace); Urine Bilirubin Negative (Negative); Urine Character Clear (Clear); Urine Color Yellow; Urine Glucose Negative (Negative); Urine Ketone Negative (Negative); Urine Leukocyte Negative (Negative); Urine Nitrite Negative (Negative); Urine Occult Blood Negative (Negative); Urine Urobilinogen Negative (Neg - 1+); Urine pH 6.5 (5.0-9.0)
[2024-04-30 12:15] LABS: ALT (SGPT) 22 U/L (0-35); AST (SGOT) 27 U/L (14-36); Albumin 4.5 g/dl (3.5-5.0); Alkaline Phosphatase 52 U/L (38-126); Blood Urea Nitrogen 21 mg/dl (7-17); Carbon Dioxide 29 mmol/L (22-30); Chloride 103 mmol/L (98-107); Glucose 88 mg/dl (70-99); HDL Cholesterol 78 mg/dl; Iron 117 ug/dl (37-170); LDL Cholesterol, Calculated 76 mg/dl; Potassium 4.3 mmol/L (3.5-5.1); Sodium 141 mmol/L (135-145); Total Bilirubin 0.5 mg/dl (0.2-1.3); Total Cholesterol 174 mg/dl (50-199); Total Protein 6.8 g/dl (6.3-8.2); Triglyceride 102 mg/dl (10-149); Very Low Density Lipoprotein 20 mg/dl (0-30); eGFR > 60.00
[2024-04-30 12:47] LABS: TSH Reflex To Free T4 3.57 uIU/ml (0.47-4.68)
[2024-04-30 12:48] LABS: Percent Saturation 23 % (20-50); Total Iron Binding Capacity 499 ug/dl (265-497)
[2024-04-30 12:52] LABS: Ferritin 23.6 ng/ml (11.1-264.0)
[2024-04-30 13:06] LABS: Vitamin B12 792 pg/ml (239-931)
== END ==
LOC: HWLAB 09:16
PROVIDERS: ATTENDING PHYSICIAN Physician Assistant; FAMILY PHYSICIAN Student in an Organized Health Care Education/Training Program
DX: E78.5 Hyperlipidemia, unspecified (principal); Z95.1 Presence of aortocoronary bypass graft; E03.9 Hypothyroidism, unspecified; M54.17 Radiculopathy, lumbosacral region; L65.9 Nonscarring hair loss, unspecified; E66.01 Morbid (severe) obesity due to excess calories; R41.3 Other amnesia; I46.9 Cardiac arrest, cause unspecified; E78.2 Mixed hyperlipidemia
CPT/HCPCS: 36415; 80053; 80061; 81003; 82607; 82728; 83540; 83550; 84443; 85025

== ENCOUNTER 2024-06-21 12:16 | Emergency (ER) | payer MEDICARE, OTHER, SELFPAY ==
[2024-06-21 12:22] VITALS: BP 143/65
[2024-06-21 12:53] VITALS: BP 124/104
[2024-06-21 13:00] VITALS: BP 135/67
[2024-06-21 14:47] LABS: % Basophils 0.9 % (0-2); % Eosinophils 1.6 % (0-6); % Immature Granulocytes 0.4 % (0-0.5); % Lymphocytes 27.5 % (20.5-51.1); % Monocytes 4.6 % (1.7-9.3); Absolute Basophils 0.1 10^3/uL (0-0.2); Absolute Eosinophils 0.1 10^3/uL (0-0.7); Absolute Lymphocytes 2.1 10^3/uL (1.2-3.4); Absolute Monocytes 0.4 10^3/uL (0.1-0.6); Absolute Neutrophils 4.9 10^3/uL (1.4-6.5); Hematocrit 42.6 % (37.0-47.0); Mean Corp Hgb Conc. 35.2 g/dL (33.0-37.0); Mean Corpuscular Hgb 32.1 pg (27.0-31.0); Nucleated Red Blood Cells % 0 %; Platelet Count 192 10^3/uL (130-400); Red Blood Cell Count 4.68 10^6/uL (4.20-5.40); White Blood Cell Count 7.5 10^3/uL (4.8-10.8)
--- NOTE | 2024-06-21 14:58 | ED.GENMED ---
History of Present Illness
General
Chief Complaint: Skin Surface Trauma
Source: patient, records, spouse and previous hospital records
Exam Limitations: none
Time Seen by Provider: 06/21/24 13:48
Nursing documentation reviewed up to this point in time: agreed with
History of Present Illness
History of Present Illness:
69-year-old female complex past medical history status post cardiac arrest with ultimate bypass surgery a few months ago had a wound in her upper sternum which healed, today has a small wound on her lower sternum minimal drainage no fever she has
been using Saran wrap like material to keep it covered,
Past History
Past History
ED Past Medical History: Asthma, GERD, HTN, Hypercholesterolemia, Hypothyroidism and Other (Has a history of anxiety, depression, diverticulitis, multiple abdominal hernias, degenerative joint disease, fibromyalgia); Negative IDDM
ED Past Surgical History: Bowel resection (Diverticulitis ), Cardiac, Cholecystectomy and Tonsilectomy
Social History
Tobacco: Smoker
Alcohol: None
Drug: None
Personal:
Living: with family
Employment: Employed
Family History
Family History: Hypertension
Review of Systems
Review of Systems
All Other Systems: Not applicable
Constitutional: Denies fever or fatigue
EENT: Reports no symptoms
Respiratory: Reports no symptoms
Cardiac: Reports no symptoms
ABD/GI: Reports no symptoms
: Reports no symptoms
Skin: Reports other (Pencil-tip sized hole in the lower sternum)
Endocrine: Reports no symptoms
Hematologic/Lymphatic: Reports no symptoms
Phy Exam
Physical Exam
Physical Exam:
Physical Exam
General: Nontoxic well appearing female cooperative
Neck: No jaundice
Heart: Regular, pencil eraser tip size holding the lower sternum minimal erythema and drainage does not appear to tunnel or track
Lungs: no acute respiratory distress. clear bilaterally
Neuro: alert and oriented. no focal neurological deficits
Skin: no rash
Psychiatric: well kept. interactive and cooperative
Extremities: no edema.
Course
Orders/Labs/Results
Orders:
Orders
06/21/24 14:19
CR Chest - 2 Views Urgent
Comment:
Reason For Exam: sternal wound
06/21/24 14:36
Complete Blood Count/With Diff Urgent
Comprehensive Metabolic Panel Urgent
Wound Culture [Wound/Abscess/Other Culture] Urgent
NGOZI Source: Chest
Specimen Description: Unspecified
Date Specimen was Collected: 06/21/24
Time Specimen was Collected: 14:19
Abnormal Lab Results
06/21/24
14:36
MCH 32.1 H pg
(27.0-31.0)
RDW 17.0 H %
(11.5-14.5)
MPV 12.0 H fL
(7.4-10.4)
06/21/24 14:36
Vital Signs
Initial and Last Documented VS:
Initial Vital Signs
Temp Pulse Resp BP Pulse Ox
98.5 F 63 16 143/65 99
06/21/24 12:22 06/21/24 12:22 06/21/24 12:22 06/21/24 12:22 06/21/24 12:22
Last Documented Vital Signs
Temp Pulse Resp BP Pulse Ox
98.5 F 53 15 135/67 96
06/21/24 12:22 06/21/24 13:30 06/21/24 13:30 06/21/24 13:00 06/21/24 13:30
MDM/Problems Addressed
Differential Diagnosis Includes:
Wound infection wound and has since cellulitis pop sternal wire no signs of systemic illness
MDM/Problems Addressed:
Sternal wound
Chronic conditions affecting care:
Multiple chronic conditions
Chronic conditions affecting care: CAD
Acute Exacerbation and/or Progression of Chronic Illness: CAD
*Radiology
Radiology exam reviewed: preliminary read by ED provider
*Pulse Oximetry
Patient hypoxic: no
*Critical Care Note
Total Time (30-74mins, 75-104mins- exclusive of procedures): Not Applicable
Update Note
Update Note:
Update patient is nontoxic she has multiple chronic conditions will touch base with CT surgery the meantime check labs and chest x-ray
ED Attending Note
-
Portions of this chart may have been created with voice recognition software.� Occasional wrong word or��sound alike� substitutions may have occurred due to the inherent limitations of voice recognition software.
Discharge Plan
Departure
Prescriptions:
No Action
alprazolam [Xanax] 1 MG tablet
1 mg PO TID PRN (Reason: anxiety)
Patient Comments:
Takes 2-3 daily
zolpidem 10 MG tablet
10 mg PO HS
fluoxetine 20 MG capsule
60 mg PO DAILY
omega 4-[id number]-yjf-fish oil [Fish Oil] 60-90-500 mg Capsule
1 cap PO DAILY
therapeutic multivitamin Tablet
1 tab PO DAILY
furosemide 20 MG tablet
20 mg PO DAILY
cholecalciferol (vitamin D3) 25 mcg (1,000 unit) Tablet
25 mcg PO DAILY
levothyroxine 125 mcg tablet
125 mcg PO DAILY AT 0700
budesonide-formoterol 160-4.5 mcg/actuation HFA aerosol inhaler
2 puff INHALATION BID
Patient Comments:
per spouse pt not taking BID bec doesn't like taste
fenofibrate 160 mg tablet
160 mg PO DAILY
zinc sulfate 50 mg zinc (220 mg) Tablet
50 mg PO Q48H
metoprolol succinate 25 mg tablet extended release 24 hr
25 mg PO HS
amiodarone [Pacerone] 200 mg Tablet
200 mg PO BID Qty: 60 1RF
clopidogrel 75 mg Tablet
75 mg PO DAILY Qty: 60 1RF
rosuvastatin 20 mg Tablet
20 mg PO QPM Qty: 30 1RF
acetaminophen 325 mg Tablet
650 mg PO Q4HPRN PRN (Reason: mild pain,headache,temp >101F ) Qty: 0 0RF
pantoprazole 40 mg Tablet,Delayed Release (Dr/Ec)
40 mg PO DAILY Qty: 30 0RF
aspirin [Children's Aspirin] 81 mg Tablet,Chewable
81 mg PO DAILY Qty: 0 0RF
oxycodone 5 mg Tablet
5 mg PO Q4HPRN PRN (Reason: mild pain) Qty: 20 0RF
Referrals:
Doug Clark, DO [Family Provider] -
Interventions
Interventions:
*Risk Screen - Suicide Last Done: 06/21/24 12:22
*General Assessment Last Done: 06/21/24 12:22
*Neglect/Abuse Screening Last Done: 06/21/24 12:22
*ED COVID-19 Vaccine History Last Done: 06/21/24 12:22
ED-Skin Assessment Last Done: 06/21/24 13:01
Discharge Date and Time
Print Language: CROATIAN
[2024-06-21 15:04] LABS: ALT (SGPT) 17 U/L (0-35); AST (SGOT) 24 U/L (14-36); Albumin 4.3 g/dl (3.5-5.0); Alkaline Phosphatase 50 U/L (38-126); Blood Urea Nitrogen 19 mg/dl (7-17); Calcium 9.7 mg/dl (8.4-10.2); Carbon Dioxide 28 mmol/L (22-30); Chloride 102 mmol/L (98-107); Glucose 108 mg/dl (70-99); Potassium 3.9 mmol/L (3.5-5.1); Sodium 140 mmol/L (135-145); Total Bilirubin 0.6 mg/dl (0.2-1.3); Total Protein 6.4 g/dl (6.3-8.2); eGFR > 60.00
[2024-06-21] MEDS: KEFLEX 500 MG PO (15:38)
[2024-06-21 15:40] VITALS: BP 143/71
== END 2024-06-21 15:42 | disposition home or self-care (01) ==
LOC: EMR 12:16
PROVIDERS: EMERGENCY PHYSICIAN Emergency Medicine; FAMILY PHYSICIAN Family Medicine
DX: L03.313 Cellulitis of chest wall (principal); T81.49XA Infection following a procedure, other surgical site, initial encounter; X58.XXXA Exposure to other specified factors, initial encounter; J45.909 Unspecified asthma, uncomplicated; K21.9 Gastro-esophageal reflux disease without esophagitis; I10 Essential (primary) hypertension; E78.00 Pure hypercholesterolemia, unspecified; E03.9 Hypothyroidism, unspecified; F41.8 Other specified anxiety disorders; I25.10 Atherosclerotic heart disease of native coronary artery without angina pectoris; M19.90 Unspecified osteoarthritis, unspecified site; M79.7 Fibromyalgia; F17.200 Nicotine dependence, unspecified, uncomplicated; Z82.49 Family history of ischemic heart disease and other diseases of the circulatory system; Z86.74 Personal history of sudden cardiac arrest; Z90.49 Acquired absence of other specified parts of digestive tract
CPT/HCPCS: 99283; 71046; 80053; 85025; 87070; 87205

== ENCOUNTER → 2024-11-27 10:22 | Outpatient (REF) | payer MEDICARE, OTHER, SELFPAY | LOC: HWRCS 10:22 | PROVIDERS: ATTENDING PHYSICIAN Nuclear Medicine Nuclear Cardiology; FAMILY PHYSICIAN Family Medicine | DX: Z95.1 Presence of aortocoronary bypass graft (principal) | CPT/HCPCS: 93306 ==

== ENCOUNTER → 2024-12-02 11:32 | Outpatient (REF) | payer MEDICARE, OTHER, SELFPAY ==
[2024-12-02 15:47] LABS: ALT (SGPT) 19 U/L (0-35); AST (SGOT) 22 U/L (14-36); Albumin 4.7 g/dl (3.5-5.0); Alkaline Phosphatase 46 U/L (38-126); Blood Urea Nitrogen 23 mg/dl (7-17); Calcium 9.8 mg/dl (8.4-10.2); Carbon Dioxide 32 mmol/L (22-30); Chloride 98 mmol/L (98-107); Glucose 77 mg/dl (70-99); HDL Cholesterol 70 mg/dl; LDL Cholesterol, Calculated 65 mg/dl; Potassium 4.3 mmol/L (3.5-5.1); Sodium 138 mmol/L (135-145); Total Bilirubin 0.7 mg/dl (0.2-1.3); Total Cholesterol 154 mg/dl (50-199); Total Protein 6.7 g/dl (6.3-8.2); Triglyceride 99 mg/dl (10-149); Very Low Density Lipoprotein 19 mg/dl (0-30); eGFR > 60.00
[2024-12-03 03:28] LABS: TSH Reflex To Free T4 2.34 uIU/ml (0.47-4.68)
[2024-12-03 08:43] LABS: Glycohemoglobin (HgbA1c) 5.3 % (4.0-5.6)
== END ==
LOC: HWLAB 11:32
PROVIDERS: ATTENDING PHYSICIAN Nuclear Medicine Nuclear Cardiology; FAMILY PHYSICIAN Family Medicine
DX: E03.9 Hypothyroidism, unspecified (principal); E78.2 Mixed hyperlipidemia; Z13.0 Encounter for screening for diseases of the blood and blood-forming organs and certain disorders involving the immune mechanism; Z95.1 Presence of aortocoronary bypass graft; E78.5 Hyperlipidemia, unspecified; J44.1 Chronic obstructive pulmonary disease with (acute) exacerbation
CPT/HCPCS: 36415; 80053; 80061; 83036; 84443